=== PATIENT | male | born 1945 | race Caucasian/White ===

== ENCOUNTER 2018-08-27 17:45 | Inpatient (IN) | payer MEDICARE, OTHER, SELFPAY ==
[2018-08-27 17:47] VITALS: BP 114/60; PULSE 99; RESP 16; TEMP 36.3; O2SAT 99; BMI 25.8
--- NOTE | 2018-08-27 20:33 | US_ITS ---
STUDY: ABDOMINAL ULTRASOUND - RIGHT UPPER QUADRANT REASON FOR VISIT: Male, 73 years old. Abdominal pain and vomiting. TECHNIQUE: Ultrasound evaluation of the right upper quadrant was performed with real-time and static ugarte-scale imaging. TECHNICAL QUALITY: Adequate. COMPARISON: None. FINDINGS: Liver: The liver measures 16.9 cm. There is normal echogenicity of the liver. The bile ducts are within normal limits. There is hepatic color flow. The direction of portal flow is hepatopetal. There is no demonstrated mass lesion. Gallbladder: Normal distended gallbladder. The gallbladder wall measures 2 mm. There is a negative sonographic Terry's sign. There is no pericholecystic fluid. There are no gallstones. Common Bile Duct (C.B.D.): The common bile duct measures 4 mm. Pancreas: There is inadequate visualization of the pancreas. Right Kidney: Normal size of the right kidney. The right kidney measures 9.6 cm. Normal renal cortex. The right cortex measures 1.0 cm. There is no demonstrated renal mass or cyst. There is no right hydronephrosis. US/Gallbladder IMPRESSION: No definite abnormality. Electronically Signed: Luis Flores MD at 21:35 EST , Service support ,
--- NOTE | 2018-08-27 20:37 | ED.DCSUM_ITS ---
- ER Visit Summary Date of Service: 08/27/18 Chief Complaint: Right upper quadrant abdominal pain History of Present Illness: The patient is a 73 M history of reflux and hiatal hernia. For the last 5 weeks she had abdominal pain. Primarily when he eats and primarily the right upper quadrant. He was seen and treated in [place] with a CAT scan which he diagnosed with a hiatal hernia and reflux. He seen a surgeon down there. They are going to get a HIDA scan. Patient states his pain is getting worse. And is lost 28 pounds in the last 5 weeks. He has nausea but no vomiting. No diarrhea. No melena. No fever. Physical Examination: Vital signs are stable and afebrile. He is no acute distress. EENT exam is unremarkable. Neck nontender. Lungs clear to auscultation bilaterally. Heart regular rhythm no murmur. Abdomen soft. Nondistended. Normal bowel sounds. He does have right upper quadrant tenderness. No rebound. He does guard. No hernias. No masses. No signs of obstruction. No pulsatile mass. Patient moving all 4 extremities. Calves nontender. No edema. Neurologically is awake and alert with no focal motor deficits. Back is nontender. Test Results: CBC showed a white count of 5. Hemoglobin of 13. Hemoglobin several weeks ago at another facility was 15. His platelet count is only 34,000 today previously was 212. His BUN is 43 creatinine 1.97 consistent with dehydration and renal insufficiency. Previously his creatinine was 1.5. Liver enzymes are slightly elevated including his alk phos of 614. Lipase is normal. Ultrasound of his gallbladder showed no acute abnormality and was read as normal. I was able to obtain the CAT scan reading from the other facility and that was unremarkable other than a hiatal hernia. Emergency Department Course and Treatment: Treated with IV Zofran. He did not want anything for pain. Ultrasound and labs will be obtained. Repeat exam at 2240 patient is doing better after 2 L of normal saline. He still nauseated despite Zofran x2 and was given a dose of Phenergan. Treatment Plan: Considering the patient's 20 pound weight loss in 5 weeks, his dehydration, renal insufficiency and uncertain cause for the abdominal pain along with his significant thrombocytopenia. I do feel he warrants admission and further evaluation. He may need upper endoscopy. Disposition: Admission. Impression: Acute right upper quadrant abdominal pain of uncertain etiology. Dehydration and renal insufficiency Acute thrombocytopenia 28 pound weight loss of uncertain etiology Intractable nausea This note was generated with [employer] dictation software. It may contain incorrect words, spelling, and punctuation that were not noted in review of the chart prior to signing ED Disposition - Plan for ED Patient: Chief Complaint: Abd Pain
[2018-08-27] MEDS: Ondansetron 4 MG/2 ML Vial IV ×2 (20:44→21:33)
[2018-08-27 20:52] LABS: Hematocrit 39.2 % (40-54); Hemoglobin 13.2 g/dl (13.0-16.5); Mean Corp Hgb Conc 33.7 g/gl (32-36); Mean Corpuscular Hgb 29.1 pg (27.0-32.0); Mean Corpuscular Volume 86.3 fL (80-94); Mean Platelet Vol. 12.5 fl (6.2-12.0); Platelet Count 34 K/mm3 (150-450); RBC Distribution Width CV 13.2 % (11.6-14.6); RBC Distribution Width SD 41.5 fl (35.1-43.9); Red Blood Count 4.54 M/mm3 (4.6-6.2); White Blood Count 5.7 K/mm3 (4.4-11.0)
[2018-08-27 21:04] LABS: AST(SGOT) 30 U/L (15-37); Alanine Aminotransfer ALT/SGPT 29 U/L (16-61); Albumin, Serum 3.3 g/dL (3.2-5.0); Alkaline Phosphatase 614 U/L (45-117); Anion Gap 7 (5-15); BUN 43 mg/dL (7-18); BUN/Creat Ratio 21.8 RATIO (10-20); Bilirubin, Direct 0.34 mg/dL (0.00-0.30); Calcium,Total 9.1 mg/dL (8.5-10.1); Chloride 107 mmol/L (98-107); Creatinine, Serum 1.97 mg/dL (0.70-1.30); EST Glomerular Filtration Rate 35 mL/min (>60); Est Glom Filt Rate - Afr Amer 43 mL/min (>60); Estimated Creatinine Clearance 33.45 ml/min; Globulin 3.8 g/dL (2.2-4.2); Glucose 110 mg/dL (74-106); Lipase 190 U/L (73-393); Potassium 4.4 mmol/L (3.5-5.1); Protein, Total 7.1 g/dL (6.4-8.2); Sodium Level 141 mmol/L (136-145)
[2018-08-27 21:12] LABS: POSITIVE COUNT YES; POSITIVE DIFFERENTIAL NO; POSITIVE MORPHOLOGY YES
[2018-08-27 21:15] LABS: Eosinophil 1 % (0-5); Lymphocyte 43 % (19-41); Monocyte 5 % (0-10); Neutrophil-Band 6 % (0-5); Neutrophil-Segmented 45 % (47-70); Total Cells Counted 100 (MANUAL DIFF)
[2018-08-27 21:16] LABS: Red Cell Morphology NORM C+C NORMAL (NORM C&C)
[2018-08-27 21:17] LABS: Platelet Estimate MKD DEC (ADEQ)
--- NOTE | 2018-08-27 21:19 | ED.RN ---
lab called with critical lab results. plt count 34. Dr. Celeste made aware. no new orders at this time
[2018-08-27 21:24] VITALS: BP 143/78; PULSE 74; RESP 14; O2SAT 97
[2018-08-27 21:34] LABS: Differential Indicated MANUAL DIFF; Scan Smear per Review Criteria MANUAL DIFF
[2018-08-27 21:35] LABS: Absolute Lymphocyte Count 2.45 X10^3/ul (0.83-4.51); Absolute Neutrophil Count 2.9 X10^3/uL (2.0-7.7)
[2018-08-27] MEDS: proMETHazine 25 MG/ML Syringe 6.25 MG IV (23:00)
[2018-08-27 23:05] VITALS: BP 157/67
--- NOTE | 2018-08-27 23:06 | PCM.HP.STD ---
Problem List (1) Weight loss Status: Acute (2) History of bladder cancer Status: Chronic (3) Abdominal pain Status: Acute Qualifiers: Abdominal location: generalized Qualified Code(s): R10.84 - Generalized abdominal pain (4) Nausea Status: Acute (5) Anorexia Status: Acute History of Present Illness Date of Admission: 08/27/18 Chief Complaint: abdominal pain, nausea The patient is a 73 year old male patient with chief complain of abdominal pain with nausea. He was seen and sent home form [facility] today with a negative CT scan done at that time. He has a history of bladder cancer 7 years ago for which he has follow up care annually. He has intractable nausea and occasional vomiting with a 28lb weight loss over the past 2 months. Ultrasound of gallbladder is negative. The patient had some relief from Zofran but continues to be nauseated and dehydrated. Plates are low at 34 with no previous history of thrombocytopenia.He will be admitted for further workup and made NPO for surgical evaluation should colonoscopy and endoscopy be deemed appropriate by product consultant. Past Medical History Past Medical History (Chronic Problems): Chronic Problems History of bladder cancer (Chronic) Allergies No Known Allergies Allergy (Verified 08/27/18 20:00) Home Medications: Ambulatory Orders Medication Instructions Recorded Tamsulosin HCl [Flomax] 0.4 mg PO DAILY 08/27/18 Smoking Status: Former smoker - *Family History Maternal History Items: No pertinent history Review of Systems Constitutional: Reports: Weakness, Weight Change, Fatigue. Denies: Chills, Fever HEENT: Denies: Head Aches, Sinus Congestion, Sinus Drainage Cardiovascular: Denies: Chest Pain, Palpitations Respiratory: Denies: Cough, Shortness of breath at rest, Sputum production Gastrointestinal: Reports: Abdominal Pain, Nausea, Vomiting Genitourinary: Denies: Dysuria Musculoskeletal: Denies: Joint Pain, Joint Tenderness Skin: Denies: Rash, Wounds Neurological: Denies: Numbness, Tingling, Focal weakness Psychiatric: Denies: Anxiety, Depression, Homicidal Ideations, Suicidal Ideations Hematologic/ Lymphatic: Denies: Easy Bruising, Easy Bleeding VTE Information - Inpt Only VTE Present on Admission: No VTE Mechan Device Prophylaxis: SCD's VTE Pharm Prophylaxis ordered?: No Reason prophylaxis not ordered:: Medical Contraindication Patient Problems: Active and Suspected Problems Weight loss (Acute) Abdominal pain (Acute) Nausea (Acute) Anorexia (Acute) - Physical Exam General: Alert, Oriented x3, Cooperative HEENT: Atraumatic, Normocephalic Neck: Supple Lungs: Clear to auscultation, Normal air movement Cardiovascular: Regular rate, Regular Rhythm, Normal S1, Normal S2, No murmurs Abdomen: Bowel Sounds Present, Distended, Tender, No hernias noted Extremities: No edema Skin: No rashes, No breakdown Musculoskeletal: No Tenderness to Palpation of Joints or Extremities Neurological: Neuro grossly intact Psych/Mental Status: Normal Affect, Appropriate Vital Signs Temp Pulse Resp BP Pulse Ox 97.4 F L 74 14 157/67 H 97 08/27/18 17:47 08/27/18 21:24 08/27/18 21:24 08/27/18 23:05 08/27/18 21:24 Oxygen Delivery Method Room Air Weight: 180 lb Body Mass Index (BMI) 25.8 Laboratory Tests Past 24 Hrs 08/27/18 08/27/18 20:40 20:40 WBC 5.7 RBC 4.54 L Hgb 13.2 Hct 39.2 L MCV 86.3 MCH 29.1 MCHC 33.7 RDW 13.2 RDW Differential 41.5 Plt Count 34 L* MPV 12.5 H Immature Gran % (Auto) ART INSTALLER Neut % (Auto) ART INSTALLER Lymph % (Auto) ART INSTALLER [place] % (Auto) ART INSTALLER Eos % (Auto) ART INSTALLER Baso % (Auto) ART INSTALLER Absolute Neuts (auto) 2.9 Absolute Lymphs (auto) 2.45 Total Counted 100 Neutrophils % (Manual) 45 L Band Neutrophils % 6 H Lymphocytes % (Manual) 43 H Monocytes % (Manual) 5 Eosinophils % (Manual) 1 Diff Path Review May foll Platelet Estimate MKD DEC RBC Morphology NORM C+C Sodium 141 Potassium 4.4 Chloride 107 Carbon Dioxide 27.0 Anion Gap 7 BUN 43 H Creatinine 1.97 H Estim Creat Clear Calc 33.45 Est GFR (MDRD) Af Amer 43 L Est GFR (MDRD) Non-Af 35 L BUN/Creatinine Ratio 21.8 H Glucose 110 H Calcium 9.1 Total Bilirubin 1.30 H Direct Bilirubin 0.34 H AST 30 ALT 29 Alkaline Phosphatase 614 H Total Protein 7.1 Albumin 3.3 Globulin 3.8 Lipase 190 Assessment/Plan All Active Problems Weight loss (Acute) Abdominal pain (Acute) Nausea (Acute) Anorexia (Acute) Plan - admit to general medical floor - consult Dr Downing for surgical evaluation (possible EGD and colonoscopy) - will make NPO at midnight - d51/2 normal saline at 100cc/hour - zofran 8mg IV q 8hrs prn - phenergan 12.5mg IV q 6hrs prn - morphine 4mg IV q 3 hrs prn pain - CBC, CMP in am - SCDs for DVT prophylaxis - start IV protonix 40mg BID Code Visit Inpatient E&M: 18079 Init Hosp L3
--- NOTE | 2018-08-27 23:11 | HP.PCM_ITS ---
Problem List (1) Weight loss Status: Acute (2) History of bladder cancer Status: Chronic (3) Abdominal pain Status: Acute Qualifiers: Abdominal location: generalized Qualified Code(s): R10.84 - Generalized abdominal pain (4) Nausea Status: Acute (5) Anorexia Status: Acute History of Present Illness Date of Admission: 08/27/18 Chief Complaint: abdominal pain, nausea The patient is a 73 year old male patient with chief complain of abdominal pain with nausea. He was seen and sent home form [facility] today with a negative CT scan done at that time. He has a history of bladder cancer 7 years ago for which he has follow up care annually. He has intractable nausea and occasional vomiting with a 28lb weight loss over the past 2 months. Ultrasound of gallbladder is negative. The patient had some relief from Zofran but continues to be nauseated and dehydrated. Plates are low at 34 with no previous history of thrombocytopenia.He will be admitted for further workup and made NPO for surgical evaluation should colonoscopy and endoscopy be deemed appropriate by freight traffic consultant. Past Medical History Past Medical History (Chronic Problems): Chronic Problems History of bladder cancer (Chronic) Allergies No Known Allergies Allergy (Verified 08/27/18 20:00) Home Medications: Ambulatory Orders Medication Instructions Recorded Tamsulosin HCl [Flomax] 0.4 mg PO DAILY 08/27/18 Smoking Status: Former smoker - *Family History Maternal History Items: No pertinent history Review of Systems Constitutional: Reports: Weakness, Weight Change, Fatigue. Denies: Chills, Fever HEENT: Denies: Head Aches, Sinus Congestion, Sinus Drainage Cardiovascular: Denies: Chest Pain, Palpitations Respiratory: Denies: Cough, Shortness of breath at rest, Sputum production Gastrointestinal: Reports: Abdominal Pain, Nausea, Vomiting Genitourinary: Denies: Dysuria Musculoskeletal: Denies: Joint Pain, Joint Tenderness Skin: Denies: Rash, Wounds Neurological: Denies: Numbness, Tingling, Focal weakness Psychiatric: Denies: Anxiety, Depression, Homicidal Ideations, Suicidal Ideations Hematologic/ Lymphatic: Denies: Easy Bruising, Easy Bleeding VTE Information - Inpt Only VTE Present on Admission: No VTE Mechan Device Prophylaxis: SCD's VTE Pharm Prophylaxis ordered?: No Reason prophylaxis not ordered:: Medical Contraindication Patient Problems: Active and Suspected Problems Weight loss (Acute) Abdominal pain (Acute) Nausea (Acute) Anorexia (Acute) - Physical Exam General: Alert, Oriented x3, Cooperative HEENT: Atraumatic, Normocephalic Neck: Supple Lungs: Clear to auscultation, Normal air movement Cardiovascular: Regular rate, Regular Rhythm, Normal S1, Normal S2, No murmurs Abdomen: Bowel Sounds Present, Distended, Tender, No hernias noted Extremities: No edema Skin: No rashes, No breakdown Musculoskeletal: No Tenderness to Palpation of Joints or Extremities Neurological: Neuro grossly intact Psych/Mental Status: Normal Affect, Appropriate Vital Signs Temp Pulse Resp BP Pulse Ox 97.4 F L 74 14 157/67 H 97 08/27/18 17:47 08/27/18 21:24 08/27/18 21:24 08/27/18 23:05 08/27/18 21:24 Oxygen Delivery Method Room Air Weight: 180 lb Body Mass Index (BMI) 25.8 Laboratory Tests Past 24 Hrs 08/27/18 08/27/18 20:40 20:40 WBC 5.7 RBC 4.54 L Hgb 13.2 Hct 39.2 L MCV 86.3 MCH 29.1 MCHC 33.7 RDW 13.2 RDW Differential 41.5 Plt Count 34 L* MPV 12.5 H Immature Gran % (Auto) DIGITAL MEDIA ANALYST Neut % (Auto) DIGITAL MEDIA ANALYST Lymph % (Auto) DIGITAL MEDIA ANALYST [place] % (Auto) DIGITAL MEDIA ANALYST Eos % (Auto) DIGITAL MEDIA ANALYST Baso % (Auto) DIGITAL MEDIA ANALYST Absolute Neuts (auto) 2.9 Absolute Lymphs (auto) 2.45 Total Counted 100 Neutrophils % (Manual) 45 L Band Neutrophils % 6 H Lymphocytes % (Manual) 43 H Monocytes % (Manual) 5 Eosinophils % (Manual) 1 Diff Path Review May foll Platelet Estimate MKD DEC RBC Morphology NORM C+C Sodium 141 Potassium 4.4 Chloride 107 Carbon Dioxide 27.0 Anion Gap 7 BUN 43 H Creatinine 1.97 H Estim Creat Clear Calc 33.45 Est GFR (MDRD) Af Amer 43 L Est GFR (MDRD) Non-Af 35 L BUN/Creatinine Ratio 21.8 H Glucose 110 H Calcium 9.1 Total Bilirubin 1.30 H Direct Bilirubin 0.34 H AST 30 ALT 29 Alkaline Phosphatase 614 H Total Protein 7.1 Albumin 3.3 Globulin 3.8 Lipase 190 Assessment/Plan All Active Problems Weight loss (Acute) Abdominal pain (Acute) Nausea (Acute) Anorexia (Acute) Plan - admit to general medical floor - consult Dr Downing for surgical evaluation (possible EGD and colonoscopy) - will make NPO at midnight - d51/2 normal saline at 100cc/hour - zofran 8mg IV q 8hrs prn - phenergan 12.5mg IV q 6hrs prn - morphine 4mg IV q 3 hrs prn pain - CBC, CMP in am - SCDs for DVT prophylaxis - start IV protonix 40mg BID Code Visit Inpatient E&M: 47035 Init Hosp L3
[2018-08-27 23:20] VITALS: BMI 25.6
[2018-08-27 23:23] VITALS: BP 148/82; PULSE 88; RESP 16; TEMP 36.6; O2SAT 100
[2018-08-27 23:42] VITALS: BMI 25.6
[2018-08-27 23:42] LABS: Hematocrit 37.7 % (40-54); Hemoglobin 12.8 g/dl (13.0-16.5); Mean Corpuscular Hgb 29.6 pg (27.0-32.0); Mean Corpuscular Volume 87.1 fL (80-94); Mean Platelet Vol. 12.4 fl (6.2-12.0); RBC Distribution Width SD 40.1 fl (35.1-43.9); Red Blood Count 4.33 M/mm3 (4.6-6.2); White Blood Count 5.7 K/mm3 (4.4-11.0)
[2018-08-27 23:43] LABS: Platelet Count 31 K/mm3 (150-450); Scan Indicated on CBC? Y/N YES- FLAGS NOTED
[2018-08-28 00:04] LABS: Differential Comment SCAN
[2018-08-28] MEDS: Dext 5%-0.45% NS 1,000 ML 100 ML IV ×3 (00:14→19:17)
[2018-08-28 05:02] VITALS: BP 126/58; PULSE 83; RESP 18; TEMP 36.7; O2SAT 94
[2018-08-28 05:30] LABS: ALB/GLOB Ratio 0.9 RATIO (0.9-2.4); AST(SGOT) 27 U/L (15-37); Alanine Aminotransfer ALT/SGPT 26 U/L (16-61); Albumin, Serum 2.9 g/dL (3.2-5.0); Alkaline Phosphatase 518 U/L (45-117); Anion Gap 7 (5-15); BUN 41 mg/dL (7-18); BUN/Creat Ratio 20.9 RATIO (10-20); Calcium,Total 8.8 mg/dL (8.5-10.1); Chloride 108 mmol/L (98-107); Creatinine, Serum 1.96 mg/dL (0.70-1.30); EST Glomerular Filtration Rate 36 mL/min (>60); Est Glom Filt Rate - Afr Amer 43 mL/min (>60); Estimated Creatinine Clearance 33.62 ml/min; Globulin 3.2 g/dL (2.2-4.2); Glucose 115 mg/dL (74-106); Protein, Total 6.1 g/dL (6.4-8.2); Sodium Level 144 mmol/L (136-145)
[2018-08-28 05:31] LABS: Hematocrit 34.4 % (40-54); Hemoglobin 11.7 g/dl (13.0-16.5); Mean Corpuscular Hgb 29.5 pg (27.0-32.0); Mean Corpuscular Volume 86.6 fL (80-94); Mean Platelet Vol. 11.8 fl (6.2-12.0); RBC Distribution Width CV 12.9 % (11.6-14.6); RBC Distribution Width SD 39.9 fl (35.1-43.9); Red Blood Count 3.97 M/mm3 (4.6-6.2); White Blood Count 5.2 K/mm3 (4.4-11.0)
[2018-08-28 05:33] LABS: Differential Indicated MANUAL DIFF; POSITIVE COUNT YES; POSITIVE DIFFERENTIAL NO; POSITIVE MORPHOLOGY YES; Platelet Count 30 K/mm3 (150-450)
[2018-08-28 07:26] LABS: Basophil 1 % (0-1); Eosinophil 3 % (0-5); Lymphocyte 44 % (19-41); Metamyelocyte 2 % (0-1); Monocyte 9 % (0-10); Myelocyte 3 (0-0); Neutrophil-Band 5 % (0-5); Neutrophil-Segmented 33 % (47-70); Total Cells Counted 100 (MANUAL DIFF)
[2018-08-28 07:27] LABS: Platelet Estimate MKD DEC (ADEQ); Red Cell Morphology NORM C+C NORMAL (NORM C&C)
[2018-08-28 07:29] LABS: Absolute Lymphocyte Count 2.29 X10^3/ul (0.83-4.51)
--- NOTE | 2018-08-28 09:18 | PCM.CONS.GEN ---
Reason for Consult Date of Consultation: 08/28/18 History of Present Illness: The patient is a 73 year old M admitted due to nausea/abdominal pain/30 pound weight loss in the last 2 months. Patient states that about 4-5 weeks ago he began having constant nausea and periumbilical tenderness that he rated 7?8/10. Patient states he did not take much p.o. intake only chicken noodle soup and states that p.o. did not change his pain at all. He also states he has lost about 30 pounds in 2 months. Patient did initially see his PCP and did have a CAT scan done 3-4 weeks ago which per the report was normal except for a periumbilical hernia. Patient denies trying any medications to help his nausea or pain. Does have a past medical history of bladder cancer 8-9 years ago where a small area was removed patient did not need any additional therapy or chemotherapy and is only on Flomax. Patient states he had a colonoscopy in 2011 where 4 polyps was removed by Dr. Quesada in [place] and states that he was told to come back in 10 years. Patient denies any heartburn symptoms or any right upper quadrant pain with eating. He did have an ultrasound of his gallbladder which was normal. Pt mom was dx with pancreatic cancer at age 74. Patient's lab did show thrombocytopenia of 30 along with lymphocytosis. Patient denies having abnormal labs in the past. Patient states currently he does not have much abdominal pain may be a 1-2/10 and denies any nausea which is the best it has been in about 5 weeks. Past Medical History Past Medical History (Chronic Problems): Chronic Problems History of bladder cancer (Chronic) Allergies No Known Allergies Allergy (Verified 08/27/18 20:00) Home Medications: Ambulatory Orders Medication Instructions Recorded Aspirin [Aspirin EC] 81 mg PO DAILY 08/28/18 Tamsulosin HCl [Flomax] 0.4 mg PO DAILY 08/28/18 Surgical History: - - Neck cyst excision, teeth extraction Psychiatric History: No pertinent psych hx Smoking Status: Former smoker Tobacco Use: Pipe - *Family History Maternal History Items: Cancer - Pancreatic cancer diagnosed at age 72, No pertinent history Review of Systems Constitutional: Denies: Chills Eyes: Denies: Blurred vision HEENT: Denies: Difficulty Swallowing Cardiovascular: Denies: Chest Pain Respiratory: Denies: Shortness of Breath Gastrointestinal: Reports: Abdominal Pain, Nausea Genitourinary: Denies: Dysuria Musculoskeletal: Denies: Joint Pain Skin: Denies: Rash Neurological: Denies: Balance problems, Confusion Psychiatric: Denies: Anxiety, Depression Hematologic/ Lymphatic: Reports: Easy Bruising Patient Problems: Active and Suspected Problems Weight loss (Acute) Abdominal pain (Acute) Nausea (Acute) Anorexia (Acute) - Physical Exam General: Alert, Oriented x3, Cooperative, No apparent distress HEENT: Atraumatic Neck: Supple Lungs: Normal air movement Cardiovascular: Regular rate Abdomen: Soft, Non Tender, Non-Distended, Passing Flatus, Hernia - Small umbilical hernia less than 1 cm reducible Extremities: No clubbing, No cyanosis, No edema Skin: No rashes Neurological: Cranial nerves II-XII grossly intact Psych/Mental Status: Normal Affect Vital Signs Temp Pulse Resp BP Pulse Ox 98.0 F 83 18 126/58 H 94 08/28/18 05:02 08/28/18 05:02 08/28/18 05:02 08/28/18 05:02 08/28/18 05:02 Oxygen Delivery Method Room Air Weight: 178 lb 9.191 oz Body Mass Index (BMI) 25.6 Intake and Output for Last 24 Hours 08/26/18 08/27/18 08/28/18 23:59 23:59 23:59 Intake Total 535 / 535 Output Total 0 / 0 Balance 535 / 535 Laboratory Tests Past 24 Hrs 08/27/18 08/27/18 08/27/18 20:40 20:40 23:32 WBC 5.7 5.7 RBC 4.54 L 4.33 L Hgb 13.2 12.8 L Hct 39.2 L 37.7 L MCV 86.3 87.1 MCH 29.1 29.6 MCHC 33.7 34.0 RDW 13.2 13.0 RDW Differential 41.5 40.1 Plt Count 34 L* 31 L* MPV 12.5 H 12.4 H Immature Gran % (Auto) DEVULCANIZER OPERATOR Neut % (Auto) DEVULCANIZER OPERATOR Lymph % (Auto) DEVULCANIZER OPERATOR [place] % (Auto) DEVULCANIZER OPERATOR Eos % (Auto) DEVULCANIZER OPERATOR Baso % (Auto) DEVULCANIZER OPERATOR Absolute Neuts (auto) 2.9 Absolute Lymphs (auto) 2.45 Total Counted 100 Neutrophils % (Manual) 45 L Band Neutrophils % 6 H Lymphocytes % (Manual) 43 H Monocytes % (Manual) 5 Eosinophils % (Manual) 1 Basophils % (Manual) Metamyelocytes % Myelocytes % Differential Comment SCAN Diff Path Review May foll May foll Platelet Estimate MKD DEC RBC Morphology NORM C+C Sodium 141 Potassium 4.4 Chloride 107 Carbon Dioxide 27.0 Anion Gap 7 BUN 43 H Creatinine 1.97 H Estim Creat Clear Calc 33.45 Est GFR (MDRD) Af Amer 43 L Est GFR (MDRD) Non-Af 35 L BUN/Creatinine Ratio 21.8 H Glucose 110 H Calcium 9.1 Total Bilirubin 1.30 H Direct Bilirubin 0.34 H AST 30 ALT 29 Alkaline Phosphatase 614 H Total Protein 7.1 Albumin 3.3 Globulin 3.8 Albumin/Globulin Ratio Lipase 190 08/28/18 08/28/18 04:54 04:54 WBC 5.2 RBC 3.97 L Hgb 11.7 L Hct 34.4 L MCV 86.6 MCH 29.5 MCHC 34.0 RDW 12.9 RDW Differential 39.9 Plt Count 30 L* MPV 11.8 Immature Gran % (Auto) Neut % (Auto) Not Reportable Lymph % (Auto) [place] % (Auto) Eos % (Auto) Baso % (Auto) Absolute Neuts (auto) 2.0 Absolute Lymphs (auto) 2.29 Total Counted 100 Neutrophils % (Manual) 33 L Band Neutrophils % 5 Lymphocytes % (Manual) 44 H Monocytes % (Manual) 9 Eosinophils % (Manual) 3 Basophils % (Manual) 1 Metamyelocytes % 2 H Myelocytes % 3 H Differential Comment Diff Path Review May foll Platelet Estimate MKD DEC RBC Morphology NORM C+C Sodium 144 Potassium 4.0 Chloride 108 H Carbon Dioxide 29.0 Anion Gap 7 BUN 41 H Creatinine 1.96 H Estim Creat Clear Calc 33.62 Est GFR (MDRD) Af Amer 43 L Est GFR (MDRD) Non-Af 36 L BUN/Creatinine Ratio 20.9 H Glucose 115 H Calcium 8.8 Total Bilirubin 0.90 Direct Bilirubin AST 27 ALT 26 Alkaline Phosphatase 518 H Total Protein 6.1 L Albumin 2.9 L Globulin 3.2 Albumin/Globulin Ratio 0.9 Lipase Assessment/Plan All Active Problems Weight loss (Acute) Abdominal pain (Acute) Nausea (Acute) Anorexia (Acute) 73-year-old male with nausea/abdominal pain/weight loss, thrombocytopenia, lymphocytosis 1. Patient complains of nausea, as well as periumbilical pain denies any epigastric or right upper quadrant tenderness. Currently states his pain is the best it has been in 5 weeks as it is very minimal and denies any nausea currently. Due to his platelets being 30 I am not sure that an EGD is urgently needed. I would recommend a workup with hematology. If I were to do an EGD with his current platelets I would not plan to do any biopsies due to his risk of bleeding. This was discussed with the patient he is agreeable to wait and see what hematology recommends. Also discussed with Dr. Iverson. We will try to get his colonoscopy report from [address] abdomen pelvis disc, pt may benefit from CT with contrast-however currently Cr is elevated at 1.96. Iza Downing M.D. Pager: [phone] [facility] [address] [place] [address], [facility], [address] [place] [address] Office: [phone] Code Visit Inpatient E&M: 09266 Init Hosp L2
--- NOTE | 2018-08-28 09:23 | CON.PCM_ITS ---
Reason for Consult Date of Consultation: 08/28/18 History of Present Illness: The patient is a 73 year old M admitted due to nausea/abdominal pain/30 pound weight loss in the last 2 months. Patient states that about 4-5 weeks ago he began having constant nausea and periumbilical tenderness that he rated 7?8/10. Patient states he did not take much p.o. intake only chicken noodle soup and states that p.o. did not change his pain at all. He also states he has lost about 30 pounds in 2 months. Patient did initially see his PCP and did have a CAT scan done 3-4 weeks ago which per the report was normal except for a periumbilical hernia. Patient denies trying any medications to help his nausea or pain. Does have a past medical history of bladder cancer 8-9 years ago where a small area was removed patient did not need any additional therapy or chemotherapy and is only on Flomax. Patient states he had a colonoscopy in 2011 where 4 polyps was removed by Dr. Quesada in [place] and states that he was told to come back in 10 years. Patient denies any heartburn symptoms or any right upper quadrant pain with eating. He did have an ultrasound of his gallbladder which was normal. Pt mom was dx with pancreatic cancer at age 74. Patient's lab did show thrombocytopenia of 30 along with lymphocytosis. Patient denies having abnormal labs in the past. Patient states currently he does not have much abdominal pain may be a 1-2/10 and denies any nausea which is the best it has been in about 5 weeks. Past Medical History Past Medical History (Chronic Problems): Chronic Problems History of bladder cancer (Chronic) Allergies No Known Allergies Allergy (Verified 08/27/18 20:00) Home Medications: Ambulatory Orders Medication Instructions Recorded Aspirin [Aspirin EC] 81 mg PO DAILY 08/28/18 Tamsulosin HCl [Flomax] 0.4 mg PO DAILY 08/28/18 Surgical History: - - Neck cyst excision, teeth extraction Psychiatric History: No pertinent psych hx Smoking Status: Former smoker Tobacco Use: Pipe - *Family History Maternal History Items: Cancer - Pancreatic cancer diagnosed at age 74, No pertinent history Review of Systems Constitutional: Denies: Chills Eyes: Denies: Blurred vision HEENT: Denies: Difficulty Swallowing Cardiovascular: Denies: Chest Pain Respiratory: Denies: Shortness of Breath Gastrointestinal: Reports: Abdominal Pain, Nausea Genitourinary: Denies: Dysuria Musculoskeletal: Denies: Joint Pain Skin: Denies: Rash Neurological: Denies: Balance problems, Confusion Psychiatric: Denies: Anxiety, Depression Hematologic/ Lymphatic: Reports: Easy Bruising Patient Problems: Active and Suspected Problems Weight loss (Acute) Abdominal pain (Acute) Nausea (Acute) Anorexia (Acute) - Physical Exam General: Alert, Oriented x3, Cooperative, No apparent distress HEENT: Atraumatic Neck: Supple Lungs: Normal air movement Cardiovascular: Regular rate Abdomen: Soft, Non Tender, Non-Distended, Passing Flatus, Hernia - Small umbilical hernia less than 1 cm reducible Extremities: No clubbing, No cyanosis, No edema Skin: No rashes Neurological: Cranial nerves II-XII grossly intact Psych/Mental Status: Normal Affect Vital Signs Temp Pulse Resp BP Pulse Ox 98.0 F 83 18 126/58 H 94 08/28/18 05:02 08/28/18 05:02 08/28/18 05:02 08/28/18 05:02 08/28/18 05:02 Oxygen Delivery Method Room Air Weight: 178 lb 9.191 oz Body Mass Index (BMI) 25.6 Intake and Output for Last 24 Hours 08/26/18 08/27/18 08/28/18 23:59 23:59 23:59 Intake Total 535 / 535 Output Total 0 / 0 Balance 535 / 535 Laboratory Tests Past 24 Hrs 08/27/18 08/27/18 08/27/18 20:40 20:40 23:32 WBC 5.7 5.7 RBC 4.54 L 4.33 L Hgb 13.2 12.8 L Hct 39.2 L 37.7 L MCV 86.3 87.1 MCH 29.1 29.6 MCHC 33.7 34.0 RDW 13.2 13.0 RDW Differential 41.5 40.1 Plt Count 34 L* 31 L* MPV 12.5 H 12.4 H Immature Gran % (Auto) [facility] Neut % (Auto) [facility] Lymph % (Auto) [facility] [place] % (Auto) [facility] Eos % (Auto) [facility] Baso % (Auto) [facility] Absolute Neuts (auto) 2.9 Absolute Lymphs (auto) 2.45 Total Counted 100 Neutrophils % (Manual) 45 L Band Neutrophils % 6 H Lymphocytes % (Manual) 43 H Monocytes % (Manual) 5 Eosinophils % (Manual) 1 Basophils % (Manual) Metamyelocytes % Myelocytes % Differential Comment SCAN Diff Path Review May foll May foll Platelet Estimate MKD DEC RBC Morphology NORM C+C Sodium 141 Potassium 4.4 Chloride 107 Carbon Dioxide 27.0 Anion Gap 7 BUN 43 H Creatinine 1.97 H Estim Creat Clear Calc 33.45 Est GFR (MDRD) Af Amer 43 L Est GFR (MDRD) Non-Af 35 L BUN/Creatinine Ratio 21.8 H Glucose 110 H Calcium 9.1 Total Bilirubin 1.30 H Direct Bilirubin 0.34 H AST 30 ALT 29 Alkaline Phosphatase 614 H Total Protein 7.1 Albumin 3.3 Globulin 3.8 Albumin/Globulin Ratio Lipase 190 08/28/18 08/28/18 04:54 04:54 WBC 5.2 RBC 3.97 L Hgb 11.7 L Hct 34.4 L MCV 86.6 MCH 29.5 MCHC 34.0 RDW 12.9 RDW Differential 39.9 Plt Count 30 L* MPV 11.8 Immature Gran % (Auto) Neut % (Auto) Not Reportable Lymph % (Auto) [place] % (Auto) Eos % (Auto) Baso % (Auto) Absolute Neuts (auto) 2.0 Absolute Lymphs (auto) 2.29 Total Counted 100 Neutrophils % (Manual) 33 L Band Neutrophils % 5 Lymphocytes % (Manual) 44 H Monocytes % (Manual) 9 Eosinophils % (Manual) 3 Basophils % (Manual) 1 Metamyelocytes % 2 H Myelocytes % 3 H Differential Comment Diff Path Review May foll Platelet Estimate MKD DEC RBC Morphology NORM C+C Sodium 144 Potassium 4.0 Chloride 108 H Carbon Dioxide 29.0 Anion Gap 7 BUN 41 H Creatinine 1.96 H Estim Creat Clear Calc 33.62 Est GFR (MDRD) Af Amer 43 L Est GFR (MDRD) Non-Af 36 L BUN/Creatinine Ratio 20.9 H Glucose 115 H Calcium 8.8 Total Bilirubin 0.90 Direct Bilirubin AST 27 ALT 26 Alkaline Phosphatase 518 H Total Protein 6.1 L Albumin 2.9 L Globulin 3.2 Albumin/Globulin Ratio 0.9 Lipase Assessment/Plan All Active Problems Weight loss (Acute) Abdominal pain (Acute) Nausea (Acute) Anorexia (Acute) 73-year-old male with nausea/abdominal pain/weight loss, thrombocytopenia, lymphocytosis 1. Patient complains of nausea, as well as periumbilical pain denies any epigastric or right upper quadrant tenderness. Currently states his pain is the best it has been in 5 weeks as it is very minimal and denies any nausea currently. Due to his platelets being 30 I am not sure that an EGD is urgently needed. I would recommend a workup with hematology. If I were to do an EGD with his current platelets I would not plan to do any biopsies due to his risk of bleeding. This was discussed with the patient he is agreeable to wait and see what hematology recommends. Also discussed with Dr. Iverson. We will try to get his colonoscopy report from [address] abdomen pelvis disc, pt may benefit from CT with contrast-however currently Cr is elevated at 1.96. Iza Downing M.D. Pager: [phone] [facility] [address] [place] [address], [facility], [address] [place] [address] Office: [phone] Code Visit Inpatient E&M: 34224 Init Hosp L2
[2018-08-28 09:30] VITALS: BP 142/64; PULSE 69; RESP 16; TEMP 36.6; O2SAT 94
[2018-08-28 10:54] LABS: Red Blood Cells-Urine 0 SEEN /hpf (0-5)
[2018-08-28 11:05] LABS: Color, Urine Yellow (Yellow); Glucose, Dipstick Normal (Normal); Ketone-Dipstick 5 mg/dl (Negative); Leukocyte Esterase-Dipstick 25 /ul (Negative); Nitrite-Dipstick Negative (Negative); Occult Blood-Urine Negative /ul (Negative); Protein-Dipstick 15 mg/dl (Negative); Specific Gravity, Urine 1.025 (1.002-1.030); Urine Bilirubin Dipstick Negative (Negative); Urine Clarity Clear (Clear); Urine Urobilinogen Normal (Normal)
[2018-08-28 11:11] LABS: Bacteria RARE /hpf (None Seen); Hyaline Cast 0-5 SEEN /lpf (0-5); Mucous, Urine 1+ /hpf (<or=2+); Squamous Epithelial Cells - UA 0-5 SEEN /hpf (0-5); White Blood Cells 0-5 SEEN /hpf (0-5)
--- NOTE | 2018-08-28 12:40 | CASEMGMT ---
LAVON DIAZ INITIAL ASSESSMENT D/C PLAN: Home Face to Face with patient for initial transition planning/care coordination assessment. LAVON DIAZ introduced self and role at [facility]. Pt resting in bed. Awake/alert/oriented. Willing to participate in assessment and all questions answered appropriately. Care providers, pharmacy, and demographics verified. PCP: Helga Specialists: None Preferred Pharmacy: [facility] Retail on day of d/c only. Insurance: [facility] Prescription Benefit: AARP Living Will/HPOA: Does not have either. Provided AD info booklet and Band Instrument Repairer info card. Instructed pt to inform staff if he would like to talk with someone about AD while @ hospital or he can make appt as out-pt if he chooses. LNOK: , daughter, son Living Arrangements: Lives in one-story home with 2 steps to enter. Independent with ADL's. and pt share home mgmt tasks. Transportation: Pt drives. Son or Dtr able to assist if needed. States his used to drive but does not drive often d/t she has CA. DME: Has built-in shower chair and hand-held shower, otherwise denies using any DME and denies needs. HHC/SNF: Has never used HHC before or been to a SNF. Denies needs for HHC at this time. Pt wishes to return home. Has good family support. CM to follow for any further discharge planning needs that may arise. Brandon STRONG RN, CM
--- NOTE | 2018-08-28 13:46 | ONC.CONS.INP ---
Subjective Date of Service:: 08/28/18 Chief Complaint: Thrombocytopenia History of Present Illness: Mr. Candi Dangelo is a very pleasant 73 year old man with an essentially unremarkable PMH with the exception of superficial bladder ca approx 2009, who developed intractable nausea, RUQ accompanied by an estimated 30 lb weight loss abruptly 6 weeks ago. Was evaluated by surgery at [facility], and plans were made for HIDA scan on 08/31/18. Pain intensity increased which resulted in presentation to [facility] ED 08/27/18. A CT was completed and per patient self report normal. He was discharged and subsequently presented to [facility] later with the same symptoms and admitted for management. Found to have a platelet count of 34,000. Patient denies any previous history of thrombocytopenia, the initiation of any new medications/herbal/otc supplements, ETOH use as well as any episodes of overt bleeding, although notes he bruises easily. Bladder ca surveillance visit with his urologist was completed May 2018, per patient report he was told urine cytology looked good. Specifically denies any chills, night sweats, new onset bone pain, hematuria,melena/hematochezia. Colonoscopy up to date. Cannot recall when his PSA was last checked. Family history positive for mother with pancreatic ca, brother #1- bladder ca, brother #2-prostate ca, brother #3- lung ca. Past Medical History: Chronic Problems History of bladder cancer (Chronic) Past Medical/Surgical History: Past Medical History - Most Recent Inpatient Visit Past Medical History Start: 08/27/18 23:19 Text: Status: Complete Freq: ONCE Protocol: Document 08/27/18 23:42 CDS (Rec: 08/27/18 23:44 CDS [id number]) BMI Required to complete [facility] What is Patient's BMI 25.6 Past Medical History Unable History Recalled No Query Text:Pt Unable/Family Not Present Neurologic Medical History Hx Stroke/TIA No Hx Dementia/Alzheimer's No Hx Parkinson's Disease No Hx Seizures No Hx Multiple Sclerosis No Hx Migraines No Cardiac Medical History VTE Present on Admission No Hx of Deep Vein Thrombosis/VTE/PE No Hx Hypertension No Hx Chest Pain/Angina No Hx Heart Attack No Hx Cardiac Surgery/Stents/Etc. No Hx Heart Failure No Hx Pacemaker/AICD No Hx Irregular Heartbeat and/or Afib No Hx Anticoagulant Therapy No Query Text:(Coumadin, Aspirin, Plavix, Xarelto, etc.) Hx Pain in Legs when Walking/Leg Cramps No Respiratory Medical History Hx COPD No Hx Emphysema No Hx Smoking No Smoking Status Former smoker Tobacco Use Pipe Years Smoking 30 Hx Tobacco Use in last 12 months No Hx Sleep Apnea No Do you snore loudly (louder than talking No or can be heard through closed doors)? Do you often feel tired/ fatigued/ Yes sleepy during daytime? Has anyone observed you stop breathing No during sleep? STOP Results Negative GI Medical History Hx Ulcer No Hx Hepatitis No Hx Cirrhosis No Hx GI Bleed No Hx Unplanned Weight Loss No Genitourinary Medical History Indwelling Catheter in Place on Arrival/ No Admission Hx Renal Disease No Hx Dialysis No Musculoskeletal History Hx Arthritis No Hx Rheumatoid Arthritis No Endocrine Medical History Hx Diabetes No Hx Thyroid Disease No Hematologic Medical History Hx of Blood Transfusion No Hx of Transfusion in last 3 Months No Ever experience any problems with No transfusion(s)? Hx of Preganancy in last 3 Months N/A Nurse Filling Out Transfusion & CSNYDER Questions: Date: 08/27/18 Time: 23:44 Psycho/Social Medical History Hx Depression No Hx Anxiety No Hx Behavior Disorder No Hx Alcohol Use No Hx Substance Use No Other Medical History Hx Blood Disorders No Hx Anemia No Hx Cancer Yes: hx bladder CA Hx Drug Resistant Organism No Wound/Pressure Injury Present on Arrival No /Admission Query Text:If yes, chart assessment in Shift/Clinical Findings Central Line/PICC/VAD Present on Arrival No /Admission Risk for Readmission Number of Risk Factors 1 At Risk for Readmission Patient is Not at Risk Patient is eligible for Call Back N Maternal Family History: Cancer - Pancreatic cancer diagnosed at age 74, No pertinent history - Social History Smoking Status: Former smoker Tobacco Use: Pipe Allergies/Adverse Reactions: Allergy/AdvReac Type Severity Reaction Status Date / Time No Known Allergies Allergy Verified 08/27/18 20:00 Review of Systems Constitutional:: Reports: Weakness, Fatigue, Weight loss, Appetite change. Denies: Fever, Sweats, Chills Cardiovascular:: Denies: Chest pain, Palpitations, Dyspnea on exertion, Orthopnea, PND, Shortness of breath Respiratory: Reports: Sputum production. Denies: Cough, Hemoptysis, Shortness of Breath, Wheezing Gastrointestinal:: Reports: Nausea, Vomiting - occasional. Denies: Abdominal pain, Diarrhea, Constipation, Melena, Hematochezia, Gas/bloating, Reflux, Dysphagia Genitourinary: Reports: Urinary frequency, Nocturia. Denies: Dysuria, Hematuria, Flank pain Musculoskeletal:: Denies: Back pain, Myalgia, Arthralgia Skin: Denies: Rash, Skin Changes, Wounds Neurological:: Denies: Headache, Dizziness, Numbness, Tingling, Frequent falls, Visual changes, Tinnitus, Hearing loss Psychiatric: Denies: Anxiety, Depression, Homicidal Ideations, Suicidal Ideations Vital Signs Height 5 ft 10 in Weight: 178 lb 9.191 oz Weight in Pounds 178.6 lbs Pulse Ox 94 Temperature 97.9 F Pulse Rate 69 Respiratory Rate 16 Blood Pressure 142/64 Blood Pressure Position Semi-Fowlers - Physical Exam General: Alert, Oriented x3, No apparent distress HEENT: Atraumatic, PERRLA, EOMI, Normocephalic Oropharynx:: Negative for: Dry mucosa, Ulcerated lesions Neck:: Supple, Trachea midline. Negative for: JVD, bilateral Cardiac:: Regular rate, Regular rhythm, Normal S1, Normal S2. Negative for: Murmur Lungs: Clear to auscultation, Excusion symmetrical. Negative for: Rhonchi, Wheezes Abdomen:: Bowel sounds x 4, Soft, Non-distended, Guarding, Tender - RUQ. Negative for: Hepatosplenomegaly Extremities:: Negative for: Cyanosis, Edema, Calf tenderness Neurological: Neuro grossly intact Skin:: Negative for: Lesions, Rash, Petechiae, Ecchymosis Psychiatric:: Appropriate affect, Euthymic Lymphatics:: Negative for: Cervical lymphadenopathy, Supraclavicular lymphadenopathy, Axillary lymphadenopathy Laboratory Data: Laboratory Tests 08/28/18 08/28/18 08/28/18 Range/Units 10:30 04:54 04:54 WBC 5.2 (4.4-11.0) K/mm3 RBC 3.97 L (4.6-6.2) M/mm3 Hgb 11.7 L (13.0-16.5) g/dl Hct 34.4 L (40-54) % MCV 86.6 (80-94) fL MCH 29.5 (27.0-32.0) pg MCHC 34.0 (32-36) g/gl RDW 12.9 (11.6-14.6) % RDW Differential 39.9 (35.1-43.9) fl Plt Count 30 L* (150-450) K/mm3 MPV 11.8 (6.2-12.0) fl Immature Gran % (Auto) Neut % (Auto) Not Reportable Lymph % (Auto) [place] % (Auto) Eos % (Auto) Baso % (Auto) Absolute Neuts (auto) 2.0 (2.0-7.7) X10^3/uL Absolute Lymphs (auto) 2.29 (0.83-4.51) X10^3/ul Total Counted 100 (MANUAL DIFF) Neutrophils % (Manual) 33 L (47-70) % Band Neutrophils % 5 (0-5) % Lymphocytes % (Manual) 44 H (19-41) % Monocytes % (Manual) 9 (0-10) % Eosinophils % (Manual) 3 (0-5) % Basophils % (Manual) 1 (0-1) % Metamyelocytes % 2 H (0-1) % Myelocytes % 3 H (0-0) Differential Comment Diff Path Review May foll Platelet Estimate MKD DEC (ADEQ) RBC Morphology NORM C+C (NORM C&C) NORMAL Sodium 144 (136-145) mmol/L Potassium 4.0 (3.5-5.1) mmol/L Chloride 108 H (98-107) mmol/L Carbon Dioxide 29.0 (21.0-32.0) mmol/L Anion Gap 7 (5-15) BUN 41 H (7-18) mg/dL Creatinine 1.96 H (0.70-1.30) mg/dL Estim Creat Clear Calc 33.62 ml/min Est GFR (MDRD) Af Amer 43 L (>60) mL/min Est GFR (MDRD) Non-Af 36 L (>60) mL/min BUN/Creatinine Ratio 20.9 H (10-20) RATIO Glucose 115 H (74-106) mg/dL Calcium 8.8 (8.5-10.1) mg/dL Total Bilirubin 0.90 (0.20-1.00) mg/dL Direct Bilirubin (0.00-0.30) mg/dL AST 27 (15-37) U/L ALT 26 (16-61) U/L Alkaline Phosphatase 518 H (45-117) U/L Total Protein 6.1 L (6.4-8.2) g/dL Albumin 2.9 L (3.2-5.0) g/dL Globulin 3.2 (2.2-4.2) g/dL Albumin/Globulin Ratio 0.9 (0.9-2.4) RATIO Lipase (73-393) U/L Urine Color Yellow (Yellow) Urine Clarity Clear (Clear) Urine pH 5.0 (5.0 - 8.0) Ur Specific [place] 1.025 (1.002-1.030) Urine Protein 15 H (Negative) mg/dl Urine Glucose (UA) Normal (Normal) mg/dl Urine Ketones 5 H (Negative) mg/dl Urine Occult Blood Negative (Negative) /ul Urine Nitrite Negative (Negative) Urine Bilirubin Negative (Negative) mg/dL Urine Urobilinogen Normal (Normal) mg/dl Ur Leukocyte Esterase 25 H (Negative) /ul Urine RBC 0 SEEN (0-5) /hpf Urine WBC 0-5 SEEN (0-5) /hpf Ur Squamous Epith Cells 0-5 SEEN (0-5) /hpf Urine Bacteria RARE (None Seen) /hpf Hyaline Casts 0-5 SEEN (0-5) /lpf Urine Mucus 1+ (<or=2+) /hpf 08/27/18 08/27/18 08/27/18 Range/Units 23:32 20:40 20:40 WBC 5.7 5.7 (4.4-11.0) K/mm3 RBC 4.33 L 4.54 L (4.6-6.2) M/mm3 Hgb 12.8 L 13.2 (13.0-16.5) g/dl Hct 37.7 L 39.2 L (40-54) % MCV 87.1 86.3 (80-94) fL MCH 29.6 29.1 (27.0-32.0) pg MCHC 34.0 33.7 (32-36) g/gl RDW 13.0 13.2 (11.6-14.6) % RDW Differential 40.1 41.5 (35.1-43.9) fl Plt Count 31 L* 34 L* (150-450) K/mm3 MPV 12.4 H 12.5 H (6.2-12.0) fl Immature Gran % (Auto) [employer]IENT SERVER DEVELOPER Neut % (Auto) [employer]IENT SERVER DEVEL[employer] Lymph % (Auto) [employer]IENT SERVER DEVELOPER [place] % (Auto) CLIENT SERVER DEVELOPER Eos % (Auto) CLIENT SERVER DEVELOPER Baso % (Auto) [employer]IENT [employer] DEVEL[employer] Absolute Neuts (auto) 2.9 (2.0-7.7) X10^3/uL Absolute Lymphs (auto) 2.45 (0.83-4.51) X10^3/ul Total Counted 100 (MANUAL DIFF) Neutrophils % (Manual) 45 L (47-70) % Band Neutrophils % 6 H (0-5) % Lymphocytes % (Manual) 43 H (19-41) % Monocytes % (Manual) 5 (0-10) % Eosinophils % (Manual) 1 (0-5) % Basophils % (Manual) (0-1) % Metamyelocytes % (0-1) % Myelocytes % (0-0) Differential Comment SCAN Diff Path Review May foll May foll Platelet Estimate MKD DEC (ADEQ) RBC Morphology NORM C+C (NORM C&C) NORMAL Sodium 141 (136-145) mmol/L Potassium 4.4 (3.5-5.1) mmol/L Chloride 107 (98-107) mmol/L Carbon Dioxide 27.0 (21.0-32.0) mmol/L Anion Gap 7 (5-15) BUN 43 H (7-18) mg/dL Creatinine 1.97 H (0.70-1.30) mg/dL Estim Creat Clear Calc 33.45 ml/min Est GFR (MDRD) Af Amer 43 L (>60) mL/min Est GFR (MDRD) Non-Af 35 L (>60) mL/min BUN/Creatinine Ratio 21.8 H (10-20) RATIO Glucose 110 H (74-106) mg/dL Calcium 9.1 (8.5-10.1) mg/dL Total Bilirubin 1.30 H (0.20-1.00) mg/dL Direct Bilirubin 0.34 H (0.00-0.30) mg/dL AST 30 (15-37) U/L ALT 29 (16-61) U/L Alkaline Phosphatase 614 H (45-117) U/L Total Protein 7.1 (6.4-8.2) g/dL Albumin 3.3 (3.2-5.0) g/dL Globulin 3.8 (2.2-4.2) g/dL Albumin/Globulin Ratio (0.9-2.4) RATIO Lipase 190 (73-393) U/L Urine Color (Yellow) Urine Clarity (Clear) Urine pH (5.0 - 8.0) Ur Specific [place] (1.002-1.030) Urine Protein (Negative) mg/dl Urine Glucose (UA) (Normal) mg/dl Urine Ketones (Negative) mg/dl Urine Occult Blood (Negative) /ul Urine Nitrite (Negative) Urine Bilirubin (Negative) mg/dL Urine Urobilinogen (Normal) mg/dl Ur Leukocyte Esterase (Negative) /ul Urine RBC (0-5) /hpf Urine WBC (0-5) /hpf Ur Squamous Epith Cells (0-5) /hpf Urine Bacteria (None Seen) /hpf Hyaline Casts (0-5) /lpf Urine Mucus (<or=2+) /hpf Diagnostic Data: Diagnostic Data Gallbladder Ultrasound 08/27/18 20:33 IMPRESSION: No definite abnormality. Electronically Signed: Luis Flores MD at 21:35 EST , Service support , Assessment and Plan 73 year old gentlemen with PMH for superficial bladder ca admitted for management of intractable nausea & RUQ pain found to have platelet count of 34,000. 1. Thrombocytopenia- in the absence of active bleeding. Previous CBC for comparison are imperative to determine if this did in fact develop acutely. Impaired renal function present, will obtain SPEP with IFIX, SFLC, LDH. Plan to review peripheral slides with pathology department to determine presence/absence of schistocytes (r/o HUS TTP). 30 lb weight loss concerning. R/o infectious process, obtained H pylori and HIV. 2. Elevated alk phos- Orders placed for GGT and PSA level. 3. H/o superficial bladder ca- Diagnosed approx 2009. Did not require adjuvant chemo or radiation therapy. Repeat urine cytology. It may be prudent to analyze the results of labs and review peripheral smear prior to proceeding with a BMBX. Case discussed with Dr. Lopez who is in agreement with the aforementioned plan. Leana Schneider, MSN, HAND TUBE WINDER-C, AOCNP Medications: Prescriptions This Visit Medication Instructions Recorded Aspirin [Aspirin EC] 81 mg PO DAILY 08/28/18 Tamsulosin HCl [Flomax] 0.4 mg PO DAILY 08/28/18 Medications Added to Medication List This Visit Category Date Time Status 0.9% Saline Lock Med 08/28/18 23:55 Active 5 - 15 ml IV UD PRN Ensure Clear Med 08/28/18 14:00 Active 120 ml PO 4X/DAY Tamsulosin HCl [Flomax] Med 08/28/18 17:30 Active 0.4 mg PO DAILY@1730 Primary Care Provider: Natalee Partida Referring Provider: - Problem List (1) History of bladder cancer Status: Chronic (2) Weight loss Status: Acute (3) Thrombocytopenia Status: Acute
--- NOTE | 2018-08-28 14:03 | CON.PCM_ITS ---
Subjective Date of Service:: 08/28/18 Chief Complaint: Thrombocytopenia History of Present Illness: Mr. Candi Dangelo is a very pleasant 73 year old man with an essentially unremarkable PMH with the exception of superficial bladder ca approx 2009, who developed intractable nausea, RUQ accompanied by an estimated 30 lb weight loss abruptly 6 weeks ago. Was evaluated by surgery at [facility], and plans were made for HIDA scan on 08/31/18. Pain intensity increased which resulted in presentation to [facility] ED 08/27/18. A CT was completed and per patient self report normal. He was discharged and subsequently presented to [facility] later with the same symptoms and admitted for management. Found to have a platelet count of 34,000. Patient denies any previous history of thrombocytopenia, the initiation of any new medications/herbal/otc supplements, ETOH use as well as any episodes of overt bleeding, although notes he bruises easily. Bladder ca surveillance visit with his urologist was completed May 2018, per patient report he was told urine cytology looked good. Specifically denies any chills, night sweats, new onset bone pain, hematuria,melena/hematochezia. Colonoscopy up to date. Cannot recall when his PSA was last checked. Family history positive for mother with pancreatic ca, brother #1- bladder ca, brother #2-prostate ca, brother #3- lung ca. Past Medical History: Chronic Problems History of bladder cancer (Chronic) Past Medical/Surgical History: Past Medical History - Most Recent Inpatient Visit Past Medical History Start: 08/27/18 23:19 Text: Status: Complete Freq: ONCE Protocol: Document 08/27/18 23:42 CDS (Rec: 08/27/18 23:44 CDS [id number]) BMI Required to complete [facility] What is Patient's BMI 25.6 Past Medical History Unable History Recalled No Query Text:Pt Unable/Family Not Present Neurologic Medical History Hx Stroke/TIA No Hx Dementia/Alzheimer's No Hx Parkinson's Disease No Hx Seizures No Hx Multiple Sclerosis No Hx Migraines No Cardiac Medical History VTE Present on Admission No Hx of Deep Vein Thrombosis/VTE/PE No Hx Hypertension No Hx Chest Pain/Angina No Hx Heart Attack No Hx Cardiac Surgery/Stents/Etc. No Hx Heart Failure No Hx Pacemaker/AICD No Hx Irregular Heartbeat and/or Afib No Hx Anticoagulant Therapy No Query Text:(Coumadin, Aspirin, Plavix, Xarelto, etc.) Hx Pain in Legs when Walking/Leg Cramps No Respiratory Medical History Hx COPD No Hx Emphysema No Hx Smoking No Smoking Status Former smoker Tobacco Use Pipe Years Smoking 30 Hx Tobacco Use in last 12 months No Hx Sleep Apnea No Do you snore loudly (louder than talking No or can be heard through closed doors)? Do you often feel tired/ fatigued/ Yes sleepy during daytime? Has anyone observed you stop breathing No during sleep? STOP Results Negative GI Medical History Hx Ulcer No Hx Hepatitis No Hx Cirrhosis No Hx GI Bleed No Hx Unplanned Weight Loss No Genitourinary Medical History Indwelling Catheter in Place on Arrival/ No Admission Hx Renal Disease No Hx Dialysis No Musculoskeletal History Hx Arthritis No Hx Rheumatoid Arthritis No Endocrine Medical History Hx Diabetes No Hx Thyroid Disease No Hematologic Medical History Hx of Blood Transfusion No Hx of Transfusion in last 3 Months No Ever experience any problems with No transfusion(s)? Hx of Preganancy in last 3 Months N/A Nurse Filling Out Transfusion & CSNYDER Questions: Date: 08/27/18 Time: 23:44 Psycho/Social Medical History Hx Depression No Hx Anxiety No Hx Behavior Disorder No Hx Alcohol Use No Hx Substance Use No Other Medical History Hx Blood Disorders No Hx Anemia No Hx Cancer Yes: hx bladder CA Hx Drug Resistant Organism No Wound/Pressure Injury Present on Arrival No /Admission Query Text:If yes, chart assessment in Shift/Clinical Findings Central Line/PICC/VAD Present on Arrival No /Admission Risk for Readmission Number of Risk Factors 1 At Risk for Readmission Patient is Not at Risk Patient is eligible for Call Back N Maternal Family History: Cancer - Pancreatic cancer diagnosed at age 74, No pertinent history - Social History Smoking Status: Former smoker Tobacco Use: Pipe Allergies/Adverse Reactions: Allergy/AdvReac Type Severity Reaction Status Date / Time No Known Allergies Allergy Verified 08/27/18 20:00 Review of Systems Constitutional:: Reports: Weakness, Fatigue, Weight loss, Appetite change. Denies: Fever, Sweats, Chills Cardiovascular:: Denies: Chest pain, Palpitations, Dyspnea on exertion, Orthopnea, PND, Shortness of breath Respiratory: Reports: Sputum production. Denies: Cough, Hemoptysis, Shortness of Breath, Wheezing Gastrointestinal:: Reports: Nausea, Vomiting - occasional. Denies: Abdominal pain, Diarrhea, Constipation, Melena, Hematochezia, Gas/bloating, Reflux, Dysphagia Genitourinary: Reports: Urinary frequency, Nocturia. Denies: Dysuria, Hematuria, Flank pain Musculoskeletal:: Denies: Back pain, Myalgia, Arthralgia Skin: Denies: Rash, Skin Changes, Wounds Neurological:: Denies: Headache, Dizziness, Numbness, Tingling, Frequent falls, Visual changes, Tinnitus, Hearing loss Psychiatric: Denies: Anxiety, Depression, Homicidal Ideations, Suicidal Ideations Vital Signs Height 5 ft 10 in Weight: 178 lb 9.191 oz Weight in Pounds 178.6 lbs Pulse Ox 94 Temperature 97.9 F Pulse Rate 69 Respiratory Rate 16 Blood Pressure 142/64 Blood Pressure Position Semi-Fowlers - Physical Exam General: Alert, Oriented x3, No apparent distress HEENT: Atraumatic, PERRLA, EOMI, Normocephalic Oropharynx:: Negative for: Dry mucosa, Ulcerated lesions Neck:: Supple, Trachea midline. Negative for: JVD, bilateral Cardiac:: Regular rate, Regular rhythm, Normal S1, Normal S2. Negative for: Murmur Lungs: Clear to auscultation, Excusion symmetrical. Negative for: Rhonchi, Wheezes Abdomen:: Bowel sounds x 4, Soft, Non-distended, Guarding, Tender - RUQ. Negative for: Hepatosplenomegaly Extremities:: Negative for: Cyanosis, Edema, Calf tenderness Neurological: Neuro grossly intact Skin:: Negative for: Lesions, Rash, Petechiae, Ecchymosis Psychiatric:: Appropriate affect, Euthymic Lymphatics:: Negative for: Cervical lymphadenopathy, Supraclavicular lymphadenopathy, Axillary lymphadenopathy Laboratory Data: Laboratory Tests 08/28/18 08/28/18 08/28/18 Range/Units 10:30 04:54 04:54 WBC 5.2 (4.4-11.0) K/mm3 RBC 3.97 L (4.6-6.2) M/mm3 Hgb 11.7 L (13.0-16.5) g/dl Hct 34.4 L (40-54) % MCV 86.6 (80-94) fL MCH 29.5 (27.0-32.0) pg MCHC 34.0 (32-36) g/gl RDW 12.9 (11.6-14.6) % RDW Differential 39.9 (35.1-43.9) fl Plt Count 30 L* (150-450) K/mm3 MPV 11.8 (6.2-12.0) fl Immature Gran % (Auto) Neut % (Auto) Not Reportable Lymph % (Auto) [place] % (Auto) Eos % (Auto) Baso % (Auto) Absolute Neuts (auto) 2.0 (2.0-7.7) X10^3/uL Absolute Lymphs (auto) 2.29 (0.83-4.51) X10^3/ul Total Counted 100 (MANUAL DIFF) Neutrophils % (Manual) 33 L (47-70) % Band Neutrophils % 5 (0-5) % Lymphocytes % (Manual) 44 H (19-41) % Monocytes % (Manual) 9 (0-10) % Eosinophils % (Manual) 3 (0-5) % Basophils % (Manual) 1 (0-1) % Metamyelocytes % 2 H (0-1) % Myelocytes % 3 H (0-0) Differential Comment Diff Path Review May foll Platelet Estimate MKD DEC (ADEQ) RBC Morphology NORM C+C (NORM C&C) NORMAL Sodium 144 (136-145) mmol/L Potassium 4.0 (3.5-5.1) mmol/L Chloride 108 H (98-107) mmol/L Carbon Dioxide 29.0 (21.0-32.0) mmol/L Anion Gap 7 (5-15) BUN 41 H (7-18) mg/dL Creatinine 1.96 H (0.70-1.30) mg/dL Estim Creat Clear Calc 33.62 ml/min Est GFR (MDRD) Af Amer 43 L (>60) mL/min Est GFR (MDRD) Non-Af 36 L (>60) mL/min BUN/Creatinine Ratio 20.9 H (10-20) RATIO Glucose 115 H (74-106) mg/dL Calcium 8.8 (8.5-10.1) mg/dL Total Bilirubin 0.90 (0.20-1.00) mg/dL Direct Bilirubin (0.00-0.30) mg/dL AST 27 (15-37) U/L ALT 26 (16-61) U/L Alkaline Phosphatase 518 H (45-117) U/L Total Protein 6.1 L (6.4-8.2) g/dL Albumin 2.9 L (3.2-5.0) g/dL Globulin 3.2 (2.2-4.2) g/dL Albumin/Globulin Ratio 0.9 (0.9-2.4) RATIO Lipase (73-393) U/L Urine Color Yellow (Yellow) Urine Clarity Clear (Clear) Urine pH 5.0 (5.0 - 8.0) Ur Specific [place] 1.025 (1.002-1.030) Urine Protein 15 H (Negative) mg/dl Urine Glucose (UA) Normal (Normal) mg/dl Urine Ketones 5 H (Negative) mg/dl Urine Occult Blood Negative (Negative) /ul Urine Nitrite Negative (Negative) Urine Bilirubin Negative (Negative) mg/dL Urine Urobilinogen Normal (Normal) mg/dl Ur Leukocyte Esterase 25 H (Negative) /ul Urine RBC 0 SEEN (0-5) /hpf Urine WBC 0-5 SEEN (0-5) /hpf Ur Squamous Epith Cells 0-5 SEEN (0-5) /hpf Urine Bacteria RARE (None Seen) /hpf Hyaline Casts 0-5 SEEN (0-5) /lpf Urine Mucus 1+ (<or=2+) /hpf 08/27/18 08/27/18 08/27/18 Range/Units 23:32 20:40 20:40 WBC 5.7 5.7 (4.4-11.0) K/mm3 RBC 4.33 L 4.54 L (4.6-6.2) M/mm3 Hgb 12.8 L 13.2 (13.0-16.5) g/dl Hct 37.7 L 39.2 L (40-54) % MCV 87.1 86.3 (80-94) fL MCH 29.6 29.1 (27.0-32.0) pg MCHC 34.0 33.7 (32-36) g/gl RDW 13.0 13.2 (11.6-14.6) % RDW Differential 40.1 41.5 (35.1-43.9) fl Plt Count 31 L* 34 L* (150-450) K/mm3 MPV 12.4 H 12.5 H (6.2-12.0) fl Immature Gran % (Auto) ENAMEL CRACKER Neut % (Auto) ENAMEL CRACKER Lymph % (Auto) ENAMEL CRACKER [place] % (Auto) ENAMEL CRACKER Eos % (Auto) ENAMEL CRACKER Baso % (Auto) ENAMEL CRACKER Absolute Neuts (auto) 2.9 (2.0-7.7) X10^3/uL Absolute Lymphs (auto) 2.45 (0.83-4.51) X10^3/ul Total Counted 100 (MANUAL DIFF) Neutrophils % (Manual) 45 L (47-70) % Band Neutrophils % 6 H (0-5) % Lymphocytes % (Manual) 43 H (19-41) % Monocytes % (Manual) 5 (0-10) % Eosinophils % (Manual) 1 (0-5) % Basophils % (Manual) (0-1) % Metamyelocytes % (0-1) % Myelocytes % (0-0) Differential Comment SCAN Diff Path Review May foll May foll Platelet Estimate MKD DEC (ADEQ) RBC Morphology NORM C+C (NORM C&C) NORMAL Sodium 141 (136-145) mmol/L Potassium 4.4 (3.5-5.1) mmol/L Chloride 107 (98-107) mmol/L Carbon Dioxide 27.0 (21.0-32.0) mmol/L Anion Gap 7 (5-15) BUN 43 H (7-18) mg/dL Creatinine 1.97 H (0.70-1.30) mg/dL Estim Creat Clear Calc 33.45 ml/min Est GFR (MDRD) Af Amer 43 L (>60) mL/min Est GFR (MDRD) Non-Af 35 L (>60) mL/min BUN/Creatinine Ratio 21.8 H (10-20) RATIO Glucose 110 H (74-106) mg/dL Calcium 9.1 (8.5-10.1) mg/dL Total Bilirubin 1.30 H (0.20-1.00) mg/dL Direct Bilirubin 0.34 H (0.00-0.30) mg/dL AST 30 (15-37) U/L ALT 29 (16-61) U/L Alkaline Phosphatase 614 H (45-117) U/L Total Protein 7.1 (6.4-8.2) g/dL Albumin 3.3 (3.2-5.0) g/dL Globulin 3.8 (2.2-4.2) g/dL Albumin/Globulin Ratio (0.9-2.4) RATIO Lipase 190 (73-393) U/L Urine Color (Yellow) Urine Clarity (Clear) Urine pH (5.0 - 8.0) Ur Specific [place] (1.002-1.030) Urine Protein (Negative) mg/dl Urine Glucose (UA) (Normal) mg/dl Urine Ketones (Negative) mg/dl Urine Occult Blood (Negative) /ul Urine Nitrite (Negative) Urine Bilirubin (Negative) mg/dL Urine Urobilinogen (Normal) mg/dl Ur Leukocyte Esterase (Negative) /ul Urine RBC (0-5) /hpf Urine WBC (0-5) /hpf Ur Squamous Epith Cells (0-5) /hpf Urine Bacteria (None Seen) /hpf Hyaline Casts (0-5) /lpf Urine Mucus (<or=2+) /hpf Diagnostic Data: Diagnostic Data Gallbladder Ultrasound 08/27/18 20:33 IMPRESSION: No definite abnormality. Electronically Signed: Luis Flores MD at 21:35 EST , Service support , Assessment and Plan 73 year old gentlemen with PMH for superficial bladder ca admitted for management of intractable nausea & RUQ pain found to have platelet count of 34,000. 1. Thrombocytopenia- in the absence of active bleeding. Previous CBC for comparison are imperative to determine if this did in fact develop acutely. Impaired renal function present, will obtain SPEP with IFIX, SFLC, LDH. Plan to review peripheral slides with pathology department to determine presence/absence of schistocytes (r/o HUS TTP). 30 lb weight loss concerning. R/o infectious process, obtained H pylori and HIV. 2. Elevated alk phos- Orders placed for GGT and PSA level. 3. H/o superficial bladder ca- Diagnosed approx 2009. Did not require adjuvant chemo or radiation therapy. Repeat urine cytology. It may be prudent to analyze the results of labs and review peripheral smear prior to proceeding with a BMBX. Case discussed with Dr. Lopez who is in agreement with the aforementioned plan. Leana Schneider, MSN, [employer] STEAMER [employer]ER-[employer], AOCNP Medications: Prescriptions This Visit Medication Instructions Recorded Aspirin [Aspirin EC] 81 mg PO DAILY 08/28/18 Tamsulosin HCl [Flomax] 0.4 mg PO DAILY 08/28/18 Medications Added to Medication List This Visit Category Date Time Status 0.9% Saline Lock Med 08/28/18 23:55 Active 5 - 15 ml IV UD PRN Ensure Clear Med 08/28/18 14:00 Active 120 ml PO 4X/DAY Tamsulosin HCl [Flomax] Med 08/28/18 17:30 Active 0.4 mg PO DAILY@1730 Primary Care Provider: Natalee Partida Referring Provider: - Problem List (1) History of bladder cancer Status: Chronic (2) Weight loss Status: Acute (3) Thrombocytopenia Status: Acute
[2018-08-28 14:47] VITALS: BP 135/64; PULSE 76; RESP 16; TEMP 36.8; O2SAT 95
[2018-08-28 15:05] LABS: Pathologist Review Reviewed
[2018-08-28 15:06] LABS: Pathologist Review Reviewed
[2018-08-28 16:19] LABS: GGTP 72 U/L (15-85); LDH 279 U/L (87-241)
[2018-08-28] MEDS: Tamsulosin HCl 0.4 MG Capsule PO (17:27)
--- NOTE | 2018-08-28 19:24 | PN_ITS ---
Patient Problems: Active and Suspected Problems Weight loss (Acute) Abdominal pain (Acute) Nausea (Acute) Anorexia (Acute) Thrombocytopenia (Acute) Subjective: Patient was seen and examined today, I talked with him and his son who is in the room today. Also talked with oncology. Patient's platelet count was low at the time of admission yesterday and it was low again this morning, patient's abdominal pain is much improved this morning and he was able to eat without difficulty today. I talked with general surgery-due to the patient's low platelet count general surgery does not want to perform any endoscopy at this time. Oncology does not want to perform a bone marrow at this time, additional labs were ordered by them. Patient's CBC will be rechecked tomorrow. - Physical Exam General: Alert, Oriented x3, Cooperative, No apparent distress, Well developed, Well nourished HEENT: Atraumatic, PERRLA, EOMI, Normocephalic Oral: Moist Mucosa Neck: Supple, No JVD, Negative Carotid Bruits, No Nuchal Rigidity, Trachea Midline, Thyroid Normal Size and Texture Lungs: Clear to auscultation, Normal air movement, No rhonchi, No wheeze, No rales Cardiovascular: Regular rate, Regular Rhythm, Normal S1, Normal S2, No murmurs, No Ectopic Activity, PMI Normal, No rub noted, No Gallop Abdomen: Bowel Sounds Present, Soft, Non Tender, Non-Distended, No hernias noted Extremities: No clubbing, No cyanosis, No edema, Capillary Refill Less than 3 Seconds Skin: No rashes, No breakdown Musculoskeletal: No Tenderness to Palpation of Joints or Extremities Neurological: Cranial nerves II-XII grossly intact, Neuro grossly intact, Sensory exam intact to light touch and pain, Coordination normal Psych/Mental Status: Normal Affect, Appropriate, Alert and oriented to time, place, person, mood and affect Vital Signs Temp Pulse Resp BP Pulse Ox 98.3 F 76 16 135/64 H 95 08/28/18 14:47 08/28/18 14:47 08/28/18 14:47 08/28/18 14:47 08/28/18 14:47 Oxygen Delivery Method Room Air Weight: 81 kg Body Mass Index (BMI) 25.6 Intake and Output for Last 24 Hours 08/26/18 08/27/18 08/28/18 23:59 23:59 23:59 Intake Total 9507 / 1277 Output Total 0 / 0 Balance 6417 / 1277 Laboratory Tests Past 24 Hrs 08/27/18 08/27/18 08/27/18 20:40 20:40 23:32 WBC 5.7 5.7 RBC 4.54 L 4.33 L Hgb 13.2 12.8 L Hct 39.2 L 37.7 L MCV 86.3 87.1 MCH 29.1 29.6 MCHC 33.7 34.0 RDW 13.2 13.0 RDW Differential 41.5 40.1 Plt Count 34 L* 31 L* MPV 12.5 H 12.4 H Immature Gran % (Auto) TEXTBOOK ASSOCIATE Neut % (Auto) TEXTBOOK ASSOCIATE Lymph % (Auto) TEXTBOOK ASSOCIATE [place] % (Auto) TEXTBOOK ASSOCIATE Eos % (Auto) TEXTBOOK ASSOCIATE Baso % (Auto) TEXTBOOK ASSOCIATE Absolute Neuts (auto) 2.9 Absolute Lymphs (auto) 2.45 Total Counted 100 Neutrophils % (Manual) 45 L Band Neutrophils % 6 H Lymphocytes % (Manual) 43 H Monocytes % (Manual) 5 Eosinophils % (Manual) 1 Basophils % (Manual) Metamyelocytes % Myelocytes % Differential Comment SCAN Diff Path Review Reviewed Reviewed Platelet Estimate MKD DEC RBC Morphology NORM C+C Sodium 141 Potassium 4.4 Chloride 107 Carbon Dioxide 27.0 Anion Gap 7 BUN 43 H Creatinine 1.97 H Estim Creat Clear Calc 33.45 Est GFR (MDRD) Af Amer 43 L Est GFR (MDRD) Non-Af 35 L BUN/Creatinine Ratio 21.8 H Glucose 110 H Calcium 9.1 Total Bilirubin 1.30 H Direct Bilirubin 0.34 H GGT AST 30 ALT 29 Alkaline Phosphatase 614 H Lactate Dehydrogenase Total Protein 7.1 Total Protein (PEP) Albumin 3.3 Globulin 3.8 Albumin/Globulin Ratio Lipase 190 Total PSA Urine Color Urine Clarity Urine pH Ur Specific [place] Urine Protein Urine Glucose (UA) Urine Ketones Urine Occult Blood Urine Nitrite Urine Bilirubin Urine Urobilinogen Ur Leukocyte Esterase Urine RBC Urine WBC Ur Squamous Epith Cells Urine Bacteria Hyaline Casts Urine Mucus IgG IgA IgM Albumin (SEBAS) Albumin/Globulin (SEBAS) [id number] SEBAS Qamec-2-Sgmevppoh SEBAS Beta-Globulins (SEBAS) Gamma Globulins (SEBAS) SEBAS M-Elmer Free [place] LC, Quant Free Lambda LC, Quant Free [place]/Lambda Ratio H. pylori IgG Antibody 08/28/18 08/28/18 08/28/18 04:54 04:54 10:30 WBC 5.2 RBC 3.97 L Hgb 11.7 L Hct 34.4 L MCV 86.6 MCH 29.5 MCHC 34.0 RDW 12.9 RDW Differential 39.9 Plt Count 30 L* MPV 11.8 Immature Gran % (Auto) Neut % (Auto) Not Reportable Lymph % (Auto) [place] % (Auto) Eos % (Auto) Baso % (Auto) Absolute Neuts (auto) 2.0 Absolute Lymphs (auto) 2.29 Total Counted 100 Neutrophils % (Manual) 33 L Band Neutrophils % 5 Lymphocytes % (Manual) 44 H Monocytes % (Manual) 9 Eosinophils % (Manual) 3 Basophils % (Manual) 1 Metamyelocytes % 2 H Myelocytes % 3 H Differential Comment Diff Path Review May foll Platelet Estimate MKD DEC RBC Morphology NORM C+C Sodium 144 Potassium 4.0 Chloride 108 H Carbon Dioxide 29.0 Anion Gap 7 BUN 41 H Creatinine 1.96 H Estim Creat Clear Calc 33.62 Est GFR (MDRD) Af Amer 43 L Est GFR (MDRD) Non-Af 36 L BUN/Creatinine Ratio 20.9 H Glucose 115 H Calcium 8.8 Total Bilirubin 0.90 Direct Bilirubin GGT AST 27 ALT 26 Alkaline Phosphatase 518 H Lactate Dehydrogenase Total Protein 6.1 L Total Protein (PEP) Albumin 2.9 L Globulin 3.2 Albumin/Globulin Ratio 0.9 Lipase Total PSA Urine Color Yellow Urine Clarity Clear Urine pH 5.0 Ur Specific [place] 1.025 Urine Protein 15 H Urine Glucose (UA) Normal Urine Ketones 5 H Urine Occult Blood Negative Urine Nitrite Negative Urine Bilirubin Negative Urine Urobilinogen Normal Ur Leukocyte Esterase 25 H Urine RBC 0 SEEN Urine WBC 0-5 SEEN Ur Squamous Epith Cells 0-5 SEEN Urine Bacteria RARE Hyaline Casts 0-5 SEEN Urine Mucus 1+ IgG IgA IgM Albumin (SEBAS) Albumin/Globulin (SEBAS) [id number] SEBAS Eupgj-2-Xajhzzeef SEBAS Beta-Globulins (ESBAS) Gamma Globulins (SEBAS) SEBAS M-Elmer Free [place] LC, Quant Free Lambda LC, Quant Free [place]/Lambda Ratio H. pylori IgG Antibody 08/28/18 08/28/18 08/28/18 15:15 15:15 15:15 WBC RBC Hgb Hct MCV MCH MCHC RDW RDW Differential Plt Count MPV Immature Gran % (Auto) Neut % (Auto) Lymph % (Auto) [place] % (Auto) Eos % (Auto) Baso % (Auto) Absolute Neuts (auto) Absolute Lymphs (auto) Total Counted Neutrophils % (Manual) Band Neutrophils % Lymphocytes % (Manual) Monocytes % (Manual) Eosinophils % (Manual) Basophils % (Manual) Metamyelocytes % Myelocytes % Differential Comment Diff Path Review Platelet Estimate RBC Morphology Sodium Potassium Chloride Carbon Dioxide Anion Gap BUN Creatinine Estim Creat Clear Calc Est GFR (MDRD) Af Amer Est GFR (MDRD) Non-Af BUN/Creatinine Ratio Glucose Calcium Total Bilirubin Direct Bilirubin GGT 72 AST ALT Alkaline Phosphatase Lactate Dehydrogenase 279 H Total Protein Total Protein (PEP) Pending Albumin Globulin Albumin/Globulin Ratio Lipase Total PSA 455.00 H Urine Color Urine Clarity Urine pH Ur Specific [place] Urine Protein Urine Glucose (UA) Urine Ketones Urine Occult Blood Urine Nitrite Urine Bilirubin Urine Urobilinogen Ur Leukocyte Esterase Urine RBC Urine WBC Ur Squamous Epith Cells Urine Bacteria Hyaline Casts Urine Mucus IgG Pending IgA Pending IgM Pending Albumin (SEBAS) Pending Albumin/Globulin (SEBAS) Pending [id number]-[id number] SEBAS Pending [id number]-0-Mprlwazry SEBAS Pending Beta-Globulins (SEBAS) Pending Gamma Globulins (SEBAS) Pending SEBAS M-Elmer Pending Free [place] LC, Quant Pending Free Lambda LC, Quant Pending Free [place]/Lambda Ratio Pending H. pylori IgG Antibody Pending Medical Necessity - Tobacco Use Smoking Status: Former smoker Tobacco Use: Pipe Assessment/Plan All Active Problems Weight loss (Acute) Abdominal pain (Acute) Nausea (Acute) Anorexia (Acute) Thrombocytopenia (Acute) #1 thrombocytopenia-etiology unclear at this point, oncology is participating in his care, repeat CBC will be obtained tomorrow. Patient's last documented CBC was November 12, 2017 and it showed a platelet count of 212,000 with a hemoglobin of 15.6 and a normal white blood cell count of 6.4. Oncology does not feel the patient needs a platelet transfusion at this time, there is no evidence of any active bleeding. #2 abdominal pain-etiology unclear at this point, patient's symptoms have improved since admission to the hospital, he requested a regular diet today, general surgery is participating in his care #3 elevated alkaline phosphatase-etiology unclear, recheck liver profile tomorrow #4 unexplained weight loss over the past 5 weeks of 20-30 pounds-etiology unclear at this point, patient had a CT of the abdomen and pelvis performed the first week in July which was unremarkable. Code Visit Inpatient E&M: 89244 Init Hosp L3
[2018-08-28 20:41] VITALS: BP 102/55; PULSE 79; RESP 16; TEMP 36.6; O2SAT 97
[2018-08-29 03:20] VITALS: BP 110/62; PULSE 80; RESP 16; TEMP 36.7; O2SAT 96
[2018-08-29] MEDS: Ondansetron 4 MG/2 ML Vial 8 MG IV ×2 (03:20→12:53)
[2018-08-29] MEDS: Dext 5%-0.45% NS 1,000 ML 100 ML IV ×2 (05:14→17:27)
[2018-08-29 06:56] LABS: Hematocrit 32.1 % (40-54); Hemoglobin 10.9 g/dl (13.0-16.5); Mean Corpuscular Hgb 28.9 pg (27.0-32.0); Mean Corpuscular Volume 85.1 fL (80-94); Mean Platelet Vol. 12.7 fl (6.2-12.0); RBC Distribution Width CV 12.9 % (11.6-14.6); RBC Distribution Width SD 39.7 fl (35.1-43.9); Red Blood Count 3.77 M/mm3 (4.6-6.2)
[2018-08-29 07:01] LABS: Differential Indicated MANUAL DIFF; POSITIVE COUNT YES; POSITIVE DIFFERENTIAL NO; POSITIVE MORPHOLOGY YES; Platelet Count 26 K/mm3 (150-450)
[2018-08-29 07:12] LABS: AST(SGOT) 24 U/L (15-37); Alanine Aminotransfer ALT/SGPT 25 U/L (16-61); Albumin, Serum 2.6 g/dL (3.2-5.0); Alkaline Phosphatase 493 U/L (45-117); BUN 30 mg/dL (7-18); BUN/Creat Ratio 16.5 RATIO (10-20); Bilirubin, Direct 0.25 mg/dL (0.00-0.30); Calcium,Total 8.3 mg/dL (8.5-10.1); Chloride 109 mmol/L (98-107); Creatinine, Serum 1.82 mg/dL (0.70-1.30); EST Glomerular Filtration Rate 39 mL/min (>60); Est Glom Filt Rate - Afr Amer 47 mL/min (>60); Estimated Creatinine Clearance 36.21 ml/min; Globulin 3.1 g/dL (2.2-4.2); Glucose 120 mg/dL (74-106); Phosphorus 3.1 mg/dL (2.5-4.9); Protein, Total 5.7 g/dL (6.4-8.2); Sodium Level 142 mmol/L (136-145)
[2018-08-29 07:30] LABS: Eosinophil 3 % (0-5); Lymphocyte 44 % (19-41); Metamyelocyte 4 % (0-1); Monocyte 7 % (0-10); Neutrophil-Band 6 % (0-5); Neutrophil-Segmented 36 % (47-70); Total Cells Counted 100 (MANUAL DIFF)
[2018-08-29 07:31] LABS: Anisocytosis 1+; Hypochromasia 1+; Platelet Estimate MKD DEC (ADEQ)
[2018-08-29 07:32] LABS: Polychromasia 1+
[2018-08-29 07:34] LABS: Absolute Lymphocyte Count 1.76 X10^3/ul (0.83-4.51); Absolute Neutrophil Count 1.7 X10^3/uL (2.0-7.7)
--- NOTE | 2018-08-29 09:00 | NURSING ---
Recieved CBC's from [facility]--Per order to obtain medical records. placed in pt chart.
--- NOTE | 2018-08-29 09:06 | NURSING ---
Dr. Fernandez notified that bone scan delayed d/t isotope shortage. Ordered isotope-will arrive tomorrow (08/30) at the earliest.
[2018-08-29 09:19] VITALS: BP 121/94; PULSE 76; RESP 16; TEMP 36.4; O2SAT 93
[2018-08-29] MEDS: proMETHazine 25 MG/ML Syringe 12.5 MG IV ×2 (09:31→19:17)
--- NOTE | 2018-08-29 10:10 | PCM.PN.SRG ---
Patient Problems: Active and Suspected Problems Weight loss (Acute) Abdominal pain (Acute) Nausea (Acute) Anorexia (Acute) Thrombocytopenia (Acute) Subjective: Patient did have a full supper last night complaining of abdominal pain/fullness, nausea after--currently patient states his abdominal pain is a 1/10 and patient has not had any pain meds this hospitalization, patient's PSA was elevated at 455, planning for a bone scan as well as a CT abdomen pelvis and chest with p.o. and IV contrast. - Physical Exam General: Alert, Oriented x3, Cooperative, No apparent distress HEENT: Atraumatic Cardiovascular: Regular rate Abdomen: Soft, Non Tender - No peritoneal signs, Non-Distended, Hernia - Small umbilical hernia reducible Vital Signs Temp Pulse Resp BP Pulse Ox 97.6 F L 76 16 121/94 H 93 08/29/18 09:19 08/29/18 09:19 08/29/18 09:19 08/29/18 09:19 08/29/18 09:19 Oxygen Delivery Method Room Air Weight: 178 lb 9.191 oz Body Mass Index (BMI) 25.6 Intake and Output for Last 24 Hours 08/27/18 08/28/18 08/29/18 23:59 23:59 23:59 Intake Total 1277 / 1277 1697 / 1697 Output Total 0 / 0 Balance 1277 / 1277 1697 / 1697 Laboratory Tests Past 24 Hrs 08/27/18 08/27/18 08/28/18 20:40 23:32 10:30 WBC RBC Hgb Hct MCV MCH MCHC RDW RDW Differential Plt Count MPV Neut % (Auto) Absolute Neuts (auto) Absolute Lymphs (auto) Total Counted Neutrophils % (Manual) Band Neutrophils % Lymphocytes % (Manual) Monocytes % (Manual) Eosinophils % (Manual) Metamyelocytes % Diff Path Review Reviewed Reviewed Platelet Estimate Polychromasia Hypochromasia Anisocytosis Sodium Potassium Chloride Carbon Dioxide BUN Creatinine Estim Creat Clear Calc Est GFR (MDRD) Af Amer Est GFR (MDRD) Non-Af BUN/Creatinine Ratio Glucose Calcium Phosphorus Total Bilirubin Direct Bilirubin GGT AST ALT Alkaline Phosphatase Lactate Dehydrogenase Total Protein Total Protein (PEP) Albumin Globulin Total PSA Urine Color Yellow Urine Clarity Clear Urine pH 5.0 Ur Specific [place] 1.025 Urine Protein 15 H Urine Glucose (UA) Normal Urine Ketones 5 H Urine Occult Blood Negative Urine Nitrite Negative Urine Bilirubin Negative Urine Urobilinogen Normal Ur Leukocyte Esterase 25 H Urine RBC 0 SEEN Urine WBC 0-5 SEEN Ur Squamous Epith Cells 0-5 SEEN Urine Bacteria RARE Hyaline Casts 0-5 SEEN Urine Mucus 1+ IgG IgA IgM Albumin (SEBAS) Albumin/Globulin (SEBAS) Trbrz-1-Fegphpnjv SEBAS [place]-7-Cgxohlhtk SEBAS Beta-Globulins (SEBAS) Gamma Globulins (SEBAS) SEBAS M-Elmer Free [place] LC, Quant Free Lambda LC, Quant Free [place]/Lambda Ratio H. pylori IgG Antibody HIV 1&2 Antibody 08/28/18 08/28/18 08/28/18 15:15 15:15 15:15 WBC RBC Hgb Hct MCV MCH MCHC RDW RDW Differential Plt Count MPV Neut % (Auto) Absolute Neuts (auto) Absolute Lymphs (auto) Total Counted Neutrophils % (Manual) Band Neutrophils % Lymphocytes % (Manual) Monocytes % (Manual) Eosinophils % (Manual) Metamyelocytes % Diff Path Review Platelet Estimate Polychromasia Hypochromasia Anisocytosis Sodium Potassium Chloride Carbon Dioxide BUN Creatinine Estim Creat Clear Calc Est GFR (MDRD) Af Amer Est GFR (MDRD) Non-Af BUN/Creatinine Ratio Glucose Calcium Phosphorus Total Bilirubin Direct Bilirubin GGT 72 AST ALT Alkaline Phosphatase Lactate Dehydrogenase 279 H Total Protein Total Protein (PEP) Pending Albumin Globulin Total PSA 455.00 H Urine Color Urine Clarity Urine pH Ur Specific [place] Urine Protein Urine Glucose (UA) Urine Ketones Urine Occult Blood Urine Nitrite Urine Bilirubin Urine Urobilinogen Ur Leukocyte Esterase Urine RBC Urine WBC Ur Squamous Epith Cells Urine Bacteria Hyaline Casts Urine Mucus IgG Pending IgA Pending IgM Pending Albumin (SEBAS) Pending Albumin/Globulin (SEBAS) Pending Qyrnv-8-Umxnmkqqw SEBAS Pending Vrgwj-5-Ghrlhkdcf SEBAS Pending Beta-Globulins (SEBAS) Pending Gamma Globulins (SEBAS) Pending SEBAS M-Elmer Pending Free [place] LC, Quant Pending Free Lambda LC, Quant Pending Free [place]/Lambda Ratio Pending H. pylori IgG Antibody Pending HIV 1&2 Antibody 08/29/18 08/29/18 08/29/18 06:35 06:35 06:35 WBC 4.0 L RBC 3.77 L Hgb 10.9 L Hct 32.1 L MCV 85.1 MCH 28.9 MCHC 34.0 RDW 12.9 RDW Differential 39.7 Plt Count 26 L* MPV 12.7 H Neut % (Auto) Not Reportable Absolute Neuts (auto) 1.7 L Absolute Lymphs (auto) 1.76 Total Counted 100 Neutrophils % (Manual) 36 L Band Neutrophils % 6 H Lymphocytes % (Manual) 44 H Monocytes % (Manual) 7 Eosinophils % (Manual) 3 Metamyelocytes % 4 H Diff Path Review May foll Platelet Estimate MKD DEC Polychromasia 1+ Hypochromasia 1+ Anisocytosis 1+ Sodium 142 Potassium 4.0 Chloride 109 H Carbon Dioxide 27.0 BUN 30 H Creatinine 1.82 H Estim Creat Clear Calc 36.21 Est GFR (MDRD) Af Amer 47 L Est GFR (MDRD) Non-Af 39 L BUN/Creatinine Ratio 16.5 Glucose 120 H Calcium 8.3 L Phosphorus 3.1 Total Bilirubin 0.90 Direct Bilirubin 0.25 GGT AST 24 ALT 25 Alkaline Phosphatase 493 H Lactate Dehydrogenase Total Protein 5.7 L Total Protein (PEP) Albumin 2.6 L Globulin 3.1 Total PSA Urine Color Urine Clarity Urine pH Ur Specific [place] Urine Protein Urine Glucose (UA) Urine Ketones Urine Occult Blood Urine Nitrite Urine Bilirubin Urine Urobilinogen Ur Leukocyte Esterase Urine RBC Urine WBC Ur Squamous Epith Cells Urine Bacteria Hyaline Casts Urine Mucus IgG IgA IgM Albumin (SEBAS) Albumin/Globulin (SEBAS) Wzqih-0-Hmqtjaklx SEBAS Shsep-9-Rfvsuggug SEBAS Beta-Globulins (SEBAS) Gamma Globulins (SEBAS) SEBAS M-Elmer Free [place] LC, Quant Free Lambda LC, Quant Free [place]/Lambda Ratio H. pylori IgG Antibody HIV 1&2 Antibody Pending Medical Necessity - Tobacco Use Smoking Status: Former smoker Tobacco Use: Pipe Assessment/Plan All Active Problems Weight loss (Acute) Abdominal pain (Acute) Nausea (Acute) Anorexia (Acute) Thrombocytopenia (Acute) 73-year-old male with nausea/abdominal pain/weight loss, thrombocytopenia-26, lymphocytosis, elevated PSA 1. Due to patient's severe thrombocytopenia no plans for any surgical intervention at this time. Will continue to follow 2. Bone scan as well as CT chest abdomen pelvis with IV and p.o. contrast plan per primary and oncology. Iza Downing M.D. Pager: [phone] [facility] [address] [place] [address], [address] [place] [address] Office: [phone]
--- NOTE | 2018-08-29 10:11 | ONC.PN.INPT ---
- Problem List (1) History of bladder cancer Status: Chronic (2) Weight loss Status: Acute (3) Thrombocytopenia Status: Acute (4) Elevated PSA, greater than or equal to 20 ng/ml Status: Acute (5) Elevated alkaline phosphatase level Status: Acute Subjective Date of Service:: 08/29/18 Thrombocytopenia, found to have elevated PSA Mr. Candi Dangelo is a very pleasant 73 year old man with an essentially unremarkable PMH with the exception of superficial bladder ca approx 2009, who developed intractable nausea, RUQ accompanied by an estimated 30 lb weight loss abruptly 6 weeks ago. Was evaluated by surgery at [facility], and plans were made for HIDA scan on 08/31/18. Pain intensity increased which resulted in presentation to [facility] ED 08/27/18. A CT was completed and per patient self report normal. He was discharged and subsequently presented to [facility] later with the same symptoms and admitted for management. Found to have a platelet count of 34,000. Patient denies any previous history of thrombocytopenia, the initiation of any new medications/herbal/otc supplements, ETOH use as well as any episodes of overt bleeding, although notes he bruises easily. Bladder ca surveillance visit with his urologist was completed May 2018, per patient report he was told urine cytology looked good. Specifically denies any chills, night sweats, new onset bone pain, hematuria,melena/hematochezia. Colonoscopy up to date. Cannot recall when his PSA was last checked. Family history positive for mother with pancreatic ca, brother #1- bladder ca, brother #2-prostate ca, brother #3- lung ca. Patient sitting upright visiting with son. Denies any outstanding complaints since he was interviewed yesterday. Past Medical History: Chronic Problems History of bladder cancer (Chronic) Past Medical History - Most Recent Inpatient Visit Past Medical History Start: 08/27/18 23:19 Text: Status: Complete Freq: ONCE Protocol: Document 08/27/18 23:42 CDS (Rec: 08/27/18 23:44 CDS [id number]) BMI Required to complete [facility] What is Patient's BMI 25.6 Past Medical History Unable History Recalled No Query Text:Pt Unable/Family Not Present Neurologic Medical History Hx Stroke/TIA No Hx Dementia/Alzheimer's No Hx Parkinson's Disease No Hx Seizures No Hx Multiple Sclerosis No Hx Migraines No Cardiac Medical History VTE Present on Admission No Hx of Deep Vein Thrombosis/VTE/PE No Hx Hypertension No Hx Chest Pain/Angina No Hx Heart Attack No Hx Cardiac Surgery/Stents/Etc. No Hx Heart Failure No Hx Pacemaker/AICD No Hx Irregular Heartbeat and/or Afib No Hx Anticoagulant Therapy No Query Text:(Coumadin, Aspirin, Plavix, Xarelto, etc.) Hx Pain in Legs when Walking/Leg Cramps No Respiratory Medical History Hx COPD No Hx Emphysema No Hx Smoking No Smoking Status Former smoker Tobacco Use Pipe Years Smoking 30 Hx Tobacco Use in last 12 months No Hx Sleep Apnea No Do you snore loudly (louder than talking No or can be heard through closed doors)? Do you often feel tired/ fatigued/ Yes sleepy during daytime? Has anyone observed you stop breathing No during sleep? STOP Results Negative GI Medical History Hx Ulcer No Hx Hepatitis No Hx Cirrhosis No Hx GI Bleed No Hx Unplanned Weight Loss No Genitourinary Medical History Indwelling Catheter in Place on Arrival/ No Admission Hx Renal Disease No Hx Dialysis No Musculoskeletal History Hx Arthritis No Hx Rheumatoid Arthritis No Endocrine Medical History Hx Diabetes No Hx Thyroid Disease No Hematologic Medical History Hx of Blood Transfusion No Hx of Transfusion in last 3 Months No Ever experience any problems with No transfusion(s)? Hx of Preganancy in last 3 Months N/A Nurse Filling Out Transfusion & CSNYDER Questions: Date: 08/27/18 Time: 23:44 Psycho/Social Medical History Hx Depression No Hx Anxiety No Hx Behavior Disorder No Hx Alcohol Use No Hx Substance Use No Other Medical History Hx Blood Disorders No Hx Anemia No Hx Cancer Yes: hx bladder CA Hx Drug Resistant Organism No Wound/Pressure Injury Present on Arrival No /Admission Query Text:If yes, chart assessment in Shift/Clinical Findings Central Line/PICC/VAD Present on Arrival No /Admission Risk for Readmission Number of Risk Factors 1 At Risk for Readmission Patient is Not at Risk Patient is eligible for Call Back N Maternal Family History: Cancer - Pancreatic cancer diagnosed at age 74, No pertinent history - Social History Smoking Status: Former smoker Tobacco Use: Pipe Review of Systems Constitutional:: Reports: Weakness, Fatigue, Weight loss, Appetite change. Denies: Fever, Sweats, Chills Cardiovascular:: Denies: Chest pain, Palpitations, Dyspnea on exertion, Orthopnea, PND, Shortness of breath Respiratory: Denies: Cough, Hemoptysis, Shortness of Breath, Wheezing Gastrointestinal:: Reports: Abdominal pain. Denies: Nausea, Vomiting, Diarrhea, Constipation, Melena, Hematochezia Genitourinary: Denies: Dysuria, Hematuria, 15, Flank pain Musculoskeletal:: Denies: Back pain, Myalgia, Arthralgia Skin: Denies: Rash, Skin Changes, Wounds Neurological:: Denies: Headache, Dizziness, Numbness, Tingling, Frequent falls, Visual changes, Tinnitus, Hearing loss Psychiatric: Denies: Anxiety, Depression, Homicidal Ideations, Suicidal Ideations Vital Signs Height 5 ft 10 in Weight: 178 lb 9.191 oz Weight in Pounds 178.6 lbs Pulse Ox 93 Temperature 97.6 F Pulse Rate 76 Respiratory Rate 16 Blood Pressure 121/94 Blood Pressure Position Semi-Fowlers - Physical Exam General: Alert, Oriented x3, No apparent distress HEENT: Atraumatic, Normocephalic Oropharynx:: Negative for: Dry mucosa, Ulcerated lesions Neck:: Supple, Trachea midline. Negative for: JVD, bilateral Cardiac:: Regular rate, Regular rhythm, Normal S1, Normal S2. Negative for: Murmur Lungs: Clear to auscultation, Excusion symmetrical. Negative for: Rhonchi, Wheezes Abdomen:: Bowel sounds x 4, Non-tender, Non-distended, Tender - bilat upper quads. Negative for: Hepatosplenomegaly Extremities:: Negative for: Cyanosis, Edema Neurological: Neuro grossly intact Skin:: Negative for: Lesions, Rash, Petechiae, Ecchymosis Psychiatric:: Appropriate affect, Euthymic Lymphatics:: Negative for: Cervical lymphadenopathy, Supraclavicular lymphadenopathy, Axillary lymphadenopathy Laboratory Data: Laboratory Tests 08/29/18 08/29/18 08/28/18 Range/Units 06:35 06:35 15:15 WBC 4.0 L (4.4-11.0) K/mm3 RBC 3.77 L (4.6-6.2) M/mm3 Hgb 10.9 L (13.0-16.5) g/dl Hct 32.1 L (40-54) % MCV 85.1 (80-94) fL MCH 28.9 (27.0-32.0) pg MCHC 34.0 (32-36) g/gl RDW 12.9 (11.6-14.6) % RDW Differential 39.7 (35.1-43.9) fl Plt Count 26 L* (150-450) K/mm3 MPV 12.7 H (6.2-12.0) fl Neut % (Auto) Not Reportable Absolute Neuts (auto) 1.7 L (2.0-7.7) X10^3/uL Absolute Lymphs (auto) 1.76 (0.83-4.51) X10^3/ul Total Counted 100 (MANUAL DIFF) Neutrophils % (Manual) 36 L (47-70) % Band Neutrophils % 6 H (0-5) % Lymphocytes % (Manual) 44 H (19-41) % Monocytes % (Manual) 7 (0-10) % Eosinophils % (Manual) 3 (0-5) % Metamyelocytes % 4 H (0-1) % Diff Path Review May foll Platelet Estimate MKD DEC (ADEQ) Polychromasia 1+ Hypochromasia 1+ Anisocytosis 1+ Sodium 142 (136-145) mmol/L Potassium 4.0 (3.5-5.1) mmol/L Chloride 109 H (98-107) mmol/L Carbon Dioxide 27.0 (21.0-32.0) mmol/L BUN 30 H (7-18) mg/dL Creatinine 1.82 H (0.70-1.30) mg/dL Estim Creat Clear Calc 36.21 ml/min Est GFR (MDRD) Af Amer 47 L (>60) mL/min Est GFR (MDRD) Non-Af 39 L (>60) mL/min BUN/Creatinine Ratio 16.5 (10-20) RATIO Glucose 120 H (74-106) mg/dL Calcium 8.3 L (8.5-10.1) mg/dL Phosphorus 3.1 (2.5-4.9) mg/dL Total Bilirubin 0.90 (0.20-1.00) mg/dL Direct Bilirubin 0.25 (0.00-0.30) mg/dL GGT 72 (15-85) U/L AST 24 (15-37) U/L ALT 25 (16-61) U/L Alkaline Phosphatase 493 H (45-117) U/L Lactate Dehydrogenase 279 H (87-241) U/L Total Protein 5.7 L (6.4-8.2) g/dL Albumin 2.6 L (3.2-5.0) g/dL Globulin 3.1 (2.2-4.2) g/dL Total PSA 455.00 H (0.0-4.0) ng/mL Urine Color (Yellow) Urine Clarity (Clear) Urine pH (5.0 - 8.0) Ur Specific [place] (1.002-1.030) Urine Protein (Negative) mg/dl Urine Glucose (UA) (Normal) mg/dl Urine Ketones (Negative) mg/dl Urine Occult Blood (Negative) /ul Urine Nitrite (Negative) Urine Bilirubin (Negative) mg/dL Urine Urobilinogen (Normal) mg/dl Ur Leukocyte Esterase (Negative) /ul Urine RBC (0-5) /hpf Urine WBC (0-5) /hpf Ur Squamous Epith Cells (0-5) /hpf Urine Bacteria (None Seen) /hpf Hyaline Casts (0-5) /lpf Urine Mucus (<or=2+) /hpf 08/28/18 08/27/18 08/27/18 Range/Units 10:30 23:32 20:40 WBC (4.4-11.0) K/mm3 RBC (4.6-6.2) M/mm3 Hgb (13.0-16.5) g/dl Hct (40-54) % MCV (80-94) fL MCH (27.0-32.0) pg MCHC (32-36) g/gl RDW (11.6-14.6) % RDW Differential (35.1-43.9) fl Plt Count (150-450) K/mm3 MPV (6.2-12.0) fl Neut % (Auto) Absolute Neuts (auto) (2.0-7.7) X10^3/uL Absolute Lymphs (auto) (0.83-4.51) X10^3/ul Total Counted (MANUAL DIFF) Neutrophils % (Manual) (47-70) % Band Neutrophils % (0-5) % Lymphocytes % (Manual) (19-41) % Monocytes % (Manual) (0-10) % Eosinophils % (Manual) (0-5) % Metamyelocytes % (0-1) % Diff Path Review Reviewed Reviewed Platelet Estimate (ADEQ) Polychromasia Hypochromasia Anisocytosis Sodium (136-145) mmol/L Potassium (3.5-5.1) mmol/L Chloride (98-107) mmol/L Carbon Dioxide (21.0-32.0) mmol/L BUN (7-18) mg/dL Creatinine (0.70-1.30) mg/dL Estim Creat Clear Calc ml/min Est GFR (MDRD) Af Amer (>60) mL/min Est GFR (MDRD) Non-Af (>60) mL/min BUN/Creatinine Ratio (10-20) RATIO Glucose (74-106) mg/dL Calcium (8.5-10.1) mg/dL Phosphorus (2.5-4.9) mg/dL Total Bilirubin (0.20-1.00) mg/dL Direct Bilirubin (0.00-0.30) mg/dL GGT (15-85) U/L AST (15-37) U/L ALT (16-61) U/L Alkaline Phosphatase (45-117) U/L Lactate Dehydrogenase (87-241) U/L Total Protein (6.4-8.2) g/dL Albumin (3.2-5.0) g/dL Globulin (2.2-4.2) g/dL Total PSA (0.0-4.0) ng/mL Urine Color Yellow (Yellow) Urine Clarity Clear (Clear) Urine pH 5.0 (5.0 - 8.0) Ur Specific [place] 1.025 (1.002-1.030) Urine Protein 15 H (Negative) mg/dl Urine Glucose (UA) Normal (Normal) mg/dl Urine Ketones 5 H (Negative) mg/dl Urine Occult Blood Negative (Negative) /ul Urine Nitrite Negative (Negative) Urine Bilirubin Negative (Negative) mg/dL Urine Urobilinogen Normal (Normal) mg/dl Ur Leukocyte Esterase 25 H (Negative) /ul Urine RBC 0 SEEN (0-5) /hpf Urine WBC 0-5 SEEN (0-5) /hpf Ur Squamous Epith Cells 0-5 SEEN (0-5) /hpf Urine Bacteria RARE (None Seen) /hpf Hyaline Casts 0-5 SEEN (0-5) /lpf Urine Mucus 1+ (<or=2+) /hpf Diagnostic Data: Diagnostic Data Gallbladder Ultrasound 08/27/18 20:33 IMPRESSION: No definite abnormality. Electronically Signed: Luis Flores MD at 21:35 EST , Service support , Assessment and Plan 73 year old gentlemen with PMH for superficial bladder ca admitted for management of intractable nausea & RUQ pain found to have platelet count of 34,000. 1. Elevated PSA, level obtained 08/28/2018 was 455.-These results were communicated to the patient. Quite indicative of active prostate cancer. 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 Upper quad pain possibly related to disease if present in ribs? Recommend bone scan and bone biopsy of most accessible lesion. In the interim orders placed for Casodex 50 mg daily and patient is educated that he will require Lupron injections in the outpatient setting. Patient educated about potential side effects with ADT inclusive of hot flashes and fatigue. Bicalutamide is not on hospital formulary. Order sent to patient selected retail pharmacy. Family to slate picker rx and bring to hospital where he may self administer. 2. Thrombocytopenia- in the absence of active bleeding as evidenced by platelet count today of 26,000. Previous CBC for comparison are imperative to determine if this did in fact develop acutely. 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 Obtain PT/PTT and fibrinogen levels. Reassuring that 3. H/o superficial bladder ca- Diagnosed approx 2009. Did not require adjuvant chemo or radiation therapy. Repeat urine cytology pending. Case discussed with Dr. Lopez who is in agreement with the aforementioned plan. Leana Schneider, MSN, MEDICAL TRANSCRIPTION EDITOR-C, AOCNP Medications: Prescriptions This Visit Medication Instructions Recorded Aspirin [Aspirin EC] 81 mg PO DAILY 08/28/18 Tamsulosin HCl [Flomax] 0.4 mg PO DAILY 08/28/18 Primary Care Provider: Natalee Partida Referring Provider:
--- NOTE | 2018-08-29 10:13 | PN.SURG_ITS ---
Patient Problems: Active and Suspected Problems Weight loss (Acute) Abdominal pain (Acute) Nausea (Acute) Anorexia (Acute) Thrombocytopenia (Acute) Subjective: Patient did have a full supper last night complaining of abdominal pain/fullness, nausea after--currently patient states his abdominal pain is a 1/10 and patient has not had any pain meds this hospitalization, patient's PSA was elevated at 455, planning for a bone scan as well as a CT abdomen pelvis and chest with p.o. and IV contrast. - Physical Exam General: Alert, Oriented x3, Cooperative, No apparent distress HEENT: Atraumatic Cardiovascular: Regular rate Abdomen: Soft, Non Tender - No peritoneal signs, Non-Distended, Hernia - Small umbilical hernia reducible Vital Signs Temp Pulse Resp BP Pulse Ox 97.6 F L 76 16 121/94 H 93 08/29/18 09:19 08/29/18 09:19 08/29/18 09:19 08/29/18 09:19 08/29/18 09:19 Oxygen Delivery Method Room Air Weight: 178 lb 9.191 oz Body Mass Index (BMI) 25.6 Intake and Output for Last 24 Hours 08/27/18 08/28/18 08/29/18 23:59 23:59 23:59 Intake Total 1277 / 1277 1697 / 1697 Output Total 0 / 0 Balance 1277 / 1277 1697 / 1697 Laboratory Tests Past 24 Hrs 08/27/18 08/27/18 08/28/18 20:40 23:32 10:30 WBC RBC Hgb Hct MCV MCH MCHC RDW RDW Differential Plt Count MPV Neut % (Auto) Absolute Neuts (auto) Absolute Lymphs (auto) Total Counted Neutrophils % (Manual) Band Neutrophils % Lymphocytes % (Manual) Monocytes % (Manual) Eosinophils % (Manual) Metamyelocytes % Diff Path Review Reviewed Reviewed Platelet Estimate Polychromasia Hypochromasia Anisocytosis Sodium Potassium Chloride Carbon Dioxide BUN Creatinine Estim Creat Clear Calc Est GFR (MDRD) Af Amer Est GFR (MDRD) Non-Af BUN/Creatinine Ratio Glucose Calcium Phosphorus Total Bilirubin Direct Bilirubin GGT AST ALT Alkaline Phosphatase Lactate Dehydrogenase Total Protein Total Protein (PEP) Albumin Globulin Total PSA Urine Color Yellow Urine Clarity Clear Urine pH 5.0 Ur Specific [place] 1.025 Urine Protein 15 H Urine Glucose (UA) Normal Urine Ketones 5 H Urine Occult Blood Negative Urine Nitrite Negative Urine Bilirubin Negative Urine Urobilinogen Normal Ur Leukocyte Esterase 25 H Urine RBC 0 SEEN Urine WBC 0-5 SEEN Ur Squamous Epith Cells 0-5 SEEN Urine Bacteria RARE Hyaline Casts 0-5 SEEN Urine Mucus 1+ IgG IgA IgM Albumin (SEBAS) Albumin/Globulin (SEBAS) Koxpz-1-Ikwmiwegu SEBAS Uqxwr-2-Eqrnyvegg SEBAS Beta-Globulins (SEBAS) Gamma Globulins (SEBAS) SEBAS M-Elmer Free [place] LC, Quant Free Lambda LC, Quant Free [place]/Lambda Ratio H. pylori IgG Antibody HIV 1&2 Antibody 08/28/18 08/28/18 08/28/18 15:15 15:15 15:15 WBC RBC Hgb Hct MCV MCH MCHC RDW RDW Differential Plt Count MPV Neut % (Auto) Absolute Neuts (auto) Absolute Lymphs (auto) Total Counted Neutrophils % (Manual) Band Neutrophils % Lymphocytes % (Manual) Monocytes % (Manual) Eosinophils % (Manual) Metamyelocytes % Diff Path Review Platelet Estimate Polychromasia Hypochromasia Anisocytosis Sodium Potassium Chloride Carbon Dioxide BUN Creatinine Estim Creat Clear Calc Est GFR (MDRD) Af Amer Est GFR (MDRD) Non-Af BUN/Creatinine Ratio Glucose Calcium Phosphorus Total Bilirubin Direct Bilirubin GGT 72 AST ALT Alkaline Phosphatase Lactate Dehydrogenase 279 H Total Protein Total Protein (PEP) Pending Albumin Globulin Total PSA 455.00 H Urine Color Urine Clarity Urine pH Ur Specific [place] Urine Protein Urine Glucose (UA) Urine Ketones Urine Occult Blood Urine Nitrite Urine Bilirubin Urine Urobilinogen Ur Leukocyte Esterase Urine RBC Urine WBC Ur Squamous Epith Cells Urine Bacteria Hyaline Casts Urine Mucus IgG Pending IgA Pending IgM Pending Albumin (SEBAS) Pending Albumin/Globulin (SEBAS) Pending Vzzgk-3-Apqkdfxvq SEBAS Pending Vwtxe-6-Xyiqdcnap SEBAS Pending Beta-Globulins (SEBAS) Pending Gamma Globulins (SEBAS) Pending SEBAS M-Elmer Pending Free [place] LC, Quant Pending Free Lambda LC, Quant Pending Free [place]/Lambda Ratio Pending H. pylori IgG Antibody Pending HIV 1&2 Antibody 08/29/18 08/29/18 08/29/18 06:35 06:35 06:35 WBC 4.0 L RBC 3.77 L Hgb 10.9 L Hct 32.1 L MCV 85.1 MCH 28.9 MCHC 34.0 RDW 12.9 RDW Differential 39.7 Plt Count 26 L* MPV 12.7 H Neut % (Auto) Not Reportable Absolute Neuts (auto) 1.7 L Absolute Lymphs (auto) 1.76 Total Counted 100 Neutrophils % (Manual) 36 L Band Neutrophils % 6 H Lymphocytes % (Manual) 44 H Monocytes % (Manual) 7 Eosinophils % (Manual) 3 Metamyelocytes % 4 H Diff Path Review May foll Platelet Estimate MKD DEC Polychromasia 1+ Hypochromasia 1+ Anisocytosis 1+ Sodium 142 Potassium 4.0 Chloride 109 H Carbon Dioxide 27.0 BUN 30 H Creatinine 1.82 H Estim Creat Clear Calc 36.21 Est GFR (MDRD) Af Amer 47 L Est GFR (MDRD) Non-Af 39 L BUN/Creatinine Ratio 16.5 Glucose 120 H Calcium 8.3 L Phosphorus 3.1 Total Bilirubin 0.90 Direct Bilirubin 0.25 GGT AST 24 ALT 25 Alkaline Phosphatase 493 H Lactate Dehydrogenase Total Protein 5.7 L Total Protein (PEP) Albumin 2.6 L Globulin 3.1 Total PSA Urine Color Urine Clarity Urine pH Ur Specific [place] Urine Protein Urine Glucose (UA) Urine Ketones Urine Occult Blood Urine Nitrite Urine Bilirubin Urine Urobilinogen Ur Leukocyte Esterase Urine RBC Urine WBC Ur Squamous Epith Cells Urine Bacteria Hyaline Casts Urine Mucus IgG IgA IgM Albumin (SEBAS) Albumin/Globulin (SEBAS) Twsou-7-Sfglnimaz SEBAS Lwkgc-6-Veudwfbof SEBAS Beta-Globulins (SEBAS) Gamma Globulins (SEBAS) SEBAS M-[place]mer Free [place] LC, Quant Free Lambda LC, Quant Free [place]/Lambda Ratio H. pylori IgG Antibody HIV 1&2 Antibody Pending Medical Necessity - Tobacco Use Smoking Status: Former smoker Tobacco Use: Pipe Assessment/Plan All Active Problems Weight loss (Acute) Abdominal pain (Acute) Nausea (Acute) Anorexia (Acute) Thrombocytopenia (Acute) 73-year-old male with nausea/abdominal pain/weight loss, thrombocytopenia-26, lymphocytosis, elevated PSA 1. Due to patient's severe thrombocytopenia no plans for any surgical intervention at this time. Will continue to follow 2. Bone scan as well as CT chest abdomen pelvis with IV and p.o. contrast plan per primary and oncology. Iza Downing M.D. Pager: [phone] [facility] [address] [place] [address], [address] [place] [address] Office: [phone]
--- NOTE | 2018-08-29 10:18 | PN_ITS ---
- Problem List (1) History of bladder cancer Status: Chronic (2) Weight loss Status: Acute (3) Thrombocytopenia Status: Acute (4) Elevated PSA, greater than or equal to 20 ng/ml Status: Acute (5) Elevated alkaline phosphatase level Status: Acute Subjective Date of Service:: 08/29/18 Thrombocytopenia, found to have elevated PSA Mr. Candi Dangelo is a very pleasant 73 year old man with an essentially unremarkable PMH with the exception of superficial bladder ca approx 2009, who developed intractable nausea, RUQ accompanied by an estimated 30 lb weight loss abruptly 6 weeks ago. Was evaluated by surgery at [facility], and plans were made for HIDA scan on 08/31/18. Pain intensity increased which resulted in presentation to [facility] ED 08/27/18. A CT was completed and per patient self report normal. He was discharged and subsequently presented to [facility] later with the same symptoms and admitted for management. Found to have a platelet count of 34,000. Patient denies any previous history of thrombocytopenia, the initiation of any new medications/herbal/otc supplements, ETOH use as well as any episodes of overt bleeding, although notes he bruises easily. Bladder ca surveillance visit with his urologist was completed May 2018, per patient report he was told urine cytology looked good. Specifically denies any chills, night sweats, new onset bone pain, hematuria,melena/hematochezia. Colonoscopy up to date. Cannot recall when his PSA was last checked. Family history positive for mother with pancreatic ca, brother #1- bladder ca, brother #2-prostate ca, brother #3- lung ca. Patient sitting upright visiting with son. Denies any outstanding complaints since he was interviewed yesterday. Past Medical History: Chronic Problems History of bladder cancer (Chronic) Past Medical History - Most Recent Inpatient Visit Past Medical History Start: 08/27/18 23:19 Text: Status: Complete Freq: ONCE Protocol: Document 08/27/18 23:42 CDS (Rec: 08/27/18 23:44 CDS [id number]) BMI Required to complete [facility] What is Patient's BMI 25.6 Past Medical History Unable History Recalled No Query Text:Pt Unable/Family Not Present Neurologic Medical History Hx Stroke/TIA No Hx Dementia/Alzheimer's No Hx Parkinson's Disease No Hx Seizures No Hx Multiple Sclerosis No Hx Migraines No Cardiac Medical History VTE Present on Admission No Hx of Deep Vein Thrombosis/VTE/PE No Hx Hypertension No Hx Chest Pain/Angina No Hx Heart Attack No Hx Cardiac Surgery/Stents/Etc. No Hx Heart Failure No Hx Pacemaker/AICD No Hx Irregular Heartbeat and/or Afib No Hx Anticoagulant Therapy No Query Text:(Coumadin, Aspirin, Plavix, Xarelto, etc.) Hx Pain in Legs when Walking/Leg Cramps No Respiratory Medical History Hx COPD No Hx Emphysema No Hx Smoking No Smoking Status Former smoker Tobacco Use Pipe Years Smoking 30 Hx Tobacco Use in last 12 months No Hx Sleep Apnea No Do you snore loudly (louder than talking No or can be heard through closed doors)? Do you often feel tired/ fatigued/ Yes sleepy during daytime? Has anyone observed you stop breathing No during sleep? STOP Results Negative GI Medical History Hx Ulcer No Hx Hepatitis No Hx Cirrhosis No Hx GI Bleed No Hx Unplanned Weight Loss No Genitourinary Medical History Indwelling Catheter in Place on Arrival/ No Admission Hx Renal Disease No Hx Dialysis No Musculoskeletal History Hx Arthritis No Hx Rheumatoid Arthritis No Endocrine Medical History Hx Diabetes No Hx Thyroid Disease No Hematologic Medical History Hx of Blood Transfusion No Hx of Transfusion in last 3 Months No Ever experience any problems with No transfusion(s)? Hx of Preganancy in last 3 Months N/A Nurse Filling Out Transfusion & CSNYDER Questions: Date: 08/27/18 Time: 23:44 Psycho/Social Medical History Hx Depression No Hx Anxiety No Hx Behavior Disorder No Hx Alcohol Use No Hx Substance Use No Other Medical History Hx Blood Disorders No Hx Anemia No Hx Cancer Yes: hx bladder CA Hx Drug Resistant Organism No Wound/Pressure Injury Present on Arrival No /Admission Query Text:If yes, chart assessment in Shift/Clinical Findings Central Line/PICC/VAD Present on Arrival No /Admission Risk for Readmission Number of Risk Factors 1 At Risk for Readmission Patient is Not at Risk Patient is eligible for Call Back N Maternal Family History: Cancer - Pancreatic cancer diagnosed at age 74, No pertinent history - Social History Smoking Status: Former smoker Tobacco Use: Pipe Review of Systems Constitutional:: Reports: Weakness, Fatigue, Weight loss, Appetite change. Denies: Fever, Sweats, Chills Cardiovascular:: Denies: Chest pain, Palpitations, Dyspnea on exertion, Orthopnea, PND, Shortness of breath Respiratory: Denies: Cough, Hemoptysis, Shortness of Breath, Wheezing Gastrointestinal:: Reports: Abdominal pain. Denies: Nausea, Vomiting, Diarrhea, Constipation, Melena, Hematochezia Genitourinary: Denies: Dysuria, Hematuria, 15, Flank pain Musculoskeletal:: Denies: Back pain, Myalgia, Arthralgia Skin: Denies: Rash, Skin Changes, Wounds Neurological:: Denies: Headache, Dizziness, Numbness, Tingling, Frequent falls, Visual changes, Tinnitus, Hearing loss Psychiatric: Denies: Anxiety, Depression, Homicidal Ideations, Suicidal Ideations Vital Signs Height 5 ft 10 in Weight: 178 lb 9.191 oz Weight in Pounds 178.6 lbs Pulse Ox 93 Temperature 97.6 F Pulse Rate 76 Respiratory Rate 16 Blood Pressure 121/94 Blood Pressure Position Semi-Fowlers - Physical Exam General: Alert, Oriented x3, No apparent distress HEENT: Atraumatic, Normocephalic Oropharynx:: Negative for: Dry mucosa, Ulcerated lesions Neck:: Supple, Trachea midline. Negative for: JVD, bilateral Cardiac:: Regular rate, Regular rhythm, Normal S1, Normal S2. Negative for: Murmur Lungs: Clear to auscultation, Excusion symmetrical. Negative for: Rhonchi, Wheezes Abdomen:: Bowel sounds x 4, Non-tender, Non-distended, Tender - bilat upper quads. Negative for: Hepatosplenomegaly Extremities:: Negative for: Cyanosis, Edema Neurological: Neuro grossly intact Skin:: Negative for: Lesions, Rash, Petechiae, Ecchymosis Psychiatric:: Appropriate affect, Euthymic Lymphatics:: Negative for: Cervical lymphadenopathy, Supraclavicular lymphadenopathy, Axillary lymphadenopathy Laboratory Data: Laboratory Tests 08/29/18 08/29/18 08/28/18 Range/Units 06:35 06:35 15:15 WBC 4.0 L (4.4-11.0) K/mm3 RBC 3.77 L (4.6-6.2) M/mm3 Hgb 10.9 L (13.0-16.5) g/dl Hct 32.1 L (40-54) % MCV 85.1 (80-94) fL MCH 28.9 (27.0-32.0) pg MCHC 34.0 (32-36) g/gl RDW 12.9 (11.6-14.6) % RDW Differential 39.7 (35.1-43.9) fl Plt Count 26 L* (150-450) K/mm3 MPV 12.7 H (6.2-12.0) fl Neut % (Auto) Not Reportable Absolute Neuts (auto) 1.7 L (2.0-7.7) X10^3/uL Absolute Lymphs (auto) 1.76 (0.83-4.51) X10^3/ul Total Counted 100 (MANUAL DIFF) Neutrophils % (Manual) 36 L (47-70) % Band Neutrophils % 6 H (0-5) % Lymphocytes % (Manual) 44 H (19-41) % Monocytes % (Manual) 7 (0-10) % Eosinophils % (Manual) 3 (0-5) % Metamyelocytes % 4 H (0-1) % Diff Path Review May foll Platelet Estimate MKD DEC (ADEQ) Polychromasia 1+ Hypochromasia 1+ Anisocytosis 1+ Sodium 142 (136-145) mmol/L Potassium 4.0 (3.5-5.1) mmol/L Chloride 109 H (98-107) mmol/L Carbon Dioxide 27.0 (21.0-32.0) mmol/L BUN 30 H (7-18) mg/dL Creatinine 1.82 H (0.70-1.30) mg/dL Estim Creat Clear Calc 36.21 ml/min Est GFR (MDRD) Af Amer 47 L (>60) mL/min Est GFR (MDRD) Non-Af 39 L (>60) mL/min BUN/Creatinine Ratio 16.5 (10-20) RATIO Glucose 120 H (74-106) mg/dL Calcium 8.3 L (8.5-10.1) mg/dL Phosphorus 3.1 (2.5-4.9) mg/dL Total Bilirubin 0.90 (0.20-1.00) mg/dL Direct Bilirubin 0.25 (0.00-0.30) mg/dL GGT 72 (15-85) U/L AST 24 (15-37) U/L ALT 25 (16-61) U/L Alkaline Phosphatase 493 H (45-117) U/L Lactate Dehydrogenase 279 H (87-241) U/L Total Protein 5.7 L (6.4-8.2) g/dL Albumin 2.6 L (3.2-5.0) g/dL Globulin 3.1 (2.2-4.2) g/dL Total PSA 455.00 H (0.0-4.0) ng/mL Urine Color (Yellow) Urine Clarity (Clear) Urine pH (5.0 - 8.0) Ur Specific [place] (1.002-1.030) Urine Protein (Negative) mg/dl Urine Glucose (UA) (Normal) mg/dl Urine Ketones (Negative) mg/dl Urine Occult Blood (Negative) /ul Urine Nitrite (Negative) Urine Bilirubin (Negative) mg/dL Urine Urobilinogen (Normal) mg/dl Ur Leukocyte Esterase (Negative) /ul Urine RBC (0-5) /hpf Urine WBC (0-5) /hpf Ur Squamous Epith Cells (0-5) /hpf Urine Bacteria (None Seen) /hpf Hyaline Casts (0-5) /lpf Urine Mucus (<or=2+) /hpf 08/28/18 08/27/18 08/27/18 Range/Units 10:30 23:32 20:40 WBC (4.4-11.0) K/mm3 RBC (4.6-6.2) M/mm3 Hgb (13.0-16.5) g/dl Hct (40-54) % MCV (80-94) fL MCH (27.0-32.0) pg MCHC (32-36) g/gl RDW (11.6-14.6) % RDW Differential (35.1-43.9) fl Plt Count (150-450) K/mm3 MPV (6.2-12.0) fl Neut % (Auto) Absolute Neuts (auto) (2.0-7.7) X10^3/uL Absolute Lymphs (auto) (0.83-4.51) X10^3/ul Total Counted (MANUAL DIFF) Neutrophils % (Manual) (47-70) % Band Neutrophils % (0-5) % Lymphocytes % (Manual) (19-41) % Monocytes % (Manual) (0-10) % Eosinophils % (Manual) (0-5) % Metamyelocytes % (0-1) % Diff Path Review Reviewed Reviewed Platelet Estimate (ADEQ) Polychromasia Hypochromasia Anisocytosis Sodium (136-145) mmol/L Potassium (3.5-5.1) mmol/L Chloride (98-107) mmol/L Carbon Dioxide (21.0-32.0) mmol/L BUN (7-18) mg/dL Creatinine (0.70-1.30) mg/dL Estim Creat Clear Calc ml/min Est GFR (MDRD) Af Amer (>60) mL/min Est GFR (MDRD) Non-Af (>60) mL/min BUN/Creatinine Ratio (10-20) RATIO Glucose (74-106) mg/dL Calcium (8.5-10.1) mg/dL Phosphorus (2.5-4.9) mg/dL Total Bilirubin (0.20-1.00) mg/dL Direct Bilirubin (0.00-0.30) mg/dL GGT (15-85) U/L AST (15-37) U/L ALT (16-61) U/L Alkaline Phosphatase (45-117) U/L Lactate Dehydrogenase (87-241) U/L Total Protein (6.4-8.2) g/dL Albumin (3.2-5.0) g/dL Globulin (2.2-4.2) g/dL Total PSA (0.0-4.0) ng/mL Urine Color Yellow (Yellow) Urine Clarity Clear (Clear) Urine pH 5.0 (5.0 - 8.0) Ur Specific [place] 1.025 (1.002-1.030) Urine Protein 15 H (Negative) mg/dl Urine Glucose (UA) Normal (Normal) mg/dl Urine Ketones 5 H (Negative) mg/dl Urine Occult Blood Negative (Negative) /ul Urine Nitrite Negative (Negative) Urine Bilirubin Negative (Negative) mg/dL Urine Urobilinogen Normal (Normal) mg/dl Ur Leukocyte Esterase 25 H (Negative) /ul Urine RBC 0 SEEN (0-5) /hpf Urine WBC 0-5 SEEN (0-5) /hpf Ur Squamous Epith Cells 0-5 SEEN (0-5) /hpf Urine Bacteria RARE (None Seen) /hpf Hyaline Casts 0-5 SEEN (0-5) /lpf Urine Mucus 1+ (<or=2+) /hpf Diagnostic Data: Diagnostic Data Gallbladder Ultrasound 08/27/18 20:33 IMPRESSION: No definite abnormality. Electronically Signed: Luis Flores MD at 21:35 EST , Service support , Assessment and Plan 73 year old gentlemen with PMH for superficial bladder ca admitted for management of intractable nausea & RUQ pain found to have platelet count of 34,000. 1. Elevated PSA, level obtained 08/28/2018 was 455.-These results were communicated to the patient. Quite indicative of active prostate cancer. 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 Upper quad pain possibly related to disease if present in ribs? Recommend bone scan and bone biopsy of most accessible lesion. In the interim orders placed for Casodex 50 mg daily and patient is educated that he will require Lupron injections in the outpatient setting. Patient educated about potential side effects with ADT inclusive of hot flashes and fatigue. Bicalutamide is not on hospital formulary. Order sent to patient selected retail pharmacy. Family to pickler helper rx and bring to hospital where he may self administer. 2. Thrombocytopenia- in the absence of active bleeding as evidenced by platelet count today of 26,000. Previous CBC for comparison are imperative to determine if this did in fact develop acutely. 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 Obtain PT/PTT and fibrinogen levels. Reassuring that 3. H/o superficial bladder ca- Diagnosed approx 2009. Did not require adjuvant chemo or radiation therapy. Repeat urine cytology pending. Case discussed with Dr. Lopez who is in agreement with the aforementioned plan. Leana Schneider, MSN, [employer], AOCNP Medications: Prescriptions This Visit Medication Instructions Recorded Aspirin [Aspirin EC] 81 mg PO DAILY 08/28/18 Tamsulosin HCl [Flomax] 0.4 mg PO DAILY 08/28/18 Primary Care Provider: Natalee Partiad Referring Provider:
[2018-08-29 10:35] LABS: HIV - WCH Non-Reactive (Nonreactive)
[2018-08-29 11:44] LABS: International Normalized Ratio 1.3; Prothrombin Time (Protime)PT. 16.2 SECONDS (11.7-14.9)
[2018-08-29 11:45] LABS: Fibrinogen 222 mg/dl (203-444); Partial Thromboplast Time 32.2 Seconds (24.1-36.2)
--- NOTE | 2018-08-29 12:02 | CT_ITS ---
STUDY: CT ABDOMEN AND PELVIS WITH CONTRAST REASON FOR EXAM: Male, 73 years old. Bladder and prostate cancer. Elevated PSA. Question metastatic disease to the bones. RADIATION DOSAGE (If Supplied By Facility): CTDIvol = ( 19.48 ) mGy, DLP = ( 2083.57 ) mGycm TECHNIQUE: Transaxial images were obtained from the dome of the diaphragm to the symphysis pubis with oral contrast. 100ML ml of Isovue 300 contrast was administered. Sagittal and coronal images were reconstructed. Individualized dose optimization techniques were used for this CT. COMPARISON: None. FINDINGS: Limited views through the lower chest show pleural thickening in both costophrenic angles worse on the left. Normal liver. Normal gallbladder and extrahepatic biliary system. Normal spleen. Normal pancreas. Normal bilateral adrenal glands. Both kidneys appear diffusely small, no larger than 9.5 cm length. Symmetric contrast enhancement. No masses. No hydronephrosis. 3 mm nonobstructing stone in the mid right kidney. 2 mm nonobstructing stone in the left upper pole. Normal visualized stomach. Normal small intestine. Normal colon. Mild diverticulosis. The appendix is visualized and appears normal. Normal abdominal aorta. Normal inferior vena cava. Normal retroperitoneum. Normal urinary bladder. There are prostatic calcifications. There is a small umbilical hernia containing fat. Mild degenerative changes throughout the bones. Question of subtle areas of slight increased density in some vertebral bodies such as L3 and L4. Metastatic disease not excluded. Bone scan is significantly more sensitive for prostate metastases and is recommended. CT/Abdomen/Pelvis WITH Contrast IMPRESSION: Question of mild bilateral renal atrophy. Bilateral nonobstructing renal stones. Mild blastic metastatic disease not excluded. Bone scan recommended. Electronically Signed: Luis Flores MD at 20:31 EST , Service support ,
--- NOTE | 2018-08-29 12:02 | CT_ITS ---
STUDY: CT CHEST WITH CONTRAST REASON FOR EXAM: Male, 73 years old. Bladder and prostate cancer. Elevated PSA. RADIATION DOSAGE (If Supplied By Facility): CTDIvol = ( ) mGy, DLP = ( ) mGycm TECHNIQUE: Transaxial imaging was performed following intravenous administration of 100ML ml of Isovue 300 contrast material. Individualized dose optimization techniques were used for this CT. COMPARISON: None. FINDINGS: Normal lung volumes. No effusions. No infiltrates. Mild scarring in the left posterior costophrenic angle. 9 mm elongated nodule along the surface of the left major fissure, axial image 72. These tend to be of no clinical significance. Nevertheless follow-up in 6 months is suggested. There is right axillary adenopathy. There is a 2.8 cm right axillary lymph node seen on axial image 39 and other smaller right axillary lymph nodes. There is a poorly visualized probable mass in the right subclavicular fossa at about the level of the thoracic inlet. It measures approximately 3.8 cm size and is best seen on axial image 14. Several right paratracheal lymph nodes are seen measuring as much as 1.8 cm, best seen on coronal images 143-169. There is moderate mid mediastinal, precarinal adenopathy, seen on axial images 49-55. Normal heart and pericardium. Normal hilar regions. Normal enhanced pulmonary arteries. Normal aorta arch and descending thoracic aorta. No definite skeletal abnormality. However CT scan can be insensitive for skeletal metastatic disease. See separate report for CT of the abdomen. CT/Chest WITH Contrast IMPRESSION: Right axillary, right infraclavicular, and mediastinal adenopathy. Small nodule on the surface of the left major fissure is probably incidental but suggest follow-up and 6 months. Electronically Signed: Luis Flores MD at 21:39 EST , Service support ,
[2018-08-29 13:34] LABS: Pathologist Review Reviewed
[2018-08-29 14:22] VITALS: BP 129/67; PULSE 83; RESP 20; TEMP 36.4; O2SAT 95
--- NOTE | 2018-08-29 14:53 | NURSING ---
pt returned from CT scan at this time.
[2018-08-29] MEDS: Tamsulosin HCl 0.4 MG Capsule PO (17:25)
[2018-08-29] MEDS: BICALUTAMIDE 50 MG TABLET PO (17:28)
--- NOTE | 2018-08-29 18:46 | PCM.PROGNOTE ---
Patient Problems: Active and Suspected Problems Weight loss (Acute) Abdominal pain (Acute) Nausea (Acute) Anorexia (Acute) Thrombocytopenia (Acute) Prostate cancer (Acute) Elevated PSA, greater than or equal to 20 ng/ml (Acute) Elevated alkaline phosphatase level (Acute) Subjective: Patient was seen and examined today, I discussed his care with his family also who is in the room. Patient's platelet count has declined further on today's labs, patient is actually pancytopenic today with a slightly lower white blood cell count than yesterday. I talked with oncology today, they recommend the patient have a bone scan followed by a bone biopsy if the bone scan is positive. Patient is still having some central abdominal pain which is unexplained, I talked with general surgery also today and it was thought a repeat CT of the abdomen and chest would be helpful and so this was ordered, the results of these tests are pending at the time of this dictation. I did a prostate exam on the patient today, the prostate area itself is not elevated however the slides of the rectal area feel hardened but there was actually no palpable nodule that I could feel. - Physical Exam General: Alert, Oriented x3, Cooperative, No apparent distress, Well developed HEENT: Atraumatic, PERRLA, EOMI, Normocephalic Oral: Moist Mucosa Neck: Supple, Trachea Midline, Thyroid Normal Size and Texture Lungs: Clear to auscultation, Normal air movement, No rhonchi, No wheeze, No rales Cardiovascular: Regular rate, Regular Rhythm, Normal S1, Normal S2, No murmurs, No Ectopic Activity, PMI Normal, No rub noted, No Gallop Abdomen: Bowel Sounds Present, Soft, Non Tender, Non-Distended Extremities: No clubbing, No cyanosis, No edema, Capillary Refill Less than 3 Seconds Skin: No rashes, No breakdown Musculoskeletal: No Tenderness to Palpation of Joints or Extremities Neurological: Cranial nerves II-XII grossly intact, Neuro grossly intact, Sensory exam intact to light touch and pain, Coordination normal Psych/Mental Status: Normal Affect, Appropriate, Alert and oriented to time, place, person, mood and affect Vital Signs Temp Pulse Resp BP Pulse Ox 97.6 F L 83 20 H 129/67 H 95 08/29/18 14:22 08/29/18 14:22 08/29/18 14:22 08/29/18 14:22 08/29/18 14:22 Oxygen Delivery Method Room Air Weight: 81 kg Body Mass Index (BMI) 25.6 Intake and Output for Last 24 Hours 08/27/18 08/28/18 08/29/18 23:59 23:59 23:59 Intake Total 1277 / 1277 2792 / 2792 Output Total 0 / 0 Balance 1277 / 1277 2792 / 2792 Laboratory Tests Past 24 Hrs 08/28/18 08/29/18 08/29/18 04:54 06:35 06:35 WBC 4.0 L RBC 3.77 L Hgb 10.9 L Hct 32.1 L MCV 85.1 MCH 28.9 MCHC 34.0 RDW 12.9 RDW Differential 39.7 Plt Count 26 L* MPV 12.7 H Neut % (Auto) Not Reportable Absolute Neuts (auto) 1.7 L Absolute Lymphs (auto) 1.76 Total Counted 100 Neutrophils % (Manual) 36 L Band Neutrophils % 6 H Lymphocytes % (Manual) 44 H Monocytes % (Manual) 7 Eosinophils % (Manual) 3 Metamyelocytes % 4 H Diff Path Review Reviewed May foll Platelet Estimate MKD DEC Polychromasia 1+ Hypochromasia 1+ Anisocytosis 1+ PT INR APTT Fibrinogen Sodium Potassium Chloride Carbon Dioxide BUN Creatinine Estim Creat Clear Calc Est GFR (MDRD) Af Amer Est GFR (MDRD) Non-Af BUN/Creatinine Ratio Glucose Calcium Phosphorus Total Bilirubin Direct Bilirubin AST ALT Alkaline Phosphatase Total Protein Albumin Globulin HIV 1&2 Antibody Non-Reactive 08/29/18 08/29/18 06:35 11:28 WBC RBC Hgb Hct MCV MCH MCHC RDW RDW Differential Plt Count MPV Neut % (Auto) Absolute Neuts (auto) Absolute Lymphs (auto) Total Counted Neutrophils % (Manual) Band Neutrophils % Lymphocytes % (Manual) Monocytes % (Manual) Eosinophils % (Manual) Metamyelocytes % Diff Path Review Platelet Estimate Polychromasia Hypochromasia Anisocytosis PT 16.2 H INR 1.3 APTT 32.2 Fibrinogen 222 Sodium 142 Potassium 4.0 Chloride 109 H Carbon Dioxide 27.0 BUN 30 H Creatinine 1.82 H Estim Creat Clear Calc 36.21 Est GFR (MDRD) Af Amer 47 L Est GFR (MDRD) Non-Af 39 L BUN/Creatinine Ratio 16.5 Glucose 120 H Calcium 8.3 L Phosphorus 3.1 Total Bilirubin 0.90 Direct Bilirubin 0.25 AST 24 ALT 25 Alkaline Phosphatase 493 H Total Protein 5.7 L Albumin 2.6 L Globulin 3.1 HIV 1&2 Antibody Medical Necessity - Tobacco Use Smoking Status: Former smoker Tobacco Use: Pipe Assessment/Plan All Active Problems Weight loss (Acute) Abdominal pain (Acute) Nausea (Acute) Anorexia (Acute) Thrombocytopenia (Acute) Prostate cancer (Acute) Elevated PSA, greater than or equal to 20 ng/ml (Acute) Elevated alkaline phosphatase level (Acute) #1 Pancytopenia with marked thrombocytopenia-etiology unclear at this point, oncology is participating in his care, repeat CBC will be obtained tomorrow. #2 elevated PSA indicative of probable prostate cancer-again patient will have a radionucleotide bone scan tomorrow followed by a possible bone scan this Monday, patient will have to have platelet infusion before the bone biopsy per radiology. I was unable to confirmed by rectal exam today that the patient actually had what felt like a prostate mass, there was a firm area located on the sides of the rectum which could be indicative of prostate cancer. #3 abdominal pain-etiology unclear at this point, patient's symptoms have improved since admission to the hospital, CT scan of the abdomen and chest was performed today-results are pending at this time #3 elevated alkaline phosphatase-etiology unclear #4 unexplained weight loss over the past 5 weeks of 20-30 pounds-etiology unclear at this point Code Visit Inpatient E&M: 56900 Subs Hosp L2
[2018-08-29 20:49] VITALS: BP 115/54; PULSE 84; RESP 16; TEMP 36.8; O2SAT 96
[2018-08-30] MEDS: Dext 5%-0.45% NS 1,000 ML 100 ML IV ×2 (02:21→13:00)
[2018-08-30 06:40] LABS: Hematocrit 31.9 % (40-54); Hemoglobin 10.7 g/dl (13.0-16.5); Mean Corp Hgb Conc 33.5 g/gl (32-36); Mean Corpuscular Hgb 29.1 pg (27.0-32.0); Mean Corpuscular Volume 86.7 fL (80-94); Mean Platelet Vol. 11.9 fl (6.2-12.0); RBC Distribution Width CV 12.7 % (11.6-14.6); RBC Distribution Width SD 38.8 fl (35.1-43.9); Red Blood Count 3.68 M/mm3 (4.6-6.2)
[2018-08-30 06:43] LABS: Differential Indicated MANUAL DIFF; POSITIVE COUNT YES; POSITIVE DIFFERENTIAL NO; POSITIVE MORPHOLOGY YES
[2018-08-30 06:44] LABS: Platelet Count 26 K/mm3 (150-450)
[2018-08-30 07:00] LABS: Anion Gap 7 (5-15); BUN 21 mg/dL (7-18); BUN/Creat Ratio 11.4 RATIO (10-20); Calcium,Total 8.4 mg/dL (8.5-10.1); Chloride 110 mmol/L (98-107); Creatinine, Serum 1.84 mg/dL (0.70-1.30); EST Glomerular Filtration Rate 38 mL/min (>60); Est Glom Filt Rate - Afr Amer 46 mL/min (>60); Estimated Creatinine Clearance 35.82 ml/min; Glucose 114 mg/dL (74-106); Potassium 4.1 mmol/L (3.5-5.1); Sodium Level 145 mmol/L (136-145)
[2018-08-30 07:24] LABS: Anisocytosis 1+; Basophil 1 % (0-1); Eosinophil 1 % (0-5); Hypochromasia 1+; Lymphocyte 51 % (19-41); Metamyelocyte 2 % (0-1); Microcytosis 1+; Monocyte 3 % (0-10); Myelocyte 1 (0-0); Neutrophil-Band 3 % (0-5); Neutrophil-Segmented 38 % (47-70); Platelet Estimate MKD DEC (ADEQ); Platelet Morphology LARGE; Polychromasia 1+; Total Cells Counted 100 (MANUAL DIFF)
[2018-08-30 07:25] LABS: Reactive Lymphocyte 1+
[2018-08-30 07:31] LABS: Absolute Lymphocyte Count 2.04 X10^3/ul (0.83-4.51); Absolute Neutrophil Count 1.6 X10^3/uL (2.0-7.7)
--- NOTE | 2018-08-30 08:36 | NM_ITS ---
CLINICAL: Male, 73 years old. Patient has a history of prostate cancer and bladder cancer. WHOLE BODY NUCLEAR BONE SCAN TECHNIQUE: Following the IV administration of 26.6 mCi of Tc MDP, whole body bone imaging was performed with a gamma camera following a three hour delay. COMPARISON STUDIES : Comparison is made with prior CT scan of the abdomen and chest dated August 29, 2018. FINDINGS: There is evidence of a bony metastasis is involving the right and left femurs as well as the right and left hemipelvis as well as the ribs and several vertebrae. There is also evidence of increased uptake in the sternum. Findings are in keeping with metastatic disease. 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 Electronically Signed: Maciel Reeder MD at 9:41 EST Tel [phone], Service support ,
--- NOTE | 2018-08-30 08:36 | PN.SURG_ITS ---
Patient Problems: Active and Suspected Problems Weight loss (Acute) Abdominal pain (Acute) Nausea (Acute) Anorexia (Acute) Thrombocytopenia (Acute) Prostate cancer (Acute) Elevated PSA, greater than or equal to 20 ng/ml (Acute) Elevated alkaline phosphatase level (Acute) Subjective: Patient was able to tolerate some signal soup/potato soup but did have some abdominal discomfort and some nausea, currently patient states he does have soreness in his abdomen but none on palpation. Did review patient's CT chest abdomen pelvis reports with the patient - Physical Exam General: Alert, Oriented x3, Cooperative, No apparent distress HEENT: Atraumatic Lungs: Normal air movement Abdomen: Soft, Non Tender - No peritoneal signs, Non-Distended, Hernia - Umbilical, reducible Extremities: No clubbing, No cyanosis, No edema Vital Signs Temp Pulse Resp BP Pulse Ox 98.3 F 84 16 115/54 L 96 08/29/18 20:49 08/29/18 20:49 08/29/18 20:49 08/29/18 20:49 08/29/18 20:49 Oxygen Delivery Method Room Air Weight: 178 lb 9.191 oz Body Mass Index (BMI) 25.6 Intake and Output for Last 24 Hours 08/28/18 08/29/18 08/30/18 23:59 23:59 23:59 Intake Total 1277 / 1277 2792 / 2792 1601 / 1601 Output Total 0 / 0 Balance 1277 / 1277 2792 / 2792 1601 / 1601 Laboratory Tests Past 24 Hrs 08/28/18 08/29/18 08/29/18 04:54 06:35 11:28 WBC RBC Hgb Hct MCV MCH MCHC RDW RDW Differential Plt Count MPV Neut % (Auto) Absolute Neuts (auto) Absolute Lymphs (auto) Total Counted Neutrophils % (Manual) Band Neutrophils % Lymphocytes % (Manual) Monocytes % (Manual) Eosinophils % (Manual) Basophils % (Manual) Metamyelocytes % Myelocytes % Diff Path Review Reviewed Reactive Lymphocytes Platelet Estimate Plt Morphology Comment Polychromasia Hypochromasia Anisocytosis Microcytosis PT 16.2 H INR 1.3 APTT 32.2 Fibrinogen 222 Sodium Potassium Chloride Carbon Dioxide Anion Gap BUN Creatinine Estim Creat Clear Calc Est GFR (MDRD) Af Amer Est GFR (MDRD) Non-Af BUN/Creatinine Ratio Glucose Calcium HIV 1&2 Antibody Non-Reactive 08/30/18 08/30/18 06:25 06:25 WBC 4.0 L RBC 3.68 L Hgb 10.7 L Hct 31.9 L MCV 86.7 MCH 29.1 MCHC 33.5 RDW 12.7 RDW Differential 38.8 Plt Count 26 L* MPV 11.9 Neut % (Auto) Not Reportable Absolute Neuts (auto) 1.6 L Absolute Lymphs (auto) 2.04 Total Counted 100 Neutrophils % (Manual) 38 L Band Neutrophils % 3 Lymphocytes % (Manual) 51 H Monocytes % (Manual) 3 Eosinophils % (Manual) 1 Basophils % (Manual) 1 Metamyelocytes % 2 H Myelocytes % 1 H Diff Path Review May foll Reactive Lymphocytes 1+ Platelet Estimate MKD DEC Plt Morphology Comment LARGE Polychromasia 1+ Hypochromasia 1+ Anisocytosis 1+ Microcytosis 1+ PT INR APTT Fibrinogen Sodium 145 Potassium 4.1 Chloride 110 H Carbon Dioxide 28.0 Anion Gap 7 BUN 21 H Creatinine 1.84 H Estim Creat Clear Calc 35.82 Est GFR (MDRD) Af Amer 46 L Est GFR (MDRD) Non-Af 38 L BUN/Creatinine Ratio 11.4 Glucose 114 H Calcium 8.4 L HIV 1&2 Antibody Medical Necessity - Tobacco Use Smoking Status: Former smoker Tobacco Use: Pipe Assessment/Plan All Active Problems Weight loss (Acute) Abdominal pain (Acute) Nausea (Acute) Anorexia (Acute) Thrombocytopenia (Acute) Prostate cancer (Acute) Elevated PSA, greater than or equal to 20 ng/ml (Acute) Elevated alkaline phosphatase level (Acute) 73-year-old male with nausea/abdominal pain/weight loss, thrombocytopenia, lymphocytosis, elevated PSA, mediastinal adenopathy/right axillary and right supraclavicular 1. Due to patient's severe thrombocytopenia no plans for any surgical intervention/EGD. Patient also has no abdominal pain on palpation he only states that he has some soreness. However he does state it is much better than ever was at home for the last 5 weeks as he was unable to eat at all at home only drink hot tea. 2. Bone scan today per primary/oncology continue workup per primary and oncology. zIa Downing M.D. Pager: [phone] [facility] [address] [place] [address], [facility], [address] [place] [address] Office: [phone]
--- NOTE | 2018-08-30 09:14 | NURSING ---
off unit via w/c for bone scan approx 0900
--- NOTE | 2018-08-30 09:42 | NURSING ---
back to room from bone scan
[2018-08-30 10:00] VITALS: BP 153/72; PULSE 95; RESP 16; TEMP 36.6; O2SAT 98
[2018-08-30 10:22] LABS: Pathologist Review Reviewed
[2018-08-30 10:24] LABS: Pathologist Review Reviewed
[2018-08-30] MEDS: BICALUTAMIDE 50 MG TABLET PO (10:45)
[2018-08-30] MEDS: Ondansetron 4 MG/2 ML Vial 8 MG IV (12:54)
[2018-08-30] MEDS: 0.9% NaCl Peripheral Flush Adult/Peds IV ×2 (12:54→21:13)
--- NOTE | 2018-08-30 12:55 | PCM.CONS.U ---
Reason for Consult Date of Consultation: 08/30/18 Reason for Consultation: Elevated PSA, positive bone scan suspected metastatic prostate cancer History of Present Illness: The patient is a 73 year old male who presented to the hospital with generalized abdominal pain, and further workup was found to have a PSA elevated at 450, bone scan was done was positive for metastatic disease, is reported that his EVELIN was normal. Most likely patient has prostate cancer metastatic disease. He does have very low platelets. The hospitalist service plan to give him platelets tomorrow and working to proceed with a prostate biopsy tomorrow in the operating room under ultrasound guidance. Past Medical History Past Medical History (Chronic Problems): Chronic Problems History of bladder cancer (Chronic) Allergies No Known Allergies Allergy (Verified 08/27/18 20:00) Home Medications: Ambulatory Orders Medication Instructions Recorded Aspirin [Aspirin EC] 81 mg PO DAILY 08/28/18 Tamsulosin HCl [Flomax] 0.4 mg PO DAILY 08/28/18 Bicalutamide [Casodex] 50 mg PO DAILY 08/29/18 Surgical History: - - Neck cyst excision, teeth extraction Psychiatric History: No pertinent psych hx Smoking Status: Former smoker Tobacco Use: Pipe - *Family History Maternal History Items: Cancer - Pancreatic cancer diagnosed at age 74, No pertinent history Review of Systems Constitutional: Denies: Chills, Fever, Weight Change HEENT: Denies: Head Aches, Sinus Congestion, Sinus Drainage Cardiovascular: Denies: Chest Pain, Palpitations Respiratory: Denies: Cough, Shortness of breath at rest, Sputum production Gastrointestinal: Denies: Abdominal Pain, Nausea, Vomiting Genitourinary: Denies: Dysuria Musculoskeletal: Denies: Joint Pain, Joint Tenderness Skin: Denies: Rash, Wounds Neurological: Denies: Numbness, Tingling, Focal weakness Psychiatric: Denies: Anxiety, Depression, Homicidal Ideations, Suicidal Ideations Hematologic/ Lymphatic: Denies: Easy Bruising, Easy Bleeding Physical Exam - Physical Exam Vital Signs Temp 97.9 F 08/30/18 10:00 Pulse 95 08/30/18 10:00 Resp 16 08/30/18 10:00 BP 153/72 H 08/30/18 10:00 Pulse Ox 98 08/30/18 10:00 Intake & Output 08/28/18 08/29/18 08/30/18 23:59 23:59 23:59 Intake Total 1277 / 1277 2792 / 2792 1601 / 1601 Output Total 0 / 0 Balance 1277 / 1277 2792 / 2792 1601 / 1601 Weight: 81 kg Intake: Oral 100 / 100 500 / 500 IV fluid/meds 1177 / 1177 2292 / 2292 1601 / 1601 Output: Urine 0 / 0 Other: Number of Voids 1 4 General: Alert HEENT: Atraumatic Oral: Moist Mucosa Neck: Supple Lungs: Normal air movement Cardiovascular: Regular rate, Regular Rhythm Abdomen: Soft Rectal: Exam deferred Laboratory Tests Past 24 Hrs 08/28/18 08/29/18 08/30/18 04:54 06:35 06:25 WBC 4.0 L RBC 3.68 L Hgb 10.7 L Hct 31.9 L MCV 86.7 MCH 29.1 MCHC 33.5 RDW 12.7 RDW Differential 38.8 Plt Count 26 L* MPV 11.9 Neut % (Auto) Not Reportable Absolute Neuts (auto) 1.6 L Absolute Lymphs (auto) 2.04 Total Counted 100 Neutrophils % (Manual) 38 L Band Neutrophils % 3 Lymphocytes % (Manual) 51 H Monocytes % (Manual) 3 Eosinophils % (Manual) 1 Basophils % (Manual) 1 Metamyelocytes % 2 H Myelocytes % 1 H Diff Path Review Reviewed Reviewed Reviewed Reactive Lymphocytes 1+ Platelet Estimate MKD DEC Plt Morphology Comment LARGE Polychromasia 1+ Hypochromasia 1+ Anisocytosis 1+ Microcytosis 1+ Sodium Potassium Chloride Carbon Dioxide Anion Gap BUN Creatinine Estim Creat Clear Calc Est GFR (MDRD) Af Amer Est GFR (MDRD) Non-Af BUN/Creatinine Ratio Glucose Calcium Blood Type Antibody Screen 08/30/18 08/30/18 06:25 09:55 WBC RBC Hgb Hct MCV MCH MCHC RDW RDW Differential Plt Count MPV Neut % (Auto) Absolute Neuts (auto) Absolute Lymphs (auto) Total Counted Neutrophils % (Manual) Band Neutrophils % Lymphocytes % (Manual) Monocytes % (Manual) Eosinophils % (Manual) Basophils % (Manual) Metamyelocytes % Myelocytes % Diff Path Review Reactive Lymphocytes Platelet Estimate Plt Morphology Comment Polychromasia Hypochromasia Anisocytosis Microcytosis Sodium 145 Potassium 4.1 Chloride 110 H Carbon Dioxide 28.0 Anion Gap 7 BUN 21 H Creatinine 1.84 H Estim Creat Clear Calc 35.82 Est GFR (MDRD) Af Amer 46 L Est GFR (MDRD) Non-Af 38 L BUN/Creatinine Ratio 11.4 Glucose 114 H Calcium 8.4 L Blood Type O POSITIVE Antibody Screen NEGATIVE Assessment/Plan All Active Problems Weight loss (Acute) Abdominal pain (Acute) Nausea (Acute) Anorexia (Acute) Thrombocytopenia (Acute) Prostate cancer (Acute) Elevated PSA, greater than or equal to 20 ng/ml (Acute) Elevated alkaline phosphatase level (Acute) 73-year-old male presents with advanced signs of prostate cancer metastatic disease very high PSA plan to proceed with a prostate biopsy tomorrow. He will need platelets before this and have the nursing staff prepped him with an enema and start him on antibiotics. N.p.o. at midnight.
[2018-08-30 13:24] LABS: H. Pylori Antibody (IgG) 0.15 (0.00-0.79)
[2018-08-30] MEDS: Ciprofloxacin 400 MG/200 ML BAG 200 MG IV ×2 (14:30→21:13)
--- NOTE | 2018-08-30 14:48 | ONC.OV1 ---
Subjective - Chief Complaint Thrombocytopenia, found to have elevated PSA - History of Present Illness Mr. Candi Dangelo is a very pleasant 73 year old man with an essentially unremarkable PMH with the exception of superficial bladder ca approx 2009, who developed intractable nausea, RUQ accompanied by an estimated 30 lb weight loss abruptly 6 weeks ago. Was evaluated by surgery at [facility], and plans were made for HIDA scan on 08/31/18. Pain intensity increased which resulted in presentation to [facility] ED 08/27/18. A CT was completed and per patient self report normal. He was discharged and subsequently presented to [facility] later with the same symptoms and admitted for management. Found to have a platelet count of 34,000. Patient denies any previous history of thrombocytopenia, the initiation of any new medications/herbal/otc supplements, ETOH use as well as any episodes of overt bleeding, although notes he bruises easily. Bladder ca surveillance visit with his urologist was completed May 2018, per patient report he was told urine cytology looked good. Specifically denies any chills, night sweats, new onset bone pain, hematuria,melena/hematochezia. Colonoscopy up to date. Cannot recall when his PSA was last checked. Family history positive for mother with pancreatic ca, brother #1- bladder ca, brother #2-prostate ca, brother #3- lung ca. - Past Medical/Social History Social History Smoking Status Former smoker Vital Signs Height 5 ft 10 in Weight: 178 lb 9.191 oz Weight in Pounds 178.6 lbs Pulse Ox 98 Temperature 97.9 F Pulse Rate 95 Respiratory Rate 16 Blood Pressure 153/72 Blood Pressure Position Semi-Fowlers Laboratory Data: Laboratory Tests 08/30/18 08/30/18 08/30/18 Range/Units 09:55 06:25 06:25 WBC 4.0 L (4.4-11.0) K/mm3 RBC 3.68 L (4.6-6.2) M/mm3 Hgb 10.7 L (13.0-16.5) g/dl Hct 31.9 L (40-54) % MCV 86.7 (80-94) fL MCH 29.1 (27.0-32.0) pg MCHC 33.5 (32-36) g/gl RDW 12.7 (11.6-14.6) % RDW Differential 38.8 (35.1-43.9) fl Plt Count 26 L* (150-450) K/mm3 MPV 11.9 (6.2-12.0) fl Neut % (Auto) Not Reportable Absolute Neuts (auto) 1.6 L (2.0-7.7) X10^3/uL Absolute Lymphs (auto) 2.04 (0.83-4.51) X10^3/ul Total Counted 100 (MANUAL DIFF) Neutrophils % (Manual) 38 L (47-70) % Band Neutrophils % 3 (0-5) % Lymphocytes % (Manual) 51 H (19-41) % Monocytes % (Manual) 3 (0-10) % Eosinophils % (Manual) 1 (0-5) % Basophils % (Manual) 1 (0-1) % Metamyelocytes % 2 H (0-1) % Myelocytes % 1 H (0-0) Diff Path Review Reviewed Reactive Lymphocytes 1+ Platelet Estimate MKD DEC (ADEQ) Plt Morphology Comment LARGE Polychromasia 1+ Hypochromasia 1+ Anisocytosis 1+ Microcytosis 1+ Sodium 145 (136-145) mmol/L Potassium 4.1 (3.5-5.1) mmol/L Chloride 110 H (98-107) mmol/L Carbon Dioxide 28.0 (21.0-32.0) mmol/L Anion Gap 7 (5-15) BUN 21 H (7-18) mg/dL Creatinine 1.84 H (0.70-1.30) mg/dL Estim Creat Clear Calc 35.82 ml/min Est GFR (MDRD) Af Amer 46 L (>60) mL/min Est GFR (MDRD) Non-Af 38 L (>60) mL/min BUN/Creatinine Ratio 11.4 (10-20) RATIO Glucose 114 H (74-106) mg/dL Calcium 8.4 L (8.5-10.1) mg/dL H. pylori IgG Antibody (0.00-0.79) Blood Type O POSITIVE Antibody Screen NEGATIVE 08/29/18 08/28/18 Range/Units 06:35 15:15 WBC (4.4-11.0) K/mm3 RBC (4.6-6.2) M/mm3 Hgb (13.0-16.5) g/dl Hct (40-54) % MCV (80-94) fL MCH (27.0-32.0) pg MCHC (32-36) g/gl RDW (11.6-14.6) % RDW Differential (35.1-43.9) fl Plt Count (150-450) K/mm3 MPV (6.2-12.0) fl Neut % (Auto) Absolute Neuts (auto) (2.0-7.7) X10^3/uL Absolute Lymphs (auto) (0.83-4.51) X10^3/ul Total Counted (MANUAL DIFF) Neutrophils % (Manual) (47-70) % Band Neutrophils % (0-5) % Lymphocytes % (Manual) (19-41) % Monocytes % (Manual) (0-10) % Eosinophils % (Manual) (0-5) % Basophils % (Manual) (0-1) % Metamyelocytes % (0-1) % Myelocytes % (0-0) Diff Path Review Reviewed Reactive Lymphocytes Platelet Estimate (ADEQ) Plt Morphology Comment Polychromasia Hypochromasia Anisocytosis Microcytosis Sodium (136-145) mmol/L Potassium (3.5-5.1) mmol/L Chloride (98-107) mmol/L Carbon Dioxide (21.0-32.0) mmol/L Anion Gap (5-15) BUN (7-18) mg/dL Creatinine (0.70-1.30) mg/dL Estim Creat Clear Calc ml/min Est GFR (MDRD) Af Amer (>60) mL/min Est GFR (MDRD) Non-Af (>60) mL/min BUN/Creatinine Ratio (10-20) RATIO Glucose (74-106) mg/dL Calcium (8.5-10.1) mg/dL H. pylori IgG Antibody 0.15 (0.00-0.79) Blood Type Antibody Screen Diagnostic Data: Diagnostic Data Gallbladder Ultrasound 08/27/18 20:33 IMPRESSION: No definite abnormality. Electronically Signed: Luis Flores MD at 21:35 EST , Service support , Abdomen/Pelvis CT 08/29/18 12:02 IMPRESSION: Question of mild bilateral renal atrophy. Bilateral nonobstructing renal stones. Mild blastic metastatic disease not excluded. Bone scan recommended. Electronically Signed: Luis Flores MD at 20:31 EST , Service support , Chest CT 08/29/18 12:02 IMPRESSION: Right axillary, right infraclavicular, and mediastinal adenopathy. Small nodule on the surface of the left major fissure is probably incidental but suggest follow-up and 6 months. 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 Electronically Signed: Maciel Reeder MD at 9:41 EST Tel [phone], Service support , Assessment and Plan 73 year old gentlemen with PMH for superficial bladder ca admitted for management of intractable nausea & RUQ pain found to have platelet count of 34,000. 1. Elevated PSA, level obtained 08/28/2018 was 455.-These results were communicated to the patient. Quite indicative of active prostate cancer. 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 Upper quad pain possibly related to disease if present in ribs? Recommend bone scan and bone biopsy of most accessible lesion. In the interim orders placed for Casodex 50 mg daily and patient is educated that he will require Lupron injections in the outpatient setting. Patient educated about potential side effects with ADT inclusive of hot flashes and fatigue. Bicalutamide is not on hospital formulary. Order sent to patient selected retail pharmacy. Family to picker rx and bring to hospital where he may self administer. 2. Thrombocytopenia- in the absence of active bleeding as evidenced by platelet count today of 26,000. Previous CBC for comparison are imperative to determine if this did in fact develop acutely. 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 Obtain PT/PTT and fibrinogen levels. Reassuring that 3. H/o superficial bladder ca- Diagnosed approx 2009. Did not require adjuvant chemo or radiation therapy. Repeat urine cytology pending. Case discussed with Dr. Lopez who is in agreement with the aforementioned plan. Leana Schneider, MSN, [employer] MACHINE OPERATOR-C, AOCNP Medications: Prescriptions This Visit Medication Instructions Recorded Aspirin [Aspirin EC] 81 mg PO DAILY 08/28/18 Tamsulosin HCl [Flomax] 0.4 mg PO DAILY 08/28/18 Bicalutamide [Casodex] 50 mg PO DAILY 08/29/18 Medications Added to Medication List This Visit Category Date Time Status Bicalutamide Med 08/30/18 10:00 Active 50 mg PO DAILY Ciprofloxacin [Cipro] Med 08/30/18 22:00 Active 400 mg in 200 ml IV Q12 Ciprofloxacin [Cipro] Med 08/30/18 14:00 Active 400 mg in 200 ml IV X1 Dexamethasone [Decadron] Med 08/30/18 11:00 Active 40 mg PO DAILY@0800 Na Phos,M-B/Na Phos,Di-Ba [Fleet Enema] Med 08/31/18 00:01 Once 1 bottle RECTAL X1 ONE Primary Care Provider: Natalee Partida Referring Provider: - Problem List (1) History of bladder cancer Status: Chronic (2) Weight loss Status: Acute (3) Thrombocytopenia Status: Acute (4) Elevated PSA, greater than or equal to 20 ng/ml Status: Acute (5) Elevated alkaline phosphatase level Status: Acute
--- NOTE | 2018-08-30 14:53 | WMO.OV_ITS ---
Subjective - Chief Complaint Thrombocytopenia, found to have elevated PSA - History of Present Illness Mr. Candi Dangelo is a very pleasant 73 year old man with an essentially unremarkable PMH with the exception of superficial bladder ca approx 2009, who developed intractable nausea, RUQ accompanied by an estimated 30 lb weight loss abruptly 6 weeks ago. Was evaluated by surgery at [facility], and plans were made for HIDA scan on 08/31/18. Pain intensity increased which resulted in presentation to [facility] ED 08/27/18. A CT was completed and per patient self report normal. He was discharged and subsequently presented to [facility] later with the same symptoms and admitted for management. Found to have a platelet count of 34,000. Patient denies any previous history of thrombocytopenia, the initiation of any new medications/herbal/otc supplements, ETOH use as well as any episodes of overt bleeding, although notes he bruises easily. Bladder ca surveillance visit with his urologist was completed May 2018, per patient report he was told urine cytology looked good. Specifically denies any chills, night sweats, new onset bone pain, hematuria,melena/hematochezia. Colonoscopy up to date. Cannot recall when his PSA was last checked. Family history positive for mother with pancreatic ca, brother #1- bladder ca, brother #2-prostate ca, brother #3- lung ca. - Past Medical/Social History Social History Smoking Status Former smoker Vital Signs Height 5 ft 10 in Weight: 178 lb 9.191 oz Weight in Pounds 178.6 lbs Pulse Ox 98 Temperature 97.9 F Pulse Rate 95 Respiratory Rate 16 Blood Pressure 153/72 Blood Pressure Position Semi-Fowlers Laboratory Data: Laboratory Tests 08/30/18 08/30/18 08/30/18 Range/Units 09:55 06:25 06:25 WBC 4.0 L (4.4-11.0) K/mm3 RBC 3.68 L (4.6-6.2) M/mm3 Hgb 10.7 L (13.0-16.5) g/dl Hct 31.9 L (40-54) % MCV 86.7 (80-94) fL MCH 29.1 (27.0-32.0) pg MCHC 33.5 (32-36) g/gl RDW 12.7 (11.6-14.6) % RDW Differential 38.8 (35.1-43.9) fl Plt Count 26 L* (150-450) K/mm3 MPV 11.9 (6.2-12.0) fl Neut % (Auto) Not Reportable Absolute Neuts (auto) 1.6 L (2.0-7.7) X10^3/uL Absolute Lymphs (auto) 2.04 (0.83-4.51) X10^3/ul Total Counted 100 (MANUAL DIFF) Neutrophils % (Manual) 38 L (47-70) % Band Neutrophils % 3 (0-5) % Lymphocytes % (Manual) 51 H (19-41) % Monocytes % (Manual) 3 (0-10) % Eosinophils % (Manual) 1 (0-5) % Basophils % (Manual) 1 (0-1) % Metamyelocytes % 2 H (0-1) % Myelocytes % 1 H (0-0) Diff Path Review Reviewed Reactive Lymphocytes 1+ Platelet Estimate MKD DEC (ADEQ) Plt Morphology Comment LARGE Polychromasia 1+ Hypochromasia 1+ Anisocytosis 1+ Microcytosis 1+ Sodium 145 (136-145) mmol/L Potassium 4.1 (3.5-5.1) mmol/L Chloride 110 H (98-107) mmol/L Carbon Dioxide 28.0 (21.0-32.0) mmol/L Anion Gap 7 (5-15) BUN 21 H (7-18) mg/dL Creatinine 1.84 H (0.70-1.30) mg/dL Estim Creat Clear Calc 35.82 ml/min Est GFR (MDRD) Af Amer 46 L (>60) mL/min Est GFR (MDRD) Non-Af 38 L (>60) mL/min BUN/Creatinine Ratio 11.4 (10-20) RATIO Glucose 114 H (74-106) mg/dL Calcium 8.4 L (8.5-10.1) mg/dL H. pylori IgG Antibody (0.00-0.79) Blood Type O POSITIVE Antibody Screen NEGATIVE 08/29/18 08/28/18 Range/Units 06:35 15:15 WBC (4.4-11.0) K/mm3 RBC (4.6-6.2) M/mm3 Hgb (13.0-16.5) g/dl Hct (40-54) % MCV (80-94) fL MCH (27.0-32.0) pg MCHC (32-36) g/gl RDW (11.6-14.6) % RDW Differential (35.1-43.9) fl Plt Count (150-450) K/mm3 MPV (6.2-12.0) fl Neut % (Auto) Absolute Neuts (auto) (2.0-7.7) X10^3/uL Absolute Lymphs (auto) (0.83-4.51) X10^3/ul Total Counted (MANUAL DIFF) Neutrophils % (Manual) (47-70) % Band Neutrophils % (0-5) % Lymphocytes % (Manual) (19-41) % Monocytes % (Manual) (0-10) % Eosinophils % (Manual) (0-5) % Basophils % (Manual) (0-1) % Metamyelocytes % (0-1) % Myelocytes % (0-0) Diff Path Review Reviewed Reactive Lymphocytes Platelet Estimate (ADEQ) Plt Morphology Comment Polychromasia Hypochromasia Anisocytosis Microcytosis Sodium (136-145) mmol/L Potassium (3.5-5.1) mmol/L Chloride (98-107) mmol/L Carbon Dioxide (21.0-32.0) mmol/L Anion Gap (5-15) BUN (7-18) mg/dL Creatinine (0.70-1.30) mg/dL Estim Creat Clear Calc ml/min Est GFR (MDRD) Af Amer (>60) mL/min Est GFR (MDRD) Non-Af (>60) mL/min BUN/Creatinine Ratio (10-20) RATIO Glucose (74-106) mg/dL Calcium (8.5-10.1) mg/dL H. pylori IgG Antibody 0.15 (0.00-0.79) Blood Type Antibody Screen Diagnostic Data: Diagnostic Data Gallbladder Ultrasound 08/27/18 20:33 IMPRESSION: No definite abnormality. Electronically Signed: Luis Flores MD at 21:35 EST , Service support , Abdomen/Pelvis CT 08/29/18 12:02 IMPRESSION: Question of mild bilateral renal atrophy. Bilateral nonobstructing renal stones. Mild blastic metastatic disease not excluded. Bone scan recommended. Electronically Signed: Luis Flores MD at 20:31 EST , Service support , Chest CT 08/29/18 12:02 IMPRESSION: Right axillary, right infraclavicular, and mediastinal adenopathy. Small nodule on the surface of the left major fissure is probably incidental but suggest follow-up and 6 months. 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 Electronically Signed: Maciel Reeder MD at 9:41 EST Tel [phone], Service support , Assessment and Plan 73 year old gentlemen with PMH for superficial bladder ca admitted for management of intractable nausea & RUQ pain found to have platelet count of 34,000. 1. Elevated PSA, level obtained 08/28/2018 was 455.-These results were communicated to the patient. Quite indicative of active prostate cancer. 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 Upper quad pain possibly related to disease if present in ribs? Recommend bone scan and bone biopsy of most accessible lesion. In the interim orders placed for Casodex 50 mg daily and patient is educated that he will require Lupron injections in the outpatient setting. Patient educated ab out potential side effects with ADT inclusive of hot flashes and fatigue. Bicalutamide is not on hospital formulary. Order sent to patient selected retail pharmacy. Family to cherry picker operator rx and bring to hospital where he may self administer. 2. Thrombocytopenia- in the absence of active bleeding as evidenced by platelet count today of 26,000. Previous CBC for comparison are imperative to determine if this did in fact develop acutely. 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 Obtain PT/PTT and fibrinogen levels. Reassuring that 3. H/o superficial bladder ca- Diagnosed approx 2009. Did not require adjuvant chemo or radiation therapy. Repeat urine cytology pending. Case discussed with Dr. Lopez who is in agreement with the aforementioned plan. Leana Schneider, MSN, [employer], AOCNP Medications: Prescriptions This Visit Medication Instructions Recorded Aspirin [Aspirin EC] 81 mg PO DAILY 08/28/18 Tamsulosin HCl [Flomax] 0.4 mg PO DAILY 08/28/18 Bicalutamide [Casodex] 50 mg PO DAILY 08/29/18 Medications Added to Medication List This Visit Category Date Time Status Bicalutamide Med 08/30/18 10:00 Active 50 mg PO DAILY Ciprofloxacin [Cipro] Med 08/30/18 22:00 Active 400 mg in 200 ml IV Q12 Ciprofloxacin [Cipro] Med 08/30/18 14:00 Active 400 mg in 200 ml IV X1 Dexamethasone [Decadron] Med 08/30/18 11:00 Active 40 mg PO DAILY@0800 Na Phos,M-B/Na Phos,Di-Ba [Fleet Enema] Med 08/31/18 00:01 Once 1 bottle RECTAL X1 ONE Primary Care Provider: Natalee Partida Referring Provider: - Problem List (1) History of bladder cancer Status: Chronic (2) Weight loss Status: Acute (3) Thrombocytopenia Status: Acute (4) Elevated PSA, greater than or equal to 20 ng/ml Status: Acute (5) Elevated alkaline phosphatase level Status: Acute
--- NOTE | 2018-08-30 14:53 | ONC.PN.INPT ---
- Problem List (1) History of bladder cancer Status: Chronic (2) Weight loss Status: Acute (3) Thrombocytopenia Status: Acute (4) Elevated PSA, greater than or equal to 20 ng/ml Status: Acute (5) Elevated alkaline phosphatase level Status: Acute Subjective Date of Service:: 08/30/18 Thrombocytopenia, found to have elevated PSA Patient sitting up in bed surrounded by family upon entering the room. Began bicalutamide yesterday. Urine flow improved now that he is back on flomax. Otherwise denies any outstanding complaints since he was evaluated yesterday. Past Medical History: Chronic Problems History of bladder cancer (Chronic) Past Medical History - Most Recent Inpatient Visit Past Medical History Start: 08/27/18 23:19 Text: Status: Complete Freq: ONCE Protocol: Document 08/27/18 23:42 CDS (Rec: 08/27/18 23:44 CDS [id number]) BMI Required to complete PMH What is Patient's BMI 25.6 Past Medical History Unable History Recalled No Query Text:Pt Unable/Family Not Present Neurologic Medical History Hx Stroke/TIA No Hx Dementia/Alzheimer's No Hx Parkinson's Disease No Hx Seizures No Hx Multiple Sclerosis No Hx Migraines No Cardiac Medical History VTE Present on Admission No Hx of Deep Vein Thrombosis/VTE/PE No Hx Hypertension No Hx Chest Pain/Angina No Hx Heart Attack No Hx Cardiac Surgery/Stents/Etc. No Hx Heart Failure No Hx Pacemaker/AICD No Hx Irregular Heartbeat and/or Afib No Hx Anticoagulant Therapy No Query Text:(Coumadin, Aspirin, Plavix, Xarelto, etc.) Hx Pain in Legs when Walking/Leg Cramps No Respiratory Medical History Hx COPD No Hx Emphysema No Hx Smoking No Smoking Status Former smoker Tobacco Use Pipe Years Smoking 30 Hx Tobacco Use in last 12 months No Hx Sleep Apnea No Do you snore loudly (louder than talking No or can be heard through closed doors)? Do you often feel tired/ fatigued/ Yes sleepy during daytime? Has anyone observed you stop breathing No during sleep? STOP Results Negative GI Medical History Hx Ulcer No Hx Hepatitis No Hx Cirrhosis No Hx GI Bleed No Hx Unplanned Weight Loss No Genitourinary Medical History Indwelling Catheter in Place on Arrival/ No Admission Hx Renal Disease No Hx Dialysis No Musculoskeletal History Hx Arthritis No Hx Rheumatoid Arthritis No Endocrine Medical History Hx Diabetes No Hx Thyroid Disease No Hematologic Medical History Hx of Blood Transfusion No Hx of Transfusion in last 3 Months No Ever experience any problems with No transfusion(s)? Hx of Preganancy in last 3 Months N/A Nurse Filling Out Transfusion & CSNYDER Questions: Date: 08/27/18 Time: 23:44 Psycho/Social Medical History Hx Depression No Hx Anxiety No Hx Behavior Disorder No Hx Alcohol Use No Hx Substance Use No Other Medical History Hx Blood Disorders No Hx Anemia No Hx Cancer Yes: hx bladder CA Hx Drug Resistant Organism No Wound/Pressure Injury Present on Arrival No /Admission Query Text:If yes, chart assessment in Shift/Clinical Findings Central Line/PICC/VAD Present on Arrival No /Admission Risk for Readmission Number of Risk Factors 1 At Risk for Readmission Patient is Not at Risk Patient is eligible for Call Back N Maternal Family History: Cancer - Pancreatic cancer diagnosed at age 74, No pertinent history - Social History Smoking Status: Former smoker Tobacco Use: Pipe Review of Systems Constitutional:: Reports: Weakness, Fatigue, Weight loss, Appetite change. Denies: Fever, Sweats, Chills Cardiovascular:: Denies: Chest pain, Palpitations, Dyspnea on exertion, Orthopnea, PND, Shortness of breath Respiratory: Denies: Cough, Hemoptysis, Shortness of Breath, Wheezing Gastrointestinal:: Reports: Abdominal pain. Denies: Nausea, Vomiting, Diarrhea, Constipation, Melena, Hematochezia Genitourinary: Reports: Urinary frequency, Nocturia. Denies: Dysuria, Hematuria, Flank pain Musculoskeletal:: Denies: Back pain, Myalgia, Arthralgia Skin: Denies: Rash, Skin Changes, Wounds Neurological:: Denies: Headache, Dizziness, Numbness, Tingling, Frequent falls, Visual changes, Tinnitus, Hearing loss Psychiatric: Denies: Anxiety, Depression, Homicidal Ideations, Suicidal Ideations Vital Signs Height 5 ft 10 in Weight: 178 lb 9.191 oz Weight in Pounds 178.6 lbs Pulse Ox 98 Temperature 97.9 F Pulse Rate 95 Respiratory Rate 16 Blood Pressure 153/72 Blood Pressure Position Semi-Fowlers - Physical Exam General: Alert, Oriented x3, No apparent distress HEENT: Atraumatic, Normocephalic, - - wears glasses Oropharynx:: Negative for: Ulcerated lesions Neck:: Supple, Trachea midline. Negative for: JVD, bilateral Cardiac:: Regular rate, Regular rhythm, Normal S1, Normal S2. Negative for: Murmur Lungs: Clear to auscultation, Excusion symmetrical. Negative for: Rhonchi, Wheezes Abdomen:: Bowel sounds x 4, Soft, Non-tender, Non-distended. Negative for: Hepatosplenomegaly Extremities:: Negative for: Cyanosis, Edema Neurological: Neuro grossly intact Skin:: Negative for: Lesions, Rash, Petechiae, Ecchymosis Psychiatric:: Appropriate affect, Euthymic Lymphatics:: Cervical lymphadenopathy - not palpable. Negative for: Axillary lymphadenopathy Laboratory Data: Laboratory Tests 08/30/18 08/30/18 08/30/18 Range/Units 09:55 06:25 06:25 WBC 4.0 L (4.4-11.0) K/mm3 RBC 3.68 L (4.6-6.2) M/mm3 Hgb 10.7 L (13.0-16.5) g/dl Hct 31.9 L (40-54) % MCV 86.7 (80-94) fL MCH 29.1 (27.0-32.0) pg MCHC 33.5 (32-36) g/gl RDW 12.7 (11.6-14.6) % RDW Differential 38.8 (35.1-43.9) fl Plt Count 26 L* (150-450) K/mm3 MPV 11.9 (6.2-12.0) fl Neut % (Auto) Not Reportable Absolute Neuts (auto) 1.6 L (2.0-7.7) X10^3/uL Absolute Lymphs (auto) 2.04 (0.83-4.51) X10^3/ul Total Counted 100 (MANUAL DIFF) Neutrophils % (Manual) 38 L (47-70) % Band Neutrophils % 3 (0-5) % Lymphocytes % (Manual) 51 H (19-41) % Monocytes % (Manual) 3 (0-10) % Eosinophils % (Manual) 1 (0-5) % Basophils % (Manual) 1 (0-1) % Metamyelocytes % 2 H (0-1) % Myelocytes % 1 H (0-0) Diff Path Review Reviewed Reactive Lymphocytes 1+ Platelet Estimate MKD DEC (ADEQ) Plt Morphology Comment LARGE Polychromasia 1+ Hypochromasia 1+ Anisocytosis 1+ Microcytosis 1+ Sodium 145 (136-145) mmol/L Potassium 4.1 (3.5-5.1) mmol/L Chloride 110 H (98-107) mmol/L Carbon Dioxide 28.0 (21.0-32.0) mmol/L Anion Gap 7 (5-15) BUN 21 H (7-18) mg/dL Creatinine 1.84 H (0.70-1.30) mg/dL Estim Creat Clear Calc 35.82 ml/min Est GFR (MDRD) Af Amer 46 L (>60) mL/min Est GFR (MDRD) Non-Af 38 L (>60) mL/min BUN/Creatinine Ratio 11.4 (10-20) RATIO Glucose 114 H (74-106) mg/dL Calcium 8.4 L (8.5-10.1) mg/dL H. pylori IgG Antibody (0.00-0.79) Blood Type O POSITIVE Antibody Screen NEGATIVE 08/29/18 08/28/18 Range/Units 06:35 15:15 WBC (4.4-11.0) K/mm3 RBC (4.6-6.2) M/mm3 Hgb (13.0-16.5) g/dl Hct (40-54) % MCV (80-94) fL MCH (27.0-32.0) pg MCHC (32-36) g/gl RDW (11.6-14.6) % RDW Differential (35.1-43.9) fl Plt Count (150-450) K/mm3 MPV (6.2-12.0) fl Neut % (Auto) Absolute Neuts (auto) (2.0-7.7) X10^3/uL Absolute Lymphs (auto) (0.83-4.51) X10^3/ul Total Counted (MANUAL DIFF) Neutrophils % (Manual) (47-70) % Band Neutrophils % (0-5) % Lymphocytes % (Manual) (19-41) % Monocytes % (Manual) (0-10) % Eosinophils % (Manual) (0-5) % Basophils % (Manual) (0-1) % Metamyelocytes % (0-1) % Myelocytes % (0-0) Diff Path Review Reviewed Reactive Lymphocytes Platelet Estimate (ADEQ) Plt Morphology Comment Polychromasia Hypochromasia Anisocytosis Microcytosis Sodium (136-145) mmol/L Potassium (3.5-5.1) mmol/L Chloride (98-107) mmol/L Carbon Dioxide (21.0-32.0) mmol/L Anion Gap (5-15) BUN (7-18) mg/dL Creatinine (0.70-1.30) mg/dL Estim Creat Clear Calc ml/min Est GFR (MDRD) Af Amer (>60) mL/min Est GFR (MDRD) Non-Af (>60) mL/min BUN/Creatinine Ratio (10-20) RATIO Glucose (74-106) mg/dL Calcium (8.5-10.1) mg/dL H. pylori IgG Antibody 0.15 (0.00-0.79) Blood Type Antibody Screen Diagnostic Data: Diagnostic Data Gallbladder Ultrasound 08/27/18 20:33 IMPRESSION: No definite abnormality. Electronically Signed: Luis Flores MD at 21:35 EST , Service support , Abdomen/Pelvis CT 08/29/18 12:02 IMPRESSION: Question of mild bilateral renal atrophy. Bilateral nonobstructing renal stones. Mild blastic metastatic disease not excluded. Bone scan recommended. Electronically Signed: Luis Flores MD at 20:31 EST , Service support , Chest CT 08/29/18 12:02 IMPRESSION: Right axillary, right infraclavicular, and mediastinal adenopathy. Small nodule on the surface of the left major fissure is probably incidental but suggest follow-up and 6 months. 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 Electronically Signed: Maciel Reeder MD at 9:41 EST Tel [phone], Service support , Assessment and Plan 73 year old gentlemen with PMH for superficial bladder ca admitted for management of intractable nausea & RUQ pain found to have platelet count of 34,000. 1. Elevated PSA, level obtained 08/28/2018 was 455.-These results were communicated to the patient. Quite indicative of active prostate cancer. Nuclear med bone scan revealed multiple areas within the axial and appendicular skeleton highly suggestive of skeletal metastatic disease. Patient began bicalutamide 50 mg daily yesterday. Patient to undergo biopsy of prostate subsequent to platelet transfusion tomorrow. Plans to follow up with Dr. Farris at [facility] upon discharge as his is currently a patient of Dr. Farris's. 2. Thrombocytopenia- in the absence of active bleeding as evidenced by platelet count today of 26,000. Previous CBC for comparison are now available, it appears platelet count was normal October 2017. PT PTT fibrinogen reviewed, no evidence for DIC. 3. Lymphadenopathy-CT chest revealed right axillary and right supraclavicular adenopathy. Right axillary adenopathy is not palpable on physical exam. But would be prudent to biopsy. Case discussed with Dr. Lopez who is in agreement with the aforementioned plan. Leana Schneider, SUKHDEV, COLOR GR[employer]ER-C, AOCNP Medications: Prescriptions This Visit Medication Instructions Recorded Aspirin [Aspirin EC] 81 mg PO DAILY 08/28/18 Tamsulosin HCl [Flomax] 0.4 mg PO DAILY 08/28/18 Bicalutamide [Casodex] 50 mg PO DAILY 08/29/18 Medications Added to Medication List This Visit Category Date Time Status Bicalutamide Med 08/30/18 10:00 Active 50 mg PO DAILY Ciprofloxacin [Cipro] Med 08/30/18 22:00 Active 400 mg in 200 ml IV Q12 Ciprofloxacin [Cipro] Med 08/30/18 14:00 Active 400 mg in 200 ml IV X1 Dexamethasone [Decadron] Med 08/30/18 11:00 Active 40 mg PO DAILY@0800 Na Phos,M-B/Na Phos,Di-Ba [Fleet Enema] Med 08/31/18 00:01 Once 1 bottle RECTAL X1 ONE Primary Care Provider: Natalee Partida Referring Provider:
--- NOTE | 2018-08-30 14:58 | PN_ITS ---
- Problem List (1) History of bladder cancer Status: Chronic (2) Weight loss Status: Acute (3) Thrombocytopenia Status: Acute (4) Elevated PSA, greater than or equal to 20 ng/ml Status: Acute (5) Elevated alkaline phosphatase level Status: Acute Subjective Date of Service:: 08/30/18 Thrombocytopenia, found to have elevated PSA Patient sitting up in bed surrounded by family upon entering the room. Began bicalutamide yesterday. Urine flow improved now that he is back on flomax. Otherwise denies any outstanding complaints since he was evaluated yesterday. Past Medical History: Chronic Problems History of bladder cancer (Chronic) Past Medical History - Most Recent Inpatient Visit Past Medical History Start: 08/27/18 23:19 Text: Status: Complete Freq: ONCE Protocol: Document 08/27/18 23:42 CDS (Rec: 08/27/18 23:44 CDS [id number]) BMI Required to complete PMH What is Patient's BMI 25.6 Past Medical History Unable History Recalled No Query Text:Pt Unable/Family Not Present Neurologic Medical History Hx Stroke/TIA No Hx Dementia/Alzheimer's No Hx Parkinson's Disease No Hx Seizures No Hx Multiple Sclerosis No Hx Migraines No Cardiac Medical History VTE Present on Admission No Hx of Deep Vein Thrombosis/VTE/PE No Hx Hypertension No Hx Chest Pain/Angina No Hx Heart Attack No Hx Cardiac Surgery/Stents/Etc. No Hx Heart Failure No Hx Pacemaker/AICD No Hx Irregular Heartbeat and/or Afib No Hx Anticoagulant Therapy No Query Text:(Coumadin, Aspirin, Plavix, Xarelto, etc.) Hx Pain in Legs when Walking/Leg Cramps No Respiratory Medical History Hx COPD No Hx Emphysema No Hx Smoking No Smoking Status Former smoker Tobacco Use Pipe Years Smoking 30 Hx Tobacco Use in last 12 months No Hx Sleep Apnea No Do you snore loudly (louder than talking No or can be heard through closed doors)? Do you often feel tired/ fatigued/ Yes sleepy during daytime? Has anyone observed you stop breathing No during sleep? STOP Results Negative GI Medical History Hx Ulcer No Hx Hepatitis No Hx Cirrhosis No Hx GI Bleed No Hx Unplanned Weight Loss No Genitourinary Medical History Indwelling Catheter in Place on Arrival/ No Admission Hx Renal Disease No Hx Dialysis No Musculoskeletal History Hx Arthritis No Hx Rheumatoid Arthritis No Endocrine Medical History Hx Diabetes No Hx Thyroid Disease No Hematologic Medical History Hx of Blood Transfusion No Hx of Transfusion in last 3 Months No Ever experience any problems with No transfusion(s)? Hx of Preganancy in last 3 Months N/A Nurse Filling Out Transfusion & CSNYDER Questions: Date: 08/27/18 Time: 23:44 Psycho/Social Medical History Hx Depression No Hx Anxiety No Hx Behavior Disorder No Hx Alcohol Use No Hx Substance Use No Other Medical History Hx Blood Disorders No Hx Anemia No Hx Cancer Yes: hx bladder CA Hx Drug Resistant Organism No Wound/Pressure Injury Present on Arrival No /Admission Query Text:If yes, chart assessment in Shift/Clinical Findings Central Line/PICC/VAD Present on Arrival No /Admission Risk for Readmission Number of Risk Factors 1 At Risk for Readmission Patient is Not at Risk Patient is eligible for Call Back N Maternal Family History: Cancer - Pancreatic cancer diagnosed at age 72, No pertinent history - Social History Smoking Status: Former smoker Tobacco Use: Pipe Review of Systems Constitutional:: Reports: Weakness, Fatigue, Weight loss, Appetite change. Denies: Fever, Sweats, Chills Cardiovascular:: Denies: Chest pain, Palpitations, Dyspnea on exertion, Orthopnea, PND, Shortness of breath Respiratory: Denies: Cough, Hemoptysis, Shortness of Breath, Wheezing Gastrointestinal:: Reports: Abdominal pain. Denies: Nausea, Vomiting, Diarrhea, Constipation, Melena, Hematochezia Genitourinary: Reports: Urinary frequency, Nocturia. Denies: Dysuria, Hematuria, Flank pain Musculoskeletal:: Denies: Back pain, Myalgia, Arthralgia Skin: Denies: Rash, Skin Changes, Wounds Neurological:: Denies: Headache, Dizziness, Numbness, Tingling, Frequent falls, Visual changes, Tinnitus, Hearing loss Psychiatric: Denies: Anxiety, Depression, Homicidal Ideations, Suicidal Ideations Vital Signs Height 5 ft 10 in Weight: 178 lb 9.191 oz Weight in Pounds 178.6 lbs Pulse Ox 98 Temperature 97.9 F Pulse Rate 95 Respiratory Rate 16 Blood Pressure 153/72 Blood Pressure Position Semi-Fowlers - Physical Exam General: Alert, Oriented x3, No apparent distress HEENT: Atraumatic, Normocephalic, - - wears glasses Oropharynx:: Negative for: Ulcerated lesions Neck:: Supple, Trachea midline. Negative for: JVD, bilateral Cardiac:: Regular rate, Regular rhythm, Normal S1, Normal S2. Negative for: Murmur Lungs: Clear to auscultation, Excusion symmetrical. Negative for: Rhonchi, Wheezes Abdomen:: Bowel sounds x 4, Soft, Non-tender, Non-distended. Negative for: Hepatosplenomegaly Extremities:: Negative for: Cyanosis, Edema Neurological: Neuro grossly intact Skin:: Negative for: Lesions, Rash, Petechiae, Ecchymosis Psychiatric:: Appropriate affect, Euthymic Lymphatics:: Cervical lymphadenopathy - not palpable. Negative for: Axillary lymphadenopathy Laboratory Data: Laboratory Tests 08/30/18 08/30/18 08/30/18 Range/Units 09:55 06:25 06:25 WBC 4.0 L (4.4-11.0) K/mm3 RBC 3.68 L (4.6-6.2) M/mm3 Hgb 10.7 L (13.0-16.5) g/dl Hct 31.9 L (40-54) % MCV 86.7 (80-94) fL MCH 29.1 (27.0-32.0) pg MCHC 33.5 (32-36) g/gl RDW 12.7 (11.6-14.6) % RDW Differential 38.8 (35.1-43.9) fl Plt Count 26 L* (150-450) K/mm3 MPV 11.9 (6.2-12.0) fl Neut % (Auto) Not Reportable Absolute Neuts (auto) 1.6 L (2.0-7.7) X10^3/uL Absolute Lymphs (auto) 2.04 (0.83-4.51) X10^3/ul Total Counted 100 (MANUAL DIFF) Neutrophils % (Manual) 38 L (47-70) % Band Neutrophils % 3 (0-5) % Lymphocytes % (Manual) 51 H (19-41) % Monocytes % (Manual) 3 (0-10) % Eosinophils % (Manual) 1 (0-5) % Basophils % (Manual) 1 (0-1) % Metamyelocytes % 2 H (0-1) % Myelocytes % 1 H (0-0) Diff Path Review Reviewed Reactive Lymphocytes 1+ Platelet Estimate MKD DEC (ADEQ) Plt Morphology Comment LARGE Polychromasia 1+ Hypochromasia 1+ Anisocytosis 1+ Microcytosis 1+ Sodium 145 (136-145) mmol/L Potassium 4.1 (3.5-5.1) mmol/L Chloride 110 H (98-107) mmol/L Carbon Dioxide 28.0 (21.0-32.0) mmol/L Anion Gap 7 (5-15) BUN 21 H (7-18) mg/dL Creatinine 1.84 H (0.70-1.30) mg/dL Estim Creat Clear Calc 35.82 ml/min Est GFR (MDRD) Af Amer 46 L (>60) mL/min Est GFR (MDRD) Non-Af 38 L (>60) mL/min BUN/Creatinine Ratio 11.4 (10-20) RATIO Glucose 114 H (74-106) mg/dL Calcium 8.4 L (8.5-10.1) mg/dL H. pylori IgG Antibody (0.00-0.79) Blood Type O POSITIVE Antibody Screen NEGATIVE 08/29/18 08/28/18 Range/Units 06:35 15:15 WBC (4.4-11.0) K/mm3 RBC (4.6-6.2) M/mm3 Hgb (13.0-16.5) g/dl Hct (40-54) % MCV (80-94) fL MCH (27.0-32.0) pg MCHC (32-36) g/gl RDW (11.6-14.6) % RDW Differential (35.1-43.9) fl Plt Count (150-450) K/mm3 MPV (6.2-12.0) fl Neut % (Auto) Absolute Neuts (auto) (2.0-7.7) X10^3/uL Absolute Lymphs (auto) (0.83-4.51) X10^3/ul Total Counted (MANUAL DIFF) Neutrophils % (Manual) (47-70) % Band Neutrophils % (0-5) % Lymphocytes % (Manual) (19-41) % Monocytes % (Manual) (0-10) % Eosinophils % (Manual) (0-5) % Basophils % (Manual) (0-1) % Metamyelocytes % (0-1) % Myelocytes % (0-0) Diff Path Review Reviewed Reactive Lymphocytes Platelet Estimate (ADEQ) Plt Morphology Comment Polychromasia Hypochromasia Anisocytosis Microcytosis Sodium (136-145) mmol/L Potassium (3.5-5.1) mmol/L Chloride (98-107) mmol/L Carbon Dioxide (21.0-32.0) mmol/L Anion Gap (5-15) BUN (7-18) mg/dL Creatinine (0.70-1.30) mg/dL Estim Creat Clear Calc ml/min Est GFR (MDRD) Af Amer (>60) mL/min Est GFR (MDRD) Non-Af (>60) mL/min BUN/Creatinine Ratio (10-20) RATIO Glucose (74-106) mg/dL Calcium (8.5-10.1) mg/dL H. pylori IgG Antibody 0.15 (0.00-0.79) Blood Type Antibody Screen Diagnostic Data: Diagnostic Data Gallbladder Ultrasound 08/27/18 20:33 IMPRESSION: No definite abnormality. Electronically Signed: Luis Flores MD at 21:35 EST , Service support , Abdomen/Pelvis CT 08/29/18 12:02 IMPRESSION: Question of mild bilateral renal atrophy. Bilateral nonobstructing renal stones. Mild blastic metastatic disease not excluded. Bone scan recommended. Electronically Signed: Luis Flores MD at 20:31 EST , Service support , Chest CT 08/29/18 12:02 IMPRESSION: Right axillary, right infraclavicular, and mediastinal adenopathy. Small nodule on the surface of the left major fissure is probably incidental but suggest follow-up and 6 months. 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 Electronically Signed: Maciel Reeder MD at 9:41 EST Tel [phone], Service support , Assessment and Plan 73 year old gentlemen with PMH for superficial bladder ca admitted for management of intractable nausea & RUQ pain found to have platelet count of 34,000. 1. Elevated PSA, level obtained 08/28/2018 was 455.-These results were communicated to the patient. Quite indicative of active prostate cancer. Nuclear med bone scan revealed multiple areas within the axial and appendicular skeleton highly suggestive of skeletal metastatic disease. Patient began bicalutamide 50 mg daily yesterday. Patient to undergo biopsy of prostate subsequent to platelet transfusion tomorrow. Plans to follow up with Dr. Farris at [facility] upon discharge as his is currently a patient of Dr. Farris's. 2. Thrombocytopenia- in the absence of active bleeding as evidenced by platelet count today of 26,000. Previous CBC for comparison are now available, it appears platelet count was normal October 2017. PT PTT fibrinogen reviewed, no evidence for DIC. 3. Lymphadenopathy-CT chest revealed right axillary and right supraclavicular adenopathy. Right axillary adenopathy is not palpable on physical exam. But would be prudent to biopsy. Case discussed with Dr. Lopez who is in agreement with the aforementioned plan. Leana Schneider, SUKHDEV, SETTER UP-C, AOCNP Medications: Prescriptions This Visit Medication Instructions Recorded Aspirin [Aspirin EC] 81 mg PO DAILY 08/28/18 Tamsulosin HCl [Flomax] 0.4 mg PO DAILY 08/28/18 Bicalutamide [Casodex] 50 mg PO DAILY 08/29/18 Medications Added to Medication List This Visit Category Date Time Status Bicalutamide Med 08/30/18 10:00 Active 50 mg PO DAILY Ciprofloxacin [Cipro] Med 08/30/18 22:00 Active 400 mg in 200 ml IV Q12 Ciprofloxacin [Cipro] Med 08/30/18 14:00 Active 400 mg in 200 ml IV X1 Dexamethasone [Decadron] Med 08/30/18 11:00 Active 40 mg PO DAILY@0800 Na Phos,M-B/Na Phos,Di-Ba [Fleet Enema] Med 08/31/18 00:01 Once 1 bottle RECTAL X1 ONE Primary Care Provider: Natalee Partida Referring Provider:
[2018-08-30 17:39] VITALS: BP 160/61; PULSE 97; RESP 16; TEMP 37.1; O2SAT 95
[2018-08-30] MEDS: Tamsulosin HCl 0.4 MG Capsule PO (17:42)
--- NOTE | 2018-08-30 17:54 | PCM.PROGNOTE ---
Patient Problems: Active and Suspected Problems Lymphadenopathy (Acute) Weight loss (Acute) Abdominal pain (Acute) Nausea (Acute) Anorexia (Acute) Thrombocytopenia (Acute) Prostate cancer (Acute) Elevated PSA, greater than or equal to 20 ng/ml (Acute) Elevated alkaline phosphatase level (Acute) Subjective: Patient seen and examined today, his bone scan today showed widespread metastatic bone disease in his femurs, ribs, vertebrae, and pelvic area. Discussed this with the patient and his family today. Also talked with urology about performing a prostate biopsy tomorrow, it is scheduled for tomorrow at this time. Finally, patient will undergo a right axillary lymph node biopsy tomorrow by radiology. CTA of his chest showed lymphadenopathy including in the right axillary area. CT of the abdomen showed no significant process. Patient is still having some generalized abdominal pain, he did have a bowel movement this morning. - Physical Exam General: Alert, Oriented x3, Cooperative, No apparent distress, Well developed, Well nourished HEENT: Atraumatic, PERRLA, EOMI, Normocephalic Oral: Moist Mucosa Neck: Supple, No Nuchal Rigidity, Trachea Midline, Thyroid Normal Size and Texture Lungs: Clear to auscultation, Normal air movement, No rhonchi, No wheeze, No rales Cardiovascular: Regular rate, Regular Rhythm, Normal S1, Normal S2, No murmurs, No Ectopic Activity, PMI Normal, No rub noted, No Gallop Abdomen: Bowel Sounds Present, Soft, Distended - Abdomen is distended and tympanic, Tender - Mild diffuse mid abdominal tenderness is noted Extremities: No clubbing, No cyanosis, No edema, Capillary Refill Less than 3 Seconds Skin: No rashes, No breakdown Musculoskeletal: No Tenderness to Palpation of Joints or Extremities Neurological: Cranial nerves II-XII grossly intact, Neuro grossly intact, Sensory exam intact to light touch and pain, Coordination normal Psych/Mental Status: Normal Affect, Appropriate, Alert and oriented to time, place, person, mood and affect Vital Signs Temp Pulse Resp BP Pulse Ox 98.8 F 97 16 160/61 H 95 08/30/18 17:39 08/30/18 17:39 08/30/18 17:39 08/30/18 17:39 08/30/18 17:39 Oxygen Delivery Method Room Air Weight: 81 kg Body Mass Index (BMI) 25.6 Intake and Output for Last 24 Hours 08/28/18 08/29/18 08/30/18 23:59 23:59 23:59 Intake Total 1277 / 1277 2792 / 2792 3155 / 3155 Output Total 0 / 0 Balance 1277 / 1277 2792 / 2792 3155 / 3153 Laboratory Tests Past 24 Hrs 08/28/18 08/29/18 08/30/18 15:15 06:35 06:25 WBC 4.0 L RBC 3.68 L Hgb 10.7 L Hct 31.9 L MCV 86.7 MCH 29.1 MCHC 33.5 RDW 12.7 RDW Differential 38.8 Plt Count 26 L* MPV 11.9 Neut % (Auto) Not Reportable Absolute Neuts (auto) 1.6 L Absolute Lymphs (auto) 2.04 Total Counted 100 Neutrophils % (Manual) 38 L Band Neutrophils % 3 Lymphocytes % (Manual) 51 H Monocytes % (Manual) 3 Eosinophils % (Manual) 1 Basophils % (Manual) 1 Metamyelocytes % 2 H Myelocytes % 1 H Diff Path Review Reviewed Reviewed Reactive Lymphocytes 1+ Platelet Estimate MKD DEC Plt Morphology Comment LARGE Polychromasia 1+ Hypochromasia 1+ Anisocytosis 1+ Microcytosis 1+ Sodium Potassium Chloride Carbon Dioxide Anion Gap BUN Creatinine Estim Creat Clear Calc Est GFR (MDRD) Af Amer Est GFR (MDRD) Non-Af BUN/Creatinine Ratio Glucose Calcium H. pylori IgG Antibody 0.15 Blood Type Antibody Screen 08/30/18 08/30/18 06:25 09:55 WBC RBC Hgb Hct MCV MCH MCHC RDW RDW Differential Plt Count MPV Neut % (Auto) Absolute Neuts (auto) Absolute Lymphs (auto) Total Counted Neutrophils % (Manual) Band Neutrophils % Lymphocytes % (Manual) Monocytes % (Manual) Eosinophils % (Manual) Basophils % (Manual) Metamyelocytes % Myelocytes % Diff Path Review Reactive Lymphocytes Platelet Estimate Plt Morphology Comment Polychromasia Hypochromasia Anisocytosis Microcytosis Sodium 145 Potassium 4.1 Chloride 110 H Carbon Dioxide 28.0 Anion Gap 7 BUN 21 H Creatinine 1.84 H Estim Creat Clear Calc 35.82 Est GFR (MDRD) Af Amer 46 L Est GFR (MDRD) Non-Af 38 L BUN/Creatinine Ratio 11.4 Glucose 114 H Calcium 8.4 L H. pylori IgG Antibody Blood Type O POSITIVE Antibody Screen NEGATIVE Medical Necessity - Tobacco Use Smoking Status: Former smoker Tobacco Use: Pipe Assessment/Plan All Active Problems Lymphadenopathy (Acute) Weight loss (Acute) Abdominal pain (Acute) Nausea (Acute) Anorexia (Acute) Thrombocytopenia (Acute) Prostate cancer (Acute) Elevated PSA, greater than or equal to 20 ng/ml (Acute) Elevated alkaline phosphatase level (Acute) #1 Pancytopenia with marked thrombocytopenia-etiology unclear at this point, oncology is participating in his care, repeat CBC will be obtained tomorrow. Patient may need a platelet infusion tomorrow morning before he has his prostate biopsy, oncology requested the patient be placed on high-dose Decadron to see if his platelet count would respond-it is possible patient may have ITP. #2 elevated PSA indicative of probable prostate cancer-with probable widespread metastatic bone disease-patient will undergo a prostate biopsy tomorrow #3 abdominal pain-etiology unclear at this point, CT scan of the abdomen and pelvis did not reveal any pathology that would explain the patient's diffuse abdominal discomfort, I will continue to monitor this #4 elevated alkaline phosphatase-probably secondary to metastatic bone disease #5 unexplained weight loss over the past 5 weeks of 20-30 pounds-secondary to metastatic prostate cancer and possible undiagnosed lymphoma-again we will proceed with a lymph node biopsy of the right axillary area along with a prostate biopsy tomorrow Code Visit Inpatient E&M: 16948 Subs Hosp L2
[2018-08-30 19:28] VITALS: BP 140/54; PULSE 89; RESP 22; TEMP 36.9; O2SAT 94
[2018-08-30 20:06] LABS: Albumin 3.2 g/dL (2.9-4.4); Alpha-1-Globulins 0.3 g/dL (0.0-0.4); Alpha-2-Globulins 0.6 g/dL (0.4-1.0); Free Kappa Light Chains 38.6 mg/L (3.3-19.4); Free Lambda Light Chains 25.4 mg/L (5.7-26.3); Gamma Globulin 0.8 g/dL (0.4-1.8); Immunoglobulin A 271 mg/dL (61-437); Immunoglobulin G 829 mg/dL (700-1600); Immunoglobulin M 72 mg/dL (15-143)
[2018-08-31] VITALS (20 sets, daily range): BP systolic 104–150; BP diastolic 51–79; PULSE 74–87; RESP 14–20; TEMP 36.3–37.1; O2SAT 92–100; BMI 25.6
--- NOTE | 2018-08-31 | PROSBIL_PTH ---
PATIENT: MANISHA JAIN LOC: MS2 U#:[id number] AGE/SX: 73/M [place] [facility] [place]/[address]: Dr. Toño Esqueda DO : 1945 BED: 1 DIS: 08/31/2018 SPEC #: [id number] RECD: 08/31/18 13:32 STATUS: VOLODYMYR REHarry #: [id number] DEEPAK: 08/31/18 00:[address]: Ry Chester DEPT: SURGICAL PATHOLOGY RECD BY: Khai Knowles ENTERED: 08/31/18 13:33 SP TYPE: PROST BX OTHR DR: MD Dr. Ry Tang MD Dr. Mark Tereletsky, DO Dr. Paul Nielsen, MD Dr. Tamera Robotham, MD Dr. Yasser Omran, MD Tissues: A - PROSTATE RIGHT B - PROSTATE RIGHT C - PROSTATE RIGHT D - PROSTATE LEFT E - PROSTATE LEFT F - PROSTATE LEFT Procedures: PROSTATE BX Comments: @ Ordering doctor for PROSB edited from to @ by RGOOD at 08/31/18 1516 @ Submitting doctor edited from to @ by RGOOD at 08/31/18 1516 HEADER OPERATION: Ultrasound-guided prostate biopsy PRE-OP DIAGNOSIS: Elevated PSA TISSUE SUBMITTED: A - Right base, B - Right mid, C - Right apex, D - Left base, E - Left mid, F - Left apex MICROSCOPIC DIAGNOSIS A. Right prostate, base, core biopsy: Adenocarcinoma: Dawson grade: 8 (4+4) Cores involved: 1 out of 1 Tissue involved: 30% Greatest tumor length: 2.5 mm Perineural invasion: Positive B. Right prostate, mid, core biopsy: Adenocarcinoma: Brenna grade: 8 (4+4) Cores involved: 2 out of 2 Tissue involved: 90% Greatest tumor length: 5 mm Perineural invasion: Positive C. Right prostate, apex, core biopsy: Adenocarcinoma: Dawson grade: 9 (4+5) Cores involved: 1 out of 1 Tissue involved: 90% Greatest tumor length: 8 mm Perineural invasion: Positive D. Left prostate, base, core biopsy: Mild chronic inflammation. E. Left prostate, mid, core biopsy: Mild chronic inflammation. F. Left prostate, apex, core biopsy: Mild chronic prostatitis. AM:vishal 09/03/18 COMMENT Case has been reviewed in consultation with Dr. Gandhi who concurs with the above diagnosis. IDC:SJ MICROSCOPIC DESCRIPTION Slides are reviewed. GROSS DESCRIPTION A - Received is one container designated prostate, right base. The specimen consists of one elongated fragment of light curiel-white soft tissue measuring 1.2 cm in length and 0.1 cm in diameter. The specimen is totally submitted in one cassette. B - Received is one container designated prostate, right mid. The specimen consists of two elongated fragments of light curiel-white soft tissue measuring 0.5 and 1.5 cm in length and 0.1 cm in diameter. The specimen is totally submitted in one cassette. C - Received is one container designated prostate, right apex. The specimen consists of one elongated fragment of light curiel-white soft tissue measuring 1.5 cm in length and 0.1 cm in diameter. The specimen is totally submitted in one cassette. D - Received is one container designated prostate, left base. The specimen consists of one elongated fragment of light curiel-white soft tissue measuring 1.5 cm in length and 0.1 cm in diameter. The specimen is totally submitted in one cassette. E - Received is one container designated prostate, left mid. The specimen consists of one elongated fragment of light curiel-white soft tissue measuring 1.5 cm in length and 0.1 cm in diameter. The specimen is totally submitted in one cassette. F - Received is one container designated prostate, left apex. The specimen consists of one elongated fragment of light curiel-white soft tissue measuring 1 cm in length and 0.1 cm in diameter. The specimen is totally submitted in one cassette. / SJ:vishal 08/31/18 TC:0 CPT: G0146
--- NOTE | 2018-08-31 | ASPIGT_PTH ---
PATIENT: MANISHA JAIN LOC: MS2 U#:[id number] AGE/SX: 73/M [place] [facility] [place]: Dr. Toño Esqueda DO : 1945 BED: 1 DIS: 08/31/2018 SPEC #: [id number] RECD: 08/31/18 14:16 STATUS: VOLODYMYR REQ #: [id number] DEEPAK: 08/31/18 00:[address]: Toño Esqueda DEPT: SURGICAL PATHOLOGY RECD BY: Khai Knowles ENTERED: 08/31/18 14:16 SP TYPE: ASP RAD OTHR DR: MD Dr. Ry Tang MD Dr. Paul Nielsen, MD Dr. Tamera Robotham, MD Dr. Yasser Omran, MD Tissues: Axillary lymph node, NOS Procedures: FNA Specimen Adequacy Special Stain Group II Surgery Specimen Level IV Diff Quik Stain (control) Imprint (control) HEADER OPERATION: Right axillary biopsy PRE-OP DIAGNOSIS: Metastatic prostate cancer TISSUE SUBMITTED: 18 gauge core x4, right axillary lymph node, CT-guided core biopsy MICROSCOPIC DIAGNOSIS Right axillary lymph node, CT-guided core biopsy: Poorly differentiated metastatic non-small cell carcinoma, favor adenocarcinoma. See comment. SJ:rg 09/03/18 COMMENT The specimen is evaluated at the time of CT by Dr. Gandhi. Immediate Evaluation = Malignant cells present. Immunohistochemistry ([id number]) supports the above diagnosis and favors lung primary. Please make reference to concurrent additional specimen, prostate biopsies ([id number]), right prostate base, right prostate mid and right prostate apex, core biopsies with diagnosis of adenocarcinoma. Molecular studies on the tumor can be performed, if clinically indicated. Please notify the laboratory, if they are needed. Correlation with clinical, radiologic findings and appropriate follow up are necessary. Case has been reviewed in consultation with Dr. Reid who concurs with the above diagnosis. IDC:AM MICROSCOPIC DESCRIPTION Slides are reviewed. GROSS DESCRIPTION Received in fixative is one container labeled with the patient's name and designated right axillary lymph node, CT-guided core biopsy. The specimen consists of multiple elongated fragments of light curiel tissue measuring in aggregate 1.5 x 1 x 0.1 cm. The specimen is totally submitted in one cassette. One touch imprint was prepared at the time of core biopsy. / AM:vishal 08/31/18 TC:0 CPT: 17117, 58064
--- NOTE | 2018-08-31 | IMM_PTH ---
PATIENT: MANISHA JAIN LOC: MS2 U#:[id number] AGE/SX: 73/M ROOM: [facility] [place]: Dr. Toño Esqueda DO : 1945 BED: 1 DIS: 08/31/2018 SPEC #: [id number] RECD: 09/03/18 13:40 STATUS: VOLODYMYR REQ #: [id number] DEEPAK: 08/31/18 00:[address]: Toño Esqueda DEPT: IMMUNOHISTOCHEMISTRY RECD BY: Laila Galicia ENTERED: 09/03/18 13:42 SP TYPE: IMMUNO OTHR DR: MD Dr. Ry Tang MD Dr. Paul Nielsen, MD Dr. Tamera Robotham, MD Dr. Yasser Omran, MD Tissues: Axilla, NOS Procedures: RCC (add) NAPSIN A (add) CK20 (add) CK5-6 (add) CK7 (add) CK8 (add) HEP PAR (add) TTF1 (add) Pankeratin (initial) P40 (add) PSAP (add) PHYSICIAN & [place] [id number] SPECIMEN INFORMATION: Tissue Source: Right axillary biopsy Clinical Info: Metastatic prostate cancer Specimen Number: [id number] CPT code: 43445, 40640 x10 METHODOLOGY: Deparaffinized sections of prefer/formalin-fixed tissue or PAP/DQ stained slides are incubated with monoclonal/polyclonal antibodies/oligonucleotide probes. Localization is made via biotin free immunoperoxidase method. Appropriate controls are performed and reacted as expected. Results on target cell population are indicated in the following table: RESULTS: ANTIBODY / CLONE RESULT AE1-3 (AE1/AE3/PCK26) positive CK7 (OV-TL12/30) positive CK8 (98sdfkZ89) positive CK20 (KS20.8) negative TTF-1 (8G7G3/1) positive Napsin A (Rabbit Polyclonal) positive HepPar (OCh1E5) negative RCC (PN-15) negative PSAP (PASE/4LJ) negative CK5-6 (D5 & 1684) negative P40 (BC28) negative These tests were developed and their performance characteristics determined by [facility]. They may not have been cleared or approved by the U.S. Food and Drug Administration. The FDA has determined that such clearance or approval is not necessary. INTERPRETATION: Right axilla lymph node, CT-guided biopsy: Poorly differentiated metastatic non-small cell carcinoma, favor adenocarcinoma. SJ:vishal 09/04/18 Comment: IHC profile favors lung primary. Case has been reviewed in consultation with Dr. Reid who concurs with the above diagnosis. IDC:AM
[2018-08-31] MEDS: proMETHazine 25 MG/ML Syringe 12.5 MG IV (00:19)
[2018-08-31] MEDS: Dext 5%-0.45% NS 1,000 ML 100 ML IV ×2 (01:42→12:45)
[2018-08-31] MEDS: Fleet Enema 1 ML RECTAL (06:26)
[2018-08-31 06:31] LABS: Absolute Lymphocyte Count 1.72 X10^3/ul (0.83-4.51); Absolute Neutrophil Count 2.9 X10^3/uL (2.0-7.7); Basophil# 0.03 X10^3/uL; Basophil% 0.6 % (0-1); Eosinophil# 0.06 X10^3/uL; Eosinophils% 1.2 % (0-5); Hematocrit 31.3 % (40-54); Hemoglobin 10.8 g/dl (13.0-16.5); Lymphocyte # 1.72 X10^3/ul (4.0); Lymphocyte % 34.1 % (19-41); Mean Corp Hgb Conc 34.5 g/gl (32-36); Mean Corpuscular Volume 84.1 fL (80-94); Mean Platelet Vol. 12.1 fl (6.2-12.0); Monocyte# 0.23 X10^3/uL; Monocyte% 4.6 % (0-10); Neutrophil # 2.93 X10^3/uL (2.7-7.7); Neutrophil % 57.9 % (47-70); RBC Distribution Width CV 12.6 % (11.6-14.6); RBC Distribution Width SD 38.7 fl (35.1-43.9); Red Blood Count 3.72 M/mm3 (4.6-6.2); White Blood Count 5.1 K/mm3 (4.4-11.0)
[2018-08-31 06:49] LABS: Differential Indicated SCAN CRITERIA MET; POSITIVE COUNT YES; POSITIVE DIFFERENTIAL NO; POSITIVE MORPHOLOGY NO; Platelet Count 26 K/mm3 (150-450)
[2018-08-31 07:05] LABS: Differential Comment SCAN; Platelet Estimate MKD DEC (ADEQ)
[2018-08-31] MEDS: Ciprofloxacin 400 MG/200 ML BAG 200 MG IV (09:50)
--- NOTE | 2018-08-31 10:08 | CASEMGMT ---
Pt has a new likely diagnosis of cancer. Pt is about to go for a biopsy, SW will speak w/pt tomorrow. JEROMY Arita, PIGMENT AND LACQUER MIXER
--- NOTE | 2018-08-31 10:26 | NURSING ---
Pt was brought down to Surgery Via Bed by Mara.
--- NOTE | 2018-08-31 10:30 | US_ITS ---
PROCEDURES: TRANSRECTAL ULTRASOUND GUIDED - PROSTATE REASON FOR EXAM: Male, 73 years old. Elevated PSA. TECHNIQUE: Ultrasound evaluation of the prostate was performed with real-time and static ugarte-scale imaging. BIOPSY: A needle core biopsy was perform. A consent form was signed, PT-PTT levels checked and a time-out was called. The patient is currently off any anticoagulant therapy. Cleansing enema: Yes COMPARISON: None. FINDINGS: PSA: 455 Prostate Volume: 21.0 cm3 Under direct sonographic guidance, the urologist perform a biopsy of the right and left lobes of the prostate. US/Intraoperative Ultrasound IMPRESSION: Ultrasound guided prostate biopsy. Electronically Signed: Maciel Reeder MD at 8:32 EST Tel [phone], Service support ,
--- NOTE | 2018-08-31 10:34 | NURSING ---
Report given to Brian DOLL at this time.
[2018-08-31 11:43] LABS: IMMUNOFIXATION RESULT,S Comment: (.)
--- NOTE | 2018-08-31 11:45 | OP.PCM_ITS ---
Problem List (1) Elevated PSA Status: Acute Report of Operation Date of Procedure: 08/31/18 Pre-Operative Diagnosis: Elevated PSA and hard right prostate nodule Post-Operative Diagnosis: Same Surgery/Procedure Performed:: Transrectal ultrasound-guided biopsy of the prostate, ultrasonography of the prostate Description of Surgical Findings:: 73-year-old male was found to have a PSA of 440 presented to the hospital with overall malaise, abdominal pain, positive bone scan with metastatic disease, on exam of the prostate he has a hard nodule on the right side of the prostate. Today presents for prostate biopsy to confirm the suspicious of prostate cancer and suspect that he may have metastatic prostate cancer. 73-year-old male taken back to the operating room, after smooth induction of anesthesia he was placed in dorsolithotomy position, I then introduced an ultrasound probe into the rectum and measure the prostate prostate was normal in size, I performed a examination of the prostate he did have a hard nodule on the right side of the prostate. Prostate measurement was probably about 30 g. On ultrasonography of the prostate little bit of transition zone calcifications wh ich was normal but he did have a dark hypoechoic lesion in the right base of the prostate corresponding to the right hard nodule on exam. We then did a biopsy of the right base, right mid, right apex. I then did a biopsy of the left base, left mid, left apex. Held pressure and there was no significant bleeding. Patient was then taken back to the PACU in good condition. I suspect he has metastatic prostate cancer will need to be started on hormone deprivation therapy as soon as the tissue results are back and come the office to start that when he is discharged in the hospital my office with an injection in the office. Type of Anesthesia:: General Drains: none - Admit VTE Documentation VTE Present on Admission: No VTE Mechan Device Prophylaxis: SCD's
--- NOTE | 2018-08-31 12:09 | PCM.PN.SRG ---
Patient Problems: Active and Suspected Problems Elevated PSA (Acute) Weight loss (Acute) Abdominal pain (Acute) Nausea (Acute) Anorexia (Acute) Thrombocytopenia (Acute) Prostate cancer (Acute) Elevated PSA, greater than or equal to 20 ng/ml (Acute) Elevated alkaline phosphatase level (Acute) Subjective: pt on his way for prostate bx with dr. delaney - Physical Exam General: Alert, Oriented x3, Cooperative, No apparent distress HEENT: Atraumatic Abdomen: Soft, Non Tender, Non-Distended Vital Signs Temp Pulse Resp BP Pulse Ox 97.4 F L 78 16 117/60 92 08/31/18 12:00 08/31/18 12:00 08/31/18 12:00 08/31/18 12:00 08/31/18 11:55 Oxygen Flow Rate (L/min) 2 Oxygen Delivery Method Nasal Cannula Weight: 178 lb 9.191 oz Body Mass Index (BMI) 25.6 Intake and Output for Last 24 Hours 08/29/18 08/30/18 08/31/18 23:59 23:59 23:59 Intake Total 2792 / 2792 3155 / 3155 1892 / 1892 Balance 2792 / 2792 3155 / 3155 1892 / 1892 Laboratory Tests Past 24 Hrs 08/28/18 08/28/18 08/31/18 15:15 15:15 05:35 WBC 5.1 RBC 3.72 L Hgb 10.8 L Hct 31.3 L MCV 84.1 MCH 29.0 MCHC 34.5 RDW 12.6 RDW Differential 38.7 Plt Count 26 L* MPV 12.1 H Immature Gran % (Auto) 1.600 H Neut % (Auto) 57.9 Lymph % (Auto) 34.1 [place] % (Auto) 4.6 Eos % (Auto) 1.2 Baso % (Auto) 0.6 Absolute Neuts (auto) 2.9 Absolute Lymphs (auto) 1.72 Total Counted Not Reportable Differential Comment SCAN Diff Path Review May foll Platelet Estimate MKD DEC Total Protein (PEP) 6.0 IgG 829 IgA 271 IgM 72 Immunofixation Screen Comment: Albumin (SEBAS) 3.2 Albumin/Globulin (SEBAS) 1.2 Ercpn-2-Gljiusrft SEBAS 0.3 Cdcne-7-Tltjuhpvh SEBAS 0.6 Beta-Globulins (SEBAS) 1.2 Gamma Globulins (SEBAS) 2.8 SEBAS M-Elmer SEBAS Comments Comment Free [place] LC, Quant 38.6 H Free Lambda LC, Quant 25.4 Free [place]/Lambda Ratio 1.52 H. pylori IgG Antibody 0.15 Medical Necessity - Tobacco Use Smoking Status: Former smoker Tobacco Use: Pipe Assessment/Plan All Active Problems Elevated PSA (Acute) Lymphadenopathy (Acute) Weight loss (Acute) Abdominal pain (Acute) Nausea (Acute) Anorexia (Acute) Thrombocytopenia (Acute) Prostate cancer (Acute) Elevated PSA, greater than or equal to 20 ng/ml (Acute) Elevated alkaline phosphatase level (Acute) 73-year-old male with nausea/abdominal pain/weight loss, thrombocytopenia, lymphocytosis, elevated PSA, mediastinal adenopathy/right axillary and right supraclavicular 1. No acute surgical intervention, call with questions. Iza Downing M.D. Pager: [phone] [facility] [address] [place] [address], [facility], [address] [place] [address] Office: [phone]
--- NOTE | 2018-08-31 12:38 | ONC.PN.INPT ---
- Problem List (1) Prostate cancer Status: Acute (2) Bone metastases Status: Acute (3) Lymphadenopathy Status: Acute (4) Thrombocytopenia Status: Acute Subjective Date of Service:: 08/31/18 Abdominal pain Patient was hospitalized with abdominal pain, workup revealed metastatic prostate cancer, generalized lymphadenopathy, and pancytopenia. A surgical abdomen has been ruled out and his pain is improving with symptomatic management Abdominal pain is less problematic and is controlled Past Medical History: Chronic Problems History of bladder cancer (Chronic) Past Medical History - Most Recent Inpatient Visit Past Medical History Start: 08/27/18 23:19 Text: Status: Complete Freq: ONCE Protocol: Document 08/27/18 23:42 CDS (Rec: 08/27/18 23:44 CDS [id number]) BMI Required to complete PMH What is Patient's BMI 25.6 Past Medical History Unable History Recalled No Query Text:Pt Unable/Family Not Present Neurologic Medical History Hx Stroke/TIA No Hx Dementia/Alzheimer's No Hx Parkinson's Disease No Hx Seizures No Hx Multiple Sclerosis No Hx Migraines No Cardiac Medical History VTE Present on Admission No Hx of Deep Vein Thrombosis/VTE/PE No Hx Hypertension No Hx Chest Pain/Angina No Hx Heart Attack No Hx Cardiac Surgery/Stents/Etc. No Hx Heart Failure No Hx Pacemaker/AICD No Hx Irregular Heartbeat and/or Afib No Hx Anticoagulant Therapy No Query Text:(Coumadin, Aspirin, Plavix, Xarelto, etc.) Hx Pain in Legs when Walking/Leg Cramps No Respiratory Medical History Hx COPD No Hx Emphysema No Hx Smoking No Smoking Status Former smoker Tobacco Use Pipe Years Smoking 30 Hx Tobacco Use in last 12 months No Hx Sleep Apnea No Do you snore loudly (louder than talking No or can be heard through closed doors)? Do you often feel tired/ fatigued/ Yes sleepy during daytime? Has anyone observed you stop breathing No during sleep? STOP Results Negative GI Medical History Hx Ulcer No Hx Hepatitis No Hx Cirrhosis No Hx GI Bleed No Hx Unplanned Weight Loss No Genitourinary Medical History Indwelling Catheter in Place on Arrival/ No Admission Hx Renal Disease No Hx Dialysis No Musculoskeletal History Hx Arthritis No Hx Rheumatoid Arthritis No Endocrine Medical History Hx Diabetes No Hx Thyroid Disease No Hematologic Medical History Hx of Blood Transfusion No Hx of Transfusion in last 3 Months No Ever experience any problems with No transfusion(s)? Hx of Preganancy in last 3 Months N/A Nurse Filling Out Transfusion & CSNYDER Questions: Date: 08/27/18 Time: 23:44 Psycho/Social Medical History Hx Depression No Hx Anxiety No Hx Behavior Disorder No Hx Alcohol Use No Hx Substance Use No Other Medical History Hx Blood Disorders No Hx Anemia No Hx Cancer Yes: hx bladder CA Hx Drug Resistant Organism No Wound/Pressure Injury Present on Arrival No /Admission Query Text:If yes, chart assessment in Shift/Clinical Findings Central Line/PICC/VAD Present on Arrival No /Admission Risk for Readmission Number of Risk Factors 1 At Risk for Readmission Patient is Not at Risk Patient is eligible for Call Back N Maternal Family History: Cancer - Pancreatic cancer diagnosed at age 74, No pertinent history - Social History Smoking Status: Former smoker Tobacco Use: Pipe Vital Signs Height 5 ft 10 in Weight: 81 kg Weight in Pounds 178.6 lbs Pulse Ox 98 Temperature 97.8 F Pulse Rate 78 Respiratory Rate 18 Blood Pressure 127/79 Blood Pressure Position Semi-Fowlers - Physical Exam General: Alert, Oriented x3, No apparent distress Abdomen:: Soft, Non-tender, Non-distended. Negative for: Hepatosplenomegaly Laboratory Data: Laboratory Tests 08/31/18 08/28/18 08/28/18 Range/Units 05:35 15:15 15:15 WBC 5.1 (4.4-11.0) K/mm3 RBC 3.72 L (4.6-6.2) M/mm3 Hgb 10.8 L (13.0-16.5) g/dl Hct 31.3 L (40-54) % MCV 84.1 (80-94) fL MCH 29.0 (27.0-32.0) pg MCHC 34.5 (32-36) g/gl RDW 12.6 (11.6-14.6) % RDW Differential 38.7 (35.1-43.9) fl Plt Count 26 L* (150-450) K/mm3 MPV 12.1 H (6.2-12.0) fl Immature Gran % (Auto) 1.600 H (0.0-0.9) % Neut % (Auto) 57.9 (47-70) % Lymph % (Auto) 34.1 (19-41) % [place] % (Auto) 4.6 (0-10) % Eos % (Auto) 1.2 (0-5) % Baso % (Auto) 0.6 (0-1) % Absolute Neuts (auto) 2.9 (2.0-7.7) X10^3/uL Absolute Lymphs (auto) 1.72 (0.83-4.51) X10^3/ul Total Counted Not Reportable Differential Comment SCAN Diff Path Review May foll Platelet Estimate MKD DEC (ADEQ) Total Protein (PEP) 6.0 (6.0-8.5) g/dL IgG 829 (700-1600) mg/dL IgA 271 (61-437) mg/dL IgM 72 (15-143) mg/dL Immunofixation Screen Comment: (.) Albumin (SEBAS) 3.2 (2.9-4.4) g/dL Albumin/Globulin (SEBAS) 1.2 (0.7-1.7) Mqcok-3-Rrfayaved SEBAS 0.3 (0.0-0.4) g/dL Unikr-6-Dampaezhk SEBAS 0.6 (0.4-1.0) g/dL Beta-Globulins (SEBAS) 1.2 (0.7-1.3) g/dL Gamma Globulins (SEBAS) 2.8 (2.2-3.9) g/dL SEBAS M-Elmer g/dL SEBAS Comments Comment (.) Free [place] LC, Quant 38.6 H (3.3-19.4) mg/L Free Lambda LC, Quant 25.4 (5.7-26.3) mg/L Free [place]/Lambda Ratio 1.52 (0.26-1.65) H. pylori IgG Antibody 0.15 (0.00-0.79) Diagnostic Data: Diagnostic Data Gallbladder Ultrasound 08/27/18 20:33 IMPRESSION: No definite abnormality. Electronically Signed: Luis Flores MD at 21:35 EST , Service support , Abdomen/Pelvis CT 08/29/18 12:02 IMPRESSION: Question of mild bilateral renal atrophy. Bilateral nonobstructing renal stones. Mild blastic metastatic disease not excluded. Bone scan recommended. Electronically Signed: Luis Flores MD at 20:31 EST , Service support , Chest CT 08/29/18 12:02 IMPRESSION: Right axillary, right infraclavicular, and mediastinal adenopathy. Small nodule on the surface of the left major fissure is probably incidental but suggest follow-up and 6 months. 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 Electronically Signed: Maciel Reeder MD at 9:41 EST Tel [phone], Service support , Assessment and Plan 1. Metastatic prostate cancer evidenced by markedly elevated PSA over 400 and a bone scan consistent with disseminated bony metastatic disease. Patient has started androgen deprivation therapy with Casodex and to start LHRH agonist therapy as outpatient. He is scheduled for a prostate biopsy. His is a patient of Dr. Farris and he may elect to follow-up at [facility] for convenience. 2. Lymphadenopathy, generalized, suspect a lymphoproliferative neoplasm, less likely metastatic prostate cancer. Patient is scheduled for a guided lymph node biopsy. 3. Pancytopenia though the predominant abnormality is severe thrombocytopenia with a platelet count less than 30 K. Although this is at least partly due to metastatic prostate cancer to bone and bone marrow the degree of thrombocytopenia suggests additional pathology especially with a normal platelet count earlier this year at outside hospital. Finding may be immune mediated (ITP) related to possible underlying lymphoproliferative neoplasm. Patient was started on a trial of high-dose steroids Decadron 40 mg daily on August 30, 2018. 4. Prior to invasive procedures with a platelet count less than 50 K patient will receive prophylactic platelet transfusions. Impression and plan discussed. Patient was seen with his son and daughter. Medications: Prescriptions This Visit Medication Instructions Recorded Aspirin [Aspirin EC] 81 mg PO DAILY 08/28/18 Tamsulosin HCl [Flomax] 0.4 mg PO DAILY 08/28/18 Bicalutamide [Casodex] 50 mg PO DAILY 08/29/18 Primary Care Provider: Natalee Partida Referring Provider:
--- NOTE | 2018-08-31 12:45 | PN_ITS ---
- Problem List (1) Prostate cancer Status: Acute (2) Bone metastases Status: Acute (3) Lymphadenopathy Status: Acute (4) Thrombocytopenia Status: Acute Subjective Date of Service:: 08/31/18 Abdominal pain Patient was hospitalized with abdominal pain, workup revealed metastatic prostate cancer, generalized lymphadenopathy, and pancytopenia. A surgical abdomen has been ruled out and his pain is improving with symptomatic management Abdominal pain is less problematic and is controlled Past Medical History: Chronic Problems History of bladder cancer (Chronic) Past Medical History - Most Recent Inpatient Visit Past Medical History Start: 08/27/18 23:19 Text: Status: Complete Freq: ONCE Protocol: Document 08/27/18 23:42 CDS (Rec: 08/27/18 23:44 CDS [id number]) BMI Required to complete PMH What is Patient's BMI 25.6 Past Medical History Unable History Recalled No Query Text:Pt Unable/Family Not Present Neurologic Medical History Hx Stroke/TIA No Hx Dementia/Alzheimer's No Hx Parkinson's Disease No Hx Seizures No Hx Multiple Sclerosis No Hx Migraines No Cardiac Medical History VTE Present on Admission No Hx of Deep Vein Thrombosis/VTE/PE No Hx Hypertension No Hx Chest Pain/Angina No Hx Heart Attack No Hx Cardiac Surgery/Stents/Etc. No Hx Heart Failure No Hx Pacemaker/AICD No Hx Irregular Heartbeat and/or Afib No Hx Anticoagulant Therapy No Query Text:(Coumadin, Aspirin, Plavix, Xarelto, etc.) Hx Pain in Legs when Walking/Leg Cramps No Respiratory Medical History Hx COPD No Hx Emphysema No Hx Smoking No Smoking Status Former smoker Tobacco Use Pipe Years Smoking 30 Hx Tobacco Use in last 12 months No Hx Sleep Apnea No Do you snore loudly (louder than talking No or can be heard through closed doors)? Do you often feel tired/ fatigued/ Yes sleepy during daytime? Has anyone observed you stop breathing No during sleep? STOP Results Negative GI Medical History Hx Ulcer No Hx Hepatitis No Hx Cirrhosis No Hx GI Bleed No Hx Unplanned Weight Loss No Genitourinary Medical History Indwelling Catheter in Place on Arrival/ No Admission Hx Renal Disease No Hx Dialysis No Musculoskeletal History Hx Arthritis No Hx Rheumatoid Arthritis No Endocrine Medical History Hx Diabetes No Hx Thyroid Disease No Hematologic Medical History Hx of Blood Transfusion No Hx of Transfusion in last 3 Months No Ever experience any problems with No transfusion(s)? Hx of Preganancy in last 3 Months N/A Nurse Filling Out Transfusion & CSNYDER Questions: Date: 08/27/18 Time: 23:44 Psycho/Social Medical History Hx Depression No Hx Anxiety No Hx Behavior Disorder No Hx Alcohol Use No Hx Substance Use No Other Medical History Hx Blood Disorders No Hx Anemia No Hx Cancer Yes: hx bladder CA Hx Drug Resistant Organism No Wound/Pressure Injury Present on Arrival No /Admission Query Text:If yes, chart assessment in Shift/Clinical Findings Central Line/PICC/VAD Present on Arrival No /Admission Risk for Readmission Number of Risk Factors 1 At Risk for Readmission Patient is Not at Risk Patient is eligible for Call Back N Maternal Family History: Cancer - Pancreatic cancer diagnosed at age 74, No pertinent history - Social History Smoking Status: Former smoker Tobacco Use: Pipe Vital Signs Height 5 ft 10 in Weight: 81 kg Weight in Pounds 178.6 lbs Pulse Ox 98 Temperature 97.8 F Pulse Rate 78 Respiratory Rate 18 Blood Pressure 127/79 Blood Pressure Position Semi-Fowlers - Physical Exam General: Alert, Oriented x3, No apparent distress Abdomen:: Soft, Non-tender, Non-distended. Negative for: Hepatosplenomegaly Laboratory Data: Laboratory Tests 08/31/18 08/28/18 08/28/18 Range/Units 05:35 15:15 15:15 WBC 5.1 (4.4-11.0) K/mm3 RBC 3.72 L (4.6-6.2) M/mm3 Hgb 10.8 L (13.0-16.5) g/dl Hct 31.3 L (40-54) % MCV 84.1 (80-94) fL MCH 29.0 (27.0-32.0) pg MCHC 34.5 (32-36) g/gl RDW 12.6 (11.6-14.6) % RDW Differential 38.7 (35.1-43.9) fl Plt Count 26 L* (150-450) K/mm3 MPV 12.1 H (6.2-12.0) fl Immature Gran % (Auto) 1.600 H (0.0-0.9) % Neut % (Auto) 57.9 (47-70) % Lymph % (Auto) 34.1 (19-41) % [place] % (Auto) 4.6 (0-10) % Eos % (Auto) 1.2 (0-5) % Baso % (Auto) 0.6 (0-1) % Absolute Neuts (auto) 2.9 (2.0-7.7) X10^3/uL Absolute Lymphs (auto) 1.72 (0.83-4.51) X10^3/ul Total Counted Not Reportable Differential Comment SCAN Diff Path Review May foll Platelet Estimate MKD DEC (ADEQ) Total Protein (PEP) 6.0 (6.0-8.5) g/dL IgG 829 (700-1600) mg/dL IgA 271 (61-437) mg/dL IgM 72 (15-143) mg/dL Immunofixation Screen Comment: (.) Albumin (SEBAS) 3.2 (2.9-4.4) g/dL Albumin/Globulin (SEBAS) 1.2 (0.7-1.7) Hlggr-7-Fxtyivqlu SEBAS 0.3 (0.0-0.4) g/dL Cuurv-1-Jlmkrbsnp SEBAS 0.6 (0.4-1.0) g/dL Beta-Globulins (SEBAS) 1.2 (0.7-1.3) g/dL Gamma Globulins (SEBAS) 2.8 (2.2-3.9) g/dL SEBAS M-Elmer g/dL SEBAS Comments Comment (.) Free [place] LC, Quant 38.6 H (3.3-19.4) mg/L Free Lambda LC, Quant 25.4 (5.7-26.3) mg/L Free [place]/Lambda Ratio 1.52 (0.26-1.65) H. pylori IgG Antibody 0.15 (0.00-0.79) Diagnostic Data: Diagnostic Data Gallbladder Ultrasound 08/27/18 20:33 IMPRESSION: No definite abnormality. Electronically Signed: Luis Flores MD at 21:35 EST , Service support , Abdomen/Pelvis CT 08/29/18 12:02 IMPRESSION: Question of mild bilateral renal atrophy. Bilateral nonobstructing renal stones. Mild blastic metastatic disease not excluded. Bone scan recommended. Electronically Signed: Luis Flores MD at 20:31 EST , Service support , Chest CT 08/29/18 12:02 IMPRESSION: Right axillary, right infraclavicular, and mediastinal adenopathy. Small nodule on the surface of the left major fissure is probably incidental but suggest follow-up and 6 months. 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 Electronically Signed: Maciel Reeder MD at 9:41 EST Tel [phone], Service support , Assessment and Plan 1. Metastatic prostate cancer evidenced by markedly elevated PSA over 400 and a bone scan consistent with disseminated bony metastatic disease. Patient has started androgen deprivation therapy with Casodex and to start LHRH agonist therapy as outpatient. He is scheduled for a prostate biopsy. His is a patient of Dr. Farris and he may elect to follow-up at [facility] for convenience. 2. Lymphadenopathy, generalized, suspect a lymphoproliferative neoplasm, less likely metastatic prostate cancer. Patient is scheduled for a guided lymph node biopsy. 3. Pancytopenia though the predominant abnormality is severe thrombocytopenia with a platelet count less than 30 K. Although this is at least partly due to metastatic prostate cancer to bone and bone marrow the degree of thrombocytopenia suggests additional pathology especially with a normal platelet count earlier this year at outside hospital. Finding may be immune mediated (ITP) related to possible underlying lymphoproliferative neoplasm. Patient was started on a trial of high-dose steroids Decadron 40 mg daily on August 30, 2018. 4. Prior to invasive procedures with a platelet count less than 50 K patient will receive prophylactic platelet transfusions. Impression and plan discussed. Patient was seen with his son and daughter. Medications: Prescriptions This Visit Medication Instructions Recorded Aspirin [Aspirin EC] 81 mg PO DAILY 08/28/18 Tamsulosin HCl [Flomax] 0.4 mg PO DAILY 08/28/18 Bicalutamide [Casodex] 50 mg PO DAILY 08/29/18 Primary Care Provider: Natalee Partida Referring Provider:
--- NOTE | 2018-08-31 12:55 | CASEMGMT ---
SW spoke to pt in room, pt's son and daughter present. SW offered support to pt and family. Pt has no questions for SW at this time, not asking for support at this time. SW let pt and family know that SW is available for any social service needs. JEROMY Arita, DEVELOPER ANALYST
--- NOTE | 2018-08-31 13:16 | CT_ITS ---
PROCEDURE: CT GUIDED biopsy of the right axillary mass. DATE: August 31, 2018. INDICATION: Male, 73 years old. Patient with right axillary mass. PHYSICIAN: Maciel Reeder M.D. RADIATION DOSAGE (If Supplied By Facility): CTDIvol = ( 18.3 ) mGy, DLP = ( 547.97 ) mGycm. Individualized dose optimization techniques were utilized. PROCEDURE: The risks, benefits, and alternatives to the procedure were explained to the patient. The specific risk of hemorrhage requiring further treatment or intervention was detailed and accepted. Follow-up instructions were discussed with the patient as well. Written informed consent was obtained. The patient was brought into the CT suite and placed in the supine position. . An appropriate entry site was identified. The overlying skin was prepped and draped in the usual sterile fashion. 1% lidocaine was administered subcutaneously for local anesthesia. Conscious sedation was performed. The patient received 1 mg of Versed and 25 mcg of fentanyl intravenously. Conscious sedation was started at 1341 and terminated at 1357. The patient was independently monitored by the department nurse. Under CT guidance, a total of 4 passes were performed 18-gauge core biopsy needle. The specimens were then placed in the appropriate fluid and transported to the laboratory for analysis. Hemostasis was obtained. The patient tolerated the procedure well without immediate complications. CT/Biopsy/Inj or Needle Placement IMPRESSION: Successful CT guided biopsy of the right axillary mass, as described above. Electronically Signed: Maciel Reeder MD at 14:31 EST Tel [phone], Service support ,
[2018-08-31] MEDS: fentaNYL 100 MCG/2 ML Ampul IV (13:41)
[2018-08-31] MEDS: Midazolam 2 MG/2 ML Syringe IV (13:42)
--- NOTE | 2018-08-31 13:44 | NURSING ---
Pt came back from Recovery Room and was on the floor for approximately 30 min before he was then brought down to Radiology For Dr. Reeder. Pt had remained NPO after arriving to floor.
[2018-08-31 14:11] LABS: Pathologist Review Reviewed
[2018-08-31] MEDS: BICALUTAMIDE 50 MG TABLET PO (15:24)
--- NOTE | 2018-08-31 16:51 | DCINST_ITS ---
- Discharge Diagnoses Current Active Problems: Current Active and Chronic Problems Weight loss (Acute) History of bladder cancer (Chronic) Abdominal pain (Acute) Nausea (Acute) Anorexia (Acute) Thrombocytopenia (Acute) Prostate cancer (Acute) Elevated PSA, greater than or equal to 20 ng/ml (Acute) Elevated alkaline phosphatase level (Acute) You will use the following diet at home:: No restrictions Your food should be the consistency of: Regular Your liquids should be the consistency of: Regular/Thin Discharge Activity: Return to Normal Activity Weight Bearing Status: Full weight bearing Allergies/Adverse Reactions: Allergies No Known Allergies Allergy (Verified 08/27/18 20:00) Medications to take at Discharge Aspirin [Aspirin EC] 81 mg PO DAILY 08/28/18 Tamsulosin HCl [Flomax] 0.4 mg PO DAILY 08/28/18 Bicalutamide [Casodex] 50 mg PO DAILY 08/29/18 Dexamethasone [Decadron] 40 mg PO DAILY@0800 #20 tablet 08/31/18 Tamsulosin HCl [Flomax] 0.4 mg PO DAILY@1730 capsule 08/31/18 proMETHazine tablet [Phenergan tablet] 25 mg PO Q6H PRN PRN #40 tablet 08/31/18 The following prescriptions were given: proMETHazine tablet [Phenergan tablet] 25 mg PO Q6H PRN PRN #40 tablet PRN Reason: Nausea Dexamethasone [Decadron] 40 mg PO DAILY@0800 #20 tablet Primary Care Physician: Natalee Partida [Primary Care Provider] - Please follow up with your Primary Care Physician in: in 2-3 weeks Test Results: Test results from this visit will be discussed in further detail at your follow- up appointment, if applicable. Please Follow Up With: Desmond Farris MD When: next week
[2018-08-31] MEDS: Tamsulosin HCl 0.4 MG Capsule PO (17:21)
--- NOTE | 2018-09-01 16:59 | PCM.DC.SUM ---
Discharge Date and Diagnosis Date of Admission: 08/27/18 Date of Discharge: 08/31/18 - Primary Discharge Diagnosis #1 Pancytopenia with marked thrombocytopenia-etiology unclear at this point, felt probably to be secondary to metastatic prostate cancer #2 elevated PSA indicative of probable prostate cancer-with probable widespread metastatic bone disease #3 abdominal pain-etiology unclear #4 elevated alkaline phosphatase-probably secondary to metastatic bone disease from prostate cancer #5 weight loss over the past 5 weeks of 20-30 pounds-secondary to metastatic prostate cancer and possible undiagnosed lymphoma #6 widespread lymphadenopathy possibly secondary to metastatic prostate cancer or undiagnosed lymphoma - Secondary Discharge Diagnosis Chronic Problems History of bladder cancer (Chronic) Hospital Course and Treatment Operations: None Procedures: Blood transfusion - Platelet transfusion, - - Right axillary lymph node CT-guided needle biopsy, prostate biopsy, radionucleotide bone scan Summary of Care Provided: The patient is a 73 year old M who was seen in the emergency room at [facility] with chief complaint of weight loss over the past 6-8 weeks which he describes as 20-30 pounds, mid abdominal pain which has been intermittent over the last 4 weeks, and recently diagnosed hiatal hernia with reflux. Patient had seen his physician in [place], a CT scan of the abdomen was performed early in July 2018 which showed hiatal hernia, and umbilical hernia, but no gross pathology in the abdomen. He had seen his PCP with complaints of mid abdominal discomfort and weight loss. Patient had been referred to a surgeon in [place] and had been scheduled to have a HIDA scan but came to the emergency room here for evaluation due to persistent mid abdominal discomfort. Labs obtained in the emergency room showed a white count of 5000, hemoglobin was 13, platelet count was low at 34,000. Patient's BUN was elevated at 43, creatinine was 1.97. It was noted in the emergency room dictation that the patient's last creatinine was 1.5, his last platelet count was noted to be normal-last CBC had been done in October 2017. Patient was admitted to [place] [id number], he was seen in consultation by oncology, subsequent labs revealed an elevated PSA and decreasing platelet count. Patient had no episodes of bleeding however, he was seen in consultation by general surgery who declined to perform any endoscopy procedures owing to his low platelet count. Patient's abdominal CT was repeated, it did not show any pathology in the abdomen and so the etiology of the patient's complaints of abdominal pain was unknown but his abdominal pain improved during his hospital stay. Patient did undergo a prostate biopsy and was given a platelet transfusion before this biopsy and due to an abnormal chest CT which showed lymphadenopathy in the chest and right axillary area, patient underwent a right axillary lymph node CT-guided biopsy also. At the direction of oncology, patient was placed on high-dose dexamethasone in case the thrombocytopenia was due to undiagnosed ITP. Finally, patient was placed on Casodex at the instruction of oncology. On 08/31/18, patient was seen and examined: On examination he appeared in good health and spirits. Vital signs as documented. Skin warm and dry and without overt rashes. Neck without JVD. Lungs clear. Heart exam notable for regular rhythm, normal sounds and absence of murmurs, rubs or gallops. Abdomen unremarkable and without evidence of organomegaly, masses, or abdominal aortic enlargement. Extremities nonedematous. Neuro: Cranial nerves II through XII are grossly intact, no focal motor deficits were noted. Psych: Patient is alert and oriented x3, he does not appear anxious or depressed. On 08/31/18, patient was seen and examined and felt to be stable for discharge home, he had decided to follow-up with Dr. Farris who sees his presently for her medical problems. - Physical Exam Vital Signs Temp Pulse Resp BP Pulse Ox 97.5 F L 84 18 140/65 H 98 08/31/18 14:55 08/31/18 14:55 08/31/18 14:55 08/31/18 14:55 08/31/18 14:55 Oxygen Flow Rate (L/min) [1 ( 97 Initial Baseline)] Oxygen Flow Rate (L/min) 2 Oxygen Delivery Method [4] Room Air Oxygen Delivery Method [3] Room Air Oxygen Delivery Method [2] Room Air Oxygen Delivery Method [1 ( Room Air Initial Baseline)] Oxygen Delivery Method Room Air Weight: 81 kg Body Mass Index (BMI) 25.6 Intake and Output for Last 24 Hours 08/30/18 08/31/18 09/01/18 23:59 23:59 23:59 Intake Total 3155 / 3155 1891 Balance 3155 / 3155 1891 Discharge Activity: Return to Normal Activity Weight Bearing Status: Full weight bearing Home Medications: Medications to take at Discharge Aspirin [Aspirin EC] 81 mg PO DAILY 08/28/18 Tamsulosin HCl [Flomax] 0.4 mg PO DAILY 08/28/18 Bicalutamide [Casodex] 50 mg PO DAILY 08/29/18 Dexamethasone [Decadron] 40 mg PO DAILY@0800 #20 tablet 08/31/18 Tamsulosin HCl [Flomax] 0.4 mg PO DAILY@1730 capsule 08/31/18 proMETHazine tablet [Phenergan tablet] 25 mg PO Q6H PRN PRN #40 tablet 08/31/18 Following Prescrptions Were Given to Patient: proMETHazine tablet [Phenergan tablet] 25 mg PO Q6H PRN PRN #40 tablet PRN Reason: Nausea Dexamethasone [Decadron] 40 mg PO DAILY@0800 #20 tablet Primary Care Physician: Natalee Partida [Primary Care Provider] - Please follow up with your Primary Care Physician in: in 2-3 weeks Please Follow Up With: Desmond Farris MD When: next week Disposition: Home Minutes spent on discharge:: 32 Patient Condition:: Stable Medical Necessity - Tobacco Use Smoking Status: Former smoker Tobacco Use: Pipe Meaningful Use Info Meaningful Use Diagnoses (Choose all that apply): None applicable Code Visit Inpatient E&M: 72943 Disch Hosp
== END 2018-08-31 17:20 | disposition home or self-care (01) | DRG 988 ==
LOC: ED 21:05 → MS2 22:58
PROVIDERS: Nurse Practitioner Family; Urology; Admitting Provider Family Medicine; Emergency Provider Emergency Medicine; Family Provider Internal Medicine Infectious Disease; PCP Internal Medicine Infectious Disease; Visit Provider Internal Medicine
PROC: 0VB03ZX Excision of Prostate, Percutaneous Approach, Diagnostic (ICD-10-PCS; CPT 55700; principal; 2018-08-31 10:50)
DX: C61 Malignant neoplasm of prostate (principal); C79.51 Secondary malignant neoplasm of bone; C85.90 Non-Hodgkin lymphoma, unspecified, unspecified site; D61.818 Other pancytopenia; N18.3 Chronic kidney disease, stage 3 (moderate); D69.59 Other secondary thrombocytopenia; R10.9 Unspecified abdominal pain; K21.9 Gastro-esophageal reflux disease without esophagitis; R59.1 Generalized enlarged lymph nodes; K44.9 Diaphragmatic hernia without obstruction or gangrene; K42.9 Umbilical hernia without obstruction or gangrene; R63.4 Abnormal weight loss; Z68.25 Body mass index [BMI] 25.0-25.9, adult; Z85.51 Personal history of malignant neoplasm of bladder; Z87.891 Personal history of nicotine dependence
CPT/HCPCS: 36415; 71260; 74177; 76705; 76998; 77012; 78306; 80048; 80053; 80069; 80076; 81001; 82784; 82977; 83615; 83690; 83883; 84153; 84165; 85025; 85027; 85384; 85610; 85730; 86334; 86677; 86703; 86850; 86900; 86965; 88172; 88305; 88313; 88341; 88342; 97802; 99156; 99157; 99281; J7040; P9035; Q9967; A4216; G0416; J0744; J2405; J7799

== ENCOUNTER → 2018-10-11 08:07 | Outpatient (CLI) | payer MEDICARE, OTHER, SELFPAY ==
[2018-08-31 09:53] VITALS: BMI 25.6
[2018-10-11] VITALS (7 sets, daily range): BP systolic 122–138; BP diastolic 44–65; PULSE 74–86; RESP 16–18; TEMP 36.1–37.2; O2SAT 95–99; BMI 25.5
[2018-10-11] MEDS: Acetaminophen 325 MG Tablet 650 MG PO (08:36)
--- OUTSIDE RECORDS SUMMARY | 2018-12-15 20:54 | XMS RPT_ITS ---
:1945 Author Organization OHIP Support Name Relationship Address Phone DANGELOJANE CAMARENA Unavailable [address] + [place] [address] R Unavailable Unavailable Unavailable STEIMEL, DEENA Unavailable [address] + [place] [address] NOT GIVEN Unavailable Unavailable Unavailable Ino DANGELO Unavailable [address] [place] [address] STEIMEL, DEENA Unavailable [address] + [place] [address] JANE DANGELO Unavailable [address] + [place] [address] R Unavailable Unavailable Unavailable STEIMEL, DEENA Unavailable [address] + [place] [address] JANE DANGELO Unavailable [address] + [place] [address] R Unavailable Unavailable Unavailable STEIMEL, DEENA Unavailable [address] + [place] [address] JANE DANGELO Unavailable [address] + [place] [address] R Unavailable Unavailable Unavailable STEIMEL, DEENA Unavailable [address] + [place] [address] JANE DANGELO Unavailable [address] + [place] [address] R Unavailable Unavailable Unavailable STEIMEL, DEENA Unavailable [address] + [place] [address] JANE DANGELO Unavailable [address] + [place] [address] R Unavailable Unavailable Unavailable STEIMEL, DEENA Unavailable [address] + [place] [address] JANE DANGELO Unavailable [address] + [place] [address] R Unavailable Unavailable Unavailable STEIMEL, DEENA Unavailable [address] + [place] [address] JANE DANGELO Unavailable [address] + [place] [address] R Unavailable Unavailable Unavailable STEIMEL, DEENA Unavailable [address] + [place] [address] DANGELOJANE Unavailable [address] + [place] [address] R Unavailable Unavailable Unavailable STEIMEL, DEENA Unavailable [address] + [place] [address] DANGELOJANE Unavailable [address] + [place] [address] R Unavailable Unavailable Unavailable STEIMEL, DEENA Unavailable [address] + [place] [address] DANGELO JANE Unavailable [address] + [place] [address] R Unavailable Unavailable Unavailable STEIMEL, DEENA Unavailable [address] + [place] [address] DANGELOJANE Unavailable [address] + [place] [address] R Unavailable Unavailable Unavailable STEIMEL, DEENA Unavailable [address] + [place] [address] DANGELOJANE Unavailable [address] + [place] [address] R Unavailable Unavailable Unavailable STEIMEL, DEENA Unavailable [address] + [place] [address] CRISTOBALJANE Unavailable [address] + [place] [address] R Unavailable Unavailable Unavailable STEIMEL, DEENA Unavailable [address] + [place] [address] DANGELOJANE Unavailable [address] + [place] [address] R Unavailable Unavailable Unavailable STEIMEL, DEENA Unavailable [address] + [place] [address] NOT GIVEN Unavailable Unavailable Unavailable NOT GIVEN Unavailable Unavailable Unavailable DANGELO, Z Unavailable [address] [place] [address] STEIMEL, DEENA Unavailable [address] + [place] [address] NOT GIVEN Unavailable Unavailable Unavailable DANGELO, Z Unavailable [address] [place] [address] STEIMEL, DEENA Unavailable [address] + [place] [address] NOT GIVEN Unavailable Unavailable Unavailable DANGELO, Z Unavailable [address] Unavailable %[place] [address] STEIMEL, DEENA Unavailable [address] + [place] [address] NOT GIVEN Unavailable Unavailable Unavailable DANGELO, Z Unavailable [address] Unavailable %[place] [address] STEIMEL, DEENA Unavailable [address] + [place] [address] Care Team Providers Name Role Rio Persaud Attending Unavailable OMRAN, YASSER Primary Care Unavailable Naldo Lopez Admitting Unavailable Tereletsky, Toño Attending Unavailable OMRAN, YASSER Primary Care Unavailable Robotham, Iza Consulting Unavailable Prah, Austin Consulting Unavailable Tereletsky, Toño Consulting Unavailable Lopez, Naldo Admitting Unavailable Adamky Toño Attending Unavailable OMRAN, YASSER Primary Care Unavailable Robotham, Iza Consulting Unavailable Prah, Austin Consulting Unavailable Henrik, Nagi Consulting Unavailable Tereletsky, Toño Consulting Unavailable Lopez, Naldo Admitting Unavailable Robotham, Iza Attending Unavailable OMRAN, YASSER Primary Care Unavailable Robotham, Iza Consulting Unavailable Prah, Austin Consulting Unavailable Henrik, Nagi Consulting Unavailable Tereletsky, Toño Consulting Unavailable Lopez, Naldo Admitting Unavailable Tereletsky, Toño Attending Unavailable OMRAN, YASSER Primary Care Unavailable Robotham, Iza Consulting Unavailable Prah, Austin Consulting Unavailable Henrik, Nagi Consulting Unavailable Tereletsky, Toño Consulting Unavailable Lopez, Naldo Admitting Unavailable Leana Schneider Attending Unavailable OMRAN, YASSER Primary Care Unavailable Robotham, Iza Consulting Unavailable Prah, Austin Consulting Unavailable Henrik, Nagi Consulting Unavailable Tereletsky, Toño Consulting Unavailable Lopez, Naldo Admitting Unavailable Robotham, Iza Attending Unavailable OMRAN, YASSER Primary Care Unavailable Robotham, Iza Consulting Unavailable Prah, Austin Consulting Unavailable Henrik, Nagi Consulting Unavailable Tereletsky, Toño Consulting Unavailable Lopez, Naldo Admitting Unavailable Tereletsky, Toño Attending Unavailable OMRAN, YASSER Primary Care Unavailable Robotham, Iza Consulting Unavailable Prah, Austin Consulting Unavailable Tereletsky, Toño Consulting Unavailable Lopez, Naldo Admitting Unavailable Wyatt, Leana Attending Unavailable OMRAN, YASSER Primary Care Unavailable Robotham, Iza Consulting Unavailable Prah, Austin Consulting Unavailable Tereletsky, Toño Consulting Unavailable Lopez, Naldo Admitting Unavailable Robotham, Iza Attending Unavailable OMRAN, YASSER Primary Care Unavailable Robotham, Iza Consulting Unavailable Prah, Austin Consulting Unavailable Tereletsky, Toño Consulting Unavailable Lopez, Naldo Admitting Unavailable Robotham, Iza Attending Unavailable OMRAN, YAER Primary Care Unavailable Robotham, Iza Consulting Unavailable Prah, Austin Consulting Unavailable Tereletsky, Toño Consulting Unavailable Tereletsky, Toño Referring Unavailable Lopez, Naldo Admitting Unavailable Wyatt, Leana Attending Unavailable OMRAN, YAER Primary Care Unavailable Robotham, Iza Consulting Unavailable Prah, Austin Consulting Unavailable Tereletsky, Toño Consulting Unavailable Wallace Lopez Attending Unavailable Tereletsky, Toño Referring Unavailable Lopez, Naldo Admitting Unavailable Lopez, Naldo Attending Unavailable OMRAN, YAER Primary Care Unavailable Lopez, Naldo Consulting Unavailable OMRAN, YAER Primary Care Unavailable Lopez, Naldo Admitting Unavailable Robotham, Iza Consulting Unavailable Tereletsky, Toño Attending Unavailable Prah, Austin Consulting Unavailable Henrik, Nagi Consulting Unavailable JORDY, LAPMAN Attending Unavailable JORDY, LAPMAN Referring Unavailable JORDY, LAPMAN Referring Unavailable JORDY, LAPMAN Referring Unavailable JORDY, LAPMAN Referring Unavailable JORDY, LAPMAN Attending Unavailable JORDY, LAPMAN Referring Unavailable JORDY, LAPMAN Referring Unavailable JORDY, LAPMAN Admitting Unavailable JORDY, LAPMAN Attending Unavailable JORDY, LAPMAN Referring Unavailable JORDY, LAPMAN Referring Unavailable JORDY, LAPMAN Referring Unavailable JORDY, LAPMAN Attending Unavailable JORDY, LAPMAN Referring Unavailable LENA JOSEPH Attending Unavailable JORDY, LAPMAN Referring Unavailable JORDY, LAPMAN Referring Unavailable JORDY, LAPMAN Referring Unavailable RIO SPENCE Referring Unavailable JORDY, RIO Referring Unavailable LENA JOSEPH Admitting Unavailable LENA JOSEPH Attending Unavailable NATALEE LYNN MD Admitting Unavailable NATALEE LYNN MD Attending Unavailable NATALEE LYNN MD Primary Care Unavailable NATALEE LYNN MD Consulting Unavailable PROVIDER, UNKNOWN Consulting Unavailable PROVIDER, UNKNOWN Consulting Unavailable PROVIDER, UNKNOWN Consulting Unavailable CALLUM SANCHEZ MD Admitting Unavailable CALLUM SANCHEZ MD Attending Unavailable CALLUM SANCHEZ MD Primary Care Unavailable NATALEE LYNN MD Consulting Unavailable PROVIDER, UNKNOWN Consulting Unavailable PROVIDER, UNKNOWN Consulting Unavailable PROVIDER, UNKNOWN Consulting Unavailable NATALEE LYNN MD Consulting Unavailable NATALEE LYNN MD Admitting Unavailable NATALEE LYNN MD Attending Unavailable NATALEE LYNN MD Primary Care Unavailable PROVIDER, UNKNOWN Consulting Unavailable PROVIDER, UNKNOWN Consulting Unavailable PROVIDER, UNKNOWN Consulting Unavailable NATALEE LYNN MD Admitting Unavailable NATALEE LYNN MD Attending Unavailable NATALEE LYNN MD Primary Care Unavailable NATALEE LYNN MD Consulting Unavailable PROVIDER, UNKNOWN Consulting Unavailable PROVIDER, UNKNOWN Consulting Unavailable PROVIDER, UNKNOWN Consulting Unavailable BINHKAMRYN EMANUEL T Admitting Unavailable KAMRYN PURCELL Attending Unavailable KAMRYN PURCELL Primary Care Unavailable NATALEE LYNN MD Consulting Unavailable PROVIDER, UNKNOWN Consulting Unavailable PROVIDER, UNKNOWN Consulting Unavailable PROVIDER, UNKNOWN Consulting Unavailable BINH, KAMRYN T Admitting Unavailable BINHKAMRYN EMANUEL T Attending Unavailable BINHKAMRYN EMANUEL T Primary Care Unavailable NATALEE LYNN MD Consulting Unavailable PROVIDER, UNKNOWN Consulting Unavailable PROVIDER, UNKNOWN Consulting Unavailable PROVIDER, UNKNOWN Consulting Unavailable PROBLEMS PROBLEMS DATE TYPE CONDITION / CODE ATTENDING STATUS SOURCE 10/16/2018 Active Other acute LENA JOSEPH Active [facility] postprocedural pain / Clinic Other G89.18(ICD-10) [place] Repository 10/01/2018 Active Thrombocytopenia, RIO SPENCE Active [facility] unspecified / Clinic Main D69.6(ICD-10) [place] Repository 09/06/2018 Active 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 / Clinic Main C79.51(ICD-10) [place] Rep[facility] 09/06/2018 Active Malignant neoplasm of NA Active [facility] prostate / Clinic Main C61(ICD-10) [place] Repository 09/06/2018 Active Anemia, unspecified / NA Active [facility] D64.9(ICD-10) Clinic Main [place] Repository 09/03/2018 Unknown R74.8 - Abnormal [place], Active [place] levels of other serum [facility] enzymes / Hospital R74.8(ICD-10) Repository 09/03/2018 Unknown D69.6 - Wy[place], Active [place] Thrombocytopenia, [facility] unspecified / Hospital D69.6(ICD-10) Repository 09/03/2018 Unknown N28.9 - Disorder of [place], Active [place] kidney and ureter, [facility] unspecified / Hospital N28.9(ICD-10) Repository 09/03/2018 Unknown R63.4 - Abnormal [place], Active [place] weight loss / [facility] R63.4(ICD-10) Hospital Repository 09/17/2018 Unknown C61 - Malignant [place], Active [place] neoplasm of prostate [facility] / C61(ICD-10) Hospital Repository 09/17/2018 Unknown C79.51 - Secondary [place], Active [place] malignant neoplasm of [facility] bone / C79.51(ICD-10) Hospital Repository 09/17/2018 Unknown R59.1 - Generalized [place], Active [place] enlarged lymph nodes [facility] / R59.1(ICD-10) Hospital Repository 09/17/2018 Unknown D69.59 - Other [place], Active [place] secondary [facility] thrombocytopenia / Hospital D69.59(ICD-10) Repository 08/21/2018 Principle Unspecified abdominal BINH, Active [place] [facility] pain / R109(ICD-10) [facility] Repository 08/01/2018 Admitting Unspecified abdominal OMRAN, YASSER Active [facility] [place] [facility] pain / R109(ICD-10) [facility] Repository 11/02/2017 Principle Pure OMRAN, YASSER Active [place] Diagnosis hypercholesterolemia, [facility] unspecified / Hospital E7800(ICD-10) Repository PROCEDURES PROCEDURES No Procedure Records FoundRESULTS RESULTS BASIC METABOLIC PANL Collected: 10/18/2018 Status: F Source: [place] 10:15 AM [facility] REPOSITORY TYPE CODE TESTS RESULT OUT OF REFERENCE UNITS RANGE LAB GLU 74-99 mg/dL Glucose High 101 LAB BUN 9-24 mg/dL BUN 16 LAB CRET 0.73-1.22 mg/dL Creatinine 1.17 LAB NA 136-144 mmol/L Sodium 139 LAB K 3.7-5.1 mmol/L Potassium 4.4 LAB CL 97-105 mmol/L Chloride 105 LAB CO2 22-30 mmol/L CO2 25 LAB AGAP 9-18 mmol/L Anion Gap 9 LAB CA 8.5-10.2 mg/dL Calcium, Total 8.9 LAB GFRAA eGFR- >60 Amer. LAB GFRNAA . eGFR-All Other Races >60 Result Comment: eGFR (Estimated GFR) Units of measure: mL/min/1.73 meters squared eGFR is derived from the reexpressed MDRD Study equation using the following parameters: serum creatinine, age, gender and race. The creatinine assay has been calibrated to be traceable to IDMS. An eGFR <60 mL/min/1.73m2 for >3 months is consistent with chronic kidney disease. Refer to KDOQI guidelines for clinical interpretation. In patients with unstable renal function, e.g. those with acute kidney injury, the eGFR may not accurately reflect actual GFR. [place] ABS GR + CBC Collected: 10/18/2018 Status: F Source: [place] 10:15 AM [facility] REPOSITORY TYPE CODE TESTS RESULT OUT OF REFERENCE UNITS RANGE LAB WWBC 3.70-11.00 k/uL [place] WBC 6.52 Result Comment: Result rechecked. LAB WRBC 4.20-6.00 m/uL [place] RBC Low 3.26 LAB WHGB 13.0-17.0 g/dL [place] Low Hemoglobin 9.2 LAB WHCT 39.0-51.0 % [place] Low Hematocrit 29.8 LAB WMCV 80.0-100.0 fL [place] MCV 91.4 LAB WMCH 26.0-34.0 pg [place] MCH 28.2 LAB WMCHC 30.5-36.0 g/dL [place] MCHC 30.9 LAB WRDW 11.5-15.0 % [place] RDW High 17.4 LAB WPLT 150-400 k/uL [place] Low Platelet Cnt 107 LAB WMPV 9.0-12.7 fL [place] MPV 10.7 Result Comment: Test performed at: [facility] [place], [address] [place] [address]. LAB ABGRAN 1.45-7.50 k/uL 4.23 Absol Gran Count LAB ABSNUC <0.01 k/uL Preliminary Absolute nRBC result. Interpret with caution. Final results may vary. Results requested and read back by: Result Comment: WBC=7.34,ANC=4.44 Performed By: #### WAGCBC #### [facility] [address] [place], [place] [address] CHEST 1 VIEW Observed: 10/16/2018 Status: F Source: [facility] 3:30 PM HEALTH SYSTEM REPOSITORY Performed at [facility] APPROVED BY: LENA MAST MD X-RAY CHEST (1 VIEW) History: Evaluate tube, line or lead position Comparison: None RESULT: 1. Lines, Tubes, and Devices: Left-sided port catheter with tip overlying the superior cavoatrial junction. 2. Lungs and Pleura: No pneumothorax. No focal consolidation. No pleural effusion. 3. Cardiomediastinal silhouette: Normal cardiomediastinal contours. 4. Other: No acute osseous abnormality IMPRESSION: NO ACUTE RADIOGRAPHIC ABNORMALITY. LEFT-SIDED PORT CATHETER WITH TIP OVERLYING THE SUPERIOR CAVOATRIAL JUNCTION. THE APEX OF THE CATHETER PRIOR TO DESCENT TOWARD THE CAVOATRIAL JUNCTION IS NOT IMAGED. NURSING PROG Observed: 10/16/2018 Status: COMPLETED Source: [place] 3:25 PM [facility] REPOSITORY HNO ID: [id number] Author: Nell DevlinRn) LAVON Schreiber Service: Nursing Author Type: Registered Nurse Type: Nursing Progress Note Filed: 10/17/2018 3:56 PM Note Text: Patient stated you girls did a mighty fine job. Denies pain or nausea. Denies drainage from dressing. Stated he goes to first chemo treatment tomorrow. ANES POST Observed: 10/16/2018 Status: COMPLETED Source: [place] 3:06 PM [facility] REPOSITORY HNO ID: [id number] Author: Jemima Lamb Service: (none) Author Type: Physician Type: Anesthesia PostOp Filed: 10/16/2018 3:07 PM Note Text: POST ANESTHESIA EVALUATION NOTE SERVICE DATE: 10/16/2018 SERVICE TIME: 3:06 PM : 1945 Vitals: 10/16/18 1243 10/16/18 1434 Temp: 36.4 ?C (97.6 ?F) 36.2 ?C (97.1 ?F) 10/16/18 1449 10/16/18 1453 10/16/18 1457 10/16/18 1501 BP: 136/51 127/56 138/57 136/55 10/16/18 1449 10/16/18 1453 10/16/18 1457 10/16/18 1501 Pulse: 95 99 102 100 10/16/18 1449 10/16/18 1453 10/16/18 1457 10/16/18 1501 Resp: 18 17 16 18 10/16/18 1449 10/16/18 1453 10/16/18 1457 10/16/18 1501 SpO2: 95% 95% 97% 96% Validated Vital Signs: Yes POST ANES STATUS: No apparent anesthetic complications. The patient is appropriately hydrated with stable respiratory and cardiovascular status. Patient has safe and adequate airway control. The patient has appropriate pain relief and no significant post operative nausea or vomiting. The patient has achieved baseline mental status. Intra-Operative Events: No Significant Anesthesia Events Further assessment by Anesthesia Service: None Other Remarks: SIGNATURE: Jemima Lamb MD PATIENT NAME: Manisha Dangelo DATE: October 16, 2018 TIME: 3:06 PM PAGER/CONTACT #: NURSING PROG Observed: 10/16/2018 Status: COMPLETED Source: [place] 3:00 PM [facility] REPOSITORY [facility] ID: [id number] Author: Keena Christensen) LAVON Atkinson Service: Nursing Author Type: Registered Nurse Type: Nursing Progress Note Filed: 10/16/2018 3:38 PM Note Text: Nursing Progress Note Patient Name: Manisha Dangelo Patient Location: LD-OR/LD-OR Daily Note: Discharge instructions given to pt and daughter. Pt instructed on wound care, pain meds and follow-up appointments. Pt and daughter verbalized understanding. No questions or concerns were voiced at this time. This note was completed by: Keena Atkinson RN BRIEF OP NOT Observed: 10/16/2018 Status: COMPLETED Source: [place] 2:17 PM [facility] REPOSITORY HNO ID: [id number] Author: Lena Joseph Service: (none) Author Type: Physician Type: Brief Op Note Filed: 10/16/2018 2:29 PM Note Text: BRIEF OPERATIVE NOTE SURGERY DATE: 10/16/2018 Incision/Procedure Start Time: 13:46 Incision Close/Procedure End Time: 13:27 Surgeon(s)/Proceduralist(s) and Sap Crm Developer(s): first Jakewelder first class Norma Gonzalez Procedures: Placement of permanent indwelling tunneled in left internal jugular vein with subcutaneous port Anesthesia: MAC, local Findings: normal left internal jugular vein anatomy to SVC Estimated Blood Loss: < 5 mls Specimens: None Complications: None Preop Diagnosis: metastatic prostate disease, need for IV chemotherapy need for access Postop Diagnosis: same SIGNATURE: Lena Joseph MD PATIENT NAME: Manisha Dangelo DATE: October 16, 2018 TIME: 2:17 PM PAGER/CONTACT #: FLUORO UP TO 1 HOUR Observed: 10/16/2018 Status: F Source: [facility] 2:05 PM HEALTH SYSTEM REPOSITORY Performed at [facility] APPROVED BY: Sea Vicente MD IMPRESSION: 13 seconds of fluoroscopy time was utilized for this exam. ANES PREOP Observed: 10/16/2018 Status: COMPLETED Source: [place] 1:13 PM [facility] REPOSITORY HNO ID: [id number] Author: Jemima Lamb Service: (none) Author Type: Physician Type: Anesthesia PreOp Filed: 10/16/2018 1:15 PM Note Text: ANESTHESIOLOGY PREOPERATIVE ASSESSMENT SERVICE DATE: 10/16/2018 : 1945 SERVICE TIME: 1:13 PM Surgeon(s): Lena Joseph Procedure(s) (LRB): INSERTION CATHETER PORT-A-CATH WITH C-ARM (Pending) Estimated body mass index is 25.83 kg/m? as calculated from the following: Height as of this encounter: 177.8 cm (5' 10). Weight as of this encounter: 81.6 kg (180 lb). MOST RECENT HEMATOCRIT AND POTASSIUM RESULTS: Hematocrit 45.4 10/27/2004 Potassium 3.7 10/01/2018 ANES DOS/PREOP NOTE: Vitals: 10/16/18 1243 BP: 155/65 Pulse: 89 Resp: 18 Temp: 36.4 ?C (97.6 ?F) TempSrc: Temporal Artery SpO2: 100% Weight: 81.6 kg (180 lb) Height: 177.8 cm (5' 10) ACTIVE PROBLEM LIST Parapsoriasis Actinic Keratosis Other Chronic Dermatitis Due to Solar Radiation Contact Dermatitis and Other Eczema, Due to Unspecified Cause Other Psoriasis XEROSIS///SEBACEOUS GLAND DIS NEC SOLAR LENGINES///DYSCHROMIA OTHER Bone Metastasis (Hcc) Prostate Cancer (Hcc) Family History of Prostate Cancer Thrombocytopenia (Hcc) Anemia Cancer, 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 FAMILY HISTORY Problem Relation Age of Onset - Cancer Mother pancreatic - Stroke Father - Diabetes Father - Cancer Sister ovarian - Cancer Brother prostate cancer - Thyroid Brother - Cancer Brother prostate cancer - Cancer Brother lung cancer - Diabetes Brother - Diabetes Brother Social History: Social History Substance Use Topics - Smoking status: Former Smoker Years: 30.00 Types: Pipe Quit date: 10/03/2007 - Smokeless tobacco: Never Used - Alcohol use No No current facility-administered medications on file prior to encounter. Current Outpatient Prescriptions on File Prior to Encounter: promethazine (PHENERGAN) 25 mg tablet Take 1 tablet by mouth every 6 hours as needed. predniSONE (DELTASONE) 5 mg tablet Take 1 tablet by mouth once daily. tamsulosin ER (FLOMAX) 0.4 mg cap Take 0.4 mg by mouth once daily. omeprazole (PRILOSEC) 20 mg capsule Take 1 capsule by mouth once daily. Current Facility-Administered Medications: lidocaine 10 mg/mL (1 %) 1-2 mg injection (XYLOCAINE) 0.1- 0.2 mL INTRADERMAL PRN Lena Joseph lactated ringers infusion 100 mL/hr INTRAVENOUS CONTINUOUS Lena Joseph Last Rate: 100 mL/hr at 10/16/18 1245 100 mL/hr at 10/16/18 1245 ceFAZolin iv piggyback 2 g in D5W (iso-osmotic) 100 mL (ANCEF) 2 g INTRAVENOUS Pre-Op Once Lena Joseph Last Rate: 200 mL/hr at 10/16/18 1245 2 g at 10/16/18 1245 Allergies: ALLERGIES No Known Allergies REVIEW OF SYSTEMS: REVIEW OF SYSTEMS: As stated in Active Problem List/ Past Medical History ANESTHESIOLOGY REVIEW: Airway Assessment: MP 3; Neck ROM: Full ROM without neurologic symptoms; Airway Evaluation: Short Thyromental Distance Symptoms of Sleep Apnea: Age over 50 (73 year old) and Male gender Intubation History: no history of intubation Dentition: Dentures: both ADDITIONAL PHYSICAL EXAM: Lungs: Lungs clear to auscultation. Good diaphragmatic excursion. Cardiac: normal S1 and S2; no rubs, no murmurs, and no gallops Additional Pertinent Findings: N/A ADVERSE ANESTHESIA EVENT: No history of adverse event FAMILY HIISTORY OF ANESTHESIA: No known issues BLOOD PRODUCTS: Not anticipated for this procedure OTHER MEDICAL PROBLEMS: None I have interviewed and examined the patient. I have reviewed the medical record and/or the pre-anesthesia evaluation, pertinent labs, and test results. Significant changes in the patient's condition since the History and Physical, not otherwise documented in primary service progress notes: No Anesthetic risks, benefits, alternatives, personnel and consent discussed: Yes ANES REVIEW: This contains information obtained greater than 48 hours prior to the Surgery/Procedure. See Day of Surgery Note SIGNATURE: Jemima Lamb MD PATIENT NAME: Manisha Dangelo DATE: October 16, 2018 TIME: 1:13 PM PAGER/CONTACT #: GENE WILLIS Observed: 10/16/2018 Status: COMPLETED Source: [place] 12:51 PM [facility] [place] REPOSITORY [facility] ID: [id number] Author: Keena DevlinRn) LAVON Atkinson Service: Nursing Author Type: Registered Nurse Type: Nursing Progress Note Filed: 10/16/2018 12:53 PM Note Text: Nursing Progress Note Patient Name: Manisha Dangelo Patient Location: LD-OR/LD-OR Daily Note: Pre-op and post-op procedures were explained. Pt verbalized understanding. No questions or concerns were voiced at this time. This note was completed by: Keena Atkinson RN OPERATIVE NO Observed: 10/16/2018 Status: COMPLETED Source: [place] 12:00 AM [facility] REPOSITORY HNO ID: [id number] Author: Lena Joseph Service: (none) Author Type: Physician Type: Operative Report Filed: 10/17/2018 10:25 AM Note Text: [facility] - Operative Report - MANISHA Alvarez : 1945 AGE: 73. SEX: M PATIENT TYPE: A HOSP SV: GEN LOCATION: [facility] ATTENDING PHYSICIAN: Lena Joseph MD CSN NUMBER: [id number] DATE OF SURGERY/PROCEDURE: 10/16/2018 INCISION/PROCEDURE START TIME: 1:46 PM INCISION CLOSE/PROCEDURE END TIME: 2:27 PM PREOPERATIVE DIAGNOSIS: Metastatic prostate cancer, need for IV chemotherapy, and need for IV access. POSTOPERATIVE DIAGNOSIS: Metastatic prostate cancer, need for IV chemotherapy, and need for IV access. SURGEON: Lena Joseph MD REHEATER: Norma Gonzalez. She has assisted me as there were no surgery residents available. SURGERY/PROCEDURE: Placement of left internal jugular permanent tunneled venous catheter with subcutaneous port. ANESTHESIA: MAC local. SPECIMEN: None. ESTIMATED BLOOD LOSS: Less than 5 mL. INDICATIONS: Manisha Dangelo is a 73-year-old white male, who presents with metastatic prostate cancer. He therefore presents for placement of a Port-A-Cath for IV chemotherapy. He has been counseled of the risks of the procedure including, but not limited to, infection; bleeding; injury to the lungs such as pneumothorax; hemothorax; inability to place the port; thrombosis of the port; thrombosis of the venous vein, which the port is in; nonfunctioning the port; infection of the port; scar tissue wound infection; etc. The patient understands and agrees to proceed. DESCRIPTION OF PROCEDURE: After informed consent was given, the patient was brought to the operating room. Appropriate time-out protocol was done in the preprocedure as well as in the operating room. The patient's upper chest and neck area was then prepped with sterile surgical skin preparation. Appropriate sterile surgical drapes were placed. The skin at the left neck site was then infiltrated with local anesthetic. Using the ultrasound to visualize the left internal jugular vein, the left internal jugular vein was then accessed and there was good aspiration of venous blood. A wire was then threaded into the left internal jugular vein and this was visualized under ultrasound as well as visualized under fluoroscopy. Then, with continuing to use fluoroscopy, a wire was inserted into the needle trocar and was visualized as it was entering into the superior vena cava. The small skin incision was then made at the entrance of the wire site. A dilator and sheath were then threaded over the wire using the Seldinger technique, and it was introduced into the left internal jugular vein as visualized under fluoroscopy. The dilator and wire was then removed. Under direct visualization, the catheter was then threaded into the introducer sheath and it was positioned so that the tip of the catheter would be just outside of the cardiac silhouette in the superior vena cava. The introducer sheath was then removed. The skin and subcutaneous tissues and the area just below the clavicle laterally was infiltrated with local anesthetic, as well as alongside the left neck where the catheter would be tunneled. A transverse skin incision was then made with 15-blade scalpel to create a subcutaneous pocket. Blunt dissection was then used to create the subcutaneous pocket. The Port-A-Cath port was then sutured to the pocket using interrupted Vicryl suture. The catheter was then tunneled into the pocket using the tunneling device. It was then connected to the subcutaneous port using correctional facility nurse's guidelines. The subdermal tissues were then approximated using Vicryl suture in interrupted simple fashion. The port was then accessed. There was good aspiration of blood. It was then flushed with heparinized saline. The skin incisions were all closed with 4-0 Monocryl in subdermal fashion. Benzoin and Steri- Strips used to reinforce skin closure. Proper sterile dressings were applied. The patient was brought to recovery room in stable condition. ESTIMATED BLOOD LOSS: Less than 5 mL. COMPLICATIONS: None. PROSTHETIC DEVICE: [employer] PowerPort, reference #[id number], lot #[id number]. Date of expiration is 12/24/2019. Lena Joseph MD [id number] /[id number] HISTORY PHYSICAL Observed: 10/15/2018 Status: COMPLETED Source: [place] 6:29 PM [facility] [place] REPOSITORY HNO ID: [id number] Author: Lena Joseph Service: (none) Author Type: Physician Type: HANDP Filed: 10/15/2018 6:29 PM Note Text: Manisha Dangelo 1945 ? ? REFERRING PHYSICIAN: Rio Spence MD ? CHIEF COMPLAINT: Consult (Consult port placement) ? HPI: The patient is a 73 year old male presents with metastatic prostate cancer to the bone and marrow infiltration. Denies previous central lines. Denies previous neck/rib/clavicular fractures. Denies previous deep venous thromboses. Recent CT scan revealed right axillary and right infraclavicular and mediastinal adenopathy as well as bony metastatic disease. Right axillary lymph node biopsy - metastatic prostate cancer. He was on aspirin but presently discontinued as he presents with thrombocytopenia (has pancytopenia). ? ? PAST MEDICAL HISTORY Diagnosis Date - Cancer, metastatic to bone (HCC) ? - Eczema ? - Prostate cancer (HCC) ? - Psoriasis ? ? PAST SURGICAL HISTORY Procedure Laterality Date - PAST SURGICAL HISTORY OF ? ? ? cyst removed from back neck. Upper and lower endoscopy Prostate biopsy Right axillary lymph node biopsy Bone marrow biopsy ? PAST INJURIES Denies head injuries, denies history of fractures ? ? Current Outpatient Prescriptions: promethazine (PHENERGAN) 25 mg tablet Take 1 tablet by mouth every 6 hours as needed. predniSONE (DELTASONE) 5 mg tablet Take 1 tablet by mouth once daily. tamsulosin ER (FLOMAX) 0.4 mg cap Take 0.4 mg by mouth once daily. omeprazole (PRILOSEC) 20 mg capsule Take 1 capsule by mouth once daily. ? ? ALLERGIES: Patient has no known allergies. ? PERSONAL HISTORY: Social History Marital status: Spouse name: Years of education: Number of children: Social History Main Topics Smoking status: Former Smoker Packs/day: 0.00 Years: 30.00 Types: Pipe Quit date: 10/03/2007 Smokeless tobacco: Never Used Alcohol use: No Drug use: No ? FAMILY HISTORY Problem Relation Age of Onset - Cancer Mother ? ? pancreatic - Stroke Father ? - Diabetes Father ? - Cancer Sister ? ? ovarian - Cancer Brother ? ? prostate cancer - Thyroid Brother ? - Cancer Brother ? ? prostate cancer - Cancer Brother ? ? lung cancer - Diabetes Brother ? - Diabetes Brother ? ? ? REVIEW OF SYSTEMS: CONSTITUTIONAL: ?No fevers, chills, nightsweats, + unintended weight loss HEENT: ?Denies frequent or severe heaches, nasal congestion/sinus symptoms, problematic allergy problems. EYES: ?No diplopia or blurry vision. CARDIOVASCULAR: ?No chest pain, dyspnea, palpitations, orthopnea, PND, ankle edema. PULM: ?No dyspnea, unexplained cough. GI: ?No dysphagia/odynophagia, problematic reflux, constipation, diarrhea, changes in stool habits, hematochezia, melena. : ?No new urinary complaints, including dysuria, gross hematuria or pyuria. NEURO: ?No new balance problems, peripheral weakness/paresthesias or numbness of concern. MUSC-SKEL: ?No new joint pain, swelling, or erythema. INTEGUMENTARY: ?No new skin changes (rash, new or changing mole, new growth) PSYCHOLOGICAL: denies hallucinations ? PHYSICAL EXAMINATION: General: The patient is 73 year old male, well nourished, well hydrated in no acute distress. The patient is oriented to time, place, and person. VITALS: Blood pressure 146/64, pulse 77, temperature 36.3 ?C (97.4 ?F), temperature source Temporal Artery, height 177.8 cm (5' 10), weight 82 kg (180 lb 12.8 oz), SpO2 100 %. Body mass index is 25.94 kg/m?. Head ? Normocephalic. EOM intact with sclera clear and no icterus noted. Wearing glasses. Mouth with mucus membranes moist. Neck - supple with no jugular venous distention noted. Trachea is midline. No masses noted. Lungs ? clear to auscultation. Normal breath sounds. No rales/rhonchi/wheezing noted. No labored breathing noted, such as retractions. Heart ? normal S1 and S2 auscultated. No rubs/clicks/murmurs noted. Regular rate. Abdomen ? soft and benign. Normal bowel sounds. Extremities ? no pitting edema noted. Skin ? normal skin integrity. Lymph ? no cervical adenopathy detected, no supraclavicular adenopathy detected, no axillary adenopathy detected Neurological ? gait normal, no focal deficits noted. Psych ? calm and appropriate LABORATORY VALUES: As Noted RADIOLOGIC STUDIES: As Noted ? ? Assessment IMPRESSION: metastatic prostate cancer, thrombocytopenia ? PLAN: I have discussed the above with the patient and his daughter who is present with him. I have offered placement of portacth I have explained the procedure to the patient. Patient does have thrombocytopenia which may complicate surgery. I have counseled the patient as to the risks of the procedure, including but not limited to: infection, bleeding, injury to any blood vessels/nerves, scar tissue, injury to any intrabdominal organs, injury to bowel/bladder, injury to the lungs such as hemothorax/pneumothorax, inability to obtain placement, thromboses of the port and vessel, non functioning of the port, infection of the port, wound infections, complications of anesthesia, etc. ? the patient understands. The patient wishes to proceed. Scheduled on Oct 16 at [facility]. ? I have answered all questions to the patient?s satisfaction and the patient has no further questions. . Diagnoses: (C79.51) Bone metastasis (HCC) (primary encounter diagnosis) (C61) Prostate cancer (HCC) (D69.6) Thrombocytopenia (HCC) Return to Clinic: The patient is instructed to follow-up with me after the procedure ? ? Lena Joseph MD NURSING PROG Observed: 10/15/2018 Status: COMPLETED Source: [place] 11:17 AM [facility] REPOSITORY HNO ID: [id number] Author: Nell DevlinRn) LAVON Schreiber Service: Nursing Author Type: Registered Nurse Type: Nursing Progress Note Filed: 10/15/2018 11:19 AM Note Text: Patients phone just keeps ringing, called contact number which is daughter and she said she will notify Mr. Dangelo to call [facility] [facility] today. PROGRESS Observed: 10/12/2018 Status: COMPLETED Source: [place] 12:36 PM [facility] REPOSITORY HNO ID: [id number] Author: Mara Hudson (Sw) Service: (none) Author Type: Customer Operations Manager Type: Progress Notes Filed: 10/12/2018 12:57 PM Note Text: PSYCHOSOCIAL ASSESSMENT Date of Service: October 12, 2018 Manisha Dangelo is a 73 year old male being seen for initial social work assessment. Diagnosis: Metastatic prostate cancer New Primary Oncologist: Dr. Spence Radiation Oncologist: ROBERT Goals of Care: Palliative care Today's visit includes: self/patient, spouse and daughter Family History of Cancer: Mother and Sibiling(s) *SUPPORT NETWORK: Marital status: Parent(s): Mother is and Father is Child/Children: Yes. How many? 1 daughter and 1 son manager respiratory care arrangements needed: No Siblings: 3 sister(s) and 8 brother(s) Grandchild(joanie): 4 Home Health Provider: No Community Services: No Darlyn Identified: Yes Pentecostal/Spirituality: Taoism Are these practices or beliefs that may affect or influence treatment? No *EMPLOYMENT/FINANCIAL/HEALTH INSURANCE: Employment: Retired Income source: Social Security and Shelter Pension Insurance: Medicare with co-insurance Prescription coverage: Yes COBRA Is the patient appropriate for referral to [facility] COBRA Assistance program? No Financial Distress: No : No *LIVING ARRANGEMENTS: Type: House- independent ranch Resides with: Family spouse *FUNCTIONAL STATUS: Cognitive limitations: none Physical limitations: high level fatigue Language barrier: No Hearing Impaired: No Speech Impaired: No Visual Impairments: Yes, glasses Literacy Issues: No Special considerations/accommodations needed: No MENTAL HEALTH HISTORY: No History of combat/trauma: No Substance Use and Treatment History: denied History of Abuse: No Issues with: ? Sleep:No ? Eating:Yes ? Exercising: Yes ? Stress Management: No *ADVANCE DIRECTIVES/LEGAL DOCUMENTS: Living Will: Yes Health Care Durable Power of Streetcar Operator: Yes Scanned into EPIC: No Guardianship: NA Scanned into EPIC:NA *COPING STATUS: Coping Strengths: supportive relationships with immediate family, with friends, with extended family, with neighbors and with [employer] spirituality successful managing past crises hopefulness self advocate strong problem-solving skills ability to plan able to follow direction consistently over time able to communicate effectively Current affect/mood: appropriate History of Loss: Yes, mother, father, three brothers and three sisters Adjustment to diagnosis: reflecting understanding, responding appropriately and accepting help *BARRIERS/CARE CHALLENGES: None Are barriers/care challenges identified likely to have an impact on the patient's quality of life during treatment? NA *CLINICAL IMPRESSION: SW met with patient, spouse and daughter following his chemotherapy education appointment in the treatment room where his spouse was receiving chemotherapy. Patient reports he has a strong support system and states he lives with his spouse in a single-story home. Patient denies any issues with getting around the home and states that he has family and friends nearby. He also reports that the data modeling architect at his [employer] comes to visit at least once per month. Patient is retired and is receiving Social Security and custodial. He has Medicare A and B and prescription and supplement plans. Patient reports his mother, three sisters and two or three brothers had cancer and are now . Patient reports he is struggling with increased fatigue and decreased appetite/nausea. Patient reports he is sleeping well and denies any past or present MH concerns. Patient used to enjoy working outside in the yard, but hasn't had the energy to do this recently. Patient reports he does have Advance Directives and is agreeable to bringing these in at his next appointment. SW oriented patient to services and provided him with a handout of local cancer resources. INTERVENTIONS/REFERRALS TO BE PROVIDED: Monitor patient response to treatment Communicate pertinent medical/psychosocial information to Cancer Center team Provide emotional support to patient/family Referral to community resource Assist with financial support applications Psychotherapy/Counseling Education Relaxation Techniques Provided education on distress and screening process Continue follow up as needed Resources and Referrals: ? Internal: [facility] ? External: [facility] PLAN: Follow up appointment with SW in: [facility] PROGRESS Observed: 10/12/2018 Status: COMPLETED Source: [place] 9:01 AM [facility] REPOSITORY O ID: [id number] Author: Lena Joseph Service: (none) Author Type: Physician Type: Progress Notes Filed: 10/14/2018 1:47 PM Note Text: Manisha Dangelo 1945 REFERRING PHYSICIAN: Rio Spence MD CHIEF COMPLAINT: Consult (Consult port placement) HPI: The patient is a 73 year old male presents with metastatic prostate cancer to the bone and marrow infiltration. Denies previous central lines. Denies previous neck/rib/clavicular fractures. Denies previous deep venous thromboses. Recent CT scan revealed right axillary and right infraclavicular and mediastinal adenopathy as well as bony metastatic disease. Right axillary lymph node biopsy - metastatic prostate cancer. He was on aspirin but presently discontinued as he presents with thrombocytopenia (has pancytopenia). PAST MEDICAL HISTORY Diagnosis Date - Cancer, metastatic to bone (HCC) - Eczema - Prostate cancer (HCC) - Psoriasis PAST SURGICAL HISTORY Procedure Laterality Date - PAST SURGICAL HISTORY OF cyst removed from back neck. Upper and lower endoscopy Prostate biopsy Right axillary lymph node biopsy Bone marrow biopsy PAST INJURIES Denies head injuries, denies history of fractures Current Outpatient Prescriptions: promethazine (PHENERGAN) 25 mg tablet Take 1 tablet by mouth every 6 hours as needed. predniSONE (DELTASONE) 5 mg tablet Take 1 tablet by mouth once daily. tamsulosin ER (FLOMAX) 0.4 mg cap Take 0.4 mg by mouth once daily. omeprazole (PRILOSEC) 20 mg capsule Take 1 capsule by mouth once daily. ALLERGIES: Patient has no known allergies. PERSONAL HISTORY: Social History Marital status: Spouse name: Years of education: Number of children: Social History Main Topics Smoking status: Former Smoker Packs/day: 0.00 Years: 30.00 Types: Pipe Quit date: 10/03/2007 Smokeless tobacco: Never Used Alcohol use: No Drug use: No FAMILY HISTORY Problem Relation Age of Onset - Cancer Mother pancreatic - Stroke Father - Diabetes Father - Cancer Sister ovarian - Cancer Brother prostate cancer - Thyroid Brother - Cancer Brother prostate cancer - Cancer Brother lung cancer - Diabetes Brother - Diabetes Brother REVIEW OF SYSTEMS: CONSTITUTIONAL: ?No fevers, chills, nightsweats, + unintended weight loss HEENT: ?Denies frequent or severe heaches, nasal congestion/sinus symptoms, problematic allergy problems. EYES: ?No diplopia or blurry vision. CARDIOVASCULAR: ?No chest pain, dyspnea, palpitations, orthopnea, PND, ankle edema. PULM: ?No dyspnea, unexplained cough. GI: ?No dysphagia/odynophagia, problematic reflux, constipation, diarrhea, changes in stool habits, hematochezia, melena. : ?No new urinary complaints, including dysuria, gross hematuria or pyuria. NEURO: ?No new balance problems, peripheral weakness/paresthesias or numbness of concern. MUSC-SKEL: ?No new joint pain, swelling, or erythema. INTEGUMENTARY: ?No new skin changes (rash, new or changing mole, new growth) PSYCHOLOGICAL: denies hallucinations PHYSICAL EXAMINATION: General: The patient is 73 year old male, well nourished, well hydrated in no acute distress. The patient is oriented to time, place, and person. VITALS: Blood pressure 146/64, pulse 77, temperature 36.3 ?C (97.4 ?F), temperature source Temporal Artery, height 177.8 cm (5' 10), weight 82 kg (180 lb 12.8 oz), SpO2 100 %. Body mass index is 25.94 kg/m?. Head ? Normocephalic. EOM intact with sclera clear and no icterus noted. Wearing glasses. Mouth with mucus membranes moist. Neck - supple with no jugular venous distention noted. Trachea is midline. No masses noted. Lungs ? clear to auscultation. Normal breath sounds. No rales/rhonchi/wheezing noted. No labored breathing noted, such as retractions. Heart ? normal S1 and S2 auscultated. No rubs/clicks/murmurs noted. Regular rate. Abdomen ? soft and benign. Normal bowel sounds. Extremities ? no pitting edema noted. Skin ? normal skin integrity. Lymph ? no cervical adenopathy detected, no supraclavicular adenopathy detected, no axillary adenopathy detected Neurological ? gait normal, no focal deficits noted. Psych ? calm and appropriate LABORATORY VALUES: As Noted RADIOLOGIC STUDIES: As Noted Assessment IMPRESSION: metastatic prostate cancer, thrombocytopenia PLAN: I have discussed the above with the patient and his daughter who is present with him. I have offered placement of portacth I have explained the procedure to the patient. Patient does have thrombocytopenia which may complicate surgery. I have counseled the patient as to the risks of the procedure, including but not limited to: infection, bleeding, injury to any blood vessels/nerves, scar tissue, injury to any intrabdominal organs, injury to bowel/bladder, injury to the lungs such as hemothorax/pneumothorax, inability to obtain placement, thromboses of the port and vessel, non functioning of the port, infection of the port, wound infections, complications of anesthesia, etc. ? the patient understands. The patient wishes to proceed. Scheduled on Oct 16 at [facility]. I have answered all questions to the patient?s satisfaction and the patient has no further questions. . Diagnoses: (C79.51) Bone metastasis (HCC) (primary encounter diagnosis) (C61) Prostate cancer (HCC) (D69.6) Thrombocytopenia (HCC) Return to Clinic: The patient is instructed to follow-up with me after the procedure Lena Joseph MD CNOV Observed: 10/12/2018 Status: COMPLETED Source: [place] 8:40 AM [facility] REPOSITORY Office Visit (GENSWS) MANISHA DANGELO ([id number]) 1945 [facility] Date Time Provider Department 10/12/18 8:40 AM LENA JOSEPH During your visit today, we recorded the following information about you: Temperature Pulse Blood pressure Weight 97.4 degrees 77/minute 146/64 82 kg Height 1.778 m Lena Joseph MD 10/14/2018 1:47 PM Signed Manisha Dangelo 1945 REFERRING PHYSICIAN: Rio Spence MD CHIEF COMPLAINT: Consult (Consult port placement) HPI: The patient is a 73 year old male presents with metastatic prostate cancer to the bone and marrow infiltration. Denies previous central lines. Denies previous neck/rib/clavicular fractures. Denies previous deep venous thromboses. Recent CT scan revealed right axillary and right infraclavicular and mediastinal adenopathy as well as bony metastatic disease. Right axillary lymph node biopsy - metastatic prostate cancer. He was on aspirin but presently discontinued as he presents with thrombocytopenia (has pancytopenia). PAST MEDICAL HISTORY Diagnosis Date - Cancer, metastatic to bone (HCC) - Eczema - Prostate cancer (HCC) - Psoriasis PAST SURGICAL HISTORY Procedure Laterality Date - PAST SURGICAL HISTORY OF cyst removed from back neck. Upper and lower endoscopy Prostate biopsy Right axillary lymph node biopsy Bone marrow biopsy PAST INJURIES Denies head injuries, denies history of fractures Current Outpatient Prescriptions: promethazine (PHENERGAN) 25 mg tablet Take 1 tablet by mouth every 6 hours as needed. predniSONE (DELTASONE) 5 mg tablet Take 1 tablet by mouth once daily. tamsulosin ER (FLOMAX) 0.4 mg cap Take 0.4 mg by mouth once daily. omeprazole (PRILOSEC) 20 mg capsule Take 1 capsule by mouth once daily. ALLERGIES: Patient has no known allergies. PERSONAL HISTORY: Social History Marital status: Spouse name: Years of education: Number of children: Social History Main Topics Smoking status: Former Smoker Packs/day: 0.00 Years: 30.00 Types: Pipe Quit date: 10/03/2007 Smokeless tobacco: Never Used Alcohol use: No Drug use: No FAMILY HISTORY Problem Relation Age of Onset - Cancer Mother pancreatic - Stroke Father - Diabetes Father - Cancer Sister ovarian - Cancer Brother prostate cancer - Thyroid Brother - Cancer Brother prostate cancer - Cancer Brother lung cancer - Diabetes Brother - Diabetes Brother REVIEW OF SYSTEMS: CONSTITUTIONAL: ?No fevers, chills, nightsweats, + unintended weight loss HEENT: ?Denies frequent or severe heaches, nasal congestion/sinus symptoms, problematic allergy problems. EYES: ?No diplopia or blurry vision. CARDIOVASCULAR: ?No chest pain, dyspnea, palpitations, orthopnea, PND, ankle edema. PULM: ?No dyspnea, unexplained cough. GI: ?No dysphagia/odynophagia, problematic reflux, constipation, diarrhea, changes in stool habits, hematochezia, melena. : ?No new urinary complaints, including dysuria, gross hematuria or pyuria. NEURO: ?No new balance problems, peripheral weakness/paresthesias or numbness of concern. MUSC-SKEL: ?No new joint pain, swelling, or erythema. INTEGUMENTARY: ?No new skin changes (rash, new or changing mole, new growth) PSYCHOLOGICAL: denies hallucinations PHYSICAL EXAMINATION: General: The patient is 73 year old male, well nourished, well hydrated in no acute distress. The patient is oriented to time, place, and person. VITALS: Blood pressure 146/64, pulse 77, temperature 36.3 ?C (97.4 ?F), temperature source Temporal Artery, height 177.8 cm (5' 10), weight 82 kg (180 lb 12.8 oz), SpO2 100 %. Body mass index is 25.94 kg/m?. Head ? Normocephalic. EOM intact with sclera clear and no icterus noted. Wearing glasses. Mouth with mucus membranes moist. Neck - supple with no jugular venous distention noted. Trachea is midline. No masses noted. Lungs ? clear to auscultation. Normal breath sounds. No rales/rhonchi/wheezing noted. No labored breathing noted, such as retractions. Heart ? normal S1 and S2 auscultated. No rubs/clicks/murmurs noted. Regular rate. Abdomen ? soft and benign. Normal bowel sounds. Extremities ? no pitting edema noted. Skin ? normal skin integrity. Lymph ? no cervical adenopathy detected, no supraclavicular adenopathy detected, no axillary adenopathy detected Neurological ? gait normal, no focal deficits noted. Psych ? calm and appropriate LABORATORY VALUES: As Noted RADIOLOGIC STUDIES: As Noted Assessment IMPRESSION: metastatic prostate cancer, thrombocytopenia PLAN: I have discussed the above with the patient and his daughter who is present with him. I have offered placement of portacth I have explained the procedure to the patient. Patient does have thrombocytopenia which may complicate surgery. I have counseled the patient as to the risks of the procedure, including but not limited to: infection, bleeding, injury to any blood vessels/nerves, scar tissue, injury to any intrabdominal organs, injury to bowel/bladder, injury to the lungs such as hemothorax/pneumothorax, inability to obtain placement, thromboses of the port and vessel, non functioning of the port, infection of the port, wound infections, complications of anesthesia, etc. ? the patient understands. The patient wishes to proceed. Scheduled on Oct 16 at [facility]. I have answered all questions to the patient?s satisfaction and the patient has no further questions. . Diagnoses: (C79.51) Bone metastasis (HCC) (primary encounter diagnosis) (C61) Prostate cancer (HCC) (D69.6) Thrombocytopenia (HCC) Return to Clinic: The patient is instructed to follow-up with me after the procedure Lena Joseph MD Referring Provider: RIO SPENCE [[id number]] Allergies As of Date: 10/12/2018 (No Known Allergies) Date Reviewed: 10/12/2018 Reviewed by: Lena Joseph - Fully Assessed Reason for Visit: Consult [173] Cmt: Consult port placement Primary Visit Diagnosis:Bone metastasis (HCC) [C79.51] Other Visit Diagnoses:Prostate cancer (HCC) [C61] Thrombocytopenia (HCC) [D69.6] Prescriptions as of 10/12/2018 Sig: PROMETHAZINE 25 MG TABLET Take 1 tablet by mouth every * PREDNISONE 5 MG TABLET Take 1 tablet by mouth once d* TAMSULOSIN 0.4 MG CAPSULE Take 0.4 mg by mouth once tricia* OMEPRAZOLE 20 MG CAPSULE,BUTCH* Take 1 capsule by mouth once * Problem List As Of Date 10/12/2018 Noted Resolved 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] INVALID FOR* ACTINIC KERATOSIS [L57.0] INVALID FOR* CHR SOLAR SKIN DAMAGE NOS [L57.8] INVALID FOR* DERMATITIS NOS [L25.9] INVALID FOR* OTHER PSORIASIS [L40.8] INVALID FOR* XEROSIS///SEBACEOUS GLAND DIS NEC [L73.8] INVALID FOR* SOLAR LENGINES///DYSCHROMIA OTHER [L81.9] INVALID FOR* Bone metastasis (HCC) [C79.51] INVALID FOR* Prostate cancer (HCC) [C61] INVALID FOR* Family history of prostate cancer [Z80.42] INVALID FOR* Thrombocytopenia (HCC) [D69.6] INVALID FOR* Anemia [D64.9] INVALID FOR* Follow-up and Disposition History Recorded Encounter Status:Closed by MD LENA JOSEPH on 10/14/18 OBSOLETE Observed: 10/12/2018 Status: COMPLETED Source: [place] 12:00 AM [facility] REPOSITORY Refill (MAYRA) MANISHA DANGELO ([id number]) 1945 M [facility] Date Time Provider Department 10/12/18 RIO SPENCE During your visit today, we recorded the following information about you: Rio Spence MD 10/12/2018 10:46 AM Signed Patient's request for medication is as follows Signed Prescriptions Disp Refills lidocaine-prilocaine (EMLA) cream 15 g 2 Sig: APPLY TO PORT SITE 30 MINUTES PRIOR TO CHEMOTHERAPY Authorizing Provider: RIO SPENCE Order entered - please phone pharmacy and notify patient. Rio Spence MD Allergies As of Date: 10/12/2018 (No Known Allergies) Date Reviewed: 10/12/2018 Reviewed by: Lena Joseph - Fully Assessed Reason for Visit: Refill Request [94] Order(s):lidocaine-prilocaine (EMLA) creamAPPLY TO PORT SITE 30 MINUTES PRIOR TO CHEMOTHERAPYDisp: 15 gRfl: 2 Prescriptions as of 10/12/2018 Sig: LIDOCAINE-PRILOCAINE 2.5 %-2.* APPLY TO PORT SITE 30 MINUTES* PROMETHAZINE 25 MG TABLET Take 1 tablet by mouth every * PREDNISONE 5 MG TABLET Take 1 tablet by mouth once d* TAMSULOSIN 0.4 MG CAPSULE Take 0.4 mg by mouth once tricia* OMEPRAZOLE 20 MG CAPSULE,BUTCH* Take 1 capsule by mouth once * Problem List As Of Date 10/12/2018 Noted Resolved 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] INVALID FOR* ACTINIC KERATOSIS [L57.0] INVALID FOR* CHR SOLAR SKIN DAMAGE NOS [L57.8] INVALID FOR* DERMATITIS NOS [L25.9] INVALID FOR* OTHER PSORIASIS [L40.8] INVALID FOR* XEROSIS///SEBACEOUS GLAND DIS NEC [L73.8] INVALID FOR* SOLAR LENGINES///DYSCHROMIA OTHER [L81.9] INVALID FOR* Bone metastasis (HCC) [C79.51] INVALID FOR* Prostate cancer (HCC) [C61] INVALID FOR* Family history of prostate cancer [Z80.42] INVALID FOR* Thrombocytopenia (HCC) [D69.6] INVALID FOR* Anemia [D64.9] INVALID FOR* Prescriptions ordered this encounter Disp Refills Start End LIDOCAINE-PRILOCAINE 2.5 %-2.5 % TOP* 15 g 2 10/12/2018 Sig: APPLY TO PORT SITE 30 MINUTES PRIOR TO CHEMOTHERAPY Encounter Status:Closed by LORETO CROCKETT on 10/12/18 CNSW Observed: 10/12/2018 Status: COMPLETED Source: [place] 12:00 AM [facility] REPOSITORY [employer]) MANISHA DANGELO ([id number]) 1945 M [facility] Date Time Provider Department 10/12/18 MARA HUDSON (SW) During your visit today, we recorded the following information about you: JESUS Watson 10/12/2018 12:57 PM Signed PSYCHOSOCIAL ASSESSMENT Date of Service: October 12, 2018 Manisha Dangelo is a 73 year old male being seen for initial social work assessment. Diagnosis: Metastatic prostate cancer New Primary Oncologist: Dr. Spence Radiation Oncologist: ROBERT Goals of Care: Palliative care Today's visit includes: self/patient, spouse and daughter Family History of Cancer: Mother and Sibiling(s) *SUPPORT NETWORK: Marital status: Parent(s): Mother is and Father is Child/Children: Yes. How many? 1 daughter and 1 son manager respiratory care arrangements needed: No Siblings: 3 sister(s) and 8 brother(s) Grandchild(joanie): 4 Home Health Provider: No Community Services: No Darlyn Identified: Yes Pentecostal/Spirituality: Taoism Are these practices or beliefs that may affect or influence treatment? No *EMPLOYMENT/FINANCIAL/HEALTH INSURANCE: Employment: Retired Income source: Social Security and Shelter Pension Insurance: Medicare with co-insurance Prescription coverage: Yes COBRA Is the patient appropriate for referral to [facility] COBRA Assistance program? No Financial Distress: No [place]: No *LIVING ARRANGEMENTS: Type: House- independent ranch Resides with: Family spouse *FUNCTIONAL STATUS: Cognitive limitations: none Physical limitations: high level fatigue Language barrier: No Hearing Impaired: No Speech Impaired: No Visual Impairments: Yes, glasses Literacy Issues: No Special considerations/accommodations needed: No MENTAL HEALTH HISTORY: No History of combat/trauma: No Substance Use and Treatment History: denied History of Abuse: No Issues with: ? Sleep:No ? Eating:Yes ? Exercising: Yes ? Stress Management: No *ADVANCE DIRECTIVES/LEGAL DOCUMENTS: Living Will: Yes Health Care Durable Power of Streetcar Operator: Yes Scanned into EPIC: No Guardianship: NA Scanned into EPIC:NA *COPING STATUS: Coping Strengths: supportive relationships with immediate family, with friends, with extended family, with neighbors and with orthodoxy spirituality successful managing past crises hopefulness self advocate strong problem-solving skills ability to plan able to follow direction consistently over time able to communicate effectively Current affect/mood: appropriate History of Loss: Yes, mother, father, three brothers and three sisters Adjustment to diagnosis: reflecting understanding, responding appropriately and accepting help *BARRIERS/CARE CHALLENGES: None Are barriers/care challenges identified likely to have an impact on the patient's quality of life during treatment? NA *CLINICAL IMPRESSION: SW met with patient, spouse and daughter following his chemotherapy education appointment in the treatment room where his spouse was receiving chemotherapy. Patient reports he has a strong support system and states he lives with his spouse in a single-story home. Patient denies any issues with getting around the home and states that he has family and friends nearby. He also reports that the data modeling architect at his orthodoxy comes to visit at least once per month. Patient is retired and is receiving Social Security and custodial. He has Medicare A and B and prescription and supplement plans. Patient reports his mother, three sisters and two or three brothers had cancer and are now . Patient reports he is struggling with increased fatigue and decreased appetite/nausea. Patient reports he is sleeping well and denies any past or present MH concerns. Patient used to enjoy working outside in the yard, but hasn't had the energy to do this recently. Patient reports he does have Advance Directives and is agreeable to bringing these in at his next appointment. SW oriented patient to services and provided him with a handout of local cancer resources. INTERVENTIONS/REFERRALS TO BE PROVIDED: Monitor patient response to treatment Communicate pertinent medical/psychosocial information to Cancer Center team Provide emotional support to patient/family Referral to community resource Assist with financial support applications Psychotherapy/Counseling Education Relaxation Techniques Provided education on distress and screening process Continue follow up as needed Resources and Referrals: ? Internal: [facility] ? External: [facility] PLAN: Follow up appointment with KARON in: [facility] Allergies As of Date: 10/12/2018 (No Known Allergies) Date Reviewed: 10/12/2018 Reviewed by: Lena Joseph - Fully Assessed Reason for Visit: Psychosocial Assessment [[id number]] Prescriptions as of 10/12/2018 Sig: LIDOCAINE-PRILOCAINE 2.5 %-2.* APPLY TO PORT SITE 30 MINUTES* PROMETHAZINE 25 MG TABLET Take 1 tablet by mouth every * PREDNISONE 5 MG TABLET Take 1 tablet by mouth once d* TAMSULOSIN 0.4 MG CAPSULE Take 0.4 mg by mouth once tricia* OMEPRAZOLE 20 MG CAPSULE,BUTCH* Take 1 capsule by mouth once * Problem List As Of Date 10/12/2018 Noted Resolved 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] INVALID FOR* ACTINIC KERATOSIS [L57.0] INVALID FOR* CHR SOLAR SKIN DAMAGE NOS [L57.8] INVALID FOR* DERMATITIS NOS [L25.9] INVALID FOR* OTHER PSORIASIS [L40.8] INVALID FOR* XEROSIS///SEBACEOUS GLAND DIS NEC [L73.8] INVALID FOR* SOLAR LENGINES///DYSCHROMIA OTHER [L81.9] INVALID FOR* Bone metastasis (HCC) [C79.51] INVALID FOR* Prostate cancer (HCC) [C61] INVALID FOR* Family history of prostate cancer [Z80.42] INVALID FOR* Thrombocytopenia (HCC) [D69.6] INVALID FOR* Anemia [D64.9] INVALID FOR* Encounter Status:Closed by MARA HUDSON on 10/12/18 HOSP Observed: 10/12/2018 Status: COMPLETED Source: [place] 12:00 AM [facility] REPOSITORY Patient:Manisha Dangelo MRN: <[id number]> Height:5' 10(1.778 m) Weight:180 lb (81.647 kg) Outpatient Medications as of 10/16/18: lidocaine-prilocaine (EMLA) cream promethazine (PHENERGAN) 25 mg tablet predniSONE (DELTASONE) 5 mg tablet tamsulosin ER (FLOMAX) 0.4 mg cap omeprazole (PRILOSEC) 20 mg capsule Admission/Clinic Administered Medications as of 10/16/18: lidocaine 10 mg/mL (1 %) 1-2 mg injection (XYLOCAINE) lactated ringers infusion Problem List: 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] Actinic keratosis [L57.0] 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] Contact dermatitis and other eczema, due to unspecified cause [L25.9] Other psoriasis [L40.8] XEROSIS///SEBACEOUS GLAND DIS NEC [L73.8] SOLAR LENGINES///DYSCHROMIA OTHER [L81.9] Bone metastasis (HCC) [C79.51] Prostate cancer (HCC) [C61] Family history of prostate cancer [Z80.42] Thrombocytopenia (HCC) [D69.6] Anemia [D64.9] Cancer, metastatic to bone (HCC) [C79.51] Allergies: No Known Allergies Date Verified:10/16/18 Lab Values Lab Value Units Date High Low POTA* 3.7 mmol/L 10/01/2018 5.1 3.7 Progress Notes ([facility]): JESUS Watson 10/12/2018 12:57 PM Signed PSYCHOSOCIAL ASSESSMENT Date of Service: October 12, 2018 Manisha Dangelo is a 73 year old male being seen for initial social work assessment. Diagnosis: Metastatic prostate cancer New Primary Oncologist: Dr. Spence Radiation Oncologist: ROBERT Goals of Care: Palliative care Today's visit includes: self/patient, spouse and daughter Family History of Cancer: Mother and Sibiling(s) *SUPPORT NETWORK: Marital status: Parent(s): Mother is and Father is Child/Children: Yes. How many? 1 daughter and 1 son manager respiratory care arrangements needed: No Siblings: 3 sister(s) and 8 brother(s) Grandchild(joanie): 4 Home Health Provider: No Community Services: No Darlyn Identified: Yes Pentecostal/Spirituality: Taoism Are these practices or beliefs that may affect or influence treatment? No *EMPLOYMENT/FINANCIAL/HEALTH INSURANCE: Employment: Retired Income source: Social Security and Shelter Pension Insurance: Medicare with co-insurance Prescription coverage: Yes COBRA Is the patient appropriate for referral to [facility] COBRA Assistance program? No Financial Distress: No : No *LIVING ARRANGEMENTS: Type: House- independent ranch Resides with: Family spouse *FUNCTIONAL STATUS: Cognitive limitations: none Physical limitations: high level fatigue Language barrier: No Hearing Impaired: No Speech Impaired: No Visual Impairments: Yes, glasses Literacy Issues: No Special considerations/accommodations needed: No MENTAL HEALTH HISTORY: No History of combat/trauma: No Substance Use and Treatment History: denied History of Abuse: No Issues with: ? Sleep:No ? Eating:Yes ? Exercising: Yes ? Stress Management: No *ADVANCE DIRECTIVES/LEGAL DOCUMENTS: Living Will: Yes Health Care Durable Power of Streetcar Operator: Yes Scanned into EPIC: No Guardianship: NA Scanned into EPIC:NA *COPING STATUS: Coping Strengths: supportive relationships with immediate family, with friends, with extended family, with neighbors and with orthodoxy spirituality successful managing past crises hopefulness self advocate strong problem-solving skills ability to plan able to follow direction consistently over time able to communicate effectively Current affect/mood: appropriate History of Loss: Yes, mother, father, three brothers and three sisters Adjustment to diagnosis: reflecting understanding, responding appropriately and accepting help *BARRIERS/CARE CHALLENGES: None Are barriers/care challenges identified likely to have an impact on the patient's quality of life during treatment? NA *CLINICAL IMPRESSION: SW met with patient, spouse and daughter following his chemotherapy education appointment in the treatment room where his spouse was receiving chemotherapy. Patient reports he has a strong support system and states he lives with his spouse in a single-story home. Patient denies any issues with getting around the home and states that he has family and friends nearby. He also reports that the data modeling architect at his orthodoxy comes to visit at least once per month. Patient is retired and is receiving Social Security and custodial. He has Medicare A and B and prescription and supplement plans. Patient reports his mother, three sisters and two or three brothers had cancer and are now . Patient reports he is struggling with increased fatigue and decreased appetite/nausea. Patient reports he is sleeping well and denies any past or present MH concerns. Patient used to enjoy working outside in the yard, but hasn't had the energy to do this recently. Patient reports he does have Advance Directives and is agreeable to bringing these in at his next appointment. SW oriented patient to services and provided him with a handout of local cancer resources. INTERVENTIONS/REFERRALS TO BE PROVIDED: Monitor patient response to treatment Communicate pertinent medical/psychosocial information to Cancer Center team Provide emotional support to patient/family Referral to community resource Assist with financial support applications Psychotherapy/Counseling Education Relaxation Techniques Provided education on distress and screening process Continue follow up as needed Resources and Referrals: ? Internal: [facility] ? External: [facility] PLAN: Follow up appointment with KARON in: [facility] Progress Notes ([facility]): Rio Spence MD 10/12/2018 10:46 AM Signed Patient's request for medication is as follows Signed Prescriptions Disp Refills lidocaine-prilocaine (EMLA) cream 15 g 2 Sig: APPLY TO PORT SITE 30 MINUTES PRIOR TO CHEMOTHERAPY Authorizing Provider: RIO SPENCE Order entered - please phone pharmacy and notify patient. Rio Spence MD TYPE AND SCREEN Collected: 10/10/2018 Status: F Source: [place] 4:31 PM [facility] [place] Order Comment: PRETRANSFUSION HGB = 7.8 HCT = 25.3 PERFORMED AT [facility] CMV NEG?* N Give When? 1-17 @0830 Irradiated? N Leukodepleted? Y Reason for Type AND Screen/Red Cells: ANEMIA TYPE CODE TESTS RESULT OUT OF RANGE REFERENCE UNITS LAB B10.0800 O Normal BLOOD TYPE GEL POSITIVE LAB B100.4000 Normal Antibody NEGATIVE Screen Performed By: #### B101.7450 #### [facility] [address] [place], [address] Collected: 10/10/2018 Status: F Source: [place] 4:31 PM [facility] [place] TYPE CODE TESTS RESULT OUT OF REFERENCE UNITS RANGE LAB U100.0000 [id number] TRANSFUSED PRODUCT: T AND S with Crossmatch, Red Cells COUNT: 2 Performed By: #### U100.0000 #### Non-[facility] - refer to report for specific site PROGRESS Observed: 10/10/2018 Status: COMPLETED Source: [place] 4:30 PM [facility] REPOSITORY HNO ID: [id number] Author: Rio Spence Service: (none) Author Type: Physician Type: Progress Notes Filed: 10/11/2018 7:50 AM Note Text: PATIENT NAME: Manisha Dangelo. CLINIC NO: [id number]. ATTENDING PHYSICIAN: Rio Spence MD. DATE OF SERVICE: 10/10/2018. ? DIAGNOSIS: metastatic prostate cancer, with extensive bone metastasis and marrow infiltration with secondary anemia and thrombocytopenia ? PERFORMANCE STATUS:80% ? HPI: This is a 73-year-old gentleman who has history of chronic lower back pain presented with weight loss and abdominal pain for couple months. Patient also presented with increased fatigue for the last 6 months. ?In the emergency room, he has a moderate anemia and thrombocytopenia along with alkaline phosphatase elevation. Ultrasound of the gallbladder showed no abnormality. He had a subsequent CT scan of chest abdomen pelvis which show mild bilateral renal atrophy with bilateral nonobstructing renal stones. Mild blastic metastatic disease seen in bone. CT chest showed right axillary and right infraclavicular and mediastinal adenopathy. No lung primary. ? Subsequent bone scan also showed multiple bone metastasis throughout the axial appendicular skeleton. His PSA was elevated over 400. A biopsy of the prostate and axillary lymph node was performed in the hospital. Patient has noted increased bleeding symptoms since he was discharged home on aspirin. He still have upper abdominal pain 3/10. worse with activity, better when laying still. He has some heartburn but no history of peptic ulcer disease. He has chronic lower back pain with all sciatica. He also has nausea along with his abdominal pain. Patient was started on Casodex 50mg once daily last week. ? he has no history of blood transfusion, no history of liver disease or hepatitis. He has a history of renal insufficiency with a baseline creatinine was 1.5 before his last hospitalization. he has lost over 30 pounds in the last 3 months but has gained 10 pounds since last month. ?he has follow with Dr. Micky Reddy for his superficial bladder cancer for over 7 years. His PSA in September 2017 was 4.0. ? current treatment: Lupron ? interim history: Patient still complained of weakness, fatigue and bone pain. He started Lupron last month and his platelet count has improved although patient has worsening anemia. she'll have poor appetite and anorexia with progressive weight loss. Prilosec and Phenergan also helped that symptom.? He had a bone marrow biopsy last week to further evaluate his anemia and thrombocytopenia. All medications AND allergies updated and reviewed by me. REVIEW OF SYSTEMS: ? CONSTITUTIONAL: No fevers, chills, nightsweats, + unintended weight loss HEENT: Denies frequent or severe heaches, nasal congestion/sinus symptoms, problematic allergy problems. EYES: No diplopia or blurry vision. CARDIOVASCULAR: No chest pain, dyspnea, palpitations, orthopnea, PND, ankle edema. PULM: No dyspnea, unexplained cough. GI: No dysphagia/odynophagia, problematic reflux, constipation, diarrhea, changes in stool habits, hematochezia, melena. : No new urinary complaints, including dysuria, gross hematuria or pyuria. NEURO: No new balance problems, peripheral weakness/paresthesias or numbness of concern. MUSC-SKEL: No new joint pain, swelling, or erythema. PSY: No concerns regarding depression, anxiety or panic. INTEGUMENTARY: No new skin changes (rash, new or changing mole, new growth) ? PHYSICAL EXAMINATION: 73-year-old well-nourished well-developed gentleman in no acute distress BP 142/62 Pulse 86 Temp (Src) 97.4 (Temporal Artery) Wt 177 lb 8 oz (80.5kg) HEENT: Head is normocephalic, atraumatic. Sclerae white, conjunctivae pink. PEERL. EOMs are intact. Oropharynx is benign. + Pallor LYMPHATICS: There is no palpable adenopathy in the neck, supraclavicular region, axillae, or groin. LUNGS: Lungs are clear to percussion and auscultation. HEART: Heart is normal without murmurs, gallops, or rubs. ABDOMEN: Soft and nontender without organomegaly. No masses can be palpated. EXTREMITIES: Are without edema. NEUROLOGIC: Exam is physiologic ? LABORATORY DATA: Component Latest Ref Rng AND Units 10/10/2018 RBC, [place] 4.20 - 6.00 m/uL 2.72 (L) Hemoglobin, [place] 13.0 - 17.0 g/dL 7.8 (L) Hematocrit, [place] 39.0 - 51.0 % 25.3 (L) MCV, [place] 80.0 - 100.0 fL 93.0 MCH, [place] 26.0 - 34.0 pg 28.7 MCHC, [place] 30.5 - 36.0 g/dL 30.8 RDW, [place] 11.5 - 15.0 % 17.2 (H) Platelet Cnt, [place] 150 - 400 k/uL 92 (L) MPV, [place] 9.0 - 12.7 fL 9.3 Absolute nRBC <0.01 k/uL Preliminary result. Interpret with caution. Final results may vary. Results . . . Component Latest Ref Rng AND Units 10/01/2018 Protein, Total 6.3 - 8.0 g/dL 6.7 Albumin 3.9 - 4.9 g/dL 3.8 (L) Calcium 8.5 - 10.2 mg/dL 9.0 Bilirubin, Total 0.2 - 1.3 mg/dL 0.6 Alkaline Phosphatase 38 - 113 U/L 9 (L) AST 14 - 40 U/L 15 Glucose 74 - 99 mg/dL 111 (H) BUN 9 - 24 mg/dL 17 Creatinine 0.73 - 1.22 mg/dL 1.40 (H) Sodium 136 - 144 mmol/L 137 Potassium 3.7 - 5.1 mmol/L 3.7 Chloride 97 - 105 mmol/L 103 CO2 22 - 30 mmol/L 24 Anion Gap 9 - 18 mmol/L 10 ALT 10 - 54 U/L 10 eGFR- 60 eGFR-All Other Races . 49 LD 135 - 225 U/L 360 (H) PSA 0.00 - 2.59 ng/mL 498.30 (H) Component Latest Ref Rng AND Units 10/03/2018 Testosterone 193 - 824 ng/dL <12 (L) Testosterone Free % 1.4 - 3.2 % 1.1 (L) Testosterone Free 41.7 - 180.2 pg/mL <1.3 (L) FINAL DIAGNOSIS BONE MARROW, ASPIRATE SMEARS, CORE BIOPSY, AND CLOT SECTION WITH PERIPHERAL BLOOD SMEAR (A-C): - ?INVOLVED BY METASTATIC CARCINOMA, CONSISTENT WITH PROSTATIC PRIMARY. - ?SMALL FOCUS OF TRILINEAGE HEMATOPOIESIS WITH MEGAKARYOCYTIC HYPERPLASIA, AND EXTENSIVE BONY REMODELING. - ?NORMOCYTIC ANEMIA; PANCYTOPENIA. - ?SEE COMMENT. COMMENT: The patient has a history of prostatic carcinoma and this biopsy demonstrates involvement of the majority of the bone marrow space by this process. Correlation with the clinical findings is suggested. ASSESSMENT: 73-year-old gentleman with metastatic prostate cancer with extensive skeletal metastasis, bone marrow infiltration with anemia and thrombocytopenia ( AD resistant ) - Progressive anemia with increasing symptoms; weakness and dyspnea. - bone pain and anorexia secondary to metastatic prostate cancer ? PLAN: - I recommended palliative chemotherapy with docetaxel 35mg/m2 weekly day 1, 8, 15 every 28 days along with prednisone 5mg once daily. - Weekly schedule has less incidence of grade 3 - 4 neutropenia and thrombocytopenia and no episodes of neutropenic fever for patients at risk for hematological toxicity due to bone marrow involvement AND pancytopenia - type and cross 2 units LD-RBC for transfusion tomorrow at [facility], and stop iron - Monitor CBC AND BMP stat weekly x 3 with chemotherapy - Repeat CBC, CMP, LDH and PSA office visit in 4 weeks - consults General surgery for Mediport placement I spent 25 minutes in the visit, with more than 50% of the total [id number] time of the visit in counseling / coordination of care. ?Side effects and benefits of chemotherapy were discussed with the patient and family including nausea, vomiting, alopecia, fatigue, myelosuppression, peripheral neuropathy, kidney failure, mucositis, diarrhea, constipation, infection, bleeding. The patient and family were allowed enough time to ask questions. All questions were answered to their satisfaction. Patient and family verbalized understanding of treatment plan and agreed to proceed with therapy. Rio Spence MD. ELECTRONICALLY SIGNED ? Cc: Dr. Natalee Joseph CNOVSP Observed: 10/10/2018 Status: COMPLETED Source: [place] 3:40 PM [facility] REPOSITORY Visit (SP) Office ([place]) CRISTOBALMUKESHMANISHA ([id number]) 1945 M [facility] Date Time Provider Department 10/10/18 3:40 PM RIO SPENCE During your visit today, we recorded the following information about you: Temperature Pulse Blood pressure Weight 97.4 degrees 86/minute 142/62 80.5 kg Kelly Coates LPN 10/10/2018 4:15 PM Signed Est patient. One week office visit. Discuss recent labs. NEEDS REFILL OF PHENERGAN. Kelly Spence MD 10/10/2018 4:24 PM Signed Continue prednisone 5mg once daily AND stop iron (FERREX) iRo Spence MD 10/11/2018 7:50 AM Signed PATIENT NAME: Manisha Dangelo. CLINIC NO: [id number]. ATTENDING PHYSICIAN: Rio Spence MD. DATE OF SERVICE: 10/10/2018. ? DIAGNOSIS: metastatic prostate cancer, with extensive bone metastasis and marrow infiltration with secondary anemia and thrombocytopenia ? PERFORMANCE STATUS:80% ? HPI: This is a 73-year-old gentleman who has history of chronic lower back pain presented with weight loss and abdominal pain for couple months. Patient also presented with increased fatigue for the last 6 months. ?In the emergency room, he has a moderate anemia and thrombocytopenia along with alkaline phosphatase elevation. Ultrasound of the gallbladder showed no abnormality. He had a subsequent CT scan of chest abdomen pelvis which show mild bilateral renal atrophy with bilateral nonobstructing renal stones. Mild blastic metastatic disease seen in bone. CT chest showed right axillary and right infraclavicular and mediastinal adenopathy. No lung primary. ? Subsequent bone scan also showed multiple bone metastasis throughout the axial appendicular skeleton. His PSA was elevated over 400. A biopsy of the prostate and axillary lymph node was performed in the hospital. Patient has noted increased bleeding symptoms since he was discharged home on aspirin. He still have upper abdominal pain 3/10. worse with activity, better when laying still. He has some heartburn but no history of peptic ulcer disease. He has chronic lower back pain with all sciatica. He also has nausea along with his abdominal pain. Patient was started on Casodex 50mg once daily last week. ? he has no history of blood transfusion, no history of liver disease or hepatitis. He has a history of renal insufficiency with a baseline creatinine was 1.5 before his last hospitalization. he has lost over 30 pounds in the last 3 months but has gained 10 pounds since last month. ?he has follow with Dr. Micky Reddy for his superficial bladder cancer for over 7 years. His PSA in September 2017 was 4.0. ? current treatment: Lupron ? interim history: Patient still complained of weakness, fatigue and bone pain. He started Lupron last month and his platelet count has improved although patient has worsening anemia. she'll have poor appetite and anorexia with progressive weight loss. Prilosec and Phenergan also helped that symptom.? He had a bone marrow biopsy last week to further evaluate his anemia and thrombocytopenia. All medications AND allergies updated and reviewed by me. REVIEW OF SYSTEMS: ? CONSTITUTIONAL: No fevers, chills, nightsweats, + unintended weight loss HEENT: Denies frequent or severe heaches, nasal congestion/sinus symptoms, problematic allergy problems. EYES: No diplopia or blurry vision. CARDIOVASCULAR: No chest pain, dyspnea, palpitations, orthopnea, PND, ankle edema. PULM: No dyspnea, unexplained cough. GI: No dysphagia/odynophagia, problematic reflux, constipation, diarrhea, changes in stool habits, hematochezia, melena. : No new urinary complaints, including dysuria, gross hematuria or pyuria. NEURO: No new balance problems, peripheral weakness/paresthesias or numbness of concern. MUSC-SKEL: No new joint pain, swelling, or erythema. PSY: No concerns regarding depression, anxiety or panic. INTEGUMENTARY: No new skin changes (rash, new or changing mole, new growth) ? PHYSICAL EXAMINATION: 73-year-old well-nourished well-developed gentleman in no acute distress BP 142/62 Pulse 86 Temp (Src) 97.4 (Temporal Artery) Wt 177 lb 8 oz (80.5kg) HEENT: Head is normocephalic, atraumatic. Sclerae white, conjunctivae pink. PEERL. EOMs are intact. Oropharynx is benign. + Pallor LYMPHATICS: There is no palpable adenopathy in the neck, supraclavicular region, axillae, or groin. LUNGS: Lungs are clear to percussion and auscultation. HEART: Heart is normal without murmurs, gallops, or rubs. ABDOMEN: Soft and nontender without organomegaly. No masses can be palpated. EXTREMITIES: Are without edema. NEUROLOGIC: Exam is physiologic ? LABORATORY DATA: Component Latest Ref Rng AND Units 10/10/2018 RBC, [place] 4.20 - 6.00 m/uL 2.72 (L) Hemoglobin, [place] 13.0 - 17.0 g/dL 7.8 (L) Hematocrit, [place] 39.0 - 51.0 % 25.3 (L) MCV, [place] 80.0 - 100.0 fL 93.0 MCH, [place] 26.0 - 34.0 pg 28.7 MCHC, [place] 30.5 - 36.0 g/dL 30.8 RDW, [place] 11.5 - 15.0 % 17.2 (H) Platelet Cnt, [place] 150 - 400 k/uL 92 (L) MPV, [place] 9.0 - 12.7 fL 9.3 Absolute nRBC <0.01 k/uL Preliminary result. Interpret with caution. Final results may vary. Results . . . Component Latest Ref Rng AND Units 10/01/2018 Protein, Total 6.3 - 8.0 g/dL 6.7 Albumin 3.9 - 4.9 g/dL 3.8 (L) Calcium 8.5 - 10.2 mg/dL 9.0 Bilirubin, Total 0.2 - 1.3 mg/dL 0.6 Alkaline Phosphatase 38 - 113 U/L 9 (L) AST 14 - 40 U/L 15 Glucose 74 - 99 mg/dL 111 (H) BUN 9 - 24 mg/dL 17 Creatinine 0.73 - 1.22 mg/dL 1.40 (H) Sodium 136 - 144 mmol/L 137 Potassium 3.7 - 5.1 mmol/L 3.7 Chloride 97 - 105 mmol/L 103 CO2 22 - 30 mmol/L 24 Anion Gap 9 - 18 mmol/L 10 ALT 10 - 54 U/L 10 eGFR- 60 eGFR-All Other Races . 49 LD 135 - 225 U/L 360 (H) PSA 0.00 - 2.59 ng/mL 498.30 (H) Component Latest Ref Rng AND Units 10/03/2018 Testosterone 193 - 824 ng/dL <12 (L) Testosterone Free % 1.4 - 3.2 % 1.1 (L) Testosterone Free 41.7 - 180.2 pg/mL <1.3 (L) FINAL DIAGNOSIS BONE MARROW, ASPIRATE SMEARS, CORE BIOPSY, AND CLOT SECTION WITH PERIPHERAL BLOOD SMEAR (A-C): - ?INVOLVED BY METASTATIC CARCINOMA, CONSISTENT WITH PROSTATIC PRIMARY. - ?SMALL FOCUS OF TRILINEAGE HEMATOPOIESIS WITH MEGAKARYOCYTIC HYPERPLASIA, AND EXTENSIVE BONY REMODELING. - ?NORMOCYTIC ANEMIA; PANCYTOPENIA. - ?SEE COMMENT. COMMENT: The patient has a history of prostatic carcinoma and this biopsy demonstrates involvement of the majority of the bone marrow space by this process. Correlation with the clinical findings is suggested. ASSESSMENT: 73-year-old gentleman with metastatic prostate cancer with extensive skeletal metastasis, bone marrow infiltration with anemia and thrombocytopenia ( AD resistant ) - Progressive anemia with increasing symptoms; weakness and dyspnea. - bone pain and anorexia secondary to metastatic prostate cancer ? PLAN: - I recommended palliative chemotherapy with docetaxel 35mg/m2 weekly day 1, 8, 15 every 28 days along with prednisone 5mg once daily. - Weekly schedule has less incidence of grade 3 - 4 neutropenia and thrombocytopenia and no episodes of neutropenic fever for patients at risk for hematological toxicity due to bone marrow involvement AND pancytopenia - type and cross 2 units LD-RBC for transfusion tomorrow at [facility], and stop iron - Monitor CBC AND BMP stat weekly x 3 with chemotherapy - Repeat CBC, CMP, LDH and PSA office visit in 4 weeks - consults General surgery for Mediport placement I spent 25 minutes in the visit, with more than 50% of the total [id number] time of the visit in counseling / coordination of care. ?Side effects and benefits of chemotherapy were discussed with the patient and family including nausea, vomiting, alopecia, fatigue, myelosuppression, peripheral neuropathy, kidney failure, mucositis, diarrhea, constipation, infection, bleeding. The patient and family were allowed enough time to ask questions. All questions were answered to their satisfaction. Patient and family verbalized understanding of treatment plan and agreed to proceed with therapy. Rio Spence MD. ELECTRONICALLY SIGNED ? Cc: Dr. Natalee Joseph Referring Provider: RIO SPENCE [[id number]] Allergies As of Date: 10/10/2018 (No Known Allergies) Date Reviewed: 10/10/2018 Reviewed by: Kelly Coates LPN - Fully Assessed Reason for Visit: Established Patient [175] Visit Diagnoses:Prostate cancer (HCC) [C61] Bone metastasis (HCC) [C79.51] Anemia, unspecified type [D64.9] Thrombocytopenia (HCC) [D69.6] Order(s):promethazine (PHENERGAN) 25 mg tabletTake 1 tablet by mouth every 6 hours as needed.Disp: 30 tabletRfl: 2 CONSULT TO GENERAL SURGERY [9011] Order #: [id number]: 1 Level of Service: EST PATIENT VISIT LEVEL 4 [[id number]] Disposition: Return in about 4 weeks (around 11/07/2018). Follow-up and Disposition History Recorded Prescriptions as of 10/10/2018 Sig: PROMETHAZINE 25 MG TABLET Take 1 tablet by mouth every * PREDNISONE 5 MG TABLET Take 1 tablet by mouth once d* HYDROCODONE 5 MG-ACETAMINOPHE* Take 1 tablet by mouth every * TAMSULOSIN 0.4 MG CAPSULE Take 0.4 mg by mouth once tricia* OMEPRAZOLE 20 MG CAPSULE,BUTCH* Take 1 capsule by mouth once * Problem List As Of Date 10/10/2018 Noted Resolved 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] INVALID FOR* ACTINIC KERATOSIS [L57.0] INVALID FOR* CHR SOLAR SKIN DAMAGE NOS [L57.8] INVALID FOR* DERMATITIS NOS [L25.9] INVALID FOR* OTHER PSORIASIS [L40.8] INVALID FOR* XEROSIS///SEBACEOUS GLAND DIS NEC [L73.8] INVALID FOR* SOLAR LENGINES///DYSCHROMIA OTHER [L81.9] INVALID FOR* Bone metastasis (HCC) [C79.51] INVALID FOR* Prostate cancer (HCC) [C61] INVALID FOR* Family history of prostate cancer [Z80.42] INVALID FOR* Thrombocytopenia (HCC) [D69.6] INVALID FOR* Anemia [D64.9] INVALID FOR* Other instructions from your clinician: Continue prednisone 5mg once daily AND stop iron (FERREX) Visit Notes: >> Kelly Coates LPN MonOct 10, 2018 3:32 PM Status: Signed Est patient. One week office visit. Discuss recent labs. NEEDS REFILL OF PHENERGAN. Kelly Coates LPN Encounter Status:Closed by RIO SPENCE MD on 10/11/18 [place] ABS GR + CBC Collected: 10/10/2018 Status: F Source: [place] 3:26 PM [facility] REPOSITORY TYPE CODE TESTS RESULT OUT OF REFERENCE UNITS RANGE LAB WWBC 3.70-11.00 k/uL [place] WBC 6.80 LAB WRBC 4.20-6.00 m/uL Low [place] RBC 2.72 LAB WHGB 13.0-17.0 g/dL Low [place] Hemoglobin 7.8 LAB WHCT 39.0-51.0 % Low [place] Hematocrit 25.3 LAB WMCV 80.0-100.0 fL [place] MCV 93.0 LAB WMCH 26.0-34.0 pg [place] MCH 28.7 LAB WMCHC 30.5-36.0 g/dL [place] MCHC 30.8 LAB [place]DW 11.5-15.0 % [place] High [place] 17.2 LAB WPLT 150-400 k/uL Low [place] Platelet Cnt 92 LAB WMPV 9.0-12.7 fL [place] MPV 9.3 Result Comment: Test performed at: [facility], [address] [place] [address] Rd., [place] [address]. LAB ABGRAN 1.45-7.50 k/uL 4.42 Absol Gran Count LAB ABSNUC <0.01 k/uL Preliminary Absolute nRBC result. Interpret with caution. Final results may vary. Results requested and read back by: Result Comment: WBC=7.61,ANC=4.54 Performed By: #### WAGCBC #### [facility] [address] [place] [id number] PROGRESS Observed: 10/05/2018 Status: COMPLETED Source: [place] 3:24 PM [facility] REPOSITORY HNO ID: [id number] Author: Mara Hudson (Sw) Service: (none) Author Type: Customer Operations Manager Type: Progress Notes Filed: 10/05/2018 3:25 PM Note Text: Social Work Problem Referral Note INFORMATION/REFERRAL : Manisha Dangelo 73 year old male was referred by physician - Dr. Spence to [facility] Social Work for the following reason(s): Monitor MH symptoms/assess needs PERSONS INTERVIEWED: patient INTERVENTION: Phone Contact Affect/Mood: The patient is noted as appropriate IDENTIFIED PROBLEMS/NEEDS: No identified problems Intervention/Referral to be provided:No further intervention required IMPRESSION/PLAN: KARON called patient per doctor request to monitor MH symptoms and assess needs. Patient reports he is healing well from BMBX and states he has no pain. Patient reports his spouse (also seen at this office) is doing well too. Patient denies needs at this time. SW discussed services she can assist with and provided him with direct phone number if any needs arise. He is agreeable to calling. F/U APPOINTMENT: JESUS Sheppard CNSW Observed: 10/05/2018 Status: COMPLETED Source: [place] 12:00 AM [facility] REPOSITORY Social Work (MAYRA) MANISHA DANGELO ([id number]) 1945 M [facility] Date Time Provider Department 10/05/18 MARA HUDSON (SW) During your visit today, we recorded the following information about you: JESUS Watson 10/05/2018 3:25 PM Signed Social Work Problem Referral Note INFORMATION/REFERRAL : Manisha Dangelo 73 year old male was referred by physician - Dr. Spence to [facility] for the following reason(s): Monitor MH symptoms/assess needs PERSONS INTERVIEWED: patient INTERVENTION: Phone Contact Affect/Mood: The patient is noted as appropriate IDENTIFIED PROBLEMS/NEEDS: No identified problems Intervention/Referral to be provided:No further intervention required IMPRESSION/PLAN: SW called patient per doctor request to monitor MH symptoms and assess needs. Patient reports he is healing well from BMBX and states he has no pain. Patient reports his spouse (also seen at this office) is doing well too. Patient denies needs at this time. SW discussed services she can assist with and provided him with direct phone number if any needs arise. He is agreeable to calling. F/U APPOINTMENT: JESUS Sheppard Allergies As of Date: 10/05/2018 (No Known Allergies) Date Reviewed: 10/03/2018 Reviewed by: Marissa (Rn) LAVON Chairez - Fully Assessed Reason for Visit: Social Work Services [507] Prescriptions as of 10/05/2018 Sig: PREDNISONE 5 MG TABLET Take 1 tablet by mouth once d* HYDROCODONE 5 MG-ACETAMINOPHE* Take 1 tablet by mouth every * PROMETHAZINE 25 MG TABLET TAKE ONE TABLET BY MOUTH EVER* TAMSULOSIN 0.4 MG CAPSULE Take 0.4 mg by mouth once tricia* OMEPRAZOLE 20 MG CAPSULE,BUTCH* Take 1 capsule by mouth once * POLYSACCHARIDE IRON COMPLEX 1* Take 1 capsule by mouth twice* Problem List As Of Date 10/05/2018 Noted Resolved 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] INVALID FOR* ACTINIC KERATOSIS [L57.0] INVALID FOR* CHR SOLAR SKIN DAMAGE NOS [L57.8] INVALID FOR* DERMATITIS NOS [L25.9] INVALID FOR* OTHER PSORIASIS [L40.8] INVALID FOR* XEROSIS///SEBACEOUS GLAND DIS NEC [L73.8] INVALID FOR* SOLAR LENGINES///DYSCHROMIA OTHER [L81.9] INVALID FOR* Bone metastasis (HCC) [C79.51] INVALID FOR* Prostate cancer (HCC) [C61] INVALID FOR* Family history of prostate cancer [Z80.42] INVALID FOR* Encounter Status:Closed by MARA HUDSON on 10/05/18 NURSING PROG Observed: 10/03/2018 Status: COMPLETED Source: [place] 2:10 PM [facility] REPOSITORY HNO ID: [id number] Author: Marissa Chairez RN Service: (none) Author Type: Registered Nurse Type: Nursing Progress Note Filed: 10/03/2018 2:26 PM Note Text: Patient did not experience a fall prior to discharge. Patient did not experience a burn prior to discharge. Marissa Chairez RN PT ED Observed: 10/03/2018 Status: COMPLETED Source: [place] 2:00 PM [facility] REPOSITORY HNO ID: [id number] Author: Marissa Chairez RN Service: (none) Author Type: Registered Nurse Type: Patient Education Filed: 10/03/2018 2:27 PM Note Text: POST OP LEARNING RESPONSE INSTRUCTION PROVIDED TO: Patient and family member METHOD OF INSTRUCTION: Individual instruction Written instruction - handouts Verbal instruction PATIENT / FAMILY RESPONSE: Information received as demonstrated by interest and questions FOLLOW-UP PLAN: Follow up phone call. Contact information given. Followup appointment in one week--scheduled SUPPLEMENTAL MATERIAL: Procedure discharge instructions REFERRAL (RECOMMENDATION): None Electronically Signed By: Marissa Chairez RN In Department: AMBULATORY SURGERY NURSING PROG Observed: 10/03/2018 Status: COMPLETED Source: [place] 1:13 PM [facility] REPOSITORY HNO ID: [id number] Author: Marissa Chairez RN Service: (none) Author Type: Registered Nurse Type: Nursing Progress Note Filed: 10/03/2018 1:32 PM Note Text: Arrived in phase II via cart. Supine position. Sedated, but responds to verbal stimuli. Color normal; skin warm and dry. Respirations wnl and unlabored. Abdomen soft and with + bowel sounds in quads X 4. Family at bedside. Patient resting comfortably. Dr. Spence at bedside to review procedure and recommendations. Marissa Chairez RN SURGICAL PATHOLOGY Observed: 10/03/2018 Status: F Source: [place] 1:09 PM [facility] REPOSITORY Specimen originated from [facility] Specimen #: [id number] Submitting Physician: RIO SPENCE ([id number]) FINAL DIAGNOSIS BONE MARROW, ASPIRATE SMEARS, CORE BIOPSY, AND CLOT SECTION WITH PERIPHERAL BLOOD SMEAR (A-C): - INVOLVED BY METASTATIC CARCINOMA, CONSISTENT WITH PROSTATIC PRIMARY. - SMALL FOCUS OF TRILINEAGE HEMATOPOIESIS WITH MEGAKARYOCYTIC HYPERPLASIA, AND EXTENSIVE BONY REMODELING. - NORMOCYTIC ANEMIA; PANCYTOPENIA. - SEE COMMENT. COMMENT: The patient has a history of prostatic carcinoma and this biopsy demonstrates involvement of the majority of the bone marrow space by this process. Correlation with the clinical findings is suggested. PERIPHERAL BLOOD: CBC (10/03/2018): WBC 7.77 k/uL; Hgb 8.5 g/dL; MCV 91.3 fL; R[place] 16.2%; Plts 86 k/uL Differential (%): Neuts 71; Lymphs 19; Monos 6; Eos 1; Baso 2 Other: Blasts 1 Morphology/Interpretation: Leukoerythroblastic changes with granulocytic left shift and several circulating nucleated red blood cells. There is normocytic anemia with anisocytosis, polychromasia, and a few teardrop cells. BONE MARROW ASPIRATE Normal % (0-2) 0 % Blasts (1-5) 0 % Promyelo (32-72) 80 % Myelos/Metas/Bands/Segs (1-6) 1 % Eosinophils (0-1) 0 % Basophils (0-4) 0 % Monocytes (13-37) 4 % Erythroid precursors (7-23) 15 % Lymphocytes (0-2) 0 % Plasma cells Myeloid/Erythro (1.5-4): N/A Cells counted: 100 Iron stain result: Inadequate for assessment due to lack of spicules and lack of significant numbers of erythroid precursors. Specimen Quality: Essentially inadequate, aspicular and hemodiluted. Megakaryocytes: Absent. Erythropoiesis: Too few for meaningful assessment. Granulopoiesis: Mostly mature forms. BONE MARROW BIOPSY: Adequacy: Adequate. Cellularity: N/A ME ratio: Appears normal in one focus of hematopoiesis. Hematopoiesis: Trilineage maturation in one area. Megakaryocytes: Increased. Megakaryocyte morphology: Normal. Lymphoid infiltrate: None. Atypical infiltrate: There is extensive involvement by sheets and nests of abnormal cells consistent with carcinoma. Bone trabeculae: Abnormal with fibrosis and extensive bony remodeling. Other: Immunostains show that the malignant cells are negative for cytokeratin AE1/3 (likely reflective of poor differentiation) and positive for NKX3.1, which supports prostatic origin. CLOT SECTION: Marrow particles: Absent. ANCILLARY TESTS: Flow cytometry: Not indicated. Cytogenetics: Sample not provided. FISH: N/A Molecular: N/A SO/db 10/05/2018 Laboratory Developed Test (LDT) Disclaimer: Positive and negative controls stain appropriately. Performance characteristics of immunohistochemical, immunofluorescent and chromogenic in-situ hybridization tests have been determined by [facility] Medicine [place] ([facility]) in a manner consistent with CLIA requirements. One or more of these tests have not been cleared or approved by the FDA. [facility] is regulated under CLIA as qualified to perform high-complexity testing. These tests are used for clinical purposes. They should not be regarded as investigational or for research. Karyn Arias M.D. (Electronic Signature) SPECIMEN SUBMITTED A: BONE MARROW, ASPIRATE RPIC B: BONE MARROW, BIOPSY RPIC C: BONE MARROW, CLOT RPIC CLINICAL DATA METASTATIC PROSTATE CANCER GROSS DESCRIPTION A. Received are air-dried bone marrow aspirate smears. Submitted for light microscopy. B. Received in formalin are two segments of cylindrical tissue aggregating to 2.0 x 0.3 x 0.2 cm, curiel-brown and of a firm consistency. Totally submitted in formalin in one cassette after decalcification. C. Received in formalin are multiple red-brown, soft segment of hemorrhagic material aggregating to 0.8 x 0.8 x 0.1 cm. Totally submitted in one cassette. Gross examination performed at [facility], [address] [place] [address] 10/04/2018 7:46:44 PM Date of Report: 10/08/2018 Date of Procedure: 10/03/2018 Date of Receipt: 10/04/2018 Submitted by: RIO SPENCE ([id number]) [facility] interpretation performed at [place] [address]. NURSING PROG Observed: 10/03/2018 Status: COMPLETED Source: [place] 1:08 PM [facility] REPOSITORY HNO ID: [id number] Author: Megan (Rn) LAVON Capellan Service: Nursing Author Type: Registered Nurse Type: Nursing Progress Note Filed: 10/03/2018 1:09 PM Note Text: Patient did not experience a fall within the Intraoperative area. Patient did not experience a burn within the Intraoperative area. Megan Capellan RN OPERATIVE NO Observed: 10/03/2018 Status: COMPLETED Source: [place] 12:55 PM [facility] REPOSITORY HNO ID: [id number] Author: Rio Spence Service: Hematology/Oncology Author Type: Physician Type: Operative Report Filed: 10/03/2018 1:15 PM Note Text: Bone Marrow Aspirate and Biopsy Procedure: Manisha Dangelo is a 73 year old male with metastatic prostate cancer, anemia AND thrombocytopenia who returns for bone marrow evaluation. Information was reviewed verbally over the phone, form(s) have been/will be consent was obtained. Rationale, procedure, personnel and risks were explained. Premedication with Fentanyl 50 mcg and Versed 4mg IV were given. Patient placed in left lateral decubitus position. right posterior iliac crest was swabbed with betadine and then with alcohol. 1% lidocaine, 9cc, was infiltrated to the posterior iliac crest in a sterile field. Bone marrow aspirate and biopsy was obtained under sterile techniques. Patient tolerated the procedure well with no complications. Aspirate smears and touch preps were made. . Patient will return for follow up results. Start Time: 13:00 End Time: 13:06 E.B.L. 0 cc Specimen: right posterior iliac crest bone marrow 3 cm Rio Spence MD NURSING PROG Observed: 10/03/2018 Status: COMPLETED Source: [place] 12:53 PM [facility] REPOSITORY HNO ID: [id number] Author: Omayra Morrow RN Service: (none) Author Type: Registered Nurse Type: Nursing Progress Note Filed: 10/03/2018 12:54 PM Note Text: [facility] [place] [facility] PRE-OP NURSING HAND OFF NOTE SBAR Hand off given to Kaci Hernandez RN and Megan Capellan RN. Hand off was communicated verbally and at the patient's bedside and all questions were answered. FALLS/[place] Patient did not experience a fall within the Preoperative area. Patient did not experience a burn within the Preoperative area. Omayra Morrow RN PT ED Observed: 10/03/2018 Status: COMPLETED Source: [place] 12:51 PM [facility] REPOSITORY HNO ID: [id number] Author: Omayra (Rn) Odalys RN Service: (none) Author Type: Registered Nurse Type: Patient Education Filed: 10/03/2018 12:52 PM Note Text: PRE OP LEARNING ASSESSMENT PROCEDURE/SURGERY: bone marrow biopsy READINESS TO LEARN COGNITIVE ABILITY: Alert and oriented MOTIVATION TO LEARN: Eager FAMILY SUPPORT: High - Very involved in pt care PATIENT LEARNS BEST BY: Multiple Methods FACTORS AFFECTING LEARNING: None PHYSICAL LIMITATIONS AFFECTING LEARNING: None Electronically Signed By: Omayra Morrow RN In Department: AMBULATORY SURGERY FREE TESTOSTERONE Collected: 10/03/2018 Status: F Source: [place] 12:18 PM [facility] REPOSITORY TYPE CODE TESTS RESULT OUT OF REFERENCE UNITS RANGE LAB TESTO 193-824 ng/dL Testosterone Low <12 Result Comment: A testosterone level in the 193-320 ng/dL range with associated clinical symptoms is considered low and may indicate hypogonadism (from NEJM 2010 363:123-135). Results >320 ng/dL are considered normal. Result rechecked. LAB FREE 1.4-3.2 % Free Testosterone Low % 1.1 LAB FRTSTO 41.7-180.2 pg/mL Free Testosterone Low <1.3 Result Comment: This test was developed and its performance characteristics determined by [facility] [place] ([facility] It has not been cleared or approved by the FDA. [facility] is regulated under CLIA as qualified to perform high-complexity testing. This test is used for clinical purposes. It should not be regarded as investigational or for research. Performed By: #### FTESTO #### [facility] [address], [place] [address] SCOTTY CBC AND DIFF Collected: 10/03/2018 Status: F Source: [place] 12:18 PM [facility] REPOSITORY TYPE CODE TESTS RESULT OUT OF REFERENCE UNITS RANGE LAB WWBC 3.70-11.00 k/uL [place] WBC 7.77 LAB WRBC 4.20-6.00 m/uL Low [place] RBC 2.98 LAB WHGB 13.0-17.0 g/dL Low [place] Hemoglobin 8.5 LAB WHCT 39.0-51.0 % Low [place] Hematocrit 27.2 LAB WMCV 80.0-100.0 fL [place] MCV 91.3 LAB WMCH 26.0-34.0 pg [place] MCH 28.5 LAB WMCHC 30.5-36.0 g/dL [place] MCHC 31.3 LAB WRDW 11.5-15.0 % [place] High RDW 16.2 LAB WPLT 150-400 k/uL Low [place] Platelet Cnt 86 LAB WMPV 9.0-12.7 fL [place] MPV 9.9 Result Comment: Test performed at: [facility], [address] [place] [address] Rd., [place] [address]. LAB CBCCOM PRELIMINARY Comment WBC=8.04 Performed By: #### WCBCDF, DIFF #### [facility] [address], [place] [address] DIFFERENTIAL Collected: 10/03/2018 Status: F Source: [place] ([facility] LAB USE 12:18 PM [facility] ONLY) REPOSITORY TYPE CODE TESTS RESULT OUT OF REFERENCE UNITS RANGE LAB NEUT % Neut% 44 LAB LYMPH % 28 Lymph% LAB MONO % [place]% 9 LAB EOSIN % 1 Eosin% LAB BASO % Baso% 1 LAB META % [place]% 6 LAB MYELO % 8 Myelo% LAB PROMY % 1 Promyl% LAB BLAST 0 % High 2 Blast% LAB NRBC 0 /100 WBC High NRBCs 2 LAB RBCMOR Red SEE COMMENT Cell Morph Result Comment: Slight Polychromasia Anisocytosis Few Ovalocytes Few Tear Drop Cells LAB DIFCOM Diff SEE Comments COMMENT Result Comment: Left Shift Performed By: #### WCBCDF, DIFF #### [facility] [address], [place] [address] PROGRESS Observed: 10/02/2018 Status: COMPLETED Source: [place] 9:44 AM [facility] REPOSITORY HNO ID: [id number] Author: Rio Spence Service: (none) Author Type: Physician Type: Progress Notes Filed: 10/02/2018 9:55 AM Note Text: Hematology and Medical Oncology PATIENT NAME: Manisha Dangelo. CLINIC NO: [id number]. ATTENDING PHYSICIAN: Rio Spence MD. DATE OF SERVICE:10/01/2018. DIAGNOSIS: metastatic prostate cancer, with extensive bone metastasis, anemia and thrombocytopenia PERFORMANCE STATUS:80% HPI: This is a 73-year-old gentleman who has history of chronic lower back pain presented with weight loss and abdominal pain for couple months. Patient also presented with increased fatigue for the last 6 months. In the emergency room, he has a moderate anemia and thrombocytopenia along with alkaline phosphatase elevation. Ultrasound of the gallbladder showed no abnormality. He had a subsequent CT scan of chest abdomen pelvis which show mild bilateral renal atrophy with bilateral nonobstructing renal stones. Mild blastic metastatic disease seen in bone. CT chest showed right axillary and right infraclavicular and mediastinal adenopathy. No lung primary. ? Subsequent bone scan also showed multiple bone metastasis throughout the axial appendicular skeleton. His PSA was elevated over 400. A biopsy of the prostate and axillary lymph node was performed in the hospital. Patient has noted increased bleeding symptoms since he was discharged home on aspirin. He still have upper abdominal pain 3/10. worse with activity, better when laying still. He has some heartburn but no history of peptic ulcer disease. He has chronic lower back pain with all sciatica. He also has nausea along with his abdominal pain. Patient was started on Casodex 50mg once daily last week. ? he has no history of blood transfusion, no history of liver disease or hepatitis. He has a history of renal insufficiency with a baseline creatinine was 1.5 before his last hospitalization. he has lost over 30 pounds in the last 3 months but has gained 10 pounds since last month. he has follow with Dr. Micky Reddy for his superficial bladder cancer for over 7 years. His PSA in September 2017 was 4.0. ? current treatment: Lupron interim history: Patient still complained of weakness, fatigue and bone pain. He started Lupron last month and his platelet count has improved although patient has worsening anemia. Patient denied chest pain or shortness of breath. No fever or chills or night sweats. His appetite is significantly decreased since last month, along with progressive weight loss. He denied nausea or vomiting. He denies any difficulty with urination, or hematuria. No hot flashes or neuropathy. MEDICATIONS: Current Outpatient Prescriptions: HYDROcodone-acetaminophen (NORCO) 5-325 mg per tablet Take 1 tablet by mouth every 6 hours as needed for up to 14 days.Earliest Fill Date: 09/27/18 promethazine (PHENERGAN) 25 mg tablet TAKE ONE TABLET BY MOUTH EVERY 6 HOURS NEEDED tamsulosin ER (FLOMAX) 0.4 mg cap Take 0.4 mg by mouth once daily. omeprazole (PRILOSEC) 20 mg capsule Take 1 capsule by mouth once daily. iron polysaccharide complex (FERREX 150) 150 mg iron capsule Take 1 capsule by mouth twice daily. predniSONE (DELTASONE) 5 mg tablet Take 1 tablet by mouth once daily. No current facility-administered medications for this visit. . ALLERGIES:ALLERGIES No Known Allergies. PAST MEDICAL HISTORY: PAST MEDICAL HISTORY Diagnosis Date - Cancer, metastatic to bone (HCC) - Eczema - Prostate cancer (HCC) - Psoriasis . PAST SURGICAL HISTORY: PAST SURGICAL HISTORY Procedure Laterality Date - PAST SURGICAL HISTORY OF cyst removed from back neck. . FAMILY HISTORY: FAMILY HISTORY Problem Relation Age of Onset - Cancer Mother pancreatic - Stroke Father - Diabetes Father - Cancer Sister ovarian - Cancer Brother prostate cancer - Thyroid Brother - Cancer Brother prostate cancer - Cancer Brother lung cancer - Diabetes Brother - Diabetes Brother . SOCIAL HISTORY:Social History Marital status: Spouse name: Years of education: Number of children: Social History Main Topics Smoking status: Former Smoker Packs/day: 0.00 Years: 0.00 Smokeless tobacco: Never Used Comment: not smoked for 5 months. Alcohol use: Yes Comment: seldom Drug use: No . REVIEW OF SYSTEMS: CONSTITUTIONAL: No fevers, chills, nightsweats, + unintended weight loss HEENT: Denies frequent or severe heaches, nasal congestion/sinus symptoms, problematic allergy problems. EYES: No diplopia or blurry vision. CARDIOVASCULAR: No chest pain, dyspnea, palpitations, orthopnea, PND, ankle edema. PULM: No dyspnea, unexplained cough. GI: No dysphagia/odynophagia, problematic reflux, constipation, diarrhea, changes in stool habits, hematochezia, melena. : No new urinary complaints, including dysuria, gross hematuria or pyuria. NEURO: No new balance problems, peripheral weakness/paresthesias or numbness of concern. MUSC-SKEL: No new joint pain, swelling, or erythema. PSY: No concerns regarding depression, anxiety or panic. INTEGUMENTARY: No new skin changes (rash, new or changing mole, new growth) PHYSICAL EXAMINATION: 73-year-old well-nourished well-developed gentleman in no acute distress There were no vitals taken for this visit. HEENT: Head is normocephalic, atraumatic. Sclerae white, conjunctivae pink. PEERL. EOMs are intact. Oropharynx is benign. LYMPHATICS: There is no palpable adenopathy in the neck, supraclavicular region, axillae, or groin. LUNGS: Lungs are clear to percussion and auscultation. HEART: Heart is normal without murmurs, gallops, or rubs. ABDOMEN: Soft and nontender without organomegaly. No masses can be palpated. EXTREMITIES: Are without edema. NEUROLOGIC: Exam is physiologic LABORATORY DATA: Component Latest Ref Rng AND Units 09/27/2018 10/01/2018 WBC, [place] 3.70 - 11.00 k/uL 9.37 6.86 RBC, [place] 4.20 - 6.00 m/uL 3.01 (L) 2.86 (L) Hemoglobin, [place] 13.0 - 17.0 g/dL 8.6 (L) 8.1 (L) Hematocrit, [place] 39.0 - 51.0 % 27.5 (L) 26.0 (L) MCV, [place] 80.0 - 100.0 fL 91.4 90.9 MCH, [place] 26.0 - 34.0 pg 28.6 28.3 MCHC, [place] 30.5 - 36.0 g/dL 31.3 31.2 RDW, [place] 11.5 - 15.0 % 15.7 (H) 15.9 (H) Platelet Cnt, [place] 150 - 400 k/uL 94 (L) 82 (L) MPV, [place] 9.0 - 12.7 fL 10.5 10.6 Absol Gran Count 1.45 - 7.50 k/uL 5.59 4.33 Absolute nRBC <0.01 k/uL Preliminary result. Interpret with caution. Final results may vary. Results . . . Preliminary result. Interpret with caution. Final results may vary. Results . . . Component Latest Ref Rng AND Units 10/01/2018 Protein, Total 6.3 - 8.0 g/dL 6.7 Albumin 3.9 - 4.9 g/dL 3.8 (L) Calcium 8.5 - 10.2 mg/dL 9.0 Bilirubin, Total 0.2 - 1.3 mg/dL 0.6 Alkaline Phosphatase 38 - 113 U/L 9 (L) AST 14 - 40 U/L 15 Glucose 74 - 99 mg/dL 111 (H) BUN 9 - 24 mg/dL 17 Creatinine 0.73 - 1.22 mg/dL 1.40 (H) Sodium 136 - 144 mmol/L 137 Potassium 3.7 - 5.1 mmol/L 3.7 Chloride 97 - 105 mmol/L 103 CO2 22 - 30 mmol/L 24 Anion Gap 9 - 18 mmol/L 10 ALT 10 - 54 U/L 10 eGFR- 60 eGFR-All Other Races . 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 - bone pain and anorexia secondary to metastatic prostate cancer PLAN: - Proceed with bone marrow biopsy this week for further evaluation of the anemia and thrombocytopenia. - We discussed possible chemotherapy treatment for his hormone refractory prostate cancer. - Repeat PSA, testosterone, LDH, CBC, BMP OV in one week to discuss treatment option. Risk and indication of bone marrow biopsy discussed with patient today. Consent was signed last month. I spent 25 minutes in the visit, with more than 50% of the total [id number] time of the visit in counseling / coordination of care. Rio Spence MD. ELECTRONICALLY SIGNED Cc: Dr. Natalee Boyd CNOVSP Observed: 10/01/2018 Status: COMPLETED Source: [place] 4:00 PM [facility] REPOSITORY Visit (SP) Office (MAY[place]) MANISHA DANGELO ([id number]) 1945 M [facility] Date Time Provider Department 10/01/18 4:00 PM RIO SPENCE During your visit today, we recorded the following information about you: Loreto Dagmar Crockett LPN, LPN 10/01/2018 3:55 PM Signed Est pt, discuss recent lab results, 4 week f/u son states pt. Not eating well. bx Monday MARIO Hilton MD 10/02/2018 9:55 AM Signed Hematology and Medical Oncology PATIENT NAME: Manisha Dangelo. CLINIC NO: [id number]. ATTENDING PHYSICIAN: Rio Spence MD. DATE OF SERVICE:10/01/2018. DIAGNOSIS: metastatic prostate cancer, with extensive bone metastasis, anemia and thrombocytopenia PERFORMANCE STATUS:80% HPI: This is a 73-year-old gentleman who has history of chronic lower back pain presented with weight loss and abdominal pain for couple months. Patient also presented with increased fatigue for the last 6 months. In the emergency room, he has a moderate anemia and thrombocytopenia along with alkaline phosphatase elevation. Ultrasound of the gallbladder showed no abnormality. He had a subsequent CT scan of chest abdomen pelvis which show mild bilateral renal atrophy with bilateral nonobstructing renal stones. Mild blastic metastatic disease seen in bone. CT chest showed right axillary and right infraclavicular and mediastinal adenopathy. No lung primary. ? Subsequent bone scan also showed multiple bone metastasis throughout the axial appendicular skeleton. His PSA was elevated over 400. A biopsy of the prostate and axillary lymph node was performed in the hospital. Patient has noted increased bleeding symptoms since he was discharged home on aspirin. He still have upper abdominal pain 3/10. worse with activity, better when laying still. He has some heartburn but no history of peptic ulcer disease. He has chronic lower back pain with all sciatica. He also has nausea along with his abdominal pain. Patient was started on Casodex 50mg once daily last week. ? he has no history of blood transfusion, no history of liver disease or hepatitis. He has a history of renal insufficiency with a baseline creatinine was 1.5 before his last hospitalization. he has lost over 30 pounds in the last 3 months but has gained 10 pounds since last month. he has follow with Dr. Micky Reddy for his superficial bladder cancer for over 7 years. His PSA in September 2017 was 4.0. ? current treatment: Lupron interim history: Patient still complained of weakness, fatigue and bone pain. He started Lupron last month and his platelet count has improved although patient has worsening anemia. Patient denied chest pain or shortness of breath. No fever or chills or night sweats. His appetite is significantly decreased since last month, along with progressive weight loss. He denied nausea or vomiting. He denies any difficulty with urination, or hematuria. No hot flashes or neuropathy. MEDICATIONS: Current Outpatient Prescriptions: HYDROcodone-acetaminophen (NORCO) 5-325 mg per tablet Take 1 tablet by mouth every 6 hours as needed for up to 14 days.Earliest Fill Date: 09/27/18 promethazine (PHENERGAN) 25 mg tablet TAKE ONE TABLET BY MOUTH EVERY 6 HOURS NEEDED tamsulosin ER (FLOMAX) 0.4 mg cap Take 0.4 mg by mouth once daily. omeprazole (PRILOSEC) 20 mg capsule Take 1 capsule by mouth once daily. iron polysaccharide complex (FERREX 150) 150 mg iron capsule Take 1 capsule by mouth twice daily. predniSONE (DELTASONE) 5 mg tablet Take 1 tablet by mouth once daily. No current facility-administered medications for this visit. . ALLERGIES:ALLERGIES No Known Allergies. PAST MEDICAL HISTORY: PAST MEDICAL HISTORY Diagnosis Date - Cancer, metastatic to bone (HCC) - Eczema - Prostate cancer (HCC) - Psoriasis . PAST SURGICAL HISTORY: PAST SURGICAL HISTORY Procedure Laterality Date - PAST SURGICAL HISTORY OF cyst removed from back neck. . FAMILY HISTORY: FAMILY HISTORY Problem Relation Age of Onset - Cancer Mother pancreatic - Stroke Father - Diabetes Father - Cancer Sister ovarian - Cancer Brother prostate cancer - Thyroid Brother - Cancer Brother prostate cancer - Cancer Brother lung cancer - Diabetes Brother - Diabetes Brother . SOCIAL HISTORY:Social History Marital status: Spouse name: Years of education: Number of children: Social History Main Topics Smoking status: Former Smoker Packs/day: 0.00 Years: 0.00 Smokeless tobacco: Never Used Comment: not smoked for 5 months. Alcohol use: Yes Comment: seldom Drug use: No . REVIEW OF SYSTEMS: CONSTITUTIONAL: No fevers, chills, nightsweats, + unintended weight loss HEENT: Denies frequent or severe heaches, nasal congestion/sinus symptoms, problematic allergy problems. EYES: No diplopia or blurry vision. CARDIOVASCULAR: No chest pain, dyspnea, palpitations, orthopnea, PND, ankle edema. PULM: No dyspnea, unexplained cough. GI: No dysphagia/odynophagia, problematic reflux, constipation, diarrhea, changes in stool habits, hematochezia, melena. : No new urinary complaints, including dysuria, gross hematuria or pyuria. NEURO: No new balance problems, peripheral weakness/paresthesias or numbness of concern. MUSC-SKEL: No new joint pain, swelling, or erythema. PSY: No concerns regarding depression, anxiety or panic. INTEGUMENTARY: No new skin changes (rash, new or changing mole, new growth) PHYSICAL EXAMINATION: 73-year-old well-nourished well-developed gentleman in no acute distress There were no vitals taken for this visit. HEENT: Head is normocephalic, atraumatic. Sclerae white, conjunctivae pink. PEERL. EOMs are intact. Oropharynx is benign. LYMPHATICS: There is no palpable adenopathy in the neck, supraclavicular region, axillae, or groin. LUNGS: Lungs are clear to percussion and auscultation. HEART: Heart is normal without murmurs, gallops, or rubs. ABDOMEN: Soft and nontender without organomegaly. No masses can be palpated. EXTREMITIES: Are without edema. NEUROLOGIC: Exam is physiologic LABORATORY DATA: Component Latest Ref Rng AND Units 09/27/2018 10/01/2018 WBC, [place] 3.70 - 11.00 k/uL 9.37 6.86 RBC, [place] 4.20 - 6.00 m/uL 3.01 (L) 2.86 (L) Hemoglobin, [place] 13.0 - 17.0 g/dL 8.6 (L) 8.1 (L) Hematocrit, [place] 39.0 - 51.0 % 27.5 (L) 26.0 (L) MCV, [place] 80.0 - 100.0 fL 91.4 90.9 MCH, [place] 26.0 - 34.0 pg 28.6 28.3 MCHC, [place] 30.5 - 36.0 g/dL 31.3 31.2 RDW, [place] 11.5 - 15.0 % 15.7 (H) 15.9 (H) Platelet Cnt, [place] 150 - 400 k/uL 94 (L) 82 (L) MPV, [place] 9.0 - 12.7 fL 10.5 10.6 Absol Gran Count 1.45 - 7.50 k/uL 5.59 4.33 Absolute nRBC <0.01 k/uL Preliminary result. Interpret with caution. Final results may vary. Results . . . Preliminary result. Interpret with caution. Final results may vary. Results . . . Component Latest Ref Rng AND Units 10/01/2018 Protein, Total 6.3 - 8.0 g/dL 6.7 Albumin 3.9 - 4.9 g/dL 3.8 (L) Calcium 8.5 - 10.2 mg/dL 9.0 Bilirubin, Total 0.2 - 1.3 mg/dL 0.6 Alkaline Phosphatase 38 - 113 U/L 9 (L) AST 14 - 40 U/L 15 Glucose 74 - 99 mg/dL 111 (H) BUN 9 - 24 mg/dL 17 Creatinine 0.73 - 1.22 mg/dL 1.40 (H) Sodium 136 - 144 mmol/L 137 Potassium 3.7 - 5.1 mmol/L 3.7 Chloride 97 - 105 mmol/L 103 CO2 22 - 30 mmol/L 24 Anion Gap 9 - 18 mmol/L 10 ALT 10 - 54 U/L 10 eGFR- 60 eGFR-All Other Races . 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 - bone pain and anorexia secondary to metastatic prostate cancer PLAN: - Proceed with bone marrow biopsy this week for further evaluation of the anemia and thrombocytopenia. - We discussed possible chemotherapy treatment for his hormone refractory prostate cancer. - Repeat PSA, testosterone, LDH, CBC, BMP OV in one week to discuss treatment option. Risk and indication of bone marrow biopsy discussed with patient today. Consent was signed last month. I spent 25 minutes in the visit, with more than 50% of the total [id number] time of the visit in counseling / coordination of care. Rio Spence MD. ELECTRONICALLY SIGNED Cc: Dr. Natalee Boyd Referring Provider: RIO SPENCE [[id number]] Allergies As of Date: 10/01/2018 (No Known Allergies) Date Reviewed: 10/01/2018 Reviewed by: Loreto Leavitt (Regional Safety Manager) MARIO Crockett - Fully Assessed Reason for Visit: Established Patient [175] Primary Visit Diagnosis:Bone metastasis (HCC) [C79.51] Other Visit Diagnoses:Prostate cancer (HCC) [C61] Anemia, unspecified type [D64.9] Thrombocytopenia (HCC) [D69.6] Order(s):predniSONE (DELTASONE) 5 mg tabletTake 1 tablet by mouth once daily.Disp: 30 tabletRfl: 0 IRON + TIBC [SQIRON] Order #: [id number] FUTURE RETIC COUNT [SQRETIC] Order #: [id number] FUTURE Level of Service: EST PATIENT VISIT LEVEL 3 [89915] Disposition: Return in about 1 week (around 10/08/2018). 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 Not eating well. bx Monday Loreto CrockettMARIO Encounter Status:Closed by RIO SPENCE MD on 10/02/18 RETICULOCYTE Collected: 10/01/2018 Status: F Source: [place] 3:24 PM [facility] REPOSITORY TYPE CODE TESTS RESULT OUT OF REFERENCE UNITS RANGE LAB RETC 0.4-2.0 % High Retic% 3.1 LAB ABRET 0.0180-0.1000 M/uL Abs Retic 0.091 Performed By: #### RETIC, IRON #### [facility] [address], [place] [id number] IRON AND TIBC Collected: 10/01/2018 Status: F Source: [place] 3:24 PM [facility] REPOSITORY TYPE CODE TESTS RESULT OUT OF REFERENCE UNITS RANGE LAB IRN 41-186 ug/dL Iron 77 LAB TIBC 232-386 ug/dL Low TIBC 220 LAB SAT 15-57 % Transferrin Saturatn 35 Performed By: #### RETIC, IRON #### [facility] [address], [place] [id number] PSA, DIAGNOSTIC Collected: 10/01/2018 Status: F Source: [place] 3:24 PM [facility] REPOSITORY TYPE CODE TESTS RESULT OUT OF REFERENCE UNITS RANGE LAB PSA 0.00-2.59 ng/mL PSA, High Diagnostic 498.30 Result Comment: Total PSA test methodology used is the Electrochemiluminescence Immunoassay. For an individual patient, the significance of a PSA level should be interpreted in a broad clinical context, including age, race, family history, digital rectal exam, prostate size, results of prior te sting (prostate biopsy, free PSA, PCA3), and use of 5-alpha reductase inhibitors. Considering the high incidence of asymptomatic cancer in the general population that may not pose an ultimate risk to a patient, the decision to recommend urological evaluation or prostate biopsy should be individualized after consideration of all these factors. REFERENCE: Guanaco Acevedo M.D., M.P.H., Edwin Cabrera M.D., Ph.D., Kieran Blanchard M.D., Laurel Frausto M.P.H., Roslyn Day Sc.D. Effect of Verification Bias on Screening for Prostate Cancer by Measurement of Prostatic Specific Antigen. N Engl J Med 2003,349:335-42. Performed By: #### PSA #### [facility] [address] [place] [id number] COMP METABOLIC PANEL Collected: 10/01/2018 Status: F Source: [place] 3:23 PM [facility] REPOSITORY TYPE CODE TESTS RESULT OUT OF REFERENCE UNITS RANGE LAB TP 6.3-8.0 g/dL Protein, Total 6.7 LAB ALB 3.9-4.9 g/dL Albumin Low 3.8 LAB CA 8.5-10.2 mg/dL Calcium, Total 9.0 LAB TBIL 0.2-1.3 mg/dL Bilirubin, Total 0.6 LAB ALKP 38-113 U/L Alkaline Low Phosphatase 9 LAB AST 14-40 U/L AST 15 LAB GLU 74-99 mg/dL Glucose High 111 LAB BUN 9-24 mg/dL BUN 17 LAB CRET 0.73-1.22 mg/dL Creatinine High 1.40 LAB NA 136-144 mmol/L Sodium 137 LAB K 3.7-5.1 mmol/L Potassium 3.7 LAB CL 97-105 mmol/L Chloride 103 LAB CO2 22-30 mmol/L CO2 24 LAB AGAP 9-18 mmol/L Anion Gap 10 LAB ALT 10-54 U/L ALT 10 LAB GFRAA eGFR- 60 Amer. LAB GFRNAA . eGFR-All Other Races 49 Result Comment: eGFR (Estimated GFR) Units of measure: mL/min/1.73 meters squared eGFR is derived from the reexpressed MDRD Study equation using the following parameters: serum creatinine, age, gender and race. The creatinine assay has been calibrated to be traceable to IDMS. An eGFR <60 mL/min/1.73m2 for >3 months is consistent with chronic kidney disease. Refer to KDOQI guidelines for clinical interpretation. In patients with unstable renal function, e.g. those with acute kidney injury, the eGFR may not accurately reflect actual GFR. LD Collected: 10/01/2018 Status: F Source: [facility] 3:23 PM [facility] [place] REPOSITORY TYPE CODE TESTS RESULT OUT OF RANGE REFERENCE UNITS LAB LD 135-225 U/L High LD 360 SCOTTY ABS GR + CBC Collected: 10/01/2018 Status: F Source: [place] 3:23 PM [facility] REPOSITORY TYPE CODE TESTS RESULT OUT OF REFERENCE UNITS RANGE LAB WWBC 3.70-11.00 k/uL [place] WBC 6.86 Result Comment: Result checked and verified No clot detected. LAB WRBC 4.20-6.00 m/uL [place] RBC Low 2.86 LAB WHGB 13.0-17.0 g/dL [place] Low Hemoglobin 8.1 LAB WHCT 39.0-51.0 % [place] Low Hematocrit 26.0 LAB WMCV 80.0-100.0 fL [place] MCV 90.9 LAB WMCH 26.0-34.0 pg [place] MCH 28.3 LAB WMCHC 30.5-36.0 g/dL [place] MCHC 31.2 LAB WRDW 11.5-15.0 % [place] RDW High 15.9 LAB WPLT 150-400 k/uL [place] Low Platelet Cnt 82 LAB WMPV 9.0-12.7 fL [place] MPV 10.6 Result Comment: Test performed at: [address] [place] [address]. LAB ABGRAN 1.45-7.50 k/uL Absol Gran 4.33 Count Result Comment: Result checked and verified LAB ABSNUC <0.01 k/uL Preliminary Absolute nRBC result. Interpret with caution. Final results may vary. Results requested and read back by: Result Comment: WBC=7.51,ANC=4.24 Performed By: #### WAGCBC #### [facility] [address] [place], [place] [address] SCOTTY ABS GR + CBC Collected: 09/27/2018 Status: F Source: [place] 11:27 AM [facility] REPOSITORY TYPE CODE TESTS RESULT OUT OF REFERENCE UNITS RANGE LAB WWBC 3.70-11.00 k/uL [place] WBC 9.37 Result Comment: Result rechecked. LAB WRBC 4.20-6.00 m/uL [place] RBC Low 3.01 LAB WHGB 13.0-17.0 g/dL [place] Low Hemoglobin 8.6 LAB WHCT 39.0-51.0 % [place] Low Hematocrit 27.5 LAB WMCV 80.0-100.0 fL [place] MCV 91.4 LAB WMCH 26.0-34.0 pg [place] MCH 28.6 LAB WMCHC 30.5-36.0 g/dL [place] MCHC 31.3 LAB WRDW 11.5-15.0 % [place] RDW High 15.7 LAB WPLT 150-400 k/uL [place] Low Platelet Cnt 94 LAB WMPV 9.0-12.7 fL [place] MPV 10.5 Result Comment: Test performed at: [facility], [address] [place] [address]., [place] [address]. LAB ABGRAN 1.45-7.50 k/uL Absol Gran 5.59 Count Result Comment: Result rechecked. LAB ABSNUC <0.01 k/uL Preliminary Absolute nRBC result. Interpret with caution. Final results may vary. Results requested and read back by: Result Comment: WBC=9.37,ANC=5.59 Performed By: #### WAGCBC #### [facility] [address] [place], [place] [address] CNPN Observed: 09/27/2018 Status: COMPLETED Source: [place] 12:00 AM [facility] REPOSITORY Telephone (MAYRA) MANISHA DANGELO ([id number]) 1945 M [facility] Date Time Provider Department 09/27/18 RIO SPENCE During your visit today, we recorded the following information about you: Rio Spence MD 09/27/2018 11:10 AM Signed CBC today AND possible T AND C for transfusion? MD Kelly Lu LPN 09/27/2018 11:15 AM Signed Patient aware. Kelly Crockett LPN, LPN 09/27/2018 11:49 AM Signed Pt. Does not need transfusion, Dr. Spence wants pt. To start Iron 325 mg BID, Pt. Notified, voiced understanding Loreto Crockett LPN Allergies As of Date: 09/27/2018 (No Known Allergies) Date Reviewed: 09/06/2018 Reviewed by: Loreto Leavitt (Mario) MARIO Crockett - Fully Assessed Reason for Visit: Orders [681] Primary Visit Diagnosis:Bone metastasis (HCC) [C79.51] Other Visit Diagnoses:Prostate cancer (HCC) [C61] Anemia, unspecified type [D64.9] Order(s):SCOTTY ABS GRAN CT + CBC [SQWAGCBC] Order #: [id number] FUTURE Prescriptions as of 09/27/2018 Sig: HYDROCODONE 5 MG-ACETAMINOPHE* Take 1 tablet by mouth every * PROMETHAZINE 25 MG TABLET TAKE ONE TABLET BY MOUTH EVER* TAMSULOSIN 0.4 MG CAPSULE Take 0.4 mg by mouth once tricia* BICALUTAMIDE 50 MG TABLET 1 tablet once daily. 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] INVALID FOR* ACTINIC KERATOSIS [L57.0] INVALID FOR* CHR SOLAR SKIN DAMAGE NOS [L57.8] INVALID FOR* DERMATITIS NOS [L25.9] INVALID FOR* OTHER PSORIASIS [L40.8] INVALID FOR* XEROSIS///SEBACEOUS GLAND DIS NEC [L73.8] INVALID FOR* SOLAR LENGINES///DYSCHROMIA OTHER [L81.9] INVALID FOR* Bone metastasis (HCC) [C79.51] INVALID FOR* Prostate cancer (HCC) [C61] INVALID FOR* Family history of prostate cancer [Z80.42] INVALID FOR* Encounter Status:Closed by LORETO CROCKETT on 1/3/19 ONCOLOGY VISIT REPORT Observed: 09/11/2018 Status: F Source: [place] 3:56 PM [facility] REPOSITORY [facility] On[facility] [place] [address] OFFICE VISIT Date of Service: 08/30/18 1448 MR#: [id number] Acct: [id number] Name: MANISHA DANGELO Rep #: [id number] : 1945 From: Leana MIRELES Age/Sex: 73/M [place] [facility] [place]: Signed Subjective - Chief Complaint Thrombocytopenia, found to have elevated PSA - History of Present Illness Mr. Manisha Dangelo is a very pleasant 73 year old man with an essentially unremarkable PMH with the exception of superficial bladder ca approx 2009, who developed intractable nausea, RUQ accompanied by an estimated 30 lb weight loss abruptly 6 weeks ago. Was evaluated by surgery at [facility], and plans were made for HIDA scan on 08/31/18. Pain intensity increased which resulted in presentation to [facility] ED 08/27/18. A CT was completed and per patient self report normal. He was discharged and subsequently presented to [facility] later with the same symptoms and admitted for management. Found to have a platelet count of 34,000. Patient denies any previous history of thrombocytopenia, the initiation of any new medications/herbal/otc supplements, ETOH use as well as any episodes of overt bleeding, although notes he bruises easily. Bladder ca surveillance visit with his urologist was completed May 2018, per patient report he was told urine cytology looked good. Specifically denies any chills, night sweats, new onset bone pain, hematuria,melena/hematochezia. Colonoscopy up to date. Cannot recall when his PSA was last checked. Family history positive for mother with pancreatic ca, brother #1- bladder ca, brother #2-prostate ca, brother #3- lung ca. - Past Medical/Social History Social History Smoking Status Former smoker Vital Signs Height 5 ft 10 in Weight: 178 lb 9.191 oz Weight in Pounds 178.6 lbs Pulse Ox 98 Laboratory Data: Laboratory Tests WBC 4.0 L (4.4-11.0) K/mm3 RBC 3.68 L (4.6-6.2) M/mm3 Hgb 10.7 L (13.0-16.5) g/dl Hct 31.9 L (40-54) % WBC (4.4-11.0) K/mm3 RBC (4.6-6.2) M/mm3 Diagnostic Data: Diagnostic Data Gallbladder Ultrasound 08/27/18 20:33 IMPRESSION: No definite abnormality. Electronically Signed: Luis Flores MD at 21:35 EST , Service support , Abdomen/Pelvis CT 08/29/18 12:02 IMPRESSION: Question of mild bilateral renal atrophy. Bilateral nonobstructing renal stones. Mild blastic metastatic disease not excluded. Bone scan recommended. Electronically Signed: Luis Flores MD at 20:31 EST , Service support , Chest CT 08/29/18 12:02 IMPRESSION: Right axillary, right infraclavicular, and mediastinal adenopathy. Small nodule on the surface of the left major fissure is probably incidental but suggest follow-up and 6 months. 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 Electronically Signed: Maciel Reeder MD at 9:41 EST Tel [phone], Service support , Assessment and Plan 73 year old gentlemen with PMH for superficial bladder ca admitted for management of intractable nausea AND RUQ pain found to have platelet count of 34,000. 1. Elevated PSA, level obtained 08/28/2018 was 455.-These results were communicated to the patient. Quite indicative of active prostate cancer. 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 Upper quad pain possibly related to disease if present in ribs? Recommend bone scan and bone biopsy of most accessible lesion. In the interim orders placed for Casodex 50 mg daily and patient is educated that he will require Lupron injections in the outpatient setting. Patient educated about potential side effects with ADT inclusive of hot flashes and fatigue. Bicalutamide is not on hospital formulary. Order sent to patient selected retail pharmacy. Family to cigar packer and picker rx and bring to hospital where he may self administer. 2. Thrombocytopenia- in the absence of active bleeding as evidenced by platelet count today of 26,000. Previous CBC for comparison are imperative to determine if this did in fact develop acutely. 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 Obtain PT/PTT and fibrinogen levels. Reassuring that 3. H/o superficial bladder ca- Diagnosed approx 2009. Did not require adjuvant chemo or radiation therapy. Repeat urine cytology pending. Case discussed with Dr. Lopez who is in agreement with the aforementioned plan. Leana Schneider, MSN, CONTROL AREA OPERATOR-C, AOCNP Medications: Prescriptions This Visit Medication Instructions Recorded Aspirin [Aspirin EC] 81 mg PO DAILY 08/28/18 Tamsulosin HCl [Flomax] 0.4 mg PO DAILY 08/28/18 Bicalutamide [Casodex] 50 mg PO DAILY 08/29/18 Medications Added to Medication List This Visit Primary Care Provider: Natalee Lynn Referring Provider: - Problem List (1) History of bladder cancer Status: Chronic (2) Weight loss Status: Acute (3) Thrombocytopenia Status: Acute (4) Elevated PSA, greater than or equal to 20 ng/ml Status: Acute (5) Elevated alkaline phosphatase level Status: Acute 09/11/18 3656 <Electronically signed by Leana LAIC> Date Leana MIRELES Cosigner Signature: Date (if applicable) CC: SCOTTY ABS GR + CBC Collected: 09/06/2018 Status: F Source: [place] 2:20 PM [facility] REPOSITORY TYPE CODE TESTS RESULT OUT OF REFERENCE UNITS RANGE LAB WWBC 3.70-11.00 k/uL [place] WBC 6.60 LAB WRBC 4.20-6.00 m/uL Low [place] RBC 3.46 LAB WHGB 13.0-17.0 g/dL Low [place] Hemoglobin 10.1 LAB WHCT 39.0-51.0 % Low [place] Hematocrit 31.0 LAB WMCV 80.0-100.0 fL [place] MCV 89.6 LAB WMCH 26.0-34.0 pg [place] MCH 29.2 LAB WMCHC 30.5-36.0 g/dL [place] MCHC 32.6 LAB WRDW 11.5-15.0 % [place] RDW 13.6 LAB WPLT 150-400 k/uL Low [place] Platelet Cnt 38 LAB WMPV 9.0-12.7 fL [place] MPV 12.0 Result Comment: Test performed at: [facility], [address] [place] [address] Rd[address] [place] [address]. LAB ABGRAN 1.45-7.50 k/uL Absol Gran 3.42 Count COMP METABOLIC PANEL Collected: 09/06/2018 Status: F Source: [place] 2:20 PM [facility] REPOSITORY TYPE CODE TESTS RESULT OUT OF REFERENCE UNITS RANGE LAB TP 6.3-8.0 g/dL Protein, Low Total 5.9 LAB ALB 3.9-4.9 g/dL Albumin Low 3.6 LAB CA 8.5-10.2 mg/dL Calcium, Low Total 8.3 LAB TBIL 0.2-1.3 mg/dL Bilirubin, Total 0.9 LAB ALKP 38-113 U/L Alkaline High Phosphatase 346 LAB AST 14-40 U/L AST 27 LAB GLU 74-99 mg/dL Glucose 87 LAB BUN 9-24 mg/dL BUN High 32 LAB CRET 0.73-1.22 mg/dL Creatinine High 1.50 LAB NA 136-144 mmol/L Sodium 141 LAB K 3.7-5.1 mmol/L Potassium 3.7 LAB CL 97-105 mmol/L Chloride High 106 LAB CO2 22-30 mmol/L CO2 26 LAB AGAP 9-18 mmol/L Anion Gap 9 LAB ALT 10-54 U/L ALT High 62 LAB GFRAA eGFR- 55 Amer. LAB GFRNAA . eGFR-All Other Races 46 Result Comment: eGFR (Estimated GFR) Units of measure: mL/min/1.73 meters squared eGFR is derived from the reexpressed MDRD Study equation using the following parameters: serum creatinine, age, gender and race. The creatinine assay has been calibrated to be traceable to IDMS. An eGFR <60 mL/min/1.73m2 for >3 months is consistent with chronic kidney disease. Refer to KDOQI guidelines for clinical interpretation. In patients with unstable renal function, e.g. those with acute kidney injury, the eGFR may not accurately reflect actual GFR. LD Collected: 09/06/2018 Status: F Source: [facility] 2:20 PM [facility] REPOSITORY TYPE CODE TESTS RESULT OUT OF RANGE REFERENCE UNITS LAB LD 135-225 U/L High LD 425 HEPATITIS C AB IA Collected: 09/06/2018 Status: F Source: [place] 2:20 PM [facility] REPOSITORY TYPE CODE TESTS RESULT OUT OF REFERENCE UNITS RANGE LAB AHCV Negative Hepatitis C Ab Negative IA Performed By: #### AHCV, PSA #### [facility] [address] [address] PSA, DIAGNOSTIC Collected: 09/06/2018 Status: F Source: [place] 2:20 PM [facility] REPOSITORY TYPE CODE TESTS RESULT OUT OF REFERENCE UNITS RANGE LAB PSA 0.00-2.59 ng/mL PSA, High Diagnostic 462.00 Result Comment: Total PSA test methodology used is the Electrochemiluminescence Immunoassay. For an individual patient, the significance of a PSA level should be interpreted in a broad clinical context, including age, race, family history, digital rectal exam, prostate size, results of prior te sting (prostate biopsy, free PSA, PCA3), and use of 5-alpha reductase inhibitors. Considering the high incidence of asymptomatic cancer in the general population that may not pose an ultimate risk to a patient, the decision to recommend urological evaluation or prostate biopsy should be individualized after consideration of all these factors. REFERENCE: Guanaco Acevedo M.D., M.P.H., Edwin Cabrera M.D., Ph.D., Kieran Blanchard M.D., Laurel Frausto, M.P.H., Roslyn Day, ScEduardoD. Effect of Verification Bias on Screening for Prostate Cancer by Measurement of Prostatic Specific Antigen. N Engl J Med 2003,349:335-42. Performed By: #### AHCV, PSA #### [facility] [address] [place], [place] [address] PROGRESS Observed: 09/06/2018 Status: COMPLETED Source: [place] 2:17 PM [facility] REPOSITORY HNO ID: [id number] Author: Rio Spence Service: (none) Author Type: Physician Type: Progress Notes Filed: 09/07/2018 7:48 AM Note Text: PALLIATIVE MEDICINE CONSULT SERVICE DATE: 09/06/2018 Primary Site of Disease/Medical Illness: Prostate Site of Metastasis: Bone, Lymph nodes Consultation requested by Dr. Lynn for an opinion regarding metastatic prostate cancer AND adenocarcinoma unknown primary. My final recommendations will be communicated back to the requesting physician by way of shared Medical record or letter to requesting physician via US mail. CHIEF COMPLAINT: abdominal pain, nausea AND back pain PERTINENT MEDICAL HISTORY: history of bladder cancer (superfical AND s/p BCG ) HISTORY OF PRESENT ILLNESS: This is a 73-year-old gentleman who has history of chronic lower back pain presented with weight loss and abdominal pain for couple months. Patient also presented with increased fatigue for the last 6 months. In the emergency room, he has a moderate anemia and thrombocytopenia along with alkaline phosphatase elevation. Ultrasound of the gallbladder showed no abnormality. He had a subsequent CT scan of chest abdomen pelvis which show mild bilateral renal atrophy with bilateral nonobstructing renal stones. Mild blastic metastatic disease seen in bone. CT chest showed right axillary and right infraclavicular and mediastinal adenopathy. No lung primary. Subsequent bone scan also showed multiple bone metastasis throughout the axial appendicular skeleton. His PSA was elevated over 400. A biopsy of the prostate and axillary lymph node was performed in the hospital. Patient has noted increased bleeding symptoms since he was discharged home on aspirin. He still have upper abdominal pain 3/10. worse with activity, better when laying still. He has some heartburn but no history of peptic ulcer disease. He has chronic lower back pain with all sciatica. He also has nausea along with his abdominal pain. Patient was started on Casodex 50mg once daily last week. he has no history of blood transfusion, no history of liver disease or hepatitis. He has a history of renal insufficiency with a baseline creatinine was 1.5 before his last hospitalization. he has lost over 30 pounds in the last 3 months but has gained 10 pounds since last month. he has follow with Dr. Micky Reddy for his superficial bladder cancer for over 7 years. His PSA in September 2017 was 4.0. MEDICATIONS: Current Outpatient Prescriptions: bicalutamide (CASODEX) 50 mg tablet 1 tablet once daily. promethazine (PHENERGAN) 25 mg tablet Take 1 tablet by mouth every 6 hours as needed. Every 6 hours tamsulosin ER (FLOMAX) 0.4 mg cap Take 0.4 mg by mouth once daily. HYDROcodone-acetaminophen (NORCO) 5-325 mg per tablet Take 1 tablet by mouth every 6 hours as needed for up to 14 days. iron polysaccharide complex (FERREX 150) 150 mg iron capsule Take 1 capsule by mouth twice daily. omeprazole (PRILOSEC) 20 mg capsule Take 1 capsule by mouth once daily. Current Facility-Administered Medications: diphenhydrAMINE 50 mg injection (BENADRYL) 50 mg INTRAVENOUS PRN EPINEPHrine 1 mg/mL (1 mL) 0.3 mg injection 0.3 mg INTRAMUSCULAR PRN hydrocortisone sodium succinate (PF) 100 mg injection (Solu- CORTEF) 100 mg INTRAVENOUS PRN NaCl 0.9% iv infusion 500-999 mL/hr INTRAVENOUS PRN . ALLERGIES:ALLERGIES No Known Allergies. PAST MEDICAL HISTORY: PAST MEDICAL HISTORY Diagnosis Date - NEGATIVE MEDICAL HISTORY . PAST SURGICAL HISTORY: PAST SURGICAL HISTORY Procedure Laterality Date - PAST SURGICAL HISTORY OF cyst removed from back neck. . FAMILY HISTORY: FAMILY HISTORY Problem Relation Age of Onset - Cancer Mother pancreatic - Stroke Father - Diabetes Father - Cancer Sister ovarian - Cancer Brother prostate cancer - Thyroid Brother - Cancer Brother prostate cancer - Cancer Brother lung cancer - Diabetes Brother - Diabetes Brother . SOCIAL HISTORY:Social History Marital status: Spouse name: Years of education: Number of children: Social History Main Topics Smoking status: Former Smoker Packs/day: 0.00 Years: 0.00 Smokeless tobacco: Never Used Comment: not smoked for 5 months. Alcohol use: Yes Comment: seldom Drug use: No . Modified ESAS ([place] Symptom Assessment Scale) Information Provided By: Patient Pain: Mild Nausea: Mild Loss of Appetite: Mild Constipation: None Shortness of Breath: None Drowsiness: None Tiredness: Moderate Depression: None Anxiety: Mild How you feel overall: Fair Other problem: None Palliative Performance Scale % (PPS): > or = 60 (0) Oral Intake: Moderately reduced (> mouthfuls) (1.0) Edema: Absent (0) Dyspnea at Rest: Absent (0) Delirium: Absent (0) Palliative Prognostic Index (PPI) Total Score: 0-2 Note: The scores from each prognostic domain are added. A score of 0 to 2.0 was associated with a median survival of 90 days; score of 2.1 to 4.0 is 61 days, and score of >4.0 is 12 days. PHYSICAL EXAMINATION: Vital signs: BP 139/61 Pulse 104 Temp 36.4 ?C (97.6 ?F) Ht 175.9 cm (5' 9.25) Wt 85.7 kg (189 lb) BMI 27.71 kg/m? General Appearance: No apparent distress Skin: No jaundice, No rash and No breakdown Eyes: Normal and No icterus HENT: Atraumatic, Oropharnyx clear with moist mucous membranes and No mucosal ulcerations Neck: Grossly normal and No masses Lungs: Clear to auscultation CV: Regular rate and rhythm and No murmur Abdomen: Soft, nontender, bowel sounds normal, No hepatomegaly and No splenomegaly : Not examined Musculoskeletal: No edema and No gross deformity Lymphatics: No cervical, axillary, or inguinal lymphadenopathy + right axillary LN 2 cm Neuro: Alert and oriented to time, place, and person, Diffuse weakness and Sensation grossly intact DATA: Diagnostic tests reviewed for today's visit: Most recent labs and imaging results. Component Latest Ref Rng AND Units 09/06/2018 WBC, [place] 3.70 - 11.00 k/uL 6.60 RBC, [place] 4.20 - 6.00 m/uL 3.46 (L) Hemoglobin, [place] 13.0 - 17.0 g/dL 10.1 (L) Hematocrit, [place] 39.0 - 51.0 % 31.0 (L) MCV, [place] 80.0 - 100.0 fL 89.6 MCH, [place] 26.0 - 34.0 pg 29.2 MCHC, [place] 30.5 - 36.0 g/dL 32.6 RDW, [place] 11.5 - 15.0 % 13.6 Platelet Cnt, [place] 150 - 400 k/uL 38 (L) MPV, [place] 9.0 - 12.7 fL 12.0 Absol Gran Count 1.45 - 7.50 k/uL 3.42 Component Latest Ref Rng AND Units 09/06/2018 Protein, Total 6.3 - 8.0 g/dL 5.9 (L) Albumin 3.9 - 4.9 g/dL 3.6 (L) Calcium 8.5 - 10.2 mg/dL 8.3 (L) Bilirubin, Total 0.2 - 1.3 mg/dL 0.9 Alkaline Phosphatase 38 - 113 U/L 346 (H) AST 14 - 40 U/L 27 Glucose 74 - 99 mg/dL 87 BUN 9 - 24 mg/dL 32 (H) Creatinine 0.73 - 1.22 mg/dL 1.50 (H) Sodium 136 - 144 mmol/L 141 Potassium 3.7 - 5.1 mmol/L 3.7 Chloride 97 - 105 mmol/L 106 (H) CO2 22 - 30 mmol/L 26 Anion Gap 9 - 18 mmol/L 9 ALT 10 - 54 U/L 62 (H) eGFR- 55 eGFR-All Other Races . 46 LD 135 - 225 U/L 425 (H) Component Latest Ref Rng AND Units 09/06/2018 PSA 0.00 - 2.59 ng/mL 462.00 (H) Hep C Antibody IA Negative Negative prostate biopsy: high -grade Brenna 8, prostate cancer Lymph node biopsy: Adenocarcinoma unknown primary; possible lung origin Opioid Management: No ASSESSMENT AND PLAN: 1) metastatic prostate cancer - high volume disease with extensive skeletal metastasis Plan: - Continue Casodex 50mg once daily - Start Lupron 30mg IM today - Follow-up PSA, CMP AND LDH in one month - We discussed possible treatment with chemotherapy; docetaxel or Zytiga/prednisone if patient is not a candidate for palliative chemotherapy. The ability to give him chemotherapy will depend on his overall performance status, renal function and CBC next month. - Repeat CT chest and bone scan in 3 months. - Possible additional study for adenocarcinoma of unknown primary if there is progression of disease on his next CT scan chest - genetic counseling for family history of prostate cancer. 2) anemia and thrombocytopenia - possible secondary to metastatic prostate cancer with bone marrow infiltration Plan: - Stop aspirin AND check hepatitis C Ab - consent for bone marrow biopsy next month if patient still has persistent anemia and thrombocytopenia - Start iron, Ferrex 150mg twice daily for anemia 3) abdominal pain with nausea Plan: - Start Prilosec 20mg once daily - Continue Phenergan 25mg every 6 hours needed for nausea 4) chronic back pain secondary to bone metastasis Plan: - Vicodin 5/325 every 6 hour as needed for pain - Consider starting Zometa for skeletal metastasis next month. 5) weight loss and anorexia secondary to above Plan: - dietary consult AND supplements 6) Fatigue secondary to anemia and metastatic prostate cancer Plan: - discussed possible treatment options if he still has fatigue next month. - physical therapy evaluation in [place] Advance Care Planning: I did not discuss Advance Care Planning at this visit, I plan to discuss this at a future visit. Next Visit: 4 Weeks SIGNATURE: Rio Spence MD PATIENT NAME: Manisha Dangelo DATE: September 06, 2018 TIME: 2:17 PM PAGER/CONTACT #: Cc; Dr. Wallace Reddy CNOVSP Observed: 09/06/2018 Status: COMPLETED Source: [place] 2:00 PM [facility] REPOSITORY Visit (SP) Office (MAYRA) MANISHA DANGELO ([id number]) 1945 M [facility] Date Time Provider Department 09/06/18 2:00 PM RIO SPENCE During your visit today, we recorded the following information about you: Temperature Pulse Blood pressure Weight 97.6 degrees 104/minute 139/61 85.7 kg Height 1.759 m Loreto Crockett LPN, LPN 09/06/2018 2:17 PM Signed New patient, discuss recent DX: metastatic prostate cancer MARIO Hilton MD 09/07/2018 7:48 AM Signed PALLIATIVE MEDICINE CONSULT SERVICE DATE: 09/06/2018 Primary Site of Disease/Medical Illness: Prostate Site of Metastasis: Bone, Lymph nodes Consultation requested by Dr. Omran for an opinion regarding metastatic prostate cancer AND adenocarcinoma unknown primary. My final recommendations will be communicated back to the requesting physician by way of shared Medical record or letter to requesting physician via [place] mail. CHIEF COMPLAINT: abdominal pain, nausea AND back pain PERTINENT MEDICAL HISTORY: history of bladder cancer (superfical AND s/p BCG ) HISTORY OF PRESENT ILLNESS: This is a 73-year-old gentleman who has history of chronic lower back pain presented with weight loss and abdominal pain for couple months. Patient also presented with increased fatigue for the last 6 months. In the emergency room, he has a moderate anemia and thrombocytopenia along with alkaline phosphatase elevation. Ultrasound of the gallbladder showed no abnormality. He had a subsequent CT scan of chest abdomen pelvis which show mild bilateral renal atrophy with bilateral nonobstructing renal stones. Mild blastic metastatic disease seen in bone. CT chest showed right axillary and right infraclavicular and mediastinal adenopathy. No lung primary. Subsequent bone scan also showed multiple bone metastasis throughout the axial appendicular skeleton. His PSA was elevated over 400. A biopsy of the prostate and axillary lymph node was performed in the hospital. Patient has noted increased bleeding symptoms since he was discharged home on aspirin. He still have upper abdominal pain 3/10. worse with activity, better when laying still. He has some heartburn but no history of peptic ulcer disease. He has chronic lower back pain with all sciatica. He also has nausea along with his abdominal pain. Patient was started on Casodex 50mg once daily last week. he has no history of blood transfusion, no history of liver disease or hepatitis. He has a history of renal insufficiency with a baseline creatinine was 1.5 before his last hospitalization. he has lost over 30 pounds in the last 3 months but has gained 10 pounds since last month. he has follow with Dr. Micky Reddy for his superficial bladder cancer for over 7 years. His PSA in September 2017 was 4.0. MEDICATIONS: Current Outpatient Prescriptions: bicalutamide (CASODEX) 50 mg tablet 1 tablet once daily. promethazine (PHENERGAN) 25 mg tablet Take 1 tablet by mouth every 6 hours as needed. Every 6 hours tamsulosin ER (FLOMAX) 0.4 mg cap Take 0.4 mg by mouth once daily. HYDROcodone-acetaminophen (NORCO) 5-325 mg per tablet Take 1 tablet by mouth every 6 hours as needed for up to 14 days. iron polysaccharide complex (FERREX 150) 150 mg iron capsule Take 1 capsule by mouth twice daily. omeprazole (PRILOSEC) 20 mg capsule Take 1 capsule by mouth once daily. Current Facility-Administered Medications: diphenhydrAMINE 50 mg injection (BENADRYL) 50 mg INTRAVENOUS PRN EPINEPHrine 1 mg/mL (1 mL) 0.3 mg injection 0.3 mg INTRAMUSCULAR PRN hydrocortisone sodium succinate (PF) 100 mg injection (Solu- CORTEF) 100 mg INTRAVENOUS PRN NaCl 0.9% iv infusion 500-999 mL/hr INTRAVENOUS PRN . ALLERGIES:ALLERGIES No Known Allergies. PAST MEDICAL HISTORY: PAST MEDICAL HISTORY Diagnosis Date - NEGATIVE MEDICAL HISTORY . PAST SURGICAL HISTORY: PAST SURGICAL HISTORY Procedure Laterality Date - PAST SURGICAL HISTORY OF cyst removed from back neck. . FAMILY HISTORY: FAMILY HISTORY Problem Relation Age of Onset - Cancer Mother pancreatic - Stroke Father - Diabetes Father - Cancer Sister ovarian - Cancer Brother prostate cancer - Thyroid Brother - Cancer Brother prostate cancer - Cancer Brother lung cancer - Diabetes Brother - Diabetes Brother . SOCIAL HISTORY:Social History Marital status: Spouse name: Years of education: Number of children: Social History Main Topics Smoking status: Former Smoker Packs/day: 0.00 Years: 0.00 Smokeless tobacco: Never Used Comment: not smoked for 5 months. Alcohol use: Yes Comment: seldom Drug use: No . Modified ESAS ([place] Symptom Assessment Scale) Information Provided By: Patient Pain: Mild Nausea: Mild Loss of Appetite: Mild Constipation: None Shortness of Breath: None Drowsiness: None Tiredness: Moderate Depression: None Anxiety: Mild How you feel overall: Fair Other problem: None Palliative Performance Scale % (PPS): > or = 60 (0) Oral Intake: Moderately reduced (> mouthfuls) (1.0) Edema: Absent (0) Dyspnea at Rest: Absent (0) Delirium: Absent (0) Palliative Prognostic Index (PPI) Total Score: 0-2 Note: The scores from each prognostic domain are added. A score of 0 to 2.0 was associated with a median survival of 90 days; score of 2.1 to 4.0 is 61 days, and score of >4.0 is 12 days. PHYSICAL EXAMINATION: Vital signs: BP 139/61 Pulse 104 Temp 36.4 ?C (97.6 ?F) Ht 175.9 cm (5' 9.25) Wt 85.7 kg (189 lb) BMI 27.71 kg/m? General Appearance: No apparent distress Skin: No jaundice, No rash and No breakdown Eyes: Normal and No icterus HENT: Atraumatic, Oropharnyx clear with moist mucous membranes and No mucosal ulcerations Neck: Grossly normal and No masses Lungs: Clear to auscultation CV: Regular rate and rhythm and No murmur Abdomen: Soft, nontender, bowel sounds normal, No hepatomegaly and No splenomegaly : Not examined Musculoskeletal: No edema and No gross deformity Lymphatics: No cervical, axillary, or inguinal lymphadenopathy + right axillary LN 2 cm Neuro: Alert and oriented to time, place, and person, Diffuse weakness and Sensation grossly intact DATA: Diagnostic tests reviewed for today's visit: Most recent labs and imaging results. Component Latest Ref Rng AND Units 09/06/2018 WBC, [place] 3.70 - 11.00 k/uL 6.60 RBC, [place] 4.20 - 6.00 m/uL 3.46 (L) Hemoglobin, [place] 13.0 - 17.0 g/dL 10.1 (L) Hematocrit, [place] 39.0 - 51.0 % 31.0 (L) MCV, [place] 80.0 - 100.0 fL 89.6 MCH, [place] 26.0 - 34.0 pg 29.2 MCHC, [place] 30.5 - 36.0 g/dL 32.6 RDW, [place] 11.5 - 15.0 % 13.6 Platelet Cnt, [place] 150 - 400 k/uL 38 (L) MPV, [place] 9.0 - 12.7 fL 12.0 Absol Gran Count 1.45 - 7.50 k/uL 3.42 Component Latest Ref Rng AND Units 09/06/2018 Protein, Total 6.3 - 8.0 g/dL 5.9 (L) Albumin 3.9 - 4.9 g/dL 3.6 (L) Calcium 8.5 - 10.2 mg/dL 8.3 (L) Bilirubin, Total 0.2 - 1.3 mg/dL 0.9 Alkaline Phosphatase 38 - 113 U/L 346 (H) AST 14 - 40 U/L 27 Glucose 74 - 99 mg/dL 87 BUN 9 - 24 mg/dL 32 (H) Creatinine 0.73 - 1.22 mg/dL 1.50 (H) Sodium 136 - 144 mmol/L 141 Potassium 3.7 - 5.1 mmol/L 3.7 Chloride 97 - 105 mmol/L 106 (H) CO2 22 - 30 mmol/L 26 Anion Gap 9 - 18 mmol/L 9 ALT 10 - 54 U/L 62 (H) eGFR- 55 eGFR-All Other Races . 46 LD 135 - 225 U/L 425 (H) Component Latest Ref Rng AND Units 09/06/2018 PSA 0.00 - 2.59 ng/mL 462.00 (H) Hep C Antibody IA Negative Negative prostate biopsy: high -grade [place] 8, prostate cancer Lymph node biopsy: Adenocarcinoma unknown primary; possible lung origin Opioid Management: No ASSESSMENT AND PLAN: 1) metastatic prostate cancer - high volume disease with extensive skeletal metastasis Plan: - Continue Casodex 50mg once daily - Start Lupron 30mg IM today - Follow-up PSA, CMP AND LDH in one month - We discussed possible treatment with chemotherapy; docetaxel or Zytiga/prednisone if patient is not a candidate for palliative chemotherapy. The ability to give him chemotherapy will depend on his overall performance status, renal function and CBC next month. - Repeat CT chest and bone scan in 3 months. - Possible additional study for adenocarcinoma of unknown primary if there is progression of disease on his next CT scan chest - genetic counseling for family history of prostate cancer. 2) anemia and thrombocytopenia - possible secondary to metastatic prostate cancer with bone marrow infiltration Plan: - Stop aspirin AND check hepatitis C Ab - consent for bone marrow biopsy next month if patient still has persistent anemia and thrombocytopenia - Start iron, Ferrex 150mg twice daily for anemia 3) abdominal pain with nausea Plan: - Start Prilosec 20mg once daily - Continue Phenergan 25mg every 6 hours needed for nausea 4) chronic back pain secondary to bone metastasis Plan: - Vicodin 5/325 every 6 hour as needed for pain - Consider starting Zometa for skeletal metastasis next month. 5) weight loss and anorexia secondary to above Plan: - dietary consult AND supplements 6) Fatigue secondary to anemia and metastatic prostate cancer Plan: - discussed possible treatment options if he still has fatigue next month. - physical therapy evaluation in [place] Advance Care Planning: I did not discuss Advance Care Planning at this visit, I plan to discuss this at a future visit. Next Visit: 4 Weeks SIGNATURE: Rio Spence MD PATIENT NAME: Manisha Dangelo DATE: September 06, 2018 TIME: 2:17 PM PAGER/CONTACT #: Cc; Dr. Wallace Spence MD 09/06/2018 2:36 PM Signed Stop Aspirin AND continue Casodex 50mg once daily. Kelly Coates LPN 09/06/2018 3:10 PM Signed Lupron injection administered right buttocks, tolerated well, no immediate adverse reactions noted. Kelly Coates LPN Referring Provider: RIO SPENCE [[id number]] Allergies As of Date: 09/06/2018 (No Known Allergies) Date Reviewed: 09/06/2018 Reviewed by: Loreto Leavitt (Regional Safety Manager) MARIO Crockett - Fully Assessed Reason for Visit: Consult [[id number]] Primary Visit Diagnosis:Prostate cancer (HCC) [C61] Other Visit Diagnoses:Bone metastasis (HCC) [C79.51] Anemia, unspecified type [D64.9] Thrombocytopenia (HCC) [D69.6] Family history of prostate cancer [Z80.42] Order(s):SCOTTY ABS GRAN CT + CBC [SQWAGCBC] Order #: [id number] FUTURE COMP METABOLIC PANEL [SQCMP] Order #: [id number] FUTURE LD LACTATE DEHYDRO [SQLD6] Order #: [id number] FUTURE PSA/PROSTSPECAG DIAG [SQPSA] Order #: [id number] FUTURE HEP C AB IA BLOOD [SQAHCV] Order #: [id number] FUTURE omeprazole (PRILOSEC) 20 mg capsuleTake 1 capsule by mouth once daily.Disp: 30 capsuleRfl: 2 promethazine (PHENERGAN) 25 mg tabletTake 1 tablet by mouth every 6 hours as needed. Every 6 hoursDisp: 30 tabletRfl: 1 HYDROcodone-acetaminophen (NORCO) 5-325 mg per tabletTake 1 tablet by mouth every 6 hours as needed for up to 14 days.Disp: 50 tabletRfl: 0 [] leuprolide 30 mg injection (LUPRON DEPOT)Disp: Rfl: CONSULT TO GENETIC COUNSELING [[id number]] Order #: [id number]: 1 iron polysaccharide complex (FERREX 150) 150 mg iron capsuleTake 1 capsule by mouth twice daily.Disp: 60 capsuleRfl: 2 TREATMENT PARAMETER-NOT NEEDED [[id number]] Order #: [id number]: 1 Level of Service: NEW PATIENT VISIT LEVEL 5 [[id number]] Disposition: Return in about 4 weeks (around 10/03/2018). Follow-up and Disposition History Recorded Prescriptions as of 09/06/2018 Sig: BICALUTAMIDE 50 MG TABLET 1 tablet once daily. PROMETHAZINE 25 MG TABLET Take 1 tablet by mouth every * TAMSULOSIN 0.4 MG CAPSULE Take 0.4 mg by mouth once tricia* HYDROCODONE 5 MG-ACETAMINOPHE* Take 1 tablet by mouth every * POLYSACCHARIDE IRON COMPLEX 1* Take 1 capsule by mouth twice* OMEPRAZOLE 20 MG CAPSULE,BUTCH* Take 1 capsule by mouth once * Medication notes this encounter CLOBETASOL 0.05 % TOPICAL OINTMENT >> Loreto Crockett LPN, MARIO 09/06/2018 1:53 PM >> DROCORRINA [facility] Sep 06, 2018 1:53 PM discontinued TOPICORT 0.25 % TOPICAL CREAM >> Loreto Crockett LPN, [facility] 09/06/2018 1:53 PM >> DROCORRINA [facility] [place] Sep 06, 2018 1:53 PM discontinued WESTCORT 0.2 % TOPICAL CREAM >> Loreto Crockett LPN, [employer] 09/06/2018 1:54 PM >> DROUHDONOVAN [facility] Sep 06, 2018 1:54 PM discontinued MULTIVITAMIN TABLET >> Loreto Crockett LPN, [facility] 09/06/2018 1:53 PM >> BOLA [facility] Sep 06, 2018 1:53 PM discontinued VITAMIN C 500 MG TABLET >> Loreto Crockett LPN, [facility] 09/06/2018 1:54 PM >> DROCORRINA [facility] Sep 06, 2018 1:54 PM discontinued Problem List As Of Date 09/06/2018 Noted Resolved 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 Visit Notes: >> Loreto Leavitt (Mario) MARIO Crockett [facility] Sep 06, 2018 1:56 PM Status: Signed New patient, discuss recent DX: metastatic prostate cancer Loreto Crockett LPN >> Kelly Coates LPN [facility] Sep 06, 2018 3:04 PM Status: Signed Lupron injection administered right buttocks, tolerated well, no immediate adverse reactions noted. Kelly Coates LPN Encounter Status:Closed by RIO SPENCE MD on 09/07/18 HOSP Observed: 09/06/2018 Status: COMPLETED Source: [place] 12:00 AM [facility] REPOSITORY Patient:aMnisha Dangelo MRN: <[id number]> Height:5' 9.25[verified [(1.759 m) Weight:189 lb (85.73 kg) Outpatient Medications as of 10/03/18: predniSONE (DELTASONE) 5 mg tablet HYDROcodone-acetaminophen (NORCO) 5-325 mg per tablet promethazine (PHENERGAN) 25 mg tablet tamsulosin ER (FLOMAX) 0.4 mg cap omeprazole (PRILOSEC) 20 mg capsule iron polysaccharide complex (FERREX 150) 150 mg iron capsule Admission/Clinic Administered Medications as of 10/03/18: lactated ringers infusion Problem List: 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] Actinic keratosis [L57.0] 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 Not eating well. bx Monday MARIO Hilton MD 10/02/2018 9:55 AM Signed Hematology and Medical Oncology PATIENT NAME: Manisha Dangelo. CLINIC NO: [id number]. ATTENDING PHYSICIAN: Rio Spence MD. DATE OF SERVICE:10/01/2018. DIAGNOSIS: metastatic prostate cancer, with extensive bone metastasis, anemia and thrombocytopenia PERFORMANCE STATUS:80% HPI: This is a 73-year-old gentleman who has history of chronic lower back pain presented with weight loss and abdominal pain for couple months. Patient also presented with increased fatigue for the last 6 months. In the emergency room, he has a moderate anemia and thrombocytopenia along with alkaline phosphatase elevation. Ultrasound of the gallbladder showed no abnormality. He had a subsequent CT scan of chest abdomen pelvis which show mild bilateral renal atrophy with bilateral nonobstructing renal stones. Mild blastic metastatic disease seen in bone. CT chest showed right axillary and right infraclavicular and mediastinal adenopathy. No lung primary. ? Subsequent bone scan also showed multiple bone metastasis throughout the axial appendicular skeleton. His PSA was elevated over 400. A biopsy of the prostate and axillary lymph node was performed in the hospital. Patient has noted increased bleeding symptoms since he was discharged home on aspirin. He still have upper abdominal pain 3/10. worse with activity, better when laying still. He has some heartburn but no history of peptic ulcer disease. He has chronic lower back pain with all sciatica. He also has nausea along with his abdominal pain. Patient was started on Casodex 50mg once daily last week. ? he has no history of blood transfusion, no history of liver disease or hepatitis. He has a history of renal insufficiency with a baseline creatinine was 1.5 before his last hospitalization. he has lost over 30 pounds in the last 3 months but has gained 10 pounds since last month. he has follow with Dr. Micky Reddy for his superficial bladder cancer for over 7 years. His PSA in September 2017 was 4.0. ? current treatment: Lupron interim history: Patient still complained of weakness, fatigue and bone pain. He started Lupron last month and his platelet count has improved although patient has worsening anemia. Patient denied chest pain or shortness of breath. No fever or chills or night sweats. His appetite is significantly decreased since last month, along with progressive weight loss. He denied nausea or vomiting. He denies any difficulty with urination, or hematuria. No hot flashes or neuropathy. MEDICATIONS: Current Outpatient Prescriptions: HYDROcodone-acetaminophen (NORCO) 5-325 mg per tablet Take 1 tablet by mouth every 6 hours as needed for up to 14 days.Earliest Fill Date: 09/27/18 promethazine (PHENERGAN) 25 mg tablet TAKE ONE TABLET BY MOUTH EVERY 6 HOURS NEEDED tamsulosin ER (FLOMAX) 0.4 mg cap Take 0.4 mg by mouth once daily. omeprazole (PRILOSEC) 20 mg capsule Take 1 capsule by mouth once daily. iron polysaccharide complex (FERREX 150) 150 mg iron capsule Take 1 capsule by mouth twice daily. predniSONE (DELTASONE) 5 mg tablet Take 1 tablet by mouth once daily. No current facility-administered medications for this visit. . ALLERGIES:ALLERGIES No Known Allergies. PAST MEDICAL HISTORY: PAST MEDICAL HISTORY Diagnosis Date - Cancer, metastatic to bone (HCC) - Eczema - Prostate cancer (HCC) - Psoriasis . PAST SURGICAL HISTORY: PAST SURGICAL HISTORY Procedure Laterality Date - PAST SURGICAL HISTORY OF cyst removed from back neck. . FAMILY HISTORY: FAMILY HISTORY Problem Relation Age of Onset - Cancer Mother pancreatic - Stroke Father - Diabetes Father - Cancer Sister ovarian - Cancer Brother prostate cancer - Thyroid Brother - Cancer Brother prostate cancer - Cancer Brother lung cancer - Diabetes Brother - Diabetes Brother . SOCIAL HISTORY:Social History Marital status: Spouse name: Years of education: Number of children: Social History Main Topics Smoking status: Former Smoker Packs/day: 0.00 Years: 0.00 Smokeless tobacco: Never Used Comment: not smoked for 5 months. Alcohol use: Yes Comment: seldom Drug use: No . REVIEW OF SYSTEMS: CONSTITUTIONAL: No fevers, chills, nightsweats, + unintended weight loss HEENT: Denies frequent or severe heaches, nasal congestion/sinus symptoms, problematic allergy problems. EYES: No diplopia or blurry vision. CARDIOVASCULAR: No chest pain, dyspnea, palpitations, orthopnea, PND, ankle edema. PULM: No dyspnea, unexplained cough. GI: No dysphagia/odynophagia, problematic reflux, constipation, diarrhea, changes in stool habits, hematochezia, melena. : No new urinary complaints, including dysuria, gross hematuria or pyuria. NEURO: No new balance problems, peripheral weakness/paresthesias or numbness of concern. MUSC-SKEL: No new joint pain, swelling, or erythema. PSY: No concerns regarding depression, anxiety or panic. INTEGUMENTARY: No new skin changes (rash, new or changing mole, new growth) PHYSICAL EXAMINATION: 73-year-old well-nourished well-developed gentleman in no acute distress There were no vitals taken for this visit. HEENT: Head is normocephalic, atraumatic. Sclerae white, conjunctivae pink. PEERL. EOMs are intact. Oropharynx is benign. LYMPHATICS: There is no palpable adenopathy in the neck, supraclavicular region, axillae, or groin. LUNGS: Lungs are clear to percussion and auscultation. HEART: Heart is normal without murmurs, gallops, or rubs. ABDOMEN: Soft and nontender without organomegaly. No masses can be palpated. EXTREMITIES: Are without edema. NEUROLOGIC: Exam is physiologic LABORATORY DATA: Component Latest Ref Rng AND Units 09/27/2018 10/01/2018 WBC, [place] 3.70 - 11.00 k/uL 9.37 6.86 RBC, [place] 4.20 - 6.00 m/uL 3.01 (L) 2.86 (L) Hemoglobin, [place] 13.0 - 17.0 g/dL 8.6 (L) 8.1 (L) Hematocrit, [place] 39.0 - 51.0 % 27.5 (L) 26.0 (L) MCV, [place] 80.0 - 100.0 fL 91.4 90.9 MCH, [place] 26.0 - 34.0 pg 28.6 28.3 MCHC, [place] 30.5 - 36.0 g/dL 31.3 31.2 RDW, [place] 11.5 - 15.0 % 15.7 (H) 15.9 (H) Platelet Cnt, [place] 150 - 400 k/uL 94 (L) 82 (L) MPV, [place] 9.0 - 12.7 fL 10.5 10.6 Absol Gran Count 1.45 - 7.50 k/uL 5.59 4.33 Absolute nRBC <0.01 k/uL Preliminary result. Interpret with caution. Final results may vary. Results . . . Preliminary result. Interpret with caution. Final results may vary. Results . . . Component Latest Ref Rng AND Units 10/01/2018 Protein, Total 6.3 - 8.0 g/dL 6.7 Albumin 3.9 - 4.9 g/dL 3.8 (L) Calcium 8.5 - 10.2 mg/dL 9.0 Bilirubin, Total 0.2 - 1.3 mg/dL 0.6 Alkaline Phosphatase 38 - 113 U/L 9 (L) AST 14 - 40 U/L 15 Glucose 74 - 99 mg/dL 111 (H) BUN 9 - 24 mg/dL 17 Creatinine 0.73 - 1.22 mg/dL 1.40 (H) Sodium 136 - 144 mmol/L 137 Potassium 3.7 - 5.1 mmol/L 3.7 Chloride 97 - 105 mmol/L 103 CO2 22 - 30 mmol/L 24 Anion Gap 9 - 18 mmol/L 10 ALT 10 - 54 U/L 10 eGFR- 60 eGFR-All Other Races . 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 - bone pain and anorexia secondary to metastatic prostate cancer PLAN: - Proceed with bone marrow biopsy this week for further evaluation of the anemia and thrombocytopenia. - We discussed possible chemotherapy treatment for his hormone refractory prostate cancer. - Repeat PSA, testosterone, LDH, CBC, BMP OV in one week to discuss treatment option. Risk and indication of bone marrow biopsy discussed with patient today. Consent was signed last month. I spent 25 minutes in the visit, with more than 50% of the total [id number] time of the visit in counseling / coordination of care. Rio Spence MD. ELECTRONICALLY SIGNED Cc: Dr. Natalee Boyd Progress Notes ([facility] / [facility]): Rio Spence MD 09/27/2018 11:10 AM Signed CBC today AND possible T AND C for transfusion? MD Kelly Lu LPN 09/27/2018 11:15 AM Signed Patient aware. Kelly Crockett LPN, MARIO 09/27/2018 11:49 AM Signed Pt. Does not need transfusion, Dr. Spence wants pt. To start Iron 325 mg BID, Pt. Notified, voiced understanding Loreto Crockett LPN CNPN Observed: 09/03/2018 Status: COMPLETED Source: [place] 12:00 AM [facility] REPOSITORY Telephone (MIQ) MANISHA DANGELO ([id number]) 1945 M [facility] Date Time Provider Department 09/03/18 RIO SPENCE MIHarry During your visit today, we recorded the following information about you: Sarai Anderson 09/03/2018 8:45 AM Signed Patient called in and is requesting an appointment with Dr Spence as New patient. Stated that he saw Dr Spence at [facility] and that he will take him on as a patient (Dr Spence see's his also) patient stated that he was diagnosed with prostate cancer from [facility] and that they were sending the info over. Patient would like an appointment this week (pt stated per Dr Spence) an afternoon time any day except Monday. Please call patient at [phone] may leave a message with day and time. Martha Sy Psr 09/03/2018 10:35 AM Signed Please advise what patient is being seen for so we are able to schedule. Rio Spence MD 09/03/2018 11:14 AM Signed Please get medical records from [facility]. I will see him either on Monday or Monday morning. He will need to start LUPRON 30mg IM as soon as his prostate cancer is confirmed. These call the hospital for pathology report. MD Martha Lu Psr 09/03/2018 4:27 PM Signed Scheduled. Kelly Coates LPN 09/04/2018 8:[address] Spence would like to know if the patient could come in today or tomorrow. Kelly Sy Psr 09/04/2018 8:43 AM Signed Patient refused. Allergies As of Date: 09/03/2018 (No Known Allergies) Date Reviewed: 08/08/2007 Reviewed by: Shelley Field Lpn - Reviewed Reason for Visit: New Pateint [Other] Prescriptions as of 09/03/2018 Sig: CLOBETASOL 0.05 % TOPICAL OIN* Apply to affected patch lesio* TOPICORT 0.25 % TOPICAL CREAM Apply to spots of rash selec* ECOTRIN LOW STRENGTH 81 MG TA* Take one (1) tablet daily. WESTCORT 0.2 % TOPICAL CREAM Apply to rash lesions on face* MULTIVITAMIN TABLET Take one(1) tablet daily. VITAMIN C 500 MG TABLET Take one(1) tablet daily. 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] INVALID FOR* ACTINIC KERATOSIS [L57.0] INVALID FOR* CHR SOLAR SKIN DAMAGE NOS [L57.8] INVALID FOR* DERMATITIS NOS [L25.9] INVALID FOR* OTHER PSORIASIS [L40.8] INVALID FOR* XEROSIS///SEBACEOUS GLAND DIS NEC [L73.8] INVALID FOR* SOLAR LENGINES///DYSCHROMIA OTHER [L81.9] INVALID FOR* Encounter Status:Closed by SARAI ANDERSON on 09/03/18 DISCHARGE SUMMARY Observed: 09/01/2018 Status: F Source: [place] 5:43 PM [facility] [place] [facility] Medical Records Department [address] [place] [address] Discharge Summary 09/01/18 1659 MR#: [id number] Acct: [id number] Name: MANISHA DANGELO Rep #: [id number] : 1945 73 From: Toño Esqueda DO PCP: Natalee Lynn Status: DIS IN Y [place] [facility] [id number] ADDENDUM by Toño Esqueda DO on 09/01/18 at 1743 Code Visit Additional discharge diagnosis: #7 chronic kidney disease stage III-etiology unknown 09/01/18 1743 <Electronically signed by Toño Esqueda DO> Date Toño Esqueda DO cc: Toño Esqueda DO; Natalee Lynn * Signed Discharge Date and Diagnosis Date of Admission: 08/27/18 Date of Discharge: 08/31/18 - Primary Discharge Diagnosis #1 Pancytopenia with marked thrombocytopenia-etiology unclear at this point, felt probably to be secondary to metastatic prostate cancer #2 elevated PSA indicative of probable prostate cancer-with probable widespread metastatic bone disease #3 abdominal pain-etiology unclear #4 elevated alkaline phosphatase-probably secondary to metastatic bone disease from prostate cancer #5 weight loss over the past 5 weeks of 20-30 pounds-secondary to metastatic prostate cancer and possible undiagnosed lymphoma #6 widespread lymphadenopathy possibly secondary to metastatic prostate cancer or undiagnosed lymphoma - Secondary Discharge Diagnosis Chronic Problems History of bladder cancer (Chronic) Hospital Course and Treatment Operations: None Procedures: Blood transfusion - Platelet transfusion, - - Right axillary lymph node CT-guided needle biopsy, prostate biopsy, radionucleotide bone scan Summary of Care Provided: The patient is a 73 year old M who was seen in the emergency room at [facility] with chief complaint of weight loss over the past 6-8 weeks which he describes as 20-30 pounds, mid abdominal pain which has been intermittent over the last 4 weeks, and recently diagnosed hiatal hernia with reflux. Patient had seen his physician in [place], a CT scan of the abdomen was performed early in July 2018 which showed hiatal hernia, and umbilical hernia, but no gross pathology in the abdomen. He had seen his PCP with complaints of mid abdominal discomfort and weight loss. Patient had been referred to a surgeon in [place] and had been scheduled to have a HIDA scan but came to the emergency room here for evaluation due to persistent mid abdominal discomfort. Labs obtained in the emergency room showed a white count of 5000, hemoglobin was 13, platelet count was low at 34,000. Patient's BUN was elevated at 43, creatinine was 1.97. It was noted in the emergency room dictation that the patient's last creatinine was 1.5, his last platelet count was noted to be normal-last CBC had been done in October 2017. Patient was admitted to [place] [address], he was seen in consultation by oncology, subsequent labs revealed an elevated PSA and decreasing platelet count. Patient had no episodes of bleeding however, he was seen in consultation by general surgery who declined to perform any endoscopy procedures owing to his low platelet count. Patient's abdominal CT was repeated, it did not show any pathology in the abdomen and so the etiology of the patient's complaints of abdominal pain was unknown but his abdominal pain improved during his hospital stay. Patient did undergo a prostate biopsy and was given a platelet transfusion before this biopsy and due to an abnormal chest CT which showed lymphadenopathy in the chest and right axillary area, patient underwent a right axillary lymph node CT-guided biopsy also. At the direction of oncology, patient was placed on high-dose dexamethasone in case the thrombocytopenia was due to undiagnosed ITP. Finally, patient was placed on Casodex at the instruction of oncology. On 08/31/18, patient was seen and examined: On examination he appeared in good health and spirits. Vital signs as documented. Skin warm and dry and without overt rashes. Neck without JVD. Lungs clear. Heart exam notable for regular rhythm, normal sounds and absence of murmurs, rubs or gallops. Abdomen unremarkable and without evidence of organomegaly, masses, or abdominal aortic enlargement. Extremities nonedematous. Neuro: Cranial nerves II through XII are grossly intact, no focal motor deficits were noted. Psych: Patient is alert and oriented x3, he does not appear anxious or depressed. On 08/31/18, patient was seen and examined and felt to be stable for discharge home, he had decided to follow-up with Dr. Spence who sees his presently for her medical problems. - Physical Exam Vital Signs Temp Pulse Resp BP Pulse Ox 97.5 F L 84 18 140/65 H 98 08/31/18 14:55 08/31/18 14:55 08/31/18 14:55 08/31/18 14:55 08/31/18 14:55 Oxygen Flow Rate (L/min) [1 ( 97 Initial Baseline)] Oxygen Flow Rate (L/min) 2 Oxygen Delivery Method [4] Room Air Oxygen Delivery Method [3] Room Air Oxygen Delivery Method [2] Room Air Oxygen Delivery Method [1 ( Room Air Initial Baseline)] Oxygen Delivery Method Room Air Weight: 81 kg Body Mass Index (BMI) 25.6 Intake and Output for Last 24 Hours Intake Total 3155 / 3155 1891 / 189 Balance 3155 / 3155 1891 / 1891 Discharge Activity: Return to Normal Activity Weight Bearing Status: Full weight bearing Home Medications: Medications to take at Discharge Aspirin [Aspirin EC] 81 mg PO DAILY 08/28/18 Tamsulosin HCl [Flomax] 0.4 mg PO DAILY 08/28/18 Bicalutamide [Casodex] 50 mg PO DAILY 08/29/18 Dexamethasone [Decadron] 40 mg PO DAILY@0800 #20 tablet 08/31/18 Tamsulosin HCl [Flomax] 0.4 mg PO DAILY@1730 capsule 08/31/18 proMETHazine tablet [Phenergan tablet] 25 mg PO Q6H PRN PRN #40 tablet 08/31/18 Following Prescrptions Were Given to Patient: proMETHazine tablet [Phenergan tablet] 25 mg PO Q6H PRN PRN #40 tablet PRN Reason: Nausea Dexamethasone [Decadron] 40 mg PO DAILY@0800 #20 tablet Primary Care Physician: Natalee Lynn [Primary Care Provider] - Please follow up with your Primary Care Physician in: in 2- 3 weeks Please Follow Up With: Rio Spence MD When: next week Disposition: Home Minutes spent on discharge:: 32 Patient Condition:: Stable Medical Necessity - Tobacco Use Smoking Status: Former smoker Tobacco Use: Pipe Meaningful Use Info Meaningful Use Diagnoses (Choose all that apply): None applicable Code Visit Inpatient E AND M: 54843 Disch Hosp 09/01/18 6124 <Electronically signed by Toño Esqueda DO> Date Toño Esqueda DO Cosigner Signature (if applicable): Date CC: Toño Esqueda DO; Natalee Lynn Signed DISCHARGE INSTRUCTION Observed: 08/31/2018 Status: F Source: [place] 4:51 PM [facility] Medical Records Department [address] [place] [address] Instructions for Home/Discharge Instructions 08/31/18 1650 MR#: [id number] Acct: [id number] Name: MANISHA DANGELO Rep #: [id number] : 1945 73 From: Toño Esqueda DO PCP: Natalee Lynn Status: ADM IN - Discharge Diagnoses Current Active Problems: Current Active and Chronic Problems Weight loss (Acute) History of bladder cancer (Chronic) Abdominal pain (Acute) Nausea (Acute) Anorexia (Acute) Thrombocytopenia (Acute) Prostate cancer (Acute) Elevated PSA, greater than or equal to 20 ng/ml (Acute) Elevated alkaline phosphatase level (Acute) You will use the following diet at home:: No restrictions Your food should be the consistency of: Regular Your liquids should be the consistency of: Regular/Thin Discharge Activity: Return to Normal Activity Weight Bearing Status: Full weight bearing Allergies/Adverse Reactions: Allergies No Known Allergies Allergy (Verified 08/27/18 20:00) Medications to take at Discharge Aspirin [Aspirin EC] 81 mg PO DAILY 08/28/18 Tamsulosin HCl [Flomax] 0.4 mg PO DAILY 08/28/18 Bicalutamide [Casodex] 50 mg PO DAILY 08/29/18 Dexamethasone [Decadron] 40 mg PO DAILY@0800 #20 tablet 08/31/18 Tamsulosin HCl [Flomax] 0.4 mg PO DAILY@1730 capsule 08/31/18 proMETHazine tablet [Phenergan tablet] 25 mg PO Q6H PRN PRN #40 tablet 08/31/18 The following prescriptions were given: proMETHazine tablet [Phenergan tablet] 25 mg PO Q6H PRN PRN #40 tablet PRN Reason: Nausea Dexamethasone [Decadron] 40 mg PO DAILY@0800 #20 tablet Primary Care Physician: Natalee Lynn [Primary Care Provider] - Please follow up with your Primary Care Physician in: in 2- 3 weeks Test Results: Test results from this visit will be discussed in further detail at your follow-up appointment, if applicable. Please Follow Up With: Rio Spence MD When: next week 08/31/18 1651 <Electronically signed by Toño Esqueda DO> Date Toño Esqueda DO CC: Austin Lobo MD; Ry Chester MD; Iza Downing MD; Natalee Lynn BIOPSY/INJ OR NEEDLE Observed: 08/31/2018 Status: F Source: SCOTTY PLACEMENT 1:16 PM [facility] Imaging Services [address] [place] [address] Biopsy/Inj or Needle Placement MR#: [id number] Acct: [id number] Name: MANISHA DANGELO Rep #: [id number] : 1945 M 73 From: Maciel Reeder MD PCP: Natalee Lynn Status: ADM IN Study: Biopsy/Inj or Needle Placement Date of Exam: 08/31/18 Exam# [id number] Ordering Dr: Toño Esqueda DO PROCEDURE: CT GUIDED biopsy of the right axillary mass. DATE: August 31, 2018. INDICATION: Male, 73 years old. Patient with right axillary mass. PHYSICIAN: Maciel Reeder M.D. RADIATION DOSAGE (If Supplied By Facility): CTDIvol = ( 18.3 ) mGy, DLP = ( 547.97 ) mGycm. Individualized dose optimization techniques were utilized. PROCEDURE: The risks, benefits, and alternatives to the procedure were explained to the patient. The specific risk of hemorrhage requiring further treatment or intervention was detailed and accepted. Follow-up instructions were discussed with the patient as well. Written informed consent was obtained. The patient was brought into the CT suite and placed in the supine position. . An appropriate entry site was identified. The overlying skin was prepped and draped in the usual sterile fashion. 1% lidocaine was administered subcutaneously for local anesthesia. Conscious sedation was performed. The patient received 1 mg of Versed and 25 mcg of fentanyl intravenously. Conscious sedation was started at 1341 and terminated at 1357. The patient was independently monitored by the department nurse. Under CT guidance, a total of 4 passes were performed 18-gauge core biopsy needle. The specimens were then placed in the appropriate fluid and transported to the laboratory for analysis. Hemostasis was obtained. The patient tolerated the procedure well without immediate complications. CT/Biopsy/Inj or Needle Placement IMPRESSION: Successful CT guided biopsy of the right axillary mass, as described above. Electronically Signed: Maciel Reeder MD at 14:31 EST Tel [phone], Service support , CC: Toño Esqueda DO; Natalee Lynn Melter Supervisor [employer]ace: Signed OPERATIVE REPORT Observed: 08/31/2018 Status: F Source: [place] 11:45 AM [facility] Medical Records Department [address] [place] [address] Operative Report 08/31/18 1142 MR#: [id number] Acct: [id number] Name: MANISHA DANGELO Rep #: [id number] : 1945 73 From: Ry Chester MD PCP: NATALEE LYNN Status: ADM IN [place] [facility] [place]838-5 Problem List (1) Elevated PSA Status: Acute Report of Operation Date of Procedure: 08/31/18 Pre-Operative Diagnosis: Elevated PSA and hard right prostate nodule Post-Operative Diagnosis: Same Surgery/Procedure Performed:: Transrectal ultrasound-guided biopsy of the prostate, ultrasonography of the prostate Description of Surgical Findings:: 73-year-old male was found to have a PSA of 440 presented to the hospital with overall malaise, abdominal pain, positive bone scan with metastatic disease, on exam of the prostate he has a hard nodule on the right side of the prostate. Today presents for prostate biopsy to confirm the suspicious of prostate cancer and suspect that he may have metastatic prostate cancer. 73-year-old male taken back to the operating room, after smooth induction of anesthesia he was placed in dorsolithotomy position, I then introduced an ultrasound probe into the rectum and measure the prostate prostate was normal in size, I performed a examination of the prostate he did have a hard nodule on the right side of the prostate. Prostate measurement was probably about 30 g. On ultrasonography of the prostate little bit of transition zone calcifications which was normal but he did have a dark hypoechoic lesion in the right base of the prostate corresponding to the right hard nodule on exam. We then did a biopsy of the right base, right mid, right apex. I then did a biopsy of the left base, left mid, left apex. Held pressure and there was no significant bleeding. Patient was then taken back to the PACU in good condition. I suspect he has metastatic prostate cancer will need to be started on hormone deprivation therapy as soon as the tissue results are back and come the office to start that when he is discharged in the hospital my office with an injection in the office. Type of Anesthesia:: General Drains: none - Admit VTE Documentation VTE Present on Admission: No VTE Mechan Device Prophylaxis: SCD's 08/31/18 1145 <Electronically signed by Ry Chester MD> Date Ry Chester MD CC: Austin Lobo MD; Ry Chester MD; Iza Downing MD; NATALEE LYNN Signed INTRAOPERATIVE ULTRASOUND Observed: 08/31/2018 Status: F Source: SCOTTY 8:22 AM [facility] Imaging Services [address] [place] [address] Intraoperative Ultrasound MR#: [id number] Acct: [id number] Name: MANISHA DANGELO Rep #: [id number] : 1945 M 73 From: Maciel Reeder MD PCP: Natalee Lynn Status: DIS IN Study: Intraoperative Ultrasound Date of Exam: 08/31/18 Exam# [id number] Ordering Dr: Ry Chester MD PROCEDURES: TRANSRECTAL ULTRASOUND GUIDED - PROSTATE REASON FOR EXAM: Male, 73 years old. Elevated PSA. TECHNIQUE: Ultrasound evaluation of the prostate was performed with real-time and static ugarte-scale imaging. BIOPSY: A needle core biopsy was perform. A consent form was signed, PT-PTT levels checked and a time-out was called. The patient is currently off any anticoagulant therapy. Cleansing enema: Yes COMPARISON: None. FINDINGS: PSA: 455 Prostate Volume: 21.0 cm3 Under direct sonographic guidance, the urologist perform a biopsy of the right and left lobes of the prostate. US/Intraoperative Ultrasound IMPRESSION: Ultrasound guided prostate biopsy. Electronically Signed: Maciel Reeder MD at 8:32 EST Tel [phone], Service support , CC: Ry Chester MD; Natalee Lynn Melter Supervisor [employer] Furnace: Signed CBC W/DIFF, AUTOMATED Collected: 08/31/2018 Status: C Source: [place] 5:35 AM [facility] [place] Order Comment: Comments: at 0500 TYPE CODE TESTS RESULT OUT OF RANGE REFERENCE UNITS LAB L100.1000 4.4-11.0 K/mm3 Normal WBC 5.1 LAB L100.1200 4.6-6.2 M/mm3 Low RBC 3.72 LAB L100.1300 13.0-16.5 g/dl Low HGB 10.8 LAB L100.1400 40-54 % Low HCT 31.3 LAB L100.1500 80-94 fL Normal MCV 84.1 LAB L100.1600 27.0-32.0 pg Normal MCH 29.0 LAB L100.1700 32-36 g/gl Normal MCHC 34.5 LAB L100.1810 11.6-14.6 % Normal RDW CV 12.6 LAB L100.1820 35.1-43.9 fl Normal RDW SD 38.7 LAB L100.1900 150-450 K/mm3 Low alert PLT 26 Result Comment: CRITICAL VALUE VERIFIED. CALLED TO GABO VALDES 08/31/18 0648 Bina Mendenhall. RESULTS READ BACK BY SAME . LAB L100.2000 6.2-12.0 fl High MPV 12.1 LAB L100.2100 47-70 % Normal NEUT% 57.9 LAB L100.2200 19-41 % Normal LY% 34.1 LAB L100.2300 0-10 % Normal MONO% 4.6 LAB L100.2400 0-5 % Normal EO% 1.2 LAB L100.2500 0-1 % Normal BASO% 0.6 LAB L100.2550 0.0-0.9 % High IM 1.600 GRAN % Result Comment: IG% - Immature Granulocytes (promyelocytes, myelocytes and metamyelocytes) > 1% indicates that a LEFT SHIFT is Present. LAB L100.2620 2.0-7.7 X10 3/uL Normal Absolute Neut 2.9 LAB L100.2720 0.83-4.51 X10 3/ul Normal Absolute Lymph 1.72 LAB L100.4500 Normal SMEAR COMMENT SCAN LAB L100.5500 ADEQ Normal PLT EST MKD DEC LAB L100.9900 Normal PATH REV Reviewed Result Comment: Thrombocytopenia. Normocytic anemia. Clinical correlation necessary. James Gandhi M.D. 08/31/18 AMENDED REPORT 08/31/18 1410 PATH REV previously reported as: January brenda Performed By: #### L100.0100 #### [facility] [address] [place], [address] PROSTATE BIOPSY Observed: 08/31/2018 Status: F Source: IN[place]ALLS BILATERAL 12:00 AM [facility] [place] [facility] Patient: MANISHA DANGELO : 1945 (73/M) Acct Num: [id number] Phys: Toño Esqueda DO Unit Num: [id number] Loc: MS2 [id number] Specimen: [id number] Received: 08/31/18 - 1332 Spec Type: PROST BX TISSUES 1 TISSUES: A. PROSTATE RIGHT - BASE B. PROSTATE RIGHT - MID C. PROSTATE RIGHT - APEX D. PROSTATE LEFT - BASE E. PROSTATE LEFT - MID F. PROSTATE LEFT - APEX COMMENT Case has been reviewed in consultation with Dr. Gandhi who concurs with the above diagnosis. IDC:SJ GROSS DESCRIPTION A - Received is one container designated prostate, right base. The specimen consists of one elongated fragment of light curiel-white soft tissue measuring 1.2 cm in length and 0.1 cm in diameter. The specimen is totally submitted in one cassette. B - Received is one container designated prostate, right mid. The specimen consists of two elongated fragments of light curiel-white soft tissue measuring 0.5 and 1.5 cm in length and 0.1 cm in diameter. The specimen is totally submitted in one cassette. C - Received is one container designated prostate, right apex. The specimen consists of one elongated fragment of light curiel-white soft tissue measuring 1.5 cm in length and 0.1 cm in diameter. The specimen is totally submitted in one cassette. D - Received is one container designated prostate, left base. The specimen consists of one elongated fragment of light curiel-white soft tissue measuring 1.5 cm in length and 0.1 cm in diameter. The specimen is totally submitted in one cassette. E - Received is one container designated prostate, left mid. The specimen consists of one elongated fragment of light curiel-white soft tissue measuring 1.5 cm in length and 0.1 cm in diameter. The specimen is totally submitted in one cassette. F - Received is one container designated prostate, left apex. The specimen consists of one elongated fragment of light curiel-white soft tissue measuring 1 cm in length and 0.1 cm in diameter. The specimen is totally submitted in one cassette. / SJ:rg 08/31/18 TC:0 CPT: G0146 HEADER OPERATION: Ultrasound-guided prostate biopsy PRE-OP DIAGNOSIS: Elevated PSA TISSUE SUBMITTED: A - Right base, B - Right mid, C - Right apex, D - Left base, E - Left mid, F - Left apex MICROSCOPIC DESCRIPTION Slides are reviewed. MICROSCOPIC DIAGNOSIS A. Right prostate, base, core biopsy: Adenocarcinoma: Brenna grade: 8 (4+4) Cores involved: 1 out of 1 Tissue involved: 30% Greatest tumor length: 2.5 mm Perineural invasion: Positive B. Right prostate, mid, core biopsy: Adenocarcinoma: Brenna grade: 8 (4+4) Cores involved: 2 out of 2 Tissue involved: 90% Greatest tumor length: 5 mm Perineural invasion: Positive C. Right prostate, apex, core biopsy: Adenocarcinoma: Killdeer grade: 9 (4+5) Cores involved: 1 out of 1 Tissue involved: 90% Greatest tumor length: 8 mm Perineural invasion: Positive D. Left prostate, base, core biopsy: Mild chronic inflammation. E. Left prostate, mid, core biopsy: Mild chronic inflammation. F. Left prostate, apex, core biopsy: Mild chronic prostatitis. AM:rg 09/03/18 PSA RESULTS 1 Date Time Test Result Flag (u) Normal Range 08/28/18 1515 PSA, DIAGNOSTIC 455.00 H 0.0-4.0 ng/mL 1 This test was performed using the TPSA assay method for the [employer] chemistry system. Values obtained with different assay methods cannot be used interchangably. When changing PSA assays in the course of monitoring a patient, additional sequential testing should be carried out to confirm baseline values. Signed Isaac Franklin 09/03/18 <signature on file> Performed By: #### PPROSBIL #### [facility] [address] [place], [address] ASP RADIOLOGY (TISSUE) Observed: 08/31/2018 Status: F Source: [place] 12:00 AM [facility] [place] [facility] Patient: MANISHA DANGELO : 1945 (73/M) Acct Num: [id number] Phys: Toño Esqueda DO Unit Num: [id number] Loc: MS2 [id number] Specimen: [id number] Received: 08/31/18 - 1416 Spec Type: ASP RAD TISSUES 1 TISSUES: Axillary lymph node, NOS COMMENT The specimen is evaluated at the time of CT by Dr. Gandhi. Immediate Evaluation = Malignant cells present. Immunohistochemistry ([id number]) supports the above diagnosis and favors lung primary. Please make reference to concurrent additional specimen, prostate biopsies ([id number]), right prostate base, right prostate mid and right prostate apex, core biopsies with diagnosis of adenocarcinoma. Molecular studies on the tumor can be performed, if clinically indicated. Please notify the laboratory, if they are needed. Correlation with clinical, radiologic findings and appropriate follow up are necessary. Case has been reviewed in consultation with Dr. Reid who concurs with the above diagnosis. IDC:AM GROSS DESCRIPTION Received in fixative is one container labeled with the patient's name and designated right axillary lymph node, CT-guided core biopsy. The specimen consists of multiple elongated fragments of light curiel tissue measuring in aggregate 1.5 x 1 x 0.1 cm. The specimen is totally submitted in one cassette. One touch imprint was prepared at the time of core biopsy. / AM:vishal 08/31/18 TC :0 CPT: 95399, 75385 HEADER OPERATION: Right axillary biopsy PRE-OP DIAGNOSIS: Metastatic prostate cancer TISSUE SUBMITTED: 18 gauge core x4, right axillary lymph node, CT-guided core biopsy MICROSCOPIC DESCRIPTION Slides are reviewed. MICROSCOPIC DIAGNOSIS Right axillary lymph node, CT-guided core biopsy: Poorly differentiated metastatic non-small cell carcinoma, favor adenocarcinoma. See comment. SJ:vishal 09/03/18 Signed James Gandhi 09/03/18 <signature on file> Performed By: #### PASPIGT #### [facility] [address] [place], [address] IMMUNOHISTOCHEMISTRY Observed: 08/31/2018 Status: F Source: [place] 12:00 AM [facility] [place] [facility] Patient: MANISHA DANGELO : 1945 (73/M) Acct Num: [id number] Phys: Toño Esqueda DO Unit Num: [id number] Loc: MS2 [id number] Specimen: [id number] Received: 09/03/18 - 1340 Spec Type: IMMUNO TISSUES 1 TISSUES: Axilla, NOS SPECIMEN INFORMATION: Tissue Source: Right axillary biopsy Clinical Info: Metastatic prostate cancer Specimen Number: [id number] CPT code: 72388, 23895 x10 METHODOLOGY: Deparaffinized sections of prefer/formalin-fixed tissue or PAP/DQ stained slides are incubated with monoclonal/polyclonal antibodies/oligonucleotide probes. Localization is made via biotin free immunoperoxidase method. Appropriate controls are performed and reacted as expected. Results on target cell population are indicated in the following table: RESULTS: ANTIBODY / CLONE RESULT AE1-3 (AE1/AE3/PCK26) positive CK7 (OV-TL12/30) positive CK8 (20nbvmS97) positive CK20 (KS20.8) negative TTF-1 (8G7G3/1) positive Napsin A (Rabbit Polyclonal) positive HepPar (OCh1E5) negative RCC (PN-15) negative PSAP (PASE/4LJ) negative CK5-6 (D5 AND 1684) negative P40 (BC28) negative These tests were developed and their performance characteristics determined by [facility]. They may not have been cleared or approved by the U.S. Food and Drug Administration. The FDA has determined that such clearance or approval is not necessary. INTERPRETATION: Right axilla lymph node, CT-guided biopsy: Poorly differentiated metastatic non-small cell carcinoma, favor adenocarcinoma. SJ:vishal 09/04/18 Comment: IHC profile favors lung primary. Case has been reviewed in consultation with Dr. Reid who concurs with the above diagnosis. IDC:[facility] INSTITUTION [place] [address] Signed James Gandhi 09/04/18 <signature on file> Performed By: #### PIMM #### [facility] [address] [place] [address]. [place], [address] CONSULTATION Observed: 08/30/2018 Status: F Source: [place] 12:57 PM [facility] [place] [facility] Medical Records Department [address] [place] [address] Consultation 08/30/18 1255 MR#: [id number] Acct: [id number] Name: MANISHA DANGELO Rep #: [id number] : 1945 73 From: Ry Chester MD PCP: NATALEE LYNN Status: ADM IN Location: [place] [address]1 Reason for Consult Date of Consultation: 08/30/18 Reason for Consultation: Elevated PSA, positive bone scan suspected metastatic prostate cancer History of Present Illness: The patient is a 73 year old male who presented to the hospital with generalized abdominal pain, and further workup was found to have a PSA elevated at 450, bone scan was done was positive for metastatic disease, is reported that his EVELIN was normal. Most likely patient has prostate cancer metastatic disease. He does have very low platelets. The hospitalist service plan to give him platelets tomorrow and working to proceed with a prostate biopsy tomorrow in the operating room under ultrasound guidance. Past Medical History Past Medical History (Chronic Problems): Chronic Problems History of bladder cancer (Chronic) Allergies No Known Allergies Allergy (Verified 08/27/18 20:00) Home Medications: Ambulatory Orders Medication Instructions Recorded Aspirin [Aspirin EC] 81 mg PO DAILY 08/28/18 Tamsulosin HCl [Flomax] 0.4 mg PO DAILY 08/28/18 Bicalutamide [Casodex] 50 mg PO DAILY 08/29/18 Surgical History: - - Neck cyst excision, teeth extraction Psychiatric History: No pertinent psych hx Smoking Status: Former smoker Tobacco Use: Pipe - *Family History Maternal History Items: Cancer - Pancreatic cancer diagnosed at age 74, No pertinent history Review of Systems Constitutional: Denies: Chills, Fever, Weight Change HEENT: Denies: Head Aches, Sinus Congestion, Sinus Drainage Cardiovascular: Denies: Chest Pain, Palpitations Respiratory: Denies: Cough, Shortness of breath at rest, Sputum production Gastrointestinal: Denies: Abdominal Pain, Nausea, Vomiting Genitourinary: Denies: Dysuria Musculoskeletal: Denies: Joint Pain, Joint Tenderness Skin: Denies: Rash, Wounds Neurological: Denies: Numbness, Tingling, Focal weakness Psychiatric: Denies: Anxiety, Depression, Homicidal Ideations, Suicidal Ideations Hematologic/ Lymphatic: Denies: Easy Bruising, Easy Bleeding Physical Exam - Physical Exam Vital Signs Temp 97.9 F 08/30/18 10:00 Pulse 95 08/30/18 10:00 Resp 16 08/30/18 10:00 BP 153/72 H 08/30/18 10:00 Pulse Ox 98 08/30/18 10:00 Intake AND Output Intake Total 1277 / 1277 2792 / 2792 1601 / 1601 Output Total 0 / 0 Balance 1277 / 1277 2792 / 2792 1601 / 1601 General: Alert HEENT: Atraumatic Oral: Moist Mucosa Neck: Supple Lungs: Normal air movement Cardiovascular: Regular rate, Regular Rhythm Abdomen: Soft Rectal: Exam deferred Laboratory Tests Past 24 Hrs WBC 4.0 L RBC 3.68 L Hgb 10.7 L WBC RBC Hgb Hct MCV MCH MCHC RDW RDW Differential Plt Count Assessment/Plan All Active Problems Weight loss (Acute) Abdominal pain (Acute) Nausea (Acute) Anorexia (Acute) Thrombocytopenia (Acute) Prostate cancer (Acute) Elevated PSA, greater than or equal to 20 ng/ml (Acute) Elevated alkaline phosphatase level (Acute) 73-year-old male presents with advanced signs of prostate cancer metastatic disease very high PSA plan to proceed with a prostate biopsy tomorrow. He will need platelets before this and have the nursing staff prepped him with an enema and start him on antibiotics. N.p.o. at midnight. 08/30/18 1257 <Electronically signed by Ry Chester MD> Date Ry Chester MD Cosigner Signature (if applicable): Date CC: Austin Lobo MD; Ry Chester MD; Iza Downing MD; NATALEE LYNN Signed TYPE AND SCREEN Collected: 08/30/2018 Status: F Source: [place] 9:55 AM [facility] [place] [facility] Order Comment: Number of units to be transfused: 1 CMV NEG? N Give When? Type AND Hold Irradiated? N Comments: TRANSFUSE 08/31/18 APPROX 1 HOUR PRIOR TO PROCEDURE Reason for Type AND Screen/Red Cells: THROMBOLYTIC PROTOCOL TYPE CODE TESTS RESULT OUT OF RANGE REFERENCE UNITS LAB B10.0800 O Normal BLOOD TYPE GEL POSITIVE LAB B100.4000 Normal Antibody NEGATIVE Screen Performed By: #### B101.7450 #### [place] [facility] [address] [place], [address] PPHR Collected: 08/30/2018 Status: F Source: [place] 9:55 AM [facility] [place] [facility] TYPE CODE TESTS RESULT OUT OF REFERENCE UNITS RANGE LAB U100.0700 [id number] TRANSFUSED PRODUCT: Platelets Apheresis PPHR LR SD COUNT: 1 Performed By: #### U100.0700 #### [facility] - refer to report for specific site CBC W/DIFF, AUTOMATED Collected: 08/30/2018 Status: C Source: [place] 6:25 AM [facility] [place] [facility] TYPE CODE TESTS RESULT OUT OF RANGE REFERENCE UNITS LAB L100.1000 4.4-11.0 K/mm3 Low WBC 4.0 LAB L100.1200 4.6-6.2 M/mm3 Low RBC 3.68 LAB L100.1300 13.0-16.5 g/dl Low HGB 10.7 LAB L100.1400 40-54 % Low HCT 31.9 LAB L100.1500 80-94 fL Normal MCV 86.7 LAB L100.1600 27.0-32.0 pg Normal MCH 29.1 LAB L100.1700 32-36 g/gl Normal MCHC 33.5 LAB L100.1810 11.6-14.6 % Normal RDW CV 12.7 LAB L100.1820 35.1-43.9 fl Normal RDW SD 38.8 LAB L100.1900 150-450 K/mm3 Low alert PLT 26 Result Comment: CRITICAL VALUE VERIFIED. CALLED TO ESTELA Mayorga 08/30/18 0643 Bina Mendenhall. RESULTS READ BACK BY SAME . LAB L100.2000 6.2-12.0 fl MPV Normal 11.9 LAB L100.3100 MANUAL DIFF CELLS COUNTED Normal 100 LAB L100.3200 47-70 % Low SEGS 38 LAB L100.3300 0-5 % BAND Normal 3 LAB L100.3400 0-1 % META High 2 LAB L100.3500 0-0 MYELO High 1 LAB L100.3800 19-41 % LYMPH High 51 LAB L100.3900 0-10 % MONOCYTE Normal 3 LAB L100.4000 0-5 % EOS Normal 1 LAB L100.4100 0-1 % BASOPHIL Normal 1 LAB L100.4700 REACTIVE LYMPH Normal 1+ LAB L100.5500 ADEQ PLT EST Normal MKD DEC LAB L100.5650 PLT MORPH Normal LARGE LAB L100.7300 ANISO Normal 1+ LAB L100.7500 POLYCHROMASIA Normal 1+ LAB L100.7600 HYPOCHROMASIA Normal 1+ LAB L100.7700 MICROCYTES Normal 1+ LAB L100.2620 2.0-7.7 X10 Low 3/uL Absolute Neut 1.6 LAB L100.2720 0.83-4.51 X10 3/ul Absolute Lymph Normal 2.04 LAB L100.9900 PATH REV Normal Reviewed Result Comment: Normocytic anemia. Neutrophilic left shift. Thrombocytopenia. Clinical correlation necessary. James Gandhi M.D. 08/30/18 AMENDED REPORT 08/30/18 1024 PATH REV previously reported as: January brenda Performed By: #### L100.0100 #### [facility] [address] [place], [address] BASIC METABOLIC Collected: 08/30/2018 Status: F Source: [place] PROFILE ([facility]) 6:25 AM [facility] [place] [facility] TYPE CODE TESTS RESULT OUT OF RANGE REFERENCE UNITS LAB L501.0100 74-106 mg/dL High GLU 114 Result Comment: Fasting Glucose result from 100 to 125 mg/dL suggests IMPAIRED HOMEOSTASIS per A.D.A. criteria. Please note revised GLUCOSE reference range effective 2017. LAB L501.1000 7-18 mg/dL High BUN 21 LAB L501.1100 0.70-1.30 mg/dL High CREAT,SERUM 1.84 Result Comment: The validity of the calculated GFR AND GFRAA in patients over 70 years has not been determined. Clinical correlation is essential. LAB L501.1110 >60 mL/min Low EST GFR 38 Result Comment: Non- GFR Calc LAB L501.1115 >60 mL/min Low EST GFR - AA 46 Result Comment: GFR Calc LAB L501.1255 ml/min Normal Estimated CRCL 35.82 LAB L501.1300 10-20 RATIO Normal BUN/CRE 11.4 LAB L501.2200 8.5-10 mg/dL Low .1 CA 8.4 LAB L501.5300 136-14 mmol/L Normal 5 NA 145 LAB L501.5600 3.5-5. mmol/L Normal 1 K 4.1 LAB L501.5900 98-107 mmol/L High CL 110 LAB L501.6100 21.0-3 mmol/L Normal 2.0 CO2 28.0 LAB L501.6200 5-15 Normal GAP 7 Performed By: #### L500.2500 #### [facility] [address] [place], [address] ABDOMEN/PELVIS WITH Observed: 08/29/2018 Status: F Source: [place] CONTRAST 12:05 PM [facility] [place] [facility] Imaging Services [address] [place] [address] Abdomen/Pelvis WITH Contrast MR#: [id number] Acct: [id number] Name: MANISHA DANGELO Rep #: [id number] : 1945 M 73 From: Luis Flores MD PCP: NATALEE LYNN Status: ADM IN Study: Abdomen/Pelvis WITH Contrast Date of Exam: 08/29/18 Exam# [id number] Ordering Dr: Toño Esqueda DO STUDY: CT ABDOMEN AND PELVIS WITH CONTRAST REASON FOR EXAM: Male, 73 years old. Bladder and prostate cancer. Elevated PSA. Question metastatic disease to the bones. RADIATION DOSAGE (If Supplied By Facility): CTDIvol = ( 19.48 ) mGy, DLP = ( 2083.57 ) mGycm TECHNIQUE: Transaxial images were obtained from the dome of the diaphragm to the symphysis pubis with oral contrast. 100ML ml of Isovue 300 contrast was administered. Sagittal and coronal images were reconstructed. Individualized dose optimization techniques were used for this CT. COMPARISON: None. FINDINGS: Limited views through the lower chest show pleural thickening in both costophrenic angles worse on the left. Normal liver. Normal gallbladder and extrahepatic biliary system. Normal spleen. Normal pancreas. Normal bilateral adrenal glands. Both kidneys appear diffusely small, no larger than 9.5 cm length. Symmetric contrast enhancement. No masses. No hydronephrosis. 3 mm nonobstructing stone in the mid right kidney. 2 mm nonobstructing stone in the left upper pole. Normal visualized stomach. Normal small intestine. Normal colon. Mild diverticulosis. The appendix is visualized and appears normal. Normal abdominal aorta. Normal inferior vena cava. Normal retroperitoneum. Normal urinary bladder. There are prostatic calcifications. There is a small umbilical hernia containing fat. Mild degenerative changes throughout the bones. Question of subtle areas of slight increased density in some vertebral bodies such as L3 and L4. Metastatic disease not excluded. Bone scan is significantly more sensitive for prostate metastases and is recommended. CT/Abdomen/Pelvis WITH Contrast IMPRESSION: Question of mild bilateral renal atrophy. Bilateral nonobstructing renal stones. Mild blastic metastatic disease not excluded. Bone scan recommended. Electronically Signed: Luis Flores MD at 20:31 EST , Service support , CC: Toño Esqueda DO; NATALEE LYNN Melter Supervisor [employer] Furnace: Signed CHEST WITH CONTRAST Observed: 08/29/2018 Status: F Source: [place] 12:[facility] Imaging Services [address] [place] [address] Chest WITH Contrast MR#: [id number] Acct: [id number] Name: MANISHA DANGELO Rep #: [id number] : 1945 M 73 From: Luis Flores MD PCP: NATALEE LYNN Status: ADM IN Study: Chest WITH Contrast Date of Exam: 08/29/18 Exam# [id number] Ordering Dr: Toño Esqueda DO STUDY: CT CHEST WITH CONTRAST REASON FOR EXAM: Male, 73 years old. Bladder and prostate cancer. Elevated PSA. RADIATION DOSAGE (If Supplied By Facility): CTDIvol = ( ) mGy, DLP = ( ) mGycm TECHNIQUE: Transaxial imaging was performed following intravenous administration of 100ML ml of Isovue 300 contrast material. Individualized dose optimization techniques were used for this CT. COMPARISON: None. FINDINGS: Normal lung volumes. No effusions. No infiltrates. Mild scarring in the left posterior costophrenic angle. 9 mm elongated nodule along the surface of the left major fissure, axial image 72. These tend to be of no clinical significance. Nevertheless follow-up in 6 months is suggested. There is right axillary adenopathy. There is a 2.8 cm right axillary lymph node seen on axial image 39 and other smaller right axillary lymph nodes. There is a poorly visualized probable mass in the right subclavicular fossa at about the level of the thoracic inlet. It measures approximately 3.8 cm size and is best seen on axial image 14. Several right paratracheal lymph nodes are seen measuring as much as 1.8 cm, best seen on coronal images 143-169. There is moderate mid mediastinal, precarinal adenopathy, seen on axial images 49-55. Normal heart and pericardium. Normal hilar regions. Normal enhanced pulmonary arteries. Normal aorta arch and descending thoracic aorta. No definite skeletal abnormality. However CT scan can be insensitive for skeletal metastatic disease. See separate report for CT of the abdomen. CT/Chest WITH Contrast IMPRESSION: Right axillary, right infraclavicular, and mediastinal adenopathy. Small nodule on the surface of the left major fissure is probably incidental but suggest follow-up and 6 months. Electronically Signed: Luis Flores MD at 21:39 EST , Service support , CC: Toño LYNN Melter Supervisor [employer] Furnace: Signed PROTHROMBIN TIME W/INR Collected: 08/29/2018 Status: F Source: [place] 11:28 AM [facility] [place] [facility] TYPE CODE TESTS RESULT OUT OF RANGE REFERENCE UNITS LAB L300.4150 11.7-14.9 SECONDS High PROTIME 16.2 LAB L300.4200 Normal INR 1.3 Performed By: #### L300.3900, L300.4310, L300.4700 #### [facility] [address] [place], [place], [address] PARTIAL THROMBOPLAST Collected: 08/29/2018 Status: F Source: [place] TIME 11:28 AM [facility] [place] [facility] TYPE CODE TESTS RESULT OUT OF RANGE REFERENCE UNITS LAB L300.4310 24.1-36.2 Seconds Normal PTT 32.2 Performed By: #### L300.3900, L300.4310, L300.4700 #### [facility] [address] [place], [address] FIBRINOGEN Collected: 08/29/2018 Status: F Source: [place] 11:28 AM [facility] [place] [facility] TYPE CODE TESTS RESULT OUT OF RANGE REFERENCE UNITS LAB L300.4700 203-444 mg/dl Normal FIB 222 Performed By: #### L300.3900, L300.4310, L300.4700 #### [facility] [address] [facility] [place], [address] CONSULTATION Observed: 08/29/2018 Status: F Source: [place] 10:13 AM [facility] [place] [facility] Medical Records Department [address] [place] [address] Consultation 08/28/1818 MR#: [id number] Acct: [id number] Name: MANISHA DANGELO Rep #: [id number] : 1945 73 From: Iza Downing MD PCP: NATALEE LYNN Status: ADM IN Location: [address] Reason for Consult Date of Consultation: 08/28/18 History of Present Illness: The patient is a 73 year old M admitted due to nausea/abdominal pain/30 pound weight loss in the last 2 months. Patient states that about 4-5 weeks ago he began having constant nausea and periumbilical tenderness that he rated 7 8/10. Patient states he did not take much p.o. intake only chicken noodle soup and states that p.o. did not change his pain at all. He also states he has lost about 30 pounds in 2 months. Patient did initially see his PCP and did have a CAT scan done 3-4 weeks ago which per the report was normal except for a periumbilical hernia. Patient denies trying any medications to help his nausea or pain. Does have a past medical history of bladder cancer 8-9 years ago where a small area was removed patient did not need any additional therapy or chemotherapy and is only on Flomax. Patient states he had a colonoscopy in 2011 where 4 polyps was removed by Dr. Quesada in [place] and states that he was told to come back in 10 years. Patient denies any heartburn symptoms or any right upper quadrant pain with eating. He did have an ultrasound of his gallbladder which was normal. Pt mom was dx with pancreatic cancer at age 74. Patient's lab did show thrombocytopenia of 30 along with lymphocytosis. Patient denies having abnormal labs in the past. Patient states currently he does not have much abdominal pain may be a 1-2/10 and denies any nausea which is the best it has been in about 5 weeks. Past Medical History Past Medical History (Chronic Problems): Chronic Problems History of bladder cancer (Chronic) Allergies No Known Allergies Allergy (Verified 08/27/18 20:00) Home Medications: Ambulatory Orders Medication Instructions Recorded Aspirin [Aspirin EC] 81 mg PO DAILY 08/28/18 Tamsulosin HCl [Flomax] 0.4 mg PO DAILY 08/28/18 Surgical History: - - Neck cyst excision, teeth extraction Psychiatric History: No pertinent psych hx Smoking Status: Former smoker Tobacco Use: Pipe - *Family History Maternal History Items: Cancer - Pancreatic cancer diagnosed at age 74, No pertinent history Review of Systems Constitutional: Denies: Chills Eyes: Denies: Blurred vision HEENT: Denies: Difficulty Swallowing Cardiovascular: Denies: Chest Pain Respiratory: Denies: Shortness of Breath Gastrointestinal: Reports: Abdominal Pain, Nausea Genitourinary: Denies: Dysuria Musculoskeletal: Denies: Joint Pain Skin: Denies: Rash Neurological: Denies: Balance problems, Confusion Psychiatric: Denies: Anxiety, Depression Hematologic/ Lymphatic: Reports: Easy Bruising Patient Problems: Active and Suspected Problems Weight loss (Acute) Abdominal pain (Acute) Nausea (Acute) Anorexia (Acute) - Physical Exam General: Alert, Oriented x3, Cooperative, No apparent distress HEENT: Atraumatic Neck: Supple Lungs: Normal air movement Cardiovascular: Regular rate Abdomen: Soft, Non Tender, Non-Distended, Passing Flatus, Hernia - Small umbilical hernia less than 1 cm reducible Extremities: No clubbing, No cyanosis, No edema Skin: No rashes Neurological: Cranial nerves II-XII grossly intact Psych/Mental Status: Normal Affect Vital Signs Temp Pulse Resp BP Pulse Ox 98.0 F 83 18 126/58 H 94 08/28/18 05:02 08/28/18 05:02 08/28/18 05:02 08/28/18 05:02 08/28/18 05:02 Oxygen Delivery Method Room Air Weight: 178 lb 9.191 oz Body Mass Index (BMI) 25.6 Intake and Output for Last 24 Hours Intake Total 535 / 535 Output Total 0 / 0 Balance 535 / 535 Laboratory Tests Past 24 Hrs WBC 5.7 5.7 RBC 4.54 L 4.33 L Hgb 13.2 12.8 L Hct 39.2 L 37.7 L MCV 86.3 87.1 MCH 29.1 29.6 MCHC 33.7 34.0 WBC 5.2 Assessment/Plan All Active Problems Weight loss (Acute) Abdominal pain (Acute) Nausea (Acute) Anorexia (Acute) 73-year-old male with nausea/abdominal pain/weight loss, thrombocytopenia, lymphocytosis 1. Patient complains of nausea, as well as periumbilical pain denies any epigastric or right upper quadrant tenderness. Currently states his pain is the best it has been in 5 weeks as it is very minimal and denies any nausea currently. Due to his platelets being 30 I am not sure that an EGD is urgently needed. I would recommend a workup with hematology. If I were to do an EGD with his current platelets I would not plan to do any biopsies due to his risk of bleeding. This was discussed with the patient he is agreeable to wait and see what hematology recommends. Also discussed with Dr. Iverson. We will try to get his colonoscopy report from [address] abdomen pelvis disc, pt may benefit from CT with contrast-however currently Cr is elevated at 1.96. Iza Downing M.D. Pager: [phone] [facility] [address] [place] [address], [facility] [address] [place] [id number] Office: [phone] Code Visit Inpatient E AND M: 10884 Init Hosp L2 08/29/18 1013 <Electronically signed by Iza Downing MD> Date Iza Rob Signature (if applicable): Date CC: Austin Lobo MD; Iza Downing MD; NATALEE LYNN Signed BONE SCAN WHOLE Observed: 08/29/2018 Status: F Source: [place] BODY 8:39 AM [facility] [place] [facility] Imaging Services [address] [place] [address] Bone Scan Whole Body MR#: [id number] Acct: [id number] Name: MANISHA DANGELO Rep #: [id number] : 1945 M 73 From: Maciel Reeder MD PCP: NATALEE LYNN Status: ADM IN Study: Bone Scan Whole Body Date of Exam: 08/30/18 Exam# [id number] Ordering Dr: Toño Esqueda DO CLINICAL: Male, 73 years old. Patient has a history of prostate cancer and bladder cancer. WHOLE BODY NUCLEAR BONE SCAN TECHNIQUE: Following the IV administration of 26.6 mCi of Tc MDP, whole body bone imaging was performed with a gamma camera following a three hour delay. COMPARISON STUDIES : Comparison is made with prior CT scan of the abdomen and chest dated August 29, 2018. FINDINGS: There is evidence of a bony metastasis is involving the right and left femurs as well as the right and left hemipelvis as well as the ribs and several vertebrae. There is also evidence of increased uptake in the sternum. Findings are in keeping with metastatic disease. 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 Electronically Signed: Maciel Reeder MD at 9:41 EST Tel [phone], Service support , CC: Toño LYNN Melter Supervisor [employer] Furnace: Signed CBC W/DIFF, AUTOMATED Collected: 08/29/2018 Status: C Source: [place] 6:35 AM [facility] [place] [facility] TYPE CODE TESTS RESULT OUT OF RANGE REFERENCE UNITS LAB L100.1000 4.4-11.0 K/mm3 Low WBC 4.0 LAB L100.1200 4.6-6.2 M/mm3 Low RBC 3.77 LAB L100.1300 13.0-16.5 g/dl Low HGB 10.9 LAB L100.1400 40-54 % Low HCT 32.1 LAB L100.1500 80-94 fL Normal MCV 85.1 LAB L100.1600 27.0-32.0 pg Normal MCH 28.9 LAB L100.1700 32-36 g/gl Normal MCHC 34.0 LAB L100.1810 11.6-14.6 % Normal RDW CV 12.9 LAB L100.1820 35.1-43.9 fl Normal RDW SD 39.7 LAB L100.1900 150-450 K/mm3 Low alert PLT 26 Result Comment: CRITICAL VALUE VERIFIED. CALLED TO BRENT AGUILAR 08/29/18 0700 Bina Mendenhall. RESULTS READ BACK BY SAME . LAB L100.2000 6.2-12.0 fl MPV High 12.7 LAB L100.3100 MANUAL DIFF CELLS COUNTED Normal 100 LAB L100.3200 47-70 % Low SEGS 36 LAB L100.3300 0-5 % BAND High 6 LAB L100.3400 0-1 % META High 4 LAB L100.3800 19-41 % LYMPH High 44 LAB L100.3900 0-10 % MONOCYTE Normal 7 LAB L100.4000 0-5 % EOS Normal 3 LAB L100.5500 ADEQ PLT EST Normal MKD DEC LAB L100.7300 ANISO Normal 1+ LAB L100.7500 POLYCHROMASIA Normal 1+ LAB L100.7600 HYPOCHROMASIA Normal 1+ LAB L100.2620 2.0-7.7 X10 Low 3/uL Absolute Neut 1.7 LAB L100.2720 0.83-4.51 X10 3/ul Absolute Lymph Normal 1.76 LAB L100.9900 PATH REV Normal Reviewed Result Comment: Normocytic anemia. Neutrophilic left shift. Thrombocytopenia. Clinical correlation necessary. James Gandhi M.D. 08/30/18 AMENDED REPORT 08/30/18 1021 PATH REV previously reported as: January Performed By: #### L100.0100 #### [facility] [address] [facility] [place], [place], [address] LIVER PROFILE Collected: 08/29/2018 Status: F Source: [place] 6:35 AM [facility] [place] [facility] TYPE CODE TESTS RESULT OUT OF RANGE REFERENCE UNITS LAB L501.1500 6.4-8.2 g/dL Low T PROT 5.7 LAB L501.1800 3.2-5.0 g/dL Low ALB 2.6 LAB L501.1950 2.2-4.2 g/dL Normal GLOB 3.1 LAB L501.4100 15-37 U/L Normal AST 24 LAB L501.4305 45-117 U/L High ALK P 493 LAB L501.4405 16-61 U/L Normal ALT 25 LAB L501.4600 0.20-1.00 mg/dL Normal T BILI 0.90 LAB L501.4700 0.00-0.30 mg/dL Normal D BILI 0.25 Performed By: #### L500.3400, L500.3600 #### [facility] [address] [facility], [address] RENAL PROFILE Collected: 08/29/2018 Status: F Source: [place] 6:35 AM [facility] [place] [facility] TYPE CODE TESTS RESULT OUT OF RANGE REFERENCE UNITS LAB L501.0100 74-106 mg/dL High GLU 120 Result Comment: Fasting Glucose result from 100 to 125 mg/dL suggests IMPAIRED HOMEOSTASIS per A.D.A. criteria. Please note revised GLUCOSE reference range effective 2017. LAB L501.1000 7-18 mg/dL High BUN 30 LAB L501.1100 0.70-1.30 mg/dL High CREAT,SERUM 1.82 Result Comment: The validity of the calculated GFR AND GFRAA in patients over 70 years has not been determined. Clinical correlation is essential. LAB L501.1110 >60 mL/min Low EST GFR 39 Result Comment: Non- GFR Calc LAB L501.1115 >60 mL/min Low EST GFR - AA 47 Result Comment: GFR Calc LAB L501.1255 ml/min Normal Estimated CRCL 36.21 LAB L501.1300 10-20 RATIO Normal BUN/CRE 16.5 LAB L501.2200 8.5-10 mg/dL Low .1 CA 8.3 LAB L501.2300 2.5-4. mg/dL Normal 9 PHOS 3.1 LAB L501.5300 136-14 mmol/L Normal 5 NA 142 LAB L501.5600 3.5-5. mmol/L Normal 1 K 4.0 LAB L501.5900 98-107 mmol/L High CL 109 LAB L501.6100 21.0-3 mmol/L Normal 2.0 CO2 27.0 Performed By: #### L500.3400, L500.3600 #### [facility] [address] [place], [address] HIV - [facility] Collected: 08/29/2018 Status: F Source: [place]OT[place] 6:35 AM [facility] [place] Order Comment: DRAW WITH MORNING LABS PER MARCO RN TYPE CODE TESTS RESULT OUT OF RANGE REFERENCE UNITS LAB L3890.6005 Nonreactive Normal HIV - [facility] Non-Reactive Performed By: #### L3890.6005 #### [facility] [address] [place], [address] CONSULTATION Observed: 08/28/2018 Status: F Source: SCOTTY 4:43 PM [facility] [place] [facility] Medical Records Department [address] [place] [address] Consultation 08/28/18 1346 MR#: [id number] Acct: [id number] Name: MANISHA DANGELO Rep #: [id number] : 1945 73 From: Leana Schneider NP-C PCP: NATALEE LYNN Status: ADM IN Y [place] [facility] [id number] ADDENDUM by Leana Schneider NP on 08/28/18 at 1643 Code Visit Reviewed slides with pathologist. No schistocytes or abnormal morphology was noted. 08/28/18 1643 <Electronically signed by Leana MIRELES> Date Leana Schneider cc: Austin Lobo MD; Iza Downing MD; NATALEE LYNN * Signed Subjective Date of Service:: 08/28/18 Chief Complaint: Thrombocytopenia History of Present Illness: Mr. Manisha Dangelo is a very pleasant 73 year old man with an essentially unremarkable PMH with the exception of superficial bladder ca approx 2009, who developed intractable nausea, RUQ accompanied by an estimated 30 lb weight loss abruptly 6 weeks ago. Was evaluated by surgery at [facility], and plans were made for HIDA scan on 08/31/18. Pain intensity increased which resulted in presentation to [facility] ED 08/27/18. A CT was completed and per patient self report normal. He was discharged and subsequently presented to [facility] later with the same symptoms and admitted for management. Found to have a platelet count of 34,000. Patient denies any previous history of thrombocytopenia, the initiation of any new medications/herbal/otc supplements, ETOH use as well as any episodes of overt bleeding, although notes he bruises easily. Bladder ca surveillance visit with his urologist was completed May 2018, per patient report he was told urine cytology looked good. Specifically denies any chills, night sweats, new onset bone pain, hematuria,melena/hematochezia. Colonoscopy up to date. Cannot recall when his PSA was last checked. Family history positive for mother with pancreatic ca, brother #1- bladder ca, brother #2-prostate ca, brother #3- lung ca. Past Medical History: Chronic Problems History of bladder cancer (Chronic) Past Medical/Surgical History: Past Medical History - Most Recent Inpatient Visit Past Medical History Start: 08/27/18 23:19 Text: Status: Complete Freq: ONCE Protocol: Document 08/27/18 23:42 CDS (Rec: 08/27/18 23:44 CDS [id number]) BMI Required to complete PMH What is Patient's BMI 25.6 Past Medical History Unable History Recalled No Query Text:Pt Unable/Family Not Present Neurologic Medical History Hx Stroke/TIA No Hx Dementia/Alzheimer's No Hx Parkinson's Disease No Hx Seizures No Hx Multiple Sclerosis No Hx Migraines No Cardiac Medical History VTE Present on Admission No Hx of Deep Vein Thrombosis/VTE/PE No Hx Hypertension No Hx Chest Pain/Angina No Hx Heart Attack No Hx Cardiac Surgery/Stents/Etc. No Hx Heart Failure No Hx Pacemaker/AICD No Hx Irregular Heartbeat and/or Afib No Hx Anticoagulant Therapy No Query Text:(Coumadin, Aspirin, Plavix, Xarelto, etc.) Hx Pain in Legs when Walking/Leg Cramps No Respiratory Medical History Hx COPD No Hx Emphysema No Hx Smoking No Smoking Status Former smoker Tobacco Use Pipe Years Smoking 30 Hx Tobacco Use in last 12 months No Hx Sleep Apnea No Do you snore loudly (louder than talking No or can be heard through closed doors)? Do you often feel tired/ fatigued/ Yes sleepy during daytime? Has anyone observed you stop breathing No during sleep? STOP Results Negative GI Medical History Hx Ulcer No Hx Hepatitis No Hx Cirrhosis No Hx GI Bleed No Hx Unplanned Weight Loss No Genitourinary Medical History Indwelling Catheter in Place on Arrival/ No Admission Hx Renal Disease No Hx Dialysis No Musculoskeletal History Hx Arthritis No Hx Rheumatoid Arthritis No Endocrine Medical History Hx Diabetes No Hx Thyroid Disease No Hematologic Medical History Hx of Blood Transfusion No Hx of Transfusion in last 3 Months No Ever experience any problems with No transfusion(s)? Hx of Preganancy in last 3 Months N/A Nurse Filling Out Transfusion AND CSNYDER Questions: Date: 08/27/18 Time: 23:44 Psycho/Social Medical History Hx Depression No Hx Anxiety No Hx Behavior Disorder No Hx Alcohol Use No Hx Substance Use No Other Medical History Hx Blood Disorders No Hx Anemia No Hx Cancer Yes: hx bladder CA Hx Drug Resistant Organism No Wound/Pressure Injury Present on Arrival No /Admission Query Text:If yes, chart assessment in Shift/Clinical Findings Central Line/PICC/VAD Present on Arrival No /Admission Risk for Readmission Number of Risk Factors 1 At Risk for Readmission Patient is Not at Risk Patient is eligible for Call Back N Maternal Family History: Cancer - Pancreatic cancer diagnosed at age 74, No pertinent history - Social History Smoking Status: Former smoker Tobacco Use: Pipe Allergies/Adverse Reactions: Allergy/AdvReac Type Severity Reaction Status Date / Time No Known Allergies Allergy Verified 08/27/18 20:00 Review of Systems Constitutional:: Reports: Weakness, Fatigue, Weight loss, Appetite change. Denies: Fever, Sweats, Chills Cardiovascular:: Denies: Chest pain, Palpitations, Dyspnea on exertion, Orthopnea, PND, Shortness of breath Respiratory: Reports: Sputum production. Denies: Cough, Hemoptysis, Shortness of Breath, Wheezing Gastrointestinal:: Reports: Nausea, Vomiting - occasional. Denies: Abdominal pain, Diarrhea, Constipation, Melena, Hematochezia, Gas/bloating, Reflux, Dysphagia Genitourinary: Reports: Urinary frequency, Nocturia. Denies: Dysuria, Hematuria, Flank pain Musculoskeletal:: Denies: Back pain, Myalgia, Arthralgia Skin: Denies: Rash, Skin Changes, Wounds Neurological:: Denies: Headache, Dizziness, Numbness, Tingling, Frequent falls, Visual changes, Tinnitus, Hearing loss Psychiatric: Denies: Anxiety, Depression, Homicidal Ideations, Suicidal Ideations Vital Signs Height 5 ft 10 in Weight: 178 lb 9.191 oz Weight in Pounds 178.6 lbs Pulse Ox 94 - Physical Exam General: Alert, Oriented x3, No apparent distress HEENT: Atraumatic, PERRLA, EOMI, Normocephalic Oropharynx:: Negative for: Dry mucosa, Ulcerated lesions Neck:: Supple, Trachea midline. Negative for: JVD, bilateral Cardiac:: Regular rate, Regular rhythm, Normal S1, Normal S2. Negative for: Murmur Lungs: Clear to auscultation, Excusion symmetrical. Negative for: Rhonchi, Wheezes Abdomen:: Bowel sounds x 4, Soft, Non-distended, Guarding, Tender - RUQ. Negative for: Hepatosplenomegaly Extremities:: Negative for: Cyanosis, Edema, Calf tenderness Neurological: Neuro grossly intact Skin:: Negative for: Lesions, Rash, Petechiae, Ecchymosis Psychiatric:: Appropriate affect, Euthymic Lymphatics:: Negative for: Cervical lymphadenopathy, Supraclavicular lymphadenopathy, Axillary lymphadenopathy Laboratory Data: Laboratory Tests WBC 5.7 5.7 (4.4-11.0) K/mm3 RBC 4.33 L 4.54 L (4.6-6.2) M/mm3 Hgb 12.8 L 13.2 (13.0-16.5) g/dl Hct 37.7 L 39.2 L (40-54) % Diagnostic Data: Diagnostic Data Gallbladder Ultrasound 08/27/18 20:33 IMPRESSION: No definite abnormality. Electronically Signed: Luis Flores MD at 21:35 EST , Service support , Assessment and Plan 73 year old gentlemen with PMH for superficial bladder ca admitted for management of intractable nausea AND RUQ pain found to have platelet count of 34,000. 1. Thrombocytopenia- in the absence of active bleeding. Previous CBC for comparison are imperative to determine if this did in fact develop acutely. Impaired renal function present, will obtain SPEP with IFIX, SFLC, LDH. Plan to review peripheral slides with pathology department to determine presence/absence of schistocytes (r/o HUS TTP). 30 lb weight loss concerning. R/o infectious process, obtained H pylori and HIV. 2. Elevated alk phos- Orders placed for GGT and PSA level. 3. H/o superficial bladder ca- Diagnosed approx 2009. Did not require adjuvant chemo or radiation therapy. Repeat urine cytology. It may be prudent to analyze the results of labs and review peripheral smear prior to proceeding with a BMBX. Case discussed with Dr. Lopez who is in agreement with the aforementioned plan. Leana Schneider, MSN, CONTROL AREA OPERATOR-C, AOCNP Medications: Prescriptions This Visit Medication Instructions Recorded Aspirin [Aspirin EC] 81 mg PO DAILY 08/28/18 Tamsulosin HCl [Flomax] 0.4 mg PO DAILY 08/28/18 Medications Added to Medication List This Visit 0.9% Saline Lock Med 08/28/18 23:55 Active Primary Care Provider: Natalee Lynn Referring Provider: - Problem List (1) History of bladder cancer Status: Chronic (2) Weight loss Status: Acute (3) Thrombocytopenia Status: Acute 08/28/18 1642 <Electronically signed by Leana Schneider POISING INSPECTOR-C> Date Leana Wyatt POISING INSPECTOR-C Cosigner Signature (if applicable): Date CC: Austin Lobo MD; Iza Downing MD; NATALEE LYNN Signed GGTP Collected: 08/28/2018 Status: F Source: SCOTTY 3:15 PM [facility] [place] TYPE CODE TESTS RESULT OUT OF RANGE REFERENCE UNITS LAB L501.5100 15-85 U/L Normal GGTP 72 Performed By: #### L501.5100, L501.9940, L504.2610 #### [facility] [address] [place], [address] PSA,TOTAL- DIAGNOSTIC Collected: 08/28/2018 Status: F Source: SCOTTY 3:15 PM [facility] [place] [facility] TYPE CODE TESTS RESULT OUT OF REFERENCE UNITS RANGE LAB L501.9940 0.0-4.0 ng/mL PSA, High DIAGNOSTIC 455.00 Result Comment: This test was performed using the TPSA assay method for the K[employer]iki chemistry system. Values obtained with different assay methods cannot be used interchangably. When changing PSA assays in the course of monitoring a patient, additional sequential testing should be carried out to confirm baseline values. Performed By: #### L501.5100, L501.9940, L504.2610 #### [facility] [address] [place], [address] LDH Collected: 08/28/2018 Status: F Source: SCOTTY 3:15 PM [facility] [place] [facility] TYPE CODE TESTS RESULT OUT OF RANGE REFERENCE UNITS LAB L504.2610 87-241 U/L High LDH 279 Performed By: #### L501.5100, L501.9940, L504.2610 #### [facility] [address] [place], [address] H. PYLORI ANTIBODY Collected: 08/28/2018 Status: F Source: INGALLS (IGG) 3:15 PM [facility] [place] [facility] TYPE CODE TESTS RESULT OUT OF RANGE REFERENCE UNITS LAB L3100.1900 0.00-0.79 Normal H.PYLORI 0.15 [id number] Result Comment: Result Units: Index Value Negative <0.80 Equivocal 0.80 - 0.89 Positive >0.89 Performed at: [facility] [id number] Executive Advisor: Arpit Parker PhD, Phone: [phone] Performed By: #### L3100.1900 #### [facility] (refer to report for specific site) refer to report for address and phone number SEBAS + PROTEIN ELECT, Collected: 08/28/2018 Status: F Source: SCOTTY SERUM 3:15 PM [facility] [place] [facility] TYPE CODE TESTS RESULT OUT OF RANGE REFERENCE UNITS LAB L3100.3500 6.0-8.5 g/dL Normal PROTEIN,TOTAL 6.0 LAB L3200.7176 266-2184 mg/dL Normal IMMUNO G 829 LAB L3200.1400 61-437 mg/dL Normal IMMUNO A 271 LAB L3200.1500 15-143 mg/dL Normal IMMUNOGL M 72 LAB L3200.1510 2.9-4.4 g/dL Normal ALBUMIN 3.2 LAB L3200.1520 0.0-0.4 g/dL Normal KVLND-6-IVCJ 0.3 LAB L3200.1530 0.4-1.0 g/dL Normal PSROO-7-YZLA 0.6 LAB L3200.1540 0.7-1.3 g/dL Normal BETA GLOBULIN 1.2 LAB L3200.1550 0.4-1.8 g/dL Normal GAMMA GLOBULIN 0.8 LAB L3200.1560 Normal M-SPIKE Result Comment: NOT OBSERVED LAB L3200.1570 2.2-3.9 g/dL Normal GLOBULIN, TOTAL 2.8 LAB L3200.1580 0.7-1.7 A/G Normal RATIO 1.2 LAB L3200.1590 . SEBAS Normal RESULT,S Comment: Result Comment: Presence of monoclonal protein is unclear at this time. Suggest repeat in 3 to 6 months if clinically indicated. LAB L3200.1594 . Normal NOTE: Comment Result Comment: Protein electrophoresis scan will follow via computer, mail, or rotor blade installer delivery. Performed By: #### L3100.3425, L3130.0010 #### [facility] (refer to report for specific site) refer to report for address and phone number KAPPA LAMBDA LIGHT Collected: 08/28/2018 Status: F Source: SCOTTY CHAINS 3:15 PM [facility] [place] [facility] TYPE CODE TESTS RESULT OUT OF RANGE REFERENCE UNITS LAB L3130.0200 3.3-19.4 mg/L High FR KAPPA LT 38.6 CHN LAB L3130.0300 5.7-26.3 mg/L Normal FR LAMBDA LT 25.4 CH LAB L3130.0400 0.26-1.65 Normal KAPPA/LAMBDA 1.52 % Result Comment: Performed at: [facility] [id number] Executive Advisor: Arpit Parker PhD, Phone: [phone] Performed By: #### L3100.3425, L3130.0010 #### [facility] (refer to report for specific site) refer to report for address and phone number URINALYSIS, COMPLETE Collected: 08/28/2018 Status: F Source: SCOTTY 10:30 AM [facility] [place] [facility] Order Comment: How was Urine Obtained? CLEAN CATCH TYPE CODE TESTS RESULT OUT OF RANGE REFERENCE UNITS LAB L400.3000 Yellow COLOR Normal Yellow LAB L400.3050 Clear Normal CLARITY Clear LAB L400.3200 Normal mg/dl Normal GLUCOSE, UR Normal LAB L400.3300 Negative mg/dL Normal BILIRUBIN URINE Negative LAB L400.3400 Negative mg/dl High 5 KETONE UR LAB L400.3465 1.002-1.030 Normal SP.GR. DIPSTX 1.025 LAB L400.3550 5.0 - 8.0 pH UR Normal 5.0 LAB L400.3600 Negative mg/dl High PROT 15 DIPSTX LAB L400.3700 Normal mg/dl Normal UROBILI Normal LAB L400.3750 Negative Normal NITRITE UR Negative LAB L400.3780 Negative /ul Normal OCCULT BLOOD-UR Negative LAB L400.3800 Negative /ul High LEUK 25 ESTERASE LAB L400.4050 0-5 /hpf WBC Normal 0-5 SEEN LAB L400.4100 0-5 /hpf 0 Normal RBC-UA SEEN LAB L400.4150 0-5 /hpf SQUAM Normal EPI 0-5 SEEN LAB L400.4300 None Seen /hpf Normal BACTERIA RARE LAB L400.4350 <or=2+ /hpf 1+ Normal MUCUS, URINE LAB L400.4400 0-5 /lpf Normal HYALINE CAST 0-5 SEEN Performed By: #### L400.0001 #### [facility] [address] [place], [address] COMPREHENSIVE METABOLIC Collected: 08/28/2018 Status: F Source: [place] [facility] 4:54 AM [facility] [place] [facility] TYPE CODE TESTS RESULT OUT OF RANGE REFERENCE UNITS LAB L501.0100 74-106 mg/dL High GLU 115 Result Comment: Fasting Glucose result from 100 to 125 mg/dL suggests IMPAIRED HOMEOSTASIS per A.D.A. criteria. Please note revised GLUCOSE reference range effective 2017. LAB L501.1000 7-18 mg/dL High BUN 41 LAB L501.1100 0.70-1.30 mg/dL High CREAT,SERUM 1.96 Result Comment: The validity of the calculated GFR AND GFRAA in patients over 70 years has not been determined. Clinical correlation is essential. LAB L501.1110 >60 mL/min Low EST GFR 36 Result Comment: Non- GFR Calc LAB L501.1115 >60 mL/min Low EST GFR - AA 43 Result Comment: GFR Calc LAB L501.1255 ml/min Normal Estimated CRCL 33.62 LAB L501.1300 10-20 RATIO High BUN/CRE 20.9 LAB L501.1500 6.4-8. g/dL Low 2 T PROT 6.1 LAB L501.1800 3.2-5. g/dL Low 0 ALB 2.9 LAB L501.1950 2.2-4. g/dL Normal 2 GLOB 3.2 LAB L501.2000 0.9-2. RATIO Normal 4 A/G 0.9 LAB L501.2200 8.5-10 mg/dL Normal .1 CA 8.8 LAB L501.4100 15-37 U/L Normal AST 27 LAB L501.4305 45-117 U/L High ALK P 518 LAB L501.4405 16-61 U/L Normal ALT 26 LAB L501.4600 0.20-1 mg/dL Normal .00 T BILI 0.90 LAB L501.5300 136-14 mmol/L Normal 5 NA 144 LAB L501.5600 3.5-5. mmol/L Normal 1 K 4.0 LAB L501.5900 98-107 mmol/L High CL 108 LAB L501.6100 21.0-3 mmol/L Normal 2.0 CO2 29.0 LAB L501.6200 5-15 Normal GAP 7 Performed By: #### L500.4050 #### [facility] [address] [place], [place], [id number] CBC W/DIFF, AUTOMATED Collected: 08/28/2018 Status: C Source: INGALLS 4:54 AM [facility] [place] [facility] TYPE CODE TESTS RESULT OUT OF RANGE REFERENCE UNITS LAB L100.1000 4.4-11.0 K/mm3 Normal WBC 5.2 LAB L100.1200 4.6-6.2 M/mm3 Low RBC 3.97 LAB L100.1300 13.0-16.5 g/dl Low HGB 11.7 LAB L100.1400 40-54 % Low HCT 34.4 LAB L100.1500 80-94 fL Normal MCV 86.6 LAB L100.1600 27.0-32.0 pg Normal MCH 29.5 LAB L100.1700 32-36 g/gl Normal MCHC 34.0 LAB L100.1810 11.6-14.6 % Normal RDW CV 12.9 LAB L100.1820 35.1-43.9 fl Normal RDW SD 39.9 LAB L100.1900 150-450 K/mm3 Low alert PLT 30 Result Comment: CRITICAL VALUE VERIFIED. CALLED TO GABO VALDES 08/28/18 0532 Bina Mendenhall. RESULTS READ BACK BY SAME . LAB L100.2000 6.2-12.0 fl Normal MPV 11.8 LAB L100.3100 MANUAL DIFF Normal CELLS COUNTED 100 LAB L100.3200 47-70 % Low SEGS 33 LAB L100.3300 0-5 % Normal BAND 5 LAB L100.3400 0-1 % High META 2 LAB L100.3500 0-0 High MYELO 3 LAB L100.3800 19-41 % High LYMPH 44 LAB L100.3900 0-10 % Normal MONOCYTE 9 LAB L100.4000 0-5 % Normal EOS 3 LAB L100.4100 0-1 % Normal BASOPHIL 1 LAB L100.5500 ADEQ Normal PLT EST MKD DEC LAB L100.7000 NORM C AND C NORMAL Normal RED CELL NORM C+C MORPH LAB L100.2620 2.0-7.7 X10 3/uL Normal Absolute Neut 2.0 LAB L100.2720 0.83-4.51 X10 3/ul Normal Absolute 2.29 Lymph LAB L100.9900 Normal PATH REV Reviewed Result Comment: Neutrophilic left shift. Thrombocytopenia. RBCs - Normocytic and mild Macrocytic anemia. Clinical correlation necessary. The slide was reviewed with Ms. Leana Schneider. James Gandhi M.D. 08/29/18 AMENDED REPORT 08/29/18 1331 PATH REV previously reported as: January Performed By: #### L100.0100 #### [facility] [address] [place], [address] CBC-COMPLETE BLOOD CNT Collected: 08/27/2018 Status: C Source: INGALLS NO DIFF 11:32 PM [facility] [place] [facility] TYPE CODE TESTS RESULT OUT OF RANGE REFERENCE UNITS LAB L100.1000 4.4-11.0 K/mm3 Normal WBC 5.7 LAB L100.1200 4.6-6.2 M/mm3 Low RBC 4.33 LAB L100.1300 13.0-16.5 g/dl Low HGB 12.8 LAB L100.1400 40-54 % Low HCT 37.7 LAB L100.1500 80-94 fL Normal MCV 87.1 LAB L100.1600 27.0-32.0 pg Normal MCH 29.6 LAB L100.1700 32-36 g/gl Normal MCHC 34.0 LAB L100.1810 11.6-14.6 % Normal RDW CV 13.0 LAB L100.1820 35.1-43.9 fl Normal RDW SD 40.1 LAB L100.1900 150-450 K/mm3 Low alert PLT 31 Result Comment: CRITICAL VALUE VERIFIED. CALLED TO MARA NIÑO 08/27/18 AleksandraJeaneth Bina Mendenhall. RESULTS READ BACK BY SAME . LAB L100.2000 6.2-12.0 fl High MPV 12.4 LAB L100.9900 Normal PATH Reviewed REV Result Comment: Neutrophilic left shift. Thrombocytopenia. Clinical correlation necessary. James Gandhi M.D. 08/28/18 AMENDED REPORT 08/28/18 1506 PATH REV previously reported as: January Performed By: #### L100.0500, L100.4500 #### [facility] [address] [place], [address] DIFFERENTIAL COMMENT Collected: 08/27/2018 Status: F Source: INGALLS 11:32 PM [facility] [place] [facility] TYPE CODE TESTS RESULT OUT OF RANGE REFERENCE UNITS LAB L100.4500 Normal SMEAR COMMENT SCAN Result Comment: THROMBOCYTOPENIA OBSERVED. Performed By: #### L100.0500, L100.4500 #### [facility] [address] [place], [address] EMERGENCY DEPARTMENT Observed: 08/27/2018 Status: F Source: [place] SUMMARY 11:27 PM [facility] [place] Medical Records Department [address] [facility] [place] [address] Emergency Department Summary 08/27/182033 MR#: [id number] Acct: [id number] Name: MANISHA DANGELO Rep #: [id number] : 1945 73 From: Brad Celeste MD PCP: NATALEE LYNN Status: ADM ANA - ER Visit Summary Date of Service: 08/27/18 Chief Complaint: Right upper quadrant abdominal pain History of Present Illness: The patient is a 73 M history of reflux and hiatal hernia. For the last 5 weeks she had abdominal pain. Primarily when he eats and primarily the right upper quadrant. He was seen and treated in [place] with a CAT scan which he diagnosed with a hiatal hernia and reflux. He seen a surgeon down there. They are going to get a HIDA scan. Patient states his pain is getting worse. And is lost 28 pounds in the last 5 weeks. He has nausea but no vomiting. No diarrhea. No melena. No fever. Physical Examination: Vital signs are stable and afebrile. He is no acute distress. EENT exam is unremarkable. Neck nontender. Lungs clear to auscultation bilaterally. Heart regular rhythm no murmur. Abdomen soft. Nondistended. Normal bowel sounds. He does have right upper quadrant tenderness. No rebound. He does guard. No hernias. No masses. No signs of obstruction. No pulsatile mass. Patient moving all 4 extremities. Calves nontender. No edema. Neurologically is awake and alert with no focal motor deficits. Back is nontender. Test Results: CBC showed a white count of 5. Hemoglobin of 13. Hemoglobin several weeks ago at another facility was 15. His platelet count is only 34,000 today previously was 212. His BUN is 43 creatinine 1.97 consistent with dehydration and renal insufficiency. Previously his creatinine was 1.5. Liver enzymes are slightly elevated including his alk phos of 614. Lipase is normal. Ultrasound of his gallbladder showed no acute abnormality and was read as normal. I was able to obtain the CAT scan reading from the other facility and that was unremarkable other than a hiatal hernia. Emergency Department Course and Treatment: Treated with IV Zofran. He did not want anything for pain. Ultrasound and labs will be obtained. Repeat exam at 2240 patient is doing better after 2 L of normal saline. He still nauseated despite Zofran x2 and was given a dose of Phenergan. Treatment Plan: Considering the patient's 20 pound weight loss in 5 weeks, his dehydration, renal insufficiency and uncertain cause for the abdominal pain along with his significant thrombocytopenia. I do feel he warrants admission and further evaluation. He may need upper endoscopy. Disposition: Admission. Impression: Acute right upper quadrant abdominal pain of uncertain etiology. Dehydration and renal insufficiency Acute thrombocytopenia 28 pound weight loss of uncertain etiology Intractable nausea This note was generated with Sling dictation software. It may contain incorrect words, spelling, and punctuation that were not noted in review of the chart prior to signing ED Disposition - Plan for ED Patient: Chief Complaint: Abd Pain What to do if you have Problems For any increased pain, shortness of breath, bleeding, nausea or vomiting, chest pain, or any unexpected problems, contact your Primary Care Provider. Call [facility] ([phone]) or report to the closest Emergency Room. Call 911 if necessary. 08/27/18 5452 <Electronically signed by Brad Celeste MD> Date Brad Celeste MD Cosigner Signature (If Indicated): Date CC: NATALEE LYNN HISTORY AND PHYSICAL Observed: 08/27/2018 Status: F Source: SCOTTY EXAM 11:16 PM [facility] [place] Medical Records Department [address] [place] [address] History and Physical 08/27/18 2306 MR#: [id number] Acct: [id number] Name: MANISHA DANGELO Rep #: [id number] : 1945 73 From: Naldo Lopez MD PCP: NATALEE LYNN Status: ADM ANA Y [place] [facility] [id number] Problem List (1) Weight loss Status: Acute (2) History of bladder cancer Status: Chronic (3) Abdominal pain Status: Acute Qualifiers: Abdominal location: generalized Qualified Code(s): R10.84 - Generalized abdominal pain (4) Nausea Status: Acute (5) Anorexia Status: Acute History of Present Illness Date of Admission: 08/27/18 Chief Complaint: abdominal pain, nausea The patient is a 73 year old male patient with chief complain of abdominal pain with nausea. He was seen and sent home form [facility] today with a negative CT scan done at that time. He has a history of bladder cancer 7 years ago for which he has follow up care annually. He has intractable nausea and occasional vomiting with a 28lb weight loss over the past 2 months. Ultrasound of gallbladder is negative. The patient had some relief from Zofran but continues to be nauseated and dehydrated. Plates are low at 34 with no previous history of thrombocytopenia.He will be admitted for further workup and made NPO for surgical evaluation should colonoscopy and endoscopy be deemed appropriate by management consultant. Past Medical History Past Medical History (Chronic Problems): Chronic Problems History of bladder cancer (Chronic) Allergies No Known Allergies Allergy (Verified 08/27/18 20:00) Home Medications: Ambulatory Orders Medication Instructions Recorded Tamsulosin HCl [Flomax] 0.4 mg PO DAILY 08/27/18 Smoking Status: Former smoker - *Family History Maternal History Items: No pertinent history Review of Systems Constitutional: Reports: Weakness, Weight Change, Fatigue. Denies: Chills, Fever HEENT: Denies: Head Aches, Sinus Congestion, Sinus Drainage Cardiovascular: Denies: Chest Pain, Palpitations Respiratory: Denies: Cough, Shortness of breath at rest, Sputum production Gastrointestinal: Reports: Abdominal Pain, Nausea, Vomiting Genitourinary: Denies: Dysuria Musculoskeletal: Denies: Joint Pain, Joint Tenderness Skin: Denies: Rash, Wounds Neurological: Denies: Numbness, Tingling, Focal weakness Psychiatric: Denies: Anxiety, Depression, Homicidal Ideations, Suicidal Ideations Hematologic/ Lymphatic: Denies: Easy Bruising, Easy Bleeding VTE Information - Inpt Only VTE Present on Admission: No VTE Mechan Device Prophylaxis: SCD's VTE Pharm Prophylaxis ordered?: No Reason prophylaxis not ordered:: Medical Contraindication Patient Problems: Active and Suspected Problems Weight loss (Acute) Abdominal pain (Acute) Nausea (Acute) Anorexia (Acute) - Physical Exam General: Alert, Oriented x3, Cooperative HEENT: Atraumatic, Normocephalic Neck: Supple Lungs: Clear to auscultation, Normal air movement Cardiovascular: Regular rate, Regular Rhythm, Normal S1, Normal S2, No murmurs Abdomen: Bowel Sounds Present, Distended, Tender, No hernias noted Extremities: No edema Skin: No rashes, No breakdown Musculoskeletal: No Tenderness to Palpation of Joints or Extremities Neurological: Neuro grossly intact Psych/Mental Status: Normal Affect, Appropriate Vital Signs Temp Pulse Resp BP Pulse Ox 97.4 F L 74 14 157/67 H 97 08/27/18 17:47 08/27/18 21:24 08/27/18 21:24 08/27/18 23:05 08/27/18 21:24 Oxygen Delivery Method Room Air Weight: 180 lb Body Mass Index (BMI) 25.8 Laboratory Tests Past 24 Hrs WBC 5.7 RBC 4.54 L Hgb 13.2 Hct 39.2 L MCV 86.3 MCH 29.1 MCHC 33.7 Assessment/Plan All Active Problems Weight loss (Acute) Abdominal pain (Acute) Nausea (Acute) Anorexia (Acute) Plan - admit to general medical floor - consult Dr Downing for surgical evaluation (possible EGD and colonoscopy) - will make NPO at midnight - d51/2 normal saline at 100cc/hour - zofran 8mg IV q 8hrs prn - phenergan 12.5mg IV q 6hrs prn - morphine 4mg IV q 3 hrs prn pain - CBC, CMP in am - SCDs for DVT prophylaxis - start IV protonix 40mg BID Code Visit Inpatient E AND M: 61850 Init Hosp L3 08/27/18 2316 <Electronically signed by Naldo Lopez MD> Date Naldo Lopez MD Cosigner Signature: Date (if applicable) CC: Naldo Lopez MD; NATALEE LYNN Signed BASIC METABOLIC Collected: 08/27/2018 Status: F Source: [place] PROFILE ([facility]) 8:40 PM [facility] [place] TYPE CODE TESTS RESULT OUT OF RANGE REFERENCE UNITS LAB L501.0100 74-106 mg/dL High GLU 110 Result Comment: Fasting Glucose result from 100 to 125 mg/dL suggests IMPAIRED HOMEOSTASIS per A.D.A. criteria. Please note revised GLUCOSE reference range effective 2017. LAB L501.1000 7-18 mg/dL High BUN 43 LAB L501.1100 0.70-1.30 mg/dL High CREAT,SERUM 1.97 Result Comment: The validity of the calculated GFR AND GFRAA in patients over 70 years has not been determined. Clinical correlation is essential. LAB L501.1110 >60 mL/min Low EST GFR 35 Result Comment: Non- GFR Calc LAB L501.1115 >60 mL/min Low EST GFR - AA 43 Result Comment: GFR Calc LAB L501.1255 ml/min Normal Estimated CRCL 33.45 LAB L501.1300 10-20 RATIO High BUN/CRE 21.8 LAB L501.2200 8.5-10 mg/dL Normal .1 CA 9.1 LAB L501.5300 136-14 mmol/L Normal 5 NA 141 LAB L501.5600 3.5-5. mmol/L Normal 1 K 4.4 LAB L501.5900 98-107 mmol/L Normal CL 107 LAB L501.6100 21.0-3 mmol/L Normal 2.0 CO2 27.0 LAB L501.6200 5-15 Normal GAP 7 Performed By: #### L500.2500, L500.3400, L501.2450 #### [facility] [address] [place], [address] LIVER PROFILE Collected: 08/27/2018 Status: F Source: [place] 8:40 PM [facility] [place] TYPE CODE TESTS RESULT OUT OF RANGE REFERENCE UNITS LAB L501.1500 6.4-8.2 g/dL Normal T PROT 7.1 LAB L501.1800 3.2-5.0 g/dL Normal ALB 3.3 LAB L501.1950 2.2-4.2 g/dL Normal GLOB 3.8 LAB L501.4100 15-37 U/L Normal AST 30 LAB L501.4305 45-117 U/L High ALK P 614 LAB L501.4405 16-61 U/L Normal ALT 29 LAB L501.4600 0.20-1.00 mg/dL High T BILI 1.30 LAB L501.4700 0.00-0.30 mg/dL High D BILI 0.34 Performed By: #### L500.2500, L500.3400, L501.2450 #### [facility] [address] [place], [address] LIPASE Collected: 08/27/2018 Status: F Source: [place] 8:40 PM [facility] [place] TYPE CODE TESTS RESULT OUT OF RANGE REFERENCE UNITS LAB L501.2450 73-393 U/L Normal LIPASE 190 Performed By: #### L500.2500, L500.3400, L501.2450 #### [facility] [address] [place], [address] CBC W/DIFF, AUTOMATED Collected: 08/27/2018 Status: C Source: [place] 8:40 PM [facility] [place] Order Comment: CRITICAL VALUE VERIFIED. CALLED TO [place] [address] 08/27/18 Luis F Calderon. RESULTS READ BACK BY SAME . TYPE CODE TESTS RESULT OUT OF RANGE REFERENCE UNITS LAB L100.1000 4.4-11.0 K/mm3 Normal WBC 5.7 LAB L100.1200 4.6-6.2 M/mm3 Low RBC 4.54 LAB L100.1300 13.0-16.5 g/dl Normal HGB 13.2 LAB L100.1400 40-54 % Low HCT 39.2 LAB L100.1500 80-94 fL Normal MCV 86.3 LAB L100.1600 27.0-32.0 pg Normal MCH 29.1 LAB L100.1700 32-36 g/gl Normal MCHC 33.7 LAB L100.1810 11.6-14.6 % Normal RDW CV 13.2 LAB L100.1820 35.1-43.9 fl Normal RDW SD 41.5 LAB L100.1900 150-450 K/mm3 Low alert PLT 34 LAB L100.2000 6.2-12.0 fl High MPV 12.5 LAB L100.2620 2.0-7.7 X10 3/uL Normal Absolute Neut 2.9 Result Comment: AMENDED REPORT 08/27/182133 Absolute Neut previously reported as: 2.7 X10^3/uL LAB L100.2720 0.83-4.51 X10 3/ul Normal Absolute Lymph 2.45 Result Comment: AMENDED REPORT 08/27/182133 Absolute Lymph previously reported as: 1.92 X10^3/ul LAB L100.3100 MANUAL DIFF Normal CELLS COUNTED 100 LAB L100.3200 47-70 % Low 45 SEGS LAB L100.3300 0-5 % 6 High BAND LAB L100.3800 19-41 % 43 High LYMPH LAB L100.3900 0-10 % 5 Normal MONOCYTE LAB L100.4000 0-5 % 1 Normal EOS LAB L100.5500 ADEQ Normal PLT EST MKD DEC LAB L100.7000 NORM C AND NORMAL C Normal RED CELL MORPH NORM C+C LAB L100.9900 Normal PATH REV Reviewed Result Comment: Thrombocytopenia. Neutrophilic left shift. Clinical correlation necessary. James Gandhi M.D. 08/28/18 AMENDED REPORT 08/28/18 1505 PATH REV previously reported as: May foll Performed By: #### L100.0100 #### [facility] [address] [place], [address] GALLBLADDER Observed: 08/27/2018 Status: F Source: [place] 8:34 PM [facility] REPOSITORY [facility] Imaging Services [address] [address] Gallbladder MR#: [id number] Acct: [id number] Name: MANISHA DANGELO Rep #: [id number] : 1945 [facility] From: Luis Flores MD PCP: NATALEE LYNN Status: REG ER Study: Gallbladder Date of Exam: 08/27/18 Exam# [id number] Ordering Dr: Brad Celeste MD STUDY: ABDOMINAL ULTRASOUND - RIGHT UPPER QUADRANT REASON FOR VISIT: Male, 73 years old. Abdominal pain and vomiting. TECHNIQUE: Ultrasound evaluation of the right upper quadrant was performed with real-time and static ugarte-scale imaging. TECHNICAL QUALITY: Adequate. COMPARISON: None. FINDINGS: Liver: The liver measures 16.9 cm. There is normal echogenicity of the liver. The bile ducts are within normal limits. There is hepatic color flow. The direction of portal flow is hepatopetal. There is no demonstrated mass lesion. Gallbladder: Normal distended gallbladder. The gallbladder wall measures 2 mm. There is a negative sonographic Terry's sign. There is no pericholecystic fluid. There are no gallstones. Common Bile Duct (C.B.D.): The common bile duct measures 4 mm. Pancreas: There is inadequate visualization of the pancreas. Right Kidney: Normal size of the right kidney. The right kidney measures 9.6 cm. Normal renal cortex. The right cortex measures 1.0 cm. There is no demonstrated renal mass or cyst. There is no right hydronephrosis. US/Gallbladder IMPRESSION: No definite abnormality. Electronically Signed: Luis Flores MD at 21:35 EST , Service support , CC: rBad Celeste MD; NATALEE LYNN Melter Supervisor [employer]: Signed CT ABDOMEN/PELVIS WO Observed: 08/01/2018 Status: F Source: LOW [place] 1:32 PM [place] [address] Patient: MANISHA DANGELO Phone#: : 1945 Age: 73 Gender: M Pt. Type: Out Account: [id number] Location: Ordering: NATALEE LYNN Exam Date: 08/01/2018/13:19 Family Phys: NATALEE LYNN Charge Code: 673280 Physician: Doddridge Order #: [id number] DLP Dose#: PROCEDURE: CT ABDOMEN/PELVIS WITHOUT CONTRAST COMPARISON: None. INDICATIONS: Abdominal pain TECHNIQUE: CT images were created without intravenous contrast. All CT scans at this facility use dose modulation, iterative reconstruction, and/or weight based dosing when appropriate to reduce radiation dose to as low as reasonably achievable. IV CONTRAST: No IV contrast used,0ml TOTAL DOSE: 8.7 CTDIvol(mGy) FINDINGS: LIVER: Normal. No enlargement, atrophy, abnormal density, or significant focal lesion. BILIARY: Normal. No visible dilatation or calcification. PANCREAS: Normal. No lesion, fluid collection, ductal dilatation, or atrophy. SPLEEN: Normal. No enlargement or focal lesion. KIDNEYS: Normal. No mass, obstruction, or calcification. ADRENALS: Normal. No mass or enlargement. AORTA/VASCULAR: Normal. No aneurysm. RETROPERITONEUM: Normal. No mass or adenopathy. BOWEL/MESENTERY: Normal. No visible mass, obstruction, or bowel wall thickening. ABDOMINAL WALL: A small paraumbilical hernia with fat is present. URINARY BLADDER: Normal. No visible focal wall thickening, lesion, or calculus. PELVIC NODES: Normal. No adenopathy. PELVIC ORGANS: Normal. No visible mass. Pelvic organs appropriate for patient age. BONES: Degenerative changes of the spine are present. LUNG BASES: Normal. No visible pulmonary or pleural disease. Continued Report - Page 2 of 2 Patient: MANISHA DANGELO Phone#: : 1945 Age: 73 Gender: M Pt. Type: Out Account: [id number] Location: Ordering: NATALEE LYNN Exam Date: 08/01/2018/13:19 Family Phys: NATALEE LYNN Charge Code: 361302 Physician: Doddridge Order #: [id number] DLP Dose#: OTHER: Small hiatal hernia is present. Contrast is identified in the esophagus. Reflux cannot be excluded. CONCLUSION: No acute disease. Dictated by: Mayra Alvarez MD on 08/01/2018 at 14:53 Approved by: Mayra Alvarez MD on 08/01/2018 at 14:53 CREATININE Collected: 07/31/2018 Status: F Source: [facility] 5:33 PM [facility] REPOSITORY TYPE CODE TESTS RESULT OUT OF REFERENCE UNITS RANGE LAB CREATININE 0.7 - 1.3 mg/dl (LOINC) High CREATININE 1.5 Performed By: #### [id number] #### [facility],[address] [place] [address] CHEST PA/LAT Observed: 10/26/2017 Status: F Source: [facility] 3:31 PM [facility] REPOSITORY [place] [address] Patient: MANISHA DANGELO Phone#: : 1945 Age: 72 Gender: M Pt. Type: Out Account: [id number] Location: Ordering: CALLUM TSAI Exam Date: 10/26/2017/15:23 Family Phys: NATALEE LYNN Charge Code: 393750 Physician: Doddridge Order #: [id number] DLP Dose#: PROCEDURE: X-RAY CHEST PA/LAT 2 VIEWS COMPARISON: [facility], XR, CHEST PA/LAT, 04/18/2017, 14:49. INDICATIONS: Cough FINDINGS: LUNGS: Normal. No significant pulmonary parenchymal abnormalities. VASCULATURE: Normal. Unremarkable pulmonary vasculature. CARDIAC: Normal. No cardiac silhouette abnormality or cardiomegaly. MEDIASTINUM: Normal. No visible mass or adenopathy. PLEURA: Normal. No effusion or pleural thickening. BONES: Normal. No fracture or visible bony lesion. OTHER: Negative. CONCLUSION: No acute disease. No significant change has occurred. Dictated by: Jana Mooney MD on 10/26/2017 at 16:44 Approved by: Jana Mooney MD on 10/26/2017 at 16:44 ALLERGIES ALLERGIES DATE TYPE / CODE NAME / CODE REACTION SEVERITY SOURCE 08/27/2018 Drug No Known Unknown [facility] Allergy/416 Allergies/K40773 Hospital 383073(SNOM 0388(RXNORM) Repository ED CT) Drug NO KNOWN [facility] Class/78549 ALLERGIES [address] [place] 1003(SNOMED Repository CT) ENCOUNTERS ENCOUNTERS ADMIT/DISCHARGE ACCOUNT ADMITTING ENCOUNTER LOCATION SOURCE NUMBER CLASS 10/18/2018/10/19/19 [id number] Ambulatory [address] [place] Repository 10/18/2018 [id number] Ambulatory [facility] [place] Repository 10/18/2018/10/18/19 [id number] Ambulatory [address] [place] Repository 10/16/2018/10/16/19 [id number] LENA JOSEPH Ambulatory [address] Other [place] Repository 10/12/2018/10/15/19 [id number] Ambulatory [address] [place] Repository 10/12/2018/10/15/19 [id number] Ambulatory [address] [place] Repository 10/11/2018 [id number] [facility] ing:[facility] Repository 10/10/2018/10/11/19 [id number] Ambulatory [address] [place] Repository 10/10/2018/10/11/19 [id number] Ambulatory [address] [place] Repository 10/03/2018/10/04/19 [id number] Ambulatory [address] [place] Repository 10/03/2018/10/03/19 [id number] RICARDO SPENCEDONA Ambulatory [address] [place] Repository 10/01/2018/10/01/19 [id number] Ambulatory [address] [place] Repository 10/01/2018/10/02/19 [id number] Ambulatory [address] [place] Repository 10/01/2018/10/02/19 [id number] Ambulatory [address] [place] Repository 09/27/2018/01/04/20 [id number] Ambulatory [address] Repository 09/06/2018/09/07/20 [id number] Ambulatory [address] Repository 09/06/2018/09/07/20 [id number] Ambulatory [address] Repository 08/29/2018 [id number] BINH, Ambulatory [facility] Repository 08/28/2018 [id number] Naldo Lopez Ambulatory BMSBuilding:Leah Fajardo [place].[facility]ly [facility] Repository 08/28/2018 [id number] Naldo Lopez Ambulatory BMSBuilding:B [place].[facility] Repository 08/28/2018 [id number] Naldo Lopez Ambulatory BMSBuilding:Leah Fajardo MS.CF.[facility] Repository 08/28/2018 [id number] Naldo Lopez Ambulatory BMSBuilding:Leah Faj[place] MS.[facility]ly [facility] Repository 08/28/2018 [id number] Naldo Lopez Ambulatory BMSBuilding:Leah Faj[place] MS.Count includes the [facility] Repository 08/28/2018 [id number] Naldo Lopez Ambulatory BMSBuilding:Leah F[place] MS.CF.[facility] Repository 08/28/2018 [id number] Naldo Lopez Ambulatory BMSBuilding:Leah Fajardo MS.[facility] Repository 08/28/2018 [id number] Naldo Lopez Ambulatory BMSBuilding:B [place].Count includes the [facility] Repository 08/28/2018 [id number] Naldo Lopez Ambulatory BMSBuilding:Leah [place] MS.CF.[facility] Repository 08/28/2018 [id number] Naldo Lopez Ambulatory BMSBuilding:B [place].CF.[facility] Repository 08/28/2018 [id number] Naldo Lopez Ambulatory BMSBuilding:Leah [place] MS.Count includes the [facility] Repository 08/28/2018/08/31/20 [id number] Ambulatory BMSBuilding:W [place] [address] [place] [address] Repository 08/28/2018/08/31/20 [id number] Naldo Lopez [address] [facility] ing:PH7Wujs: Repository FL646Mbe: 1 08/27/2018 [id number] Jessica Naldo Ambulatory BMSBuilding:B [place].WIP [facility] Repository 08/21/2018 [id number] BINH, Ambulatory [place] KAMRYN [facility] Repository 08/01/2018/08/01/20 [id number] NATALEE LYNN Ambulatory [place] [facility] Repository 07/31/2018/07/31/20 [id number] [facility] Ambulatory [place] [facility] Repository 11/02/2017/11/02/19 [id number] [facility] Ambulatory [place] [facility] Repository 10/26/2017/10/26/19 [id number] LAURA, Ambulatory [place] [address] [place] [facility] Repository PAYERS PAYERS ENCOUNTER GUARANTOR PAYER SUBSCRIBER SOURCE 10/11/2018 MANISHA E Primary MANISHA E [place] [id number] Insurance:MEDICARE PART PATTERSONDOB: [facility] Number: [id number] [id number] Repository [address]Dda: (330) Date:2018-10-10 [phone] () 10/11/2018 Secondary MANISHA E [place] Insurance:ASSURED PATTERSONDOB: Critical access hospital Number: [id number] Hospital [id number] Repository Date:2108-41-79[address] [address]JA: 10/11/2018 Tertiary Insurance:SELF NOT GIVENUNK [place] PAY INSURANCEPolicy [facility] Number: Effective Hospital Date:2018-10-10 Repository 08/29/2018 MANISHA Primary Insurance:500 MANISHA E [place] PATTERSONDOB: MEDICARE PATTERSONDOB: [facility] [id number] Number: [place], [place] [id number] [place], [place] [address]Ucy: (330) Date:Plan Name: [id number] [phone] () 08/29/2018 Secondary MANISHA E [place] Insurance:ASSURED LIFE PATTERSONDOB: [facility] [id number] Hospital Number: [place] Repository [id number], Date: [address] [place] [address] [place] [id number]: 08/28/2018 MANISHA E Primary MANISHA E [place] [id number] Insurance:MEDICARE PART PATTERSONDOB: [facility] Number: [id number], [place] [id number] Repository [address]Hkc: (330) Date:2018-08-27 [phone] () 08/28/2018 Secondary MANISHA E [place] Insurance:ASSURED PATTERSONDOB: Critical access hospital Number: [id number] Hospital [id number] Repository Date:4237-10-47[address] [address]KI: 08/28/2018 Tertiary Insurance:SELF NOT GIVENUNK [place] PAY INSURANCEPoly [facility] Number: Effective Hospital Date:2018-08-28 Repository 08/28/2018 MANISHA E Primary MANISHA E [place] [id number] Insurance:MEDICARE PART PATTERSONDOB: [facility] Number: [id number], [place] [id number] Repository [address]Aiz: (330) Date:2018-08-27 [phone] () 08/28/2018 Secondary MANISHA E [place] Insurance:ASSURED PATTERSONDOB: Critical access hospital Number: [id number] Hospital [id number] Repository Date:6940-13-74[address] [address]YU: 08/28/2018 Tertiary Insurance:SELF NOT GIVENUNK [place] PAY INSURANCEPolicy Community Number: Effective Hospital Date:2018-08-28 Repository 08/28/2018 MANISHA E Primary MANISHA E [place] [id number] Insurance:MEDICARE PART PATTERSONDOB: [facility] Number: [id number] [id number] Repository [address]Pqj: (330) Date:2018-08-27 [phone] () 08/28/2018 Secondary MANISHA E [place] Insurance:ASSURED PATTERSONDOB: [facility] LIFEPolicy Number: [id number] Hospital [id number] Repository Date:5022-01-92DA [address] [address]QC: 08/28/2018 Tertiary Insurance:SELF NOT GIVENUNK [place] PAY INSURANCEPolicy Community Number: Effective Hospital Date:2018-08-28 Repository 08/28/2018 MANISHA E Primary MANISHA E [place] [id number] Insurance:MEDICARE PART PATTERSONDOB: [facility] ALBIN A BPolicy Number: [id number], [place] [id number] Repository [address]Avl: (330) Date:[phone] () 08/28/2018 Secondary MANISHA E [place] Insurance:ASSURED PATTERSONDOB[facility] Number: [id number] Hospital [id number] Repository Date:6707-37-87IV [address] [place] [address]LU: 08/28/2018 Tertiary Insurance:SELF NOT GIVENUNK [place] PAY INSURANCEPolicy Community Number: Effective Hospital Date:2018-08-28 Repository 08/28/2018 MANISHA E Primary MANISHA E [place] [id number] Insurance:MEDICARE PART [facility] Number: [id number], [place] [id number] Repository [address]Zai: (330) Date:2018-08-27 [phone] () 08/28/2018 Secondary MANISHA E [place] Insurance:ASSURED PATTERSONDOB: [facility] LIFEPolicy Number: [id number] Hospital [id number] Repository Date:4172-86-29UT [address] [address]SM: 08/28/2018 Tertiary Insurance:SELF NOT GIVENUNK [place] PAY INSURANCEPolicy Community Number: Effective Hospital Date:2018-08-28 Repository 08/28/2018 MANISHA E Primary MANISHA E [place] [id number] Insurance:MEDICARE PART PATTERSONDOB: [facility] ALBIN A BPolicy Number: [id number], [place] [id number] Repository [address]Vqp: (330) Date:2018-08-27 [phone] () 08/28/2018 Secondary MANISHA E [place] Insurance:ASSURED PATTERSONDOB: [facility] LIFEPolicy Number: [id number] Hospital [id number] Repository Date:6356-19-16QW [address] [address]CE: 08/28/2018 Tertiary Insurance:SELF NOT GIVENUNK [place] PAY INSURANCEPolicy Community Number: Effective Hospital Date:2018-08-28 Repository 08/28/2018 MANISHA E Primary MANISHA E [place] [id number] Insurance:MEDICARE PART PATTERSONDOB: [facility] ALBIN A olicy Number: [id number], [place] [id number] Repository [address]Tia: (330) Date:2018-08-274521 () 08/28/2018 Secondary MANISHA E [place] Insurance:ASSURED PATTERSONDOB: [facility] LIFEPolicy Number: [id number] Hospital [id number] Repository Date:5118-00-79GT [facility] [address] [place] [address]VC: 08/28/2018 Tertiary Insurance:SELF NOT GIVENUNK [place] PAY INSURANCEPolicy Community Number: Effective Hospital Date:2018-08-28 Repository 08/28/2018 MANISHA E Primary MANISHA E [place] [id number] Insurance:MEDICARE PART PATTERSONDOB: [facility] ALBIN A BPolicy Number: [id number], [place] [id number] Repository [address]Sml: (330) Date:2018-08-27 [phone] () 08/28/2018 Secondary MANISHA E [place] Insurance:ASSURED PATTERSONDOB: [facility] LIFEPolicy Number: [id number] Hospital [id number] Repository Date:9134-33-05AR [address] [place] [address]MB: 08/28/2018 Tertiary Insurance:SELF NOT GIVENUNK [place] PAY INSURANCEPolicy Community Number: Effective Hospital Date:2018-08-28 Repository 08/28/2018 MANISHA E Primary MANISHA E [place] [id number] Insurance:MEDICARE PART PATTERSONDOB: [facility] ALBIN A BPolicy Number: [id number], [place] [id number] Repository [address]Wij: 330) Date:2018-08-27 [phone] () 08/28/2018 Secondary MANISHA E [place] Insurance:ASSURED PATTERSONDOB: [facility] LIFEPolicy Number: [id number] Hospital [id number] Repository Date:0520-82-02[address] [address]XU: 08/28/2018 Tertiary Insurance:SELF NOT GIVENUNK [place] PAY INSURANCEPolicy Community Number: Effective Hospital Date:2018-08-28 Repository 08/28/2018 MANISHA E Primary MANISHA E [place] [id number] Insurance:MEDICARE PART PATTERSONDOB: [facility] BPolicy Number: [id number], [place] [id number] Repository [address]Lek: (330) Date:2018-08-27 [phone] () 08/28/2018 Secondary MANISHA E [place] Insurance:ASSURED PATTERSONDOB: [facility] LIFEPolicy Number: [id number] Hospital [id number] Repository Date:5619-32-02[address] [address]TX: 08/28/2018 Tertiary Insurance:SELF NOT GIVENUNK [place] PAY INSURANCEPolicy Community Number: Effective Hospital Date:2018-08-28 Repository 08/28/2018 MANISHA E Primary MANISHA E [place] [id number] Insurance:MEDICARE PART PATTERSONDOB: [facility] ALBIN A BPolicy Number: [id number], [place] [id number] Repository [address]Yuh: (330) Date:2018-08-27 [phone] () 08/28/2018 Secondary MANISHA E [place] Insurance:ASSURED PATTERSONDOB: [facility] LIFEPolicy Number: [id number] Hospital [id number] Repository Date:7590-46-29JI [address] [place] [address]MR: 08/28/2018 Tertiary Insurance:SELF NOT GIVENUNK [place] PAY INSURANCEPolicy Community Number: Effective Hospital Date:2018-08-28 Repository 08/28/2018 MANISHA E Primary MANISHA E [place] [id number] Insurance:MEDICARE PART PATTERSONDOB: [facility] Number: [id number][place] [id number] Repository [address]Wov: (330) Date:2018-08-27 [phone] () 08/28/2018 Secondary MANISHA E [place] Insurance:ASSURED PATTERSONDOB: [facility] LIFEPolicy Number: [id number] Hospital [id number] Repository Date:2804-67-09LL [address] [address]TC: 08/28/2018 Tertiary Insurance:SELF NOT GIVENUNK [place] PAY INSURANCEPolicy Community Number: Effective Hospital Date:2018-08-28 Repository 08/28/2018 MANISHA E Primary MANISHA E [place] [id number] Insurance:MEDICARE PART [facility]: [id number][place] [id number] Repository [address]Lfc: (330) Date:2018-08-27 [phone] () 08/28/2018 Secondary MANISHA E [place] Insurance:ASSURED PATTERSONDOB: [facility] LIFEPolicy Number: [id number] Hospital [id number] Repository Date:4062-20-38VH[address] [place] [address]ZW: 08/28/2018 Tertiary Insurance:SELF NOT GIVENUNK [place] PAY INSURANCEPolicy Community Number: Effective Hospital Date:2018-08-27 Repository 08/27/2018 MANISHA E Primary MANISHA E [place] [id number] Insurance:MEDICARE PART PATTERSONDOB: [facility] ALBIN A BPolicy Number: [id number] [place] [id number] Repository [address]Plv: 330) Date:2018-08-27 [phone] () 08/27/2018 Secondary MANISHA E [place] Insurance:COMMERCIAL PATTERSONDOB: [facility] Number: [id number] Hospital [id number] Repository Date:3302-25-04ES[address] [address]WP: 08/27/2018 Tertiary Insurance:SELF NOT GIVENUNK [place] PAY INSURANCEPolicy Community Number: Effective Hospital Date:2018-08-27 Repository 08/21/2018 MANISHA Primary MANISHA [place] PATTERSONDOB: Insurance:MEDICAREPolic PATTERSONDOB: [facility] y Number: [id number] [place] [address] [id number], [place] Date:Plan Name:[place], [place] [address]Gsw: (330) [phone] () 08/01/2018 MANISHA Primary Insurance:500 MANISHA E [place] PATTERSONDOB: MEDICARE PATTERSONDOB: [facility] [id number] Hospital ALBIN Number: [place], [place] [id number], [place] [address]Iss: 330) Date:Plan Name: [id number] [phone] () 08/01/2018 Secondary MANISHA E [place] Insurance:ASSURED LIFE PATTERSONDOB: [facility] [id number] Hospital Number: [facility] [id number], Date:[address] [address] [place] [id number]: 07/31/2018 MANISHA Primary Insurance:500 MANISHA E [place] PATTERSONDOB: MEDICARE PATTERSONDOB: [facility] [id number] Hospital ALBIN Number: ALBIN Repository [place] [id number] AVClatskan[place], [place] [address]Qjp: (330) Date:Plan Name: [id number] [phone] () 07/31/2018 Secondary MANISHA E [place] Insurance:ASSURED LIFE PATTERSONDOB: [facility] [id number] Hospital Number: ALBIN Repository [id number] [facility], Date:[address], [place] [address] [place] [id number]: 11/02/2017 MANISHA Primary Insurance:500 MANISHA E [place] PATTERSONDOB: MEDICARE PATTERSONDOB: [facility] [id number] Hospital ALBIN Number: ALBIN Repository [place] [id number] [place] [address]Vmg: (330) Date:Plan Name: [id number] [phone] () 11/02/2017 Secondary MANISHA E [place] Insurance:ASSURED LIFE PATTERSONDOB: [facility] [id number] Hospital Number: ALBIN Repository [id number], Date:Plan Name:[place] [address], [place] [id number]: 10/26/2017 MANISHA Primary Insurance:500 MANISHA E [place] PATTERSONDOB: MEDICARE PATTERSONDOB: [facility] [id number] Number: ALBIN Repository [facility] RANCHODAVEMEY, [id number] KEYAEKSt. [facility] Rehabilitation [facility] [address]Qem: Date:Plan Name: [phone] ()
== END ==
PROVIDERS: Family Provider Internal Medicine Infectious Disease; PCP Internal Medicine Infectious Disease; Visit Provider Internal Medicine Hematology & Oncology
DX: Z51.89 Encounter for other specified aftercare (principal); D64.9 Anemia, unspecified; C61 Malignant neoplasm of prostate; C79.9 Secondary malignant neoplasm of unspecified site
CPT/HCPCS: 36430; 86850; 86900; 86920; 86922; J7040; P9016; A4216

== ENCOUNTER → 2018-11-30 12:07 | Outpatient (CLI) | payer MEDICARE, OTHER, SELFPAY ==
[2018-10-11 08:24] VITALS: BMI 25.5
[2018-11-30 12:19] VITALS: BP 126/69; PULSE 100; RESP 16; BMI 25.5
[2018-11-30 12:41] VITALS: BP 118/55; PULSE 99; RESP 16; TEMP 36.3
[2018-11-30 13:41] VITALS: BP 127/58; PULSE 95; RESP 16; TEMP 36.5
[2018-11-30 14:16] VITALS: BP 129/59; PULSE 94; RESP 18; TEMP 36.5; O2SAT 98
== END ==
PROVIDERS: Family Provider Internal Medicine Infectious Disease; PCP Internal Medicine Infectious Disease; Referring Provider Internal Medicine Hematology & Oncology; Visit Provider Internal Medicine Hematology & Oncology
DX: Z51.89 Encounter for other specified aftercare (principal); C61 Malignant neoplasm of prostate; C79.51 Secondary malignant neoplasm of bone
CPT/HCPCS: 36430; 86850; 86900; 86920; 86922; J7040; P9016

== ENCOUNTER → 2018-12-20 11:44 | Outpatient (CLI) | payer MEDICARE, OTHER, SELFPAY ==
[2018-11-30 12:19] VITALS: BMI 25.5
[2018-12-20 13:20] LABS: Absolute Lymphocyte Count 1.21 X10^3/ul (0.83-4.51); Absolute Neutrophil Count 6.3 X10^3/uL (2.0-7.7); Basophil# 0.07 X10^3/uL; Basophil% 0.9 % (0-1); Differential Indicated SCAN CRITERIA MET; Eosinophil# 0.07 X10^3/uL; Eosinophils% 0.9 % (0-5); Hematocrit 28.8 % (40-54); Hemoglobin 8.9 g/dl (13.0-16.5); Lymphocyte # 1.21 X10^3/ul (4.0); Lymphocyte % 14.8 % (19-41); Mean Corp Hgb Conc 30.9 g/gl (32-36); Mean Corpuscular Hgb 27.6 pg (27.0-32.0); Mean Corpuscular Volume 89.2 fL (80-94); Mean Platelet Vol. 9.7 fl (6.2-12.0); Monocyte# 0.47 X10^3/uL; Monocyte% 5.7 % (0-10); Neutrophil # 6.28 X10^3/uL (2.7-7.7); Neutrophil % 76.7 % (47-70); POSITIVE COUNT NO; POSITIVE DIFFERENTIAL NO; POSITIVE MORPHOLOGY YES; Platelet Count 278 K/mm3 (150-450); RBC Distribution Width SD 65.3 fl (35.1-43.9); Red Blood Count 3.23 M/mm3 (4.6-6.2); White Blood Count 8.2 K/mm3 (4.4-11.0)
== END ==
PROVIDERS: Family Provider Internal Medicine Infectious Disease; PCP Internal Medicine Infectious Disease; Referring Provider Radiology Radiation Oncology; Visit Provider Radiology Radiation Oncology
DX: Z01.818 Encounter for other preprocedural examination (principal); C79.51 Secondary malignant neoplasm of bone; Z85.46 Personal history of malignant neoplasm of prostate
CPT/HCPCS: 36415; 85025

== ENCOUNTER → 2019-01-17 11:06 | Outpatient (CLI) | payer MEDICARE, OTHER, SELFPAY ==
[2018-11-30 12:19] VITALS: BMI 25.5
== END ==
PROVIDERS: Family Provider Internal Medicine Infectious Disease; PCP Internal Medicine Infectious Disease; Referring Provider Radiology Radiation Oncology; Visit Provider Radiology Radiation Oncology
DX: C61 Malignant neoplasm of prostate (principal); C79.51 Secondary malignant neoplasm of bone
CPT/HCPCS: 79101; A9606

== ENCOUNTER → 2019-02-21 11:12 | Outpatient (CLI) | payer MEDICARE, OTHER, SELFPAY ==
[2018-11-30 12:19] VITALS: BMI 25.5
== END ==
PROVIDERS: Family Provider Internal Medicine Infectious Disease; PCP Internal Medicine Infectious Disease; Referring Provider Radiology Radiation Oncology; Visit Provider Radiology Radiation Oncology
DX: C61 Malignant neoplasm of prostate (principal); C79.51 Secondary malignant neoplasm of bone
CPT/HCPCS: 79101; A9606

== ENCOUNTER → 2019-03-26 11:23 | Outpatient (CLI) | payer MEDICARE, OTHER, SELFPAY ==
[2018-11-30 12:19] VITALS: BMI 25.5
== END ==
PROVIDERS: Family Provider Internal Medicine Infectious Disease; PCP Internal Medicine Infectious Disease; Referring Provider Radiology Radiation Oncology; Visit Provider Radiology Radiation Oncology
DX: C61 Malignant neoplasm of prostate (principal); C79.51 Secondary malignant neoplasm of bone
CPT/HCPCS: 79101; A9606

== ENCOUNTER → 2019-04-25 10:55 | Outpatient (CLI) | payer MEDICARE, OTHER, SELFPAY ==
[2018-11-30 12:19] VITALS: BMI 25.5
== END ==
PROVIDERS: Family Provider Internal Medicine Infectious Disease; PCP Internal Medicine Infectious Disease; Referring Provider Radiology Radiation Oncology; Visit Provider Radiology Radiation Oncology
DX: C61 Malignant neoplasm of prostate (principal); C79.51 Secondary malignant neoplasm of bone
CPT/HCPCS: 79101; A9606